=== PATIENT | male | born 1940 | race Caucasian/White ===

== ENCOUNTER 2017-11-22 17:46 | Inpatient (IN) ==
[2017-11-22] MEDS ORDERED: 0.9 % SODIUM CHLORIDE 1,000 ML IV ONE (17:57)
[2017-11-22] MEDS ORDERED: ACETAMINOPHEN 325 MG TABLET PO ONE (18:04)
[2017-11-22] MEDS ORDERED: IPRATROPIUM/ALBUTEROL 3 ML AMPUL.NEB NEB ONE (18:04)
--- NOTE | 2017-11-22 18:16 | XRay Report ---
INDICATION: Cough. Dyspnea. Wheezing. History of prostate cancer TECHNIQUE: AP chest x-ray,portable semiupright COMPARISON: Previous CT scans dated 05/15/2017 and 02/23/2016. Previous chest x-rays dated 02/17/2016 and 09/04/2013 FINDINGS:Disseminated blastic metastases involving multiple ribs, clavicles, scapula, and humerus bilaterally. These have increased since 02/17/2016 Left lung infiltrates. Filtrates are predominantly at the left lung base. Appearance is consistent with pneumonia. Follow-up radiograph recommended. Right lung is negative. No evidence for congestive heart failure. No pleural fluid IMPRESSION: 1. Left basilar infiltrates consistent with pneumonia 2. Disseminated prostatic metastases Interpreted and Authenticated by: Ludwin Mendez 11/22/17
[2017-11-22] MEDS ORDERED: PIPERACILLIN SODIUM/TAZOBACTAM 3.375 GM in DEXTROSE 5% IN WATER 50 ML IV ONE (18:44)
[2017-11-22 19:01] LABS: Mean Cell Volume 95.4 fL (80.0-100.0); Mean Corpuscular HGB Conc 34.6 g/dL (31.0-36.0); Platelet Count 251 K/mcL (140-440); RBC 3.69 M/mcL (4.50-5.90); Red Cell Distribution Width 13.6 % (11.5-14.5)
[2017-11-22 19:12] LABS: ALT/SGPT 7 U/l (0-40); Albumin 3.7 gm/dL (3.2-5.2); Albumin/Globulin Ratio 1.3 (1.0-2.3); Alkaline Phosphatase 95 U/L (39-117); Blood Urea Nitrogen 24 mg/dl (8-23)
--- NOTE | 2017-11-22 19:29 | Emergency Department Note ---
SOB HPI - General Chief Complaint: Shortness of Breath/Dyspnea Stated Complaint: SOB/fever Time Seen by Provider: 11/22/17 17:50 Source: EMS Mode of arrival: other Limitations: no limitations - History of Present Illness 77-year-old male comes into the emergency room with significant increase in his weakness, moist cough temperature 100.1, decreased appetite and hardly able to be active which is new for him. Weakness is such that he can hardly even stand. This is been going on for 2 days. He denies chills and sweats. REVIEW OF SYSTEMS: Denies chest pain or palpitations. Some cough with more wheezing recently and more phlegm some but is yellow and this is somewhat chronic. No abdominal pain. No anxiety. Some depression. - Related Data Home Medications Medication Instructions Recorded Confirmed aspirin 81 mg tablet,delayed 81 mg PO QDAY tab 03/21/15 05/09/17 release multivitamin tablet 1 tab PO QDAY tab 03/21/15 05/09/17 levetiracetam 500 mg tablet PO 90 Days #180 04/28/15 05/09/17 bicalutamide 50 mg tablet 150 mg PO QDAY 30 Days #90 tab 02/01/17 05/09/17 Previous Rx's Medication Instructions Recorded OXYGEN #1 each NS 02/23/16 food supplement, lactose-reduced 1 each PO BID #02499 ml 10/31/16 0.06 gram-1.5 kcal/mL oral liquid albuterol sulfate HFA 90 2 puff INHALATION Q4-6H PRN #18 g 05/09/17 mcg/actuation aerosol inhaler simvastatin 20 mg tablet 40 mg PO QPM #60 tab 05/09/17 tiotropium bromide 18 mcg capsule 1 cap INHALATION QDAY #30 puff 05/09/17 with inhalation device fluoxetine 20 mg tablet 40 mg PO QAM #180 tab 05/27/17 fluticasone-salmeterol 230 mcg-21 2 puff INHALATION BID #12 g 11/08/17 mcg/actuation HFA aerosol inhaler Allergies Allergy/AdvReac Type Severity Reaction Status Date / Time No Known Drug Allergies Allergy Verified 11/22/17 17:47 Past Medical History - Past Medical History Medical history: Reports: cancer (Leukemia 5-6 years.), COPD, hyperlipidemia, hypertension, myocardial infarction, other (Heart murmur.). Denies: CVA, DM Psychiatric history: Reports: depression. Denies: anxiety - Social History smoking status: Current every day smoker (4-5 6 per day) Alcohol use: Reports: None Drug use: Reports: none. Denies: marijuana Physical Exam Limitations: no limitations General appearance: alert, cachectic (Mild.), in no apparent distress Head: atraumatic, normocephalic Eye: Present: EOMI ENT: normal oropharynx, mucous membranes moist Neck: Present: trachea midline. Absent: lymphadenopathy, thyromegaly Respiratory: Present: other (Decreased breath sounds on the right. Requiring 2 L.). Absent: respiratory distress, wheezes, stridor, accessory muscle use, prolonged expiratory phase Cardiovascular: Present: regular rate, normal rhythm. Absent: systolic murmur, diastolic murmur Abdominal: Present: soft. Absent: distention, tenderness, guarding, rebound, rigidity, organomegaly, mass Extremities: Absent: pedal edema, pretibial edema, calf tenderness Back: Absent: CVA tenderness (R), CVA tenderness (L), spinous process tenderness Neurological: Present: alert, oriented X3 Psychiatric: Present: normal affect, normal mood Skin: Present: warm, dry Course Vital Signs Temperature 100.5 F H 11/22/17 17:47 Pulse Rate 91 H 11/22/17 17:47 Respiratory Rate 24 H 11/22/17 17:47 Pulse Oximetry (%) 91 11/22/17 17:47 Temperature 101.1 F H 11/22/17 19:18 Pulse Rate 87 11/22/17 19:15 Respiratory Rate 28 H 11/22/17 19:15 Blood Pressure 128/80 11/22/17 19:02 Pulse Oximetry (%) 94 11/22/17 19:15 Shortness of Breath/Dyspnea - MDM Narrative Medical decision making narrative: Moderate ill appearing gentleman. Will do aggressive workup and sepsis/Sirs workup and treatment. Is on chronic prednisone and inhalers. X-ray demonstrates bilateral pneumonia. Patient given Zosyn. Dr. Torres kindly accepting patient to a monitored bed admit here because of increased oxygen need, fever, meets criteria for SIRS. Note patient described 5-6 years of leukemia. However his chest x-ray shows metastatic prostate lesions that have actually increased. Flu test negative. - Lab Data Lab results reviewed: Yes I reviewed the patient's lab results. Result diagrams: 11/22/17 18:10 11/22/17 18:10 Lab Results 11/22/17 11/22/17 11/22/17 Range/Units 18:10 18:10 18:10 WBC 13.9 H (4.5-11.0) K/mcL RBC 3.69 L (4.50-5.90) M/mcL Hgb 12.2 L (13.5-16.5) g/dL Hct 35.2 L (41.0-55.0) % MCV 95.4 (80.0-100.0) fL MCH 33.0 (26.0-34.0) pg MCHC 34.6 (31.0-36.0) g/dL RDW 13.6 (11.5-14.5) % Plt Count 251 (140-440) K/mcL MPV 8.1 (7.4-10.4) fL Band Neutrophils % Not Reportable VBG Lactic Acid 1.1 (0.5-2.2) mmol/L Sodium 136 (133-145) mmol/L Potassium 3.8 (3.3-5.1) mmol/L Chloride 97 (96-108) mmol/L Carbon Dioxide 24 (22-30) mmol/L Anion Gap 15.0 (8-16) BUN 24 H (8-23) mg/dl Creatinine 0.7 (0.7-1.2) mg/dl GFR Calculation 91 Glucose 81 (70-105) mg/dL Calcium 8.2 L (8.6-10.4) mg/dl Total Bilirubin 1.7 H (0.0-1.0) mg/dL AST 16 (0-37) U/l ALT 7 (0-40) U/l Alkaline Phosphatase 95 (39-117) U/L Total Protein 6.5 (5.9-8.4) gm/dL Albumin 3.7 (3.2-5.2) gm/dL Globulin 2.8 (2.2-3.7) gm/dL Albumin/Globulin Ratio 1.3 (1.0-2.3) Procalcitonin (<0.10) ng/mL 11/22/17 Range/Units 18:10 WBC (4.5-11.0) K/mcL RBC (4.50-5.90) M/mcL Hgb (13.5-16.5) g/dL Hct (41.0-55.0) % MCV (80.0-100.0) fL MCH (26.0-34.0) pg MCHC (31.0-36.0) g/dL RDW (11.5-14.5) % Plt Count (140-440) K/mcL MPV (7.4-10.4) fL Band Neutrophils % VBG Lactic Acid (0.5-2.2) mmol/L Sodium (133-145) mmol/L Potassium (3.3-5.1) mmol/L Chloride (96-108) mmol/L Carbon Dioxide (22-30) mmol/L Anion Gap (8-16) BUN (8-23) mg/dl Creatinine (0.7-1.2) mg/dl GFR Calculation Glucose (70-105) mg/dL Calcium (8.6-10.4) mg/dl Total Bilirubin (0.0-1.0) mg/dL AST (0-37) U/l ALT (0-40) U/l Alkaline Phosphatase (39-117) U/L Total Protein (5.9-8.4) gm/dL Albumin (3.2-5.2) gm/dL Globulin (2.2-3.7) gm/dL Albumin/Globulin Ratio (1.0-2.3) Procalcitonin 0.56 (<0.10) ng/mL - Radiology Data Radiology results reviewed: Yes I reviewed the patient's radiology results. Disposition Pt seen by LABORATORY PHLEBOTOMIST/PA only: No Clinical Impression: Prostate cancer metastatic to bone Pneumonia Qualifiers: Pneumonia type: due to unspecified organism Laterality: left Lung location: lower lobe of lung Qualified Code(s): J18.1 - Lobar pneumonia, unspecified organism Disposition: Xfer As Inpt ([facility]) Referrals: Amberly Velasco, VAMSHI, SH[employer] MECHANIC [Primary Care Provider] -
[2017-11-22 19:51] LABS: Band Neutrophils % 4 % (0-10); Lymphocytes % 6 % (15-49); Monocytes % (Manual) 3 % (1-12); Platelet Estimate NORMAL (NORMAL); RBC Morphology NORMAL (NORMAL); Segmented Neutrophils % 87 % (38-78)
[2017-11-22] MEDS ORDERED: ACETAMINOPHEN 325 MG TABLET PO PRN (20:34)
[2017-11-22] MEDS ORDERED: oxyCODONE/APAP 5/325MG TABLET PO PRN (20:34)
[2017-11-22] MEDS ORDERED: NALOXONE HCL 0.4 MG/ML VIAL IV PRN (20:34)
[2017-11-22] MEDS ORDERED: AZITHROMYCIN 500 MG in DEXTROSE 5% IN WATER 250 ML IV ONE (20:34)
[2017-11-22] MEDS ORDERED: ONDANSETRON 4 MG/2 ML VIAL IV PRN (20:34)
[2017-11-22 20:38] LABS: Appearance,Urine CLOUDY; Bacteria,Urine FEW /hpf (0); Bilirubin,Urine NEG (NEG); Color,Urine YELLOW; Glucose,Urine (UA) NEGATIVE (NEG); Leukocyte Esterase,Urine NEG /uL (NEG); Mucus,Urine MANY /hpf (0); Protein,Urine 30 mg/dL (NEG); Specific Gravity,Urine 1.021 (1.000-1.035); Urine Blood 0.03 mg/dL (<0.03); Urine Granular Cast 17 /lpf (0); Urine RBC 6 /hpf (0-1); Urine Squamous Epithelial Cell 23 /hpf (0-4); Urine Transitional Epi Cells 1 /hpf (0-2); Urine WBC 2 /hpf (0-4)
[2017-11-22] MEDS ORDERED: predniSONE 20 MG TABLET PO ONE (20:44)
--- NOTE | 2017-11-22 21:08 | Internal Med History&Physical ---
Medical - H&P: HPI Patient information: Note initiated : 11/22/17 at 9:05 pm Service Date, if different from initiated Date: [] Patient: Orlando Valdivia Jr 77 y/o M admitted on 11/22/17 for SOB/fever. Chief Complaint: [] History of present illness: Mr. Skip Gil is a 77 year old M who lives with his at home, he has a history of emphysema and metastatic prostate cancer presents to the emergency room for not feeling well since last week. The patient notes that he has not been feeling well over the last week has had decreased appetite and decreased oral intake. He has grown progressively weak tired. He has had increased shortness of breath on exertion. The patient notes that he could walk to the mailbox and back before with a few stops but now even walking from the bed to the door makes him very tired. The patient has chronic cough with scant sputum production. He denies any hemoptysis. Over the last 2 days he is fallen twice on his buttocks, due to his severe weakness. He therefore decided to come to the emergency room for evaluation. The patient denies any head injury In the emergency room the patient was noted to be febrile with a temperature of 101.5, heart rate 90, breathing between 20-28, oxygen saturation 93 on 3 L. The patient uses oxygen at home predominantly at night. According to the last PCP note patient did not need any oxygen during the daytime. Patient had elevated WBC count at 13.9, hemoglobin 12.2 and platelets of 251. Sodium was 136 potassium 3.8 bicarbonate 24. BUN 24 creatinine 0.7. Total bilirubin was 1.7, pro calcitonin was elevated at 0.56. Urine analysis was abnormal, had some hematuria but was negative for leukocyte esterase and nitrites The chest x-ray showed left basilar pneumonia, disseminated prostatic metastasis. EKG showed sinus tachycardia, few PVC, QS pattern in V1 V2\ Given new onset pneumonia, increased oxygen requirements, fever and elevated WBC count patient was admitted to the hospital for further management Review of systems: CONSTITUTIONAL: No weight loss, admits to fever fatigue and tiredness HEENT: Eyes: No visual loss, blurred vision, double vision or yellow sclerae. Ears, Nose, Throat: No hearing loss, sneezing, congestion, runny nose or sore throat. SKIN: No rash or itching. CARDIOVASCULAR: No chest pain, chest pressure or chest discomfort. No palpitations or edema. RESPIRATORY: Patient is shortness of breath on exertion which is worse than baseline, he has chronic cough GASTROINTESTINAL: No nausea, vomiting or diarrhea or constipation. No abdominal pain or blood in stools No Rosanne. GENITOURINARY: Denies Burning on urination. Blood in urine, or foul smelling urine NEUROLOGICAL: No headache, dizziness, syncope, paralysis, tremors, numbness or tingling in the extremities. No change in bowel or bladder control. MUSCULOSKELETAL: No muscle, back pain, joint pain or stiffness. HEMATOLOGIC: No bleeding or bruising. No enlarged nodes PSYCHIATRIC: No depression or anxiety. He takes medications for same ENDOCRINOLOGIC: No reports of sweating, cold or heat intolerance. No polyuria or polydipsia. ALLERGIES: No hives, eczema or rhinitis. Skin: No rash, no jaundice, cyanosis or pallor. Medical - H&P: [facility] Medical history: Medical History (Last Reviewed 05/09/17 @ 15:44 by Amberly Velasco, VAMSHI, [employer]TER) Seizure (Chronic) Prostate cancer metastatic to bone (Chronic) Fracture of right tibial plateau (Acute) Internal derangement of right knee (Acute) Elevated Prostate Specific Antigen (PSA) (Chronic) Syncope, near (Resolved) Sprain of shoulder and upper arm (Resolved) Congenital shortening tendon (Chronic) Mitral valve prolapse (Chronic) Mitral regurgitation (Chronic) Mass of soft tissue (Chronic) Hemorrhoids (Chronic) Diverticulosis of colon (Chronic) Cognitive decline (Chronic) Cervical spondylosis with myelopathy (Chronic) Cervical spinal stenosis (Chronic) Carotid stenosis (Resolved) Carotid artery occlusion (Resolved) TIA (transient ischemic attack) (Chronic) Tobacco abuse (Chronic) Heart murmur, systolic (Chronic) Hypertension, essential, benign (Chronic) Hyperlipidemia (Chronic) Erectile dysfunction (Chronic) Depression (Chronic) COPD (chronic obstructive pulmonary disease) (Chronic) CVA (cerebrovascular accident) (Chronic) Surgical history: Past Surgical History (Last Reviewed 05/09/17 @ 15:44 by Amberly Velasco, VAMSHI, [employer]TER) History of tonsillectomy (Resolved) S/P skin biopsy (Resolved) History of neck surgery (Resolved) History of intraocular lens implant (Resolved) History of colonoscopy (Resolved) History of cataract surgery (Resolved) History of appendectomy (Resolved) History of adenoidectomy (Resolved) Pertinent family history: Family History (Last Reviewed 05/09/17 @ 15:44 by Amberly Velasco, DNP, [employer]TER) No family history of respiratory disease No problems noted. No family history of breast disease No problems noted. No family history of cardiovascular disease No problems noted. No family history of endocrine disease No problems noted. No family history of gastrointestinal disease No problems noted. No family history of neurologic disease No problems noted. Father Bipolar affective disorder Senile dementia Malignant neoplasm of esophagus, Onset Age: 90 Parkinson's Disease Schizophrenia Mother Cardiac disease Family history of rheumatic heart disease Sister Family history of kidney stones Medical - H&P: Meds Home Medications Medication Instructions Recorded Confirmed Type aspirin 81 mg tablet,delayed 81 mg PO QDAY tab 03/21/15 11/22/17 History release multivitamin tablet 1 tab PO QDAY tab 03/21/15 11/22/17 History levetiracetam 500 mg tablet 500 mg PO BID 90 Days #180 04/28/15 05/09/17 History OXYGEN #1 each NS 02/23/16 05/09/17 Rx food supplement, lactose-reduced 1 each PO BID #20138 ml 10/31/16 05/09/17 Rx 0.06 gram-1.5 kcal/mL oral liquid bicalutamide 50 mg tablet 150 mg PO QDAY 30 Days #90 tab 02/01/17 11/22/17 History albuterol sulfate HFA 90 2 puff INHALATION Q4-6H PRN #18 g 05/09/17 11/22/17 Rx mcg/actuation aerosol inhaler simvastatin 20 mg tablet 40 mg PO QPM #60 tab 05/09/17 11/22/17 Rx tiotropium bromide 18 mcg capsule 1 cap INHALATION QDAY #30 puff 05/09/17 Rx with inhalation device fluticasone-salmeterol 230 mcg-21 2 puff INHALATION BID #12 g 11/08/17 Rx mcg/actuation HFA aerosol inhaler Calcium Carbonate/Vitamin D3 1 tablet PO DAILY 11/22/17 11/22/17 History [Calcium 600 + Vit D Tablet] Cyanocobalamin (Vitamin B-12) 5,000 mcg PO DAILY 11/22/17 11/22/17 History [Vitamin B12] FLUoxetine HCL [Sarafem] 20 mg PO 08,12 11/22/17 11/22/17 History Mometasone/Formoterol [Dulera 200 2 puff IH BID 11/22/17 11/22/17 History Mcg/5 Mcg Inhaler] Prochlorperazine Maleate 10 mg PO Q6HP PRN 11/22/17 11/22/17 History [Compazine] Vitamin D3 1,000 unit PO DAILY 11/22/17 11/22/17 History predniSONE [Prednisone] 5 mg PO BID 11/22/17 11/22/17 History Allergies Allergy/AdvReac Type Severity Reaction Status Date / Time No Known Drug Allergies Allergy Verified 11/22/17 17:47 Medical - H&P: Exam - Constitutional Vitals: Temp Pulse Resp BP Pulse Ox 101.1 F H 85 20 110/77 95 11/22/17 19:18 11/22/17 20:16 11/22/17 20:16 11/22/17 20:16 11/22/17 20:16 Exam: GENERAL: The patient is a well-developed, well-nourished in no apparent distress. Is alert and oriented x3. Thin individual VITAL SIGNS: Reviewed and as noted elsewhere. HEENT: Head is normocephalic and atraumatic. Extraocular muscles are intact. Pupils are equal, round, and reactive to light. Nares appeared normal. Mouth appears any without lesions. Mucous membranes are dry NECK: Normal to inspection, Supple, No lymphadenopathy or thyromegaly. LUNGS: Air entry equal on both sides, air entry is decreased bilaterally, there are no crackles no rails, patient has no wheezing on exam, able to speak full sentences no accessory muscle use HEART: Regular rate and rhythm normal, S1 and S2 heard, no Gallop, S3 or Rub Noted, systolic murmur in the mitral region grade 4 x 6 ABDOMEN: Soft, nontender, and nondistended. Positive bowel sounds. No hepatosplenomegaly was noted. Few subcutaneous nodules EXTREMITIES: No cyanosis, clubbing, rash, lesions or edema. NEUROLOGIC: Cranial nerves II through XII are grossly intact. Motor and Sensory System Grossly Intact PSYCHIATRIC: Flat affect, normal Mood. Appropriate Behavior. SKIN: No ulceration or wounds noted, No jaundice, No rash noted. Medical - H&P: Reslt - Labs CBC & Chem 7: 11/22/17 18:10 11/22/17 18:10 Labs: Short CBC 11/22/17 Range/Units 18:10 WBC 13.9 H (4.5-11.0) K/mcL Hgb 12.2 L (13.5-16.5) g/dL Hct 35.2 L (41.0-55.0) % Plt Count 251 (140-440) K/mcL BMP 11/22/17 18:10 Sodium 136 Potassium 3.8 Chloride 97 Carbon Dioxide 24 BUN 24 H Creatinine 0.7 Glucose 81 Calcium 8.2 L Liver Function 11/22/17 Range/Units 18:10 Total Bilirubin 1.7 H (0.0-1.0) mg/dL AST 16 (0-37) U/l ALT 7 (0-40) U/l Alkaline Phosphatase 95 (39-117) U/L Albumin 3.7 (3.2-5.2) gm/dL Urine 11/22/17 Range/Units 20:03 Urine Color Yellow Urine Appearance Cloudy Urine pH 7.0 (5.0-9.0) Ur Specific [place] 1.021 (1.000-1.035) Urine Protein 30 A (NEG) mg/dL Urine Glucose (UA) Negative (NEG) mg/dL Medical - H&P: A/P - Narrative A/P Narrative: A/P Acute on chronic Hypoxic Respiratory Failure Left Lobar Pneumonia Acute exacerbation of COPD Metastatic Prostate Cancer Malnutrition/secondary to emphysema, metatstatic prostate cancer. Sepsis h/o CVA Hypertension Plan Admit to tele Oxygen to keep oxygen sat > 90 BP normal, normal lactic acid IV fluids, IV antibiotics for pna, IV ceftazidime and zithromax, (pt has risk factors for pseudomonas) Monitor bp, hold home bp meds for now resume other home medications as appropriate Duonebs q4hrs, Prednisone 40mg for 5 days, then resume home dose of 5mg bid, consider longer taper if needed. continue asa and statin DVT Hep sq Regular Diet Full Code. Social History - Social History household members: spouse housing: house marital status: occupational status: retired - Dietary Habits well-balanced diet: rarely or never during the past year weight has: decreased > 10 lbs - Exercise physical activity: walking - Tobacco smoking status: Current every day smoker (4-5 6 per day) quit status: not considering quitting counseling given: patient declined - Tobacco Type tobacco type: cigarettes - Cigarette Details per day: 4 pack-years: 50 - Alcohol alcohol intake frequency: former alcohol drinker - Substance use substance use type: does not use - Mary/Synagogue mary/yazidism: Jew - Home Safety working smoke detector in home: Yes - Personal Safety victim of physical abuse: No victim of emotional abuse: No victim of sexual abuse: No
[2017-11-22] MEDS: 0.9 % SODIUM CHLORIDE 1,000 ML IV SCH (21:28)
[2017-11-22] MEDS: cefTAZidime 1 GM VIAL IV SCH (21:52)
[2017-11-22] MEDS: HEPARIN 5,000 UNIT/ML VIAL SQ SCH (21:53)
[2017-11-22] MEDS: FAMOTIDINE 20 MG TABLET PO SCH (21:53)
[2017-11-22] MEDS: 0.9 % SODIUM CHLORIDE 10 ML SYRINGE IV SCH (23:03)
[2017-11-22] MEDS: IPRATROPIUM/ALBUTEROL 3 ML AMPUL.NEB NEB SCH (23:20)
[2017-11-23] MEDS ORDERED: PIPERACILLIN SODIUM/TAZOBACTAM 3.375 GM in DEXTROSE 5% IN WATER 50 ML IV SCH
[2017-11-23] MEDS: IPRATROPIUM/ALBUTEROL 3 ML AMPUL.NEB NEB SCH ×6 (02:43→23:02)
[2017-11-23] MEDS: cefTAZidime 1 GM VIAL IV SCH ×3 (05:22→21:12)
[2017-11-23] MEDS: 0.9 % SODIUM CHLORIDE 10 ML SYRINGE IV SCH ×4 (05:22→21:14)
[2017-11-23 06:02] LABS: Basophils # (Auto) 0 K/mcL (0.0-0.3); Basophils % (Auto) 0.1 % (0.0-2.0); Eosinophils # (Auto) 0.4 K/mcL (0.0-0.7); Eosinophils % (Auto) 3.2 % (0.0-7.0); Granulocytes % (Auto) 90.9 % (38.0-78.0); Lymphocytes # (Auto) 0.3 K/mcL (1.5-4.8); Lymphocytes % (Auto) 2.2 % (15.5-49.0); Mean Cell Volume 95.8 fL (80.0-100.0); Mean Corpuscular HGB Conc 34.2 g/dL (31.0-36.0); Mean Corpuscular Hemoglobin 32.7 pg (26.0-34.0); Monocytes # (Auto) 0.5 K/mcL (0.1-0.9); Monocytes % (Auto) 3.6 % (1.0-12.0); Platelet Count 205 K/mcL (140-440); RBC 3.37 M/mcL (4.50-5.90); Red Cell Distribution Width 13.7 % (11.5-14.5)
--- NOTE | 2017-11-23 06:37 | XRay Report ---
CLINICAL INFORMATION: Fall. Bilateral hip pain. Prostate cancer TECHNIQUE: AP pelvis. AP and lateral bilateral hips COMPARISON: None. FINDINGS: Disseminated blastic metastases consistent with known metastatic prostate cancer. No pelvic fracture. Sacrum is suboptimally visualized but no definite sacral fracture identified. Hips are negative. No fracture or dislocation. No evidence for avascular necrosis. Lower lumbar vertebral bodies are very sclerotic due to metastases. IMPRESSION: 1. Disseminated prostate cancer with multiple sclerotic metastases 2. No acute fracture Interpreted and Authenticated by: Ludwin Mendez 11/23/17
[2017-11-23 07:08] LABS: ALT/SGPT 7 U/l (0-40); Albumin 3.4 gm/dL (3.2-5.2); Albumin/Globulin Ratio 1.4 (1.0-2.3); Alkaline Phosphatase 84 U/L (39-117); Bilirubin,Direct 0.3 mg/dL (0.0-0.3); Blood Urea Nitrogen 22 mg/dl (8-23); Gamma Glutamyl Transpeptidase 10 U/L (8-61); Uric Acid 2.6 mg/dL (2.5-8.0)
[2017-11-23] MEDS: 0.9 % SODIUM CHLORIDE 1,000 ML IV SCH (07:09)
[2017-11-23] MEDS ORDERED: POTASSIUM CHLORIDE 20 MEQ PACKET PO ONE (08:30)
[2017-11-23] MEDS: FAMOTIDINE 20 MG TABLET PO SCH ×2 (09:45→21:13)
[2017-11-23] MEDS: HEPARIN 5,000 UNIT/ML VIAL SQ SCH ×2 (09:45→21:13)
[2017-11-23] MEDS ORDERED: predniSONE 20 MG TABLET PO SCH ×2 (12:00→13:00)
--- NOTE | 2017-11-23 12:03 | Internal Med Progress Note ---
Medical - PN: Subj Patient information: Note initiated : 11/23/17 at 11:59 am Service Date, if different from initiated Date: [] Patient: Orlando Valdivia Jr 77 y/o M admitted on 11/22/17 for SOB/fever. Chief Complaint: [] Interval history: Mr. Skip Gil is a 77 year old M who lives with his at home, he has a history of emphysema and metastatic prostate cancer presents to the emergency room for not feeling well since last week. The patient notes that he has not been feeling well over the last week has had decreased appetite and decreased oral intake. He has grown progressively weak tired. He has had increased shortness of breath on exertion. The patient notes that he could walk to the mailbox and back before with a few stops but now even walking from the bed to the door makes him very tired. The patient has chronic cough with scant sputum production. He denies any hemoptysis. Over the last 2 days he is fallen twice on his buttocks, due to his severe weakness. He therefore decided to come to the emergency room for evaluation. The patient denies any head injury In the emergency room the patient was noted to be febrile with a temperature of 101.5, heart rate 90, breathing between 20-28, oxygen saturation 93 on 3 L. The patient uses oxygen at home predominantly at night. According to the last PCP note patient did not need any oxygen during the daytime. Patient had elevated WBC count at 13.9, hemoglobin 12.2 and platelets of 251. Sodium was 136 potassium 3.8 bicarbonate 24. BUN 24 creatinine 0.7. Total bilirubin was 1.7, pro calcitonin was elevated at 0.56. Urine analysis was abnormal, had some hematuria but was negative for leukocyte esterase and nitrites The chest x-ray showed left basilar pneumonia, disseminated prostatic metastasis. EKG showed sinus tachycardia, few PVC, QS pattern in V1 V2\ Given new onset pneumonia, increased oxygen requirements, fever and elevated WBC count patient was admitted to the hospital for further management November 23 She is seen and examined, no acute overnight events, patient is on 1 L of oxygen now doing well since last night. Patient does not have any wheezing, WBC count is trending down. Potassium was 3.5, total bili 1.5. Patient tolerating p.o. diet well. Okay to transfer to [facility], continue IV antibiotics await cultures Pertinent ROS: Denies headache, dizziness Denies chest pain, palpitations Denies cough or shortness of breath Denies abdominal pain, nausea or vomiting. - Constitutional Vitals: Vital Signs Temp Pulse Resp BP Pulse Ox 100.5 F H 80 20 125/69 95 11/23/17 10:46 11/23/17 11:00 11/23/17 11:00 11/23/17 07:42 11/23/17 10:26 Period Temp Pulse Resp BP Sys/Romo Pulse Ox Last 24 Hr 98.3 F-101.4 F 37-96 10-28 107-150/59-129 83-100 Intake and Output 11/22/17 11/23/17 11/23/17 21:59 05:59 13:59 Intake Total 1050 / 1050 250 / 250 1307 / 1307 Output Total 350 / 350 375 / 375 Balance 1050 / 1050 -100 / -100 932 / 932 Weight 112 lb 14.027 oz Intake & Output: Intake & Output 11/22/17 11/23/17 11/23/17 21:59 05:59 13:59 Intake Total 1050 / 1050 250 / 250 1307 / 1307 Output Total 350 / 350 375 / 375 Balance 1050 / 1050 -100 / -100 932 / 932 Weight 112 lb 14.027 oz Intake: IV 1050 / 1050 250 / 250 967 / 967 Sodium Chloride 0.9% 1,000 ml @ 1000 / 1000 967 / 967 100 mls/hr IV .Q10H [facility] Rx#: [id number] Zosyn 3.375 gm In Dextrose 5% 50 / 50 in Water 50 ml @ 100 mls/hr IV ONCE ONE Rx#:[id number] Oral 340 / 340 Output: Void Amount 350 / 350 375 / 375 Other: Meal Breakfast Percent of Meal Consumed 100% Feeding Ability Independent # Voids 2 1 Medical - PN: Obj Da - Labs CBC & Chem 7: 11/23/17 03:30 11/23/17 03:30 Labs: Abnormal Lab Results 11/23/17 11/23/17 11/22/17 03:30 03:30 20:03 WBC 12.7 H RBC 3.37 L Hgb 11.0 L Hct 32.3 L Gran % 90.9 H Lymph % (Auto) 2.2 L Gran # 11.5 H Lymph # (Auto) 0.3 L Seg Neutrophils % Lymphocytes % Carbon Dioxide 20 L Anion Gap 17.0 H BUN Calcium 7.6 L Phosphorus 2.6 L Total Bilirubin 1.5 H Urine Protein 30 A Urine Ketones 20 A Urine Occult Blood 0.03 A Urine Urobilinogen 4.0 A Urine RBC 6 H Ur Squamous Epith Cells 23 H Urine Bacteria Few A Granular Casts 17 H Urine Mucus Many A 11/22/17 11/22/17 18:10 18:10 WBC 13.9 H RBC 3.69 L Hgb 12.2 L Hct 35.2 L Gran % Lymph % (Auto) Gran # Lymph # (Auto) Seg Neutrophils % 87 H Lymphocytes % 6 L Carbon Dioxide Anion Gap BUN 24 H Calcium 8.2 L Phosphorus Total Bilirubin 1.7 H Urine Protein Urine Ketones Urine Occult Blood Urine Urobilinogen Urine RBC Ur Squamous Epith Cells Urine Bacteria Granular Casts Urine Mucus Meds: Medications Acetaminophen (Tylenol) 650 mg PO Q6HP PRN PRN Reason: PAIN/FEVER > 101 Last Admin: 11/23/17 10:01 Dose: 650 mg Albuterol/Ipratropium (Duoneb) 3 ml NEB Q4HRT [facility] Last Admin: 11/23/17 11:00 Dose: 3 ml Ceftazidime (Fortaz) 1 gm IV Q8H [facility] Last Admin: 11/23/17 05:22 Dose: 1 gm Famotidine (Pepcid) 20 mg PO BID [facility] Last Admin: 11/23/17 09:45 Dose: 20 mg Heparin Sodium (Porcine) (Heparin) 5,000 unit SQ Q12 [facility] Last Admin: 11/23/17 09:45 Dose: 5,000 unit Azithromycin 250 mg/ Dextrose 250 mls @ 250 mls/hr IV DAILY [facility] Stop: 11/26/17 09:59 Sodium Chloride (Sodium Chloride 0.9%) 1,000 mls @ 100 mls/hr IV .Q10H [facility] Stop: 11/23/17 16:33 Last Admin: 11/23/17 07:09 Dose: 100 mls/hr Naloxone HCl (Narcan) 0.1 mg IV Q2MIN PRN PRN Reason: Opiate Reversal Ondansetron HCl (Zofran) 4 mg IV Q4HP PRN PRN Reason: Nausea And Vomiting Oxycodone/Acetaminophen (Percocet 5-325 Mg) 1 tab PO Q4HP PRN PRN Reason: PAIN LEVEL 3-6 Pneumococcal Polyvalent Vaccine (Pneumovax 23) 0.5 ml IM .ONCE ONE Stop: 11/24/17 10:01 Prednisone (Prednisone) 40 mg PO [facility] Stop: 11/28/17 07:59 Sodium Chloride (Saline Flush) 10 ml IV Q8 [facility] Last Admin: 11/23/17 07:37 Dose: 10 ml Medical - PN: A/P - Time Spent With Patient Total time spent is greater than 50% in coordination of care (as documented) at patient's floor/unit and/or counseling patient: - Narrative A/P Narrative: A/P Acute on chronic Hypoxic Respiratory Failure Left Lobar Pneumonia Acute exacerbation of COPD Metastatic Prostate Cancer Malnutrition/secondary to emphysema, metatstatic prostate cancer. Sepsis h/o CVA Hypertension Plan Xfer to med surg Oxygen to keep oxygen sat > 90, on 1L oxygen now, BP is stable, wbc is trending down, continue IV fluids, IV antibiotics for pna, IV ceftazidime and zithromax, (pt has risk factors for pseudomonas), await culture results resume home meds, bp is stable, Duonebs q4hrs, Prednisone 40mg for 5 days, then resume home dose of 5mg bid, consider longer taper if needed. continue asa and statin DVT Hep sq Regular Diet Full Code. Medical - PN: Qual - Stroke Symptom Onset Unknown: No - VTE Deep Vein Thrombosis/Pulmonary Embolism Present on Admission: No
[2017-11-23] MEDS ORDERED: PROCHLORPERAZINE MALEATE 10 MG TABLET PO PRN (12:59)
[2017-11-23] MEDS ORDERED: ONDANSETRON 4 MG/2 ML VIAL IV PRN (12:59)
[2017-11-23] MEDS ORDERED: NALOXONE HCL 0.4 MG/ML VIAL IV PRN (12:59)
[2017-11-23] MEDS ORDERED: oxyCODONE/APAP 5/325MG TABLET PO PRN (12:59)
[2017-11-23] MEDS ORDERED: 0.9 % SODIUM CHLORIDE 1,000 ML IV SCH (12:59)
[2017-11-23] MEDS ORDERED: ACETAMINOPHEN 325 MG TABLET PO PRN (12:59)
[2017-11-23] MEDS ORDERED: AZITHROMYCIN 250 MG in DEXTROSE 5% IN WATER 250 ML IV SCH (14:00)
[2017-11-23] MEDS: AZITHROMYCIN 250 MG in DEXTROSE 5% IN WATER 250 ML IV SCH (14:09)
[2017-11-23] MEDS: Mometasone/Formoterol [Dulera 200 Mcg/5 Mcg Inhaler] INH SCH (20:55)
[2017-11-23] MEDS: levETIRAcetam 500 MG TABLET PO SCH (21:13)
[2017-11-23] MEDS: Fluticasone/Salmeterol [Advair Hfa 230-21 Mcg Inhaler] INH SCH (21:14)
[2017-11-23] MEDS: SIMVASTATIN 20 MG TABLET PO SCH (21:17)
[2017-11-24] MEDS: IPRATROPIUM/ALBUTEROL 3 ML AMPUL.NEB NEB SCH ×6 (04:37→23:14)
[2017-11-24] MEDS: cefTAZidime 1 GM VIAL IV SCH ×3 (05:26→21:56)
[2017-11-24] MEDS: 0.9 % SODIUM CHLORIDE 10 ML SYRINGE IV SCH ×3 (05:26→21:56)
[2017-11-24 06:02] LABS: Basophils # (Auto) 0 K/mcL (0.0-0.3); Basophils % (Auto) 0 % (0.0-2.0); Eosinophils # (Auto) 0.4 K/mcL (0.0-0.7); Granulocytes % (Auto) 88.7 % (38.0-78.0); Lymphocytes # (Auto) 0.3 K/mcL (1.5-4.8); Lymphocytes % (Auto) 2.9 % (15.5-49.0); Mean Cell Volume 95.8 fL (80.0-100.0); Mean Corpuscular HGB Conc 33.9 g/dL (31.0-36.0); Mean Corpuscular Hemoglobin 32.5 pg (26.0-34.0); Monocytes # (Auto) 0.4 K/mcL (0.1-0.9); Monocytes % (Auto) 4.4 % (1.0-12.0); Platelet Count 239 K/mcL (140-440); RBC 2.98 M/mcL (4.50-5.90); Red Cell Distribution Width 13.7 % (11.5-14.5)
[2017-11-24 06:25] LABS: ALT/SGPT 8 U/l (0-40); Albumin 2.7 gm/dL (3.2-5.2); Alkaline Phosphatase 77 U/L (39-117); Bilirubin,Direct < 0.2 mg/dL (0.0-0.3); Blood Urea Nitrogen 23 mg/dl (8-23); Gamma Glutamyl Transpeptidase 8 U/L (8-61); Uric Acid 2.7 mg/dL (2.5-8.0)
[2017-11-24] MEDS: Mometasone/Formoterol [Dulera 200 Mcg/5 Mcg Inhaler] INH SCH ×2 (07:54→21:57)
[2017-11-24] MEDS: TIOTROPIUM BROMIDE 18 MCG INHALANT INH SCH (07:54)
[2017-11-24] MEDS ORDERED: POTASSIUM PHOSPHATE 40 MEQ in DEXTROSE 5% IN WATER 500 ML IV ONE (08:30)
[2017-11-24] MEDS: BICALUTAMIDE 50 MG TABLET PO SCH (09:22)
[2017-11-24] MEDS: CYANOCOBALAMIN (VITAMIN B-12) 500 MCG TABLET PO SCH (09:22)
[2017-11-24] MEDS: MULTIVIT,THER IRON,CA,FA & MIN 1 TABLET PO SCH (09:22)
[2017-11-24] MEDS: CALCIUM W/VIT D3 500 MG TABLET PO SCH (09:22)
[2017-11-24] MEDS: levETIRAcetam 500 MG TABLET PO SCH ×2 (09:22→21:57)
[2017-11-24] MEDS: FAMOTIDINE 20 MG TABLET PO SCH ×2 (09:22→21:57)
[2017-11-24] MEDS: ASPIRIN 81 MG TAB.CHEW PO SCH (09:22)
[2017-11-24] MEDS: AZITHROMYCIN 250 MG in DEXTROSE 5% IN WATER 250 ML IV SCH (09:22)
[2017-11-24] MEDS: VITAMIN D3 1,000 UNIT TABLET PO SCH (09:22)
[2017-11-24] MEDS: FLUoxetine HCL 20 MG CAPSULE PO SCH ×2 (09:22→12:07)
[2017-11-24] MEDS: predniSONE 20 MG TABLET PO SCH (09:22)
[2017-11-24] MEDS: Fluticasone/Salmeterol [Advair Hfa 230-21 Mcg Inhaler] INH SCH ×2 (09:23→21:57)
[2017-11-24] MEDS: HEPARIN 5,000 UNIT/ML VIAL SQ SCH ×2 (09:23→21:57)
[2017-11-24] MEDS ORDERED: PNEUMOCOCCAL 23-VAL P-SAC VAC 0.5 ML VIAL IM ONE (10:00)
[2017-11-24] MEDS ORDERED: FLU VACC QS2017-18 36MOS UP/PF 60 MCG/0.5 ML SYRINGE IM ONE (10:15)
--- NOTE | 2017-11-24 11:55 | Internal Med Progress Note ---
Medical - PN: Subj Patient information: Note initiated : 11/24/17 at 11:53 am Service Date, if different from initiated Date: [] Patient: Orlando Valdivia Jr 77 y/o M admitted on 11/22/17 for SOB/fever. Chief Complaint: [] Interval history: Mr. Skip Gil is a 77 year old M who lives with his at home, he has a history of emphysema and metastatic prostate cancer presents to the emergency room for not feeling well since last week. The patient notes that he has not been feeling well over the last week has had decreased appetite and decreased oral intake. He has grown progressively weak tired. He has had increased shortness of breath on exertion. The patient notes that he could walk to the mailbox and back before with a few stops but now even walking from the bed to the door makes him very tired. The patient has chronic cough with scant sputum production. He denies any hemoptysis. Over the last 2 days he is fallen twice on his buttocks, due to his severe weakness. He therefore decided to come to the emergency room for evaluation. The patient denies any head injury In the emergency room the patient was noted to be febrile with a temperature of 101.5, heart rate 90, breathing between 20-28, oxygen saturation 93 on 3 L. The patient uses oxygen at home predominantly at night. According to the last PCP note patient did not need any oxygen during the daytime. Patient had elevated WBC count at 13.9, hemoglobin 12.2 and platelets of 251. Sodium was 136 potassium 3.8 bicarbonate 24. BUN 24 creatinine 0.7. Total bilirubin was 1.7, pro calcitonin was elevated at 0.56. Urine analysis was abnormal, had some hematuria but was negative for leukocyte esterase and nitrites The chest x-ray showed left basilar pneumonia, disseminated prostatic metastasis. EKG showed sinus tachycardia, few PVC, QS pattern in V1 V2\ Given new onset pneumonia, increased oxygen requirements, fever and elevated WBC count patient was admitted to the hospital for further management November 23 She is seen and examined, no acute overnight events, patient is on 1 L of oxygen now doing well since last night. Patient does not have any wheezing, WBC count is trending down. Potassium was 3.5, total bili 1.5. Patient tolerating p.o. diet well. Okay to transfer to [facility] status, continue IV antibiotics await cultures november 24 Patient seen and examined, no acute overnight events, still requiring 1-2 L oxygen during the daytime. The patient uses oxygen at night and as needed during the day according to him. He feels much better he is able to tolerate p.o. diet very well labs are stable. Plan continue IV antibiotics wean off oxygen as tolerated get chest x-ray in the morning consider discharge at home tomorrow. Patient's is admitted to the hospital in the ICU at present Replace low potassium and phosphate Pertinent ROS: Denies headache, dizziness Denies chest pain, palpitations Denies cough or shortness of breath Denies abdominal pain, nausea or vomiting. - Constitutional Vitals: Vital Signs Temp Pulse Resp BP Pulse Ox 97.4 F 72 16 133/77 96 11/24/17 06:31 11/24/17 11:41 11/24/17 11:41 11/24/17 06:31 11/24/17 06:31 Period Temp Pulse Resp BP Sys/Romo Pulse Ox Last 24 Hr 97.4 F-99.8 F 70-84 14-18 108-133/65-77 93-96 Intake and Output 11/23/17 11/24/17 11/24/17 21:59 05:59 13:59 Intake Total 1590 / 1590 400 / 400 Output Total 200 / 200 200 / 200 Balance 1390 / 1390 200 / 200 Weight 116 lb Intake & Output: Intake & Output 11/23/17 11/24/17 11/24/17 21:59 05:59 13:59 Intake Total 1590 / 1590 400 / 400 Output Total 200 / 200 200 / 200 Balance 1390 / 1390 200 / 200 Weight 116 lb Intake: IV 1250 / 1250 Zithromax 250 mg In Dextrose 5% 250 / 250 in Water 250 ml @ 250 mls/hr IV DAILY [facility] Rx#:[id number] Oral 340 / 340 400 / 400 Output: Void Amount 200 / 200 200 / 200 Other: Meal Dinner Percent of Meal Consumed 100% # Voids 1 Exam: Constitutional; Afebrile, cooperative, alert, not in distress. Eyes- No icterus, , No periorbital swelling Ears- Ext ear normal, Neck- Midline trachea, supple Respiratory system: Air Entry equal on both sides, No crackles or wheezing, no rhonchi. CVS- Rate rhythm regular, S1,S2 heard, no gallop, no rub. 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 Medical - PN: Obj Da - Labs CBC & Chem 7: 11/24/17 04:30 11/24/17 04:30 Labs: Abnormal Lab Results 11/24/17 11/24/17 11/23/17 04:30 04:30 03:30 WBC RBC 2.98 L Hgb 9.7 L Hct 28.5 L Gran % 88.7 H Lymph % (Auto) 2.9 L Gran # 8.1 H Lymph # (Auto) 0.3 L Seg Neutrophils % Lymphocytes % Carbon Dioxide 20 L Anion Gap 17.0 H BUN Creatinine 0.6 L Glucose 115 H Calcium 7.2 L 7.6 L Phosphorus 1.7 L 2.6 L Total Bilirubin 1.5 H Total Protein 5.4 L Albumin 2.7 L Urine Protein Urine Ketones Urine Occult Blood Urine Urobilinogen Urine RBC Ur Squamous Epith Cells Urine Bacteria Granular Casts Urine Mucus 11/23/17 11/22/17 11/22/17 03:30 20:03 18:10 WBC 12.7 H 13.9 H RBC 3.37 L 3.69 L Hgb 11.0 L 12.2 L Hct 32.3 L 35.2 L Gran % 90.9 H Lymph % (Auto) 2.2 L Gran # 11.5 H Lymph # (Auto) 0.3 L Seg Neutrophils % 87 H Lymphocytes % 6 L Carbon Dioxide Anion Gap BUN Creatinine Glucose Calcium Phosphorus Total Bilirubin Total Protein Albumin Urine Protein 30 A Urine Ketones 20 A Urine Occult Blood 0.03 A Urine Urobilinogen 4.0 A Urine RBC 6 H Ur Squamous Epith Cells 23 H Urine Bacteria Few A Granular Casts 17 H Urine Mucus Many A 11/22/17 18:10 WBC RBC Hgb Hct Gran % Lymph % (Auto) Gran # Lymph # (Auto) Seg Neutrophils % Lymphocytes % Carbon Dioxide Anion Gap BUN 24 H Creatinine Glucose Calcium 8.2 L Phosphorus Total Bilirubin 1.7 H Total Protein Albumin Urine Protein Urine Ketones Urine Occult Blood Urine Urobilinogen Urine RBC Ur Squamous Epith Cells Urine Bacteria Granular Casts Urine Mucus Meds: Medications Acetaminophen (Tylenol) 650 mg PO Q6HP PRN PRN Reason: PAIN/FEVER > 101 Albuterol/Ipratropium (Duoneb) 3 ml NEB Q4HRT [facility] Last Admin: 11/24/17 11:41 Dose: 3 ml Aspirin (Aspirin) 81 mg PO DAILY [facility] Last Admin: 11/24/17 09:22 Dose: 81 mg Bicalutamide (Casodex) 150 mg PO QDAY [facility] Last Admin: 11/24/17 09:22 Dose: 150 mg Calcium/Vitamin D (Calcium W/Vit D3) 500 mg PO DAILY [facility] Last Admin: 11/24/17 09:22 Dose: 500 mg Ceftazidime (Fortaz) 1 gm IV Q8H [facility] Last Admin: 11/24/17 05:26 Dose: 1 gm Cyanocobalamin (Vitamin B-12) 5,000 mcg PO DAILY [facility] Last Admin: 11/24/17 09:22 Dose: 5,000 mcg Famotidine (Pepcid) 20 mg PO BID [facility] Last Admin: 11/24/17 09:22 Dose: 20 mg Fluoxetine HCl (Prozac) 20 mg PO BID@0800,1200 [facility] Last Admin: 11/24/17 09:22 Dose: 20 mg Heparin Sodium (Porcine) (Heparin) 5,000 unit SQ Q12 [facility] Last Admin: 11/24/17 09:23 Dose: 5,000 unit Azithromycin 250 mg/ Dextrose 250 mls @ 250 mls/hr IV DAILY [facility] Stop: 11/26/17 09:59 Last Admin: 11/24/17 09:22 Dose: 250 mls/hr Potassium Phosphate 40 meq/ (Dextrose) 509.0909 mls @ 127.273 mls/hr IV ONCE ONE Stop: 11/24/17 12:29 Last Admin: 11/24/17 09:21 Dose: 127.273 mls/hr Iron Carb/Multivit/Randolph/Folic Acid (Multivitamin W/Minerals) 1 tab PO DAILY [facility] Last Admin: 11/24/17 09:22 Dose: 1 tab Levetiracetam (Keppra) 500 mg PO BID [facility] Last Admin: 11/24/17 09:22 Dose: 500 mg Naloxone HCl (Narcan) 0.1 mg IV Q2MIN PRN PRN Reason: Opiate Reversal Ondansetron HCl (Zofran) 4 mg IV Q4HP PRN PRN Reason: Nausea And Vomiting Oxycodone/Acetaminophen (Percocet 5-325 Mg) 1 tab PO Q4HP PRN PRN Reason: PAIN LEVEL 3-6 Fluticasone/Salmeterol [Advair Hfa 230-21 Mcg Inhaler] 2 dose INH BID [facility] Last Admin: 11/24/17 09:23 Dose: Not Given Mometasone/Formoterol [Dulera 200 Mcg/5 Mcg Inhaler] 2 dose INH BID [facility] Last Admin: 11/24/17 07:54 Dose: 2 dose Prednisone (Prednisone) 40 mg PO [facility] Stop: 11/28/17 07:59 Last Admin: 11/24/17 09:22 Dose: 40 mg Prochlorperazine Maleate (Compazine) 10 mg PO Q6HP PRN PRN Reason: Nausea Simvastatin (Zocor) 40 mg PO QPM [facility] Last Admin: 11/23/17 21:17 Dose: 40 mg Sodium Chloride (Saline Flush) 10 ml IV Q8 [facility] Last Admin: 11/24/17 05:26 Dose: 10 ml Tiotropium Maynard (Spiriva) 18 mcg INH QDAY [facility] Last Admin: 11/24/17 07:54 Dose: 18 mcg Vitamin D (Vitamin D3) 1,000 unit PO DAILY [facility] Last Admin: 11/24/17 09:22 Dose: 1,000 unit Medical - PN: A/P - Time Spent With Patient Total time spent is greater than 50% in coordination of care (as documented) at patient's floor/unit and/or counseling patient: - Narrative A/P Narrative: A/P Acute on chronic Hypoxic Respiratory Failure Left Lobar Pneumonia Acute exacerbation of COPD Metastatic Prostate Cancer Malnutrition/secondary to emphysema, metastatic prostate cancer. Sepsis h/o CVA Hypertension Plan Continue to monitor Oxygen to keep oxygen sat > 90, on 1-2L oxygen now, BP is stable, wbc is trending down, continue IV fluids, IV antibiotics for pna, IV ceftazidime and zithromax, (pt has risk factors for pseudomonas), cultures negative growth so far Home medications resumed BP remained stable Duonebs q4hrs, Prednisone 40mg for 5 days, then resume home dose of 5mg bid, consider longer taper if needed. continue asa and statin DVT Hep sq Regular Diet Full Code. Anticipate DC in 24 hours if patient can be weaned off oxygen. Medical - PN: Qual - Stroke Symptom Onset Unknown: No - VTE Deep Vein Thrombosis/Pulmonary Embolism Present on Admission: No
[2017-11-24] MEDS: SIMVASTATIN 20 MG TABLET PO SCH (21:57)
[2017-11-25] MEDS: IPRATROPIUM/ALBUTEROL 3 ML AMPUL.NEB NEB SCH ×3 (04:03→13:12)
[2017-11-25] MEDS: 0.9 % SODIUM CHLORIDE 10 ML SYRINGE IV SCH ×2 (05:31→13:49)
[2017-11-25] MEDS: cefTAZidime 1 GM VIAL IV SCH ×2 (05:31→13:49)
[2017-11-25 06:17] LABS: ALT/SGPT 11 U/l (0-40); Albumin 3.1 gm/dL (3.2-5.2); Albumin/Globulin Ratio 1.3 (1.0-2.3); Alkaline Phosphatase 75 U/L (39-117); Bilirubin,Direct < 0.2 mg/dL (0.0-0.3); Blood Urea Nitrogen 23 mg/dl (8-23); Gamma Glutamyl Transpeptidase 9 U/L (8-61); Uric Acid 2.3 mg/dL (2.5-8.0)
[2017-11-25 06:18] LABS: Basophils # (Auto) 0 K/mcL (0.0-0.3); Basophils % (Auto) 0.1 % (0.0-2.0); Eosinophils # (Auto) 0.2 K/mcL (0.0-0.7); Eosinophils % (Auto) 2.4 % (0.0-7.0); Granulocytes % (Auto) 84.1 % (38.0-78.0); Lymphocytes # (Auto) 0.4 K/mcL (1.5-4.8); Lymphocytes % (Auto) 6.4 % (15.5-49.0); Mean Cell Volume 94.2 fL (80.0-100.0); Mean Corpuscular HGB Conc 34.8 g/dL (31.0-36.0); Mean Corpuscular Hemoglobin 32.8 pg (26.0-34.0); Monocytes # (Auto) 0.4 K/mcL (0.1-0.9); Platelet Count 266 K/mcL (140-440); RBC 2.97 M/mcL (4.50-5.90); Red Cell Distribution Width 13.9 % (11.5-14.5)
[2017-11-25] MEDS: AZITHROMYCIN 250 MG in DEXTROSE 5% IN WATER 250 ML IV SCH (09:19)
[2017-11-25] MEDS: Mometasone/Formoterol [Dulera 200 Mcg/5 Mcg Inhaler] INH SCH (09:19)
[2017-11-25] MEDS: TIOTROPIUM BROMIDE 18 MCG INHALANT INH SCH (09:19)
[2017-11-25] MEDS: FAMOTIDINE 20 MG TABLET PO SCH (09:20)
[2017-11-25] MEDS: levETIRAcetam 500 MG TABLET PO SCH (09:20)
[2017-11-25] MEDS: MULTIVIT,THER IRON,CA,FA & MIN 1 TABLET PO SCH (09:20)
[2017-11-25] MEDS: VITAMIN D3 1,000 UNIT TABLET PO SCH (09:20)
[2017-11-25] MEDS: CYANOCOBALAMIN (VITAMIN B-12) 500 MCG TABLET PO SCH (09:20)
[2017-11-25] MEDS: HEPARIN 5,000 UNIT/ML VIAL SQ SCH (09:20)
[2017-11-25] MEDS: BICALUTAMIDE 50 MG TABLET PO SCH (09:20)
[2017-11-25] MEDS: CALCIUM W/VIT D3 500 MG TABLET PO SCH (09:21)
[2017-11-25] MEDS: predniSONE 20 MG TABLET PO SCH (09:21)
[2017-11-25] MEDS: FLUoxetine HCL 20 MG CAPSULE PO SCH ×2 (09:21→11:59)
[2017-11-25] MEDS: Fluticasone/Salmeterol [Advair Hfa 230-21 Mcg Inhaler] INH SCH (09:21)
[2017-11-25] MEDS: ASPIRIN 81 MG TAB.CHEW PO SCH (09:21)
[2017-11-25] MEDS ORDERED: IPRATROPIUM/ALBUTEROL 3 ML AMPUL.NEB NEB PRN (11:39)
--- NOTE | 2017-11-25 14:12 | Discharge Summary ---
Medical - DS: Prov Patient information: Note initiated : 11/25/17 at 2:10 pm Service Date, if different from initiated Date: [] Patient: Orlando Valdivia Jr 77 y/o M admitted on 11/22/17 for SOB, Fever/ Pneumonia. Date of admission: 11/22/17 20:20 Discharge date: 11/25/17 Primary care physician: Amberly Velasco Consults: 11/22/17 19:25 Consult to Physician [CONS] Stat Comment: Consulting Provider: Homero Torres Reason For Exam: Physician to Consult Medical - DS: Meds - Discharge Medications Prescriptions: RX: Levofloxacin [Levaquin] 750 mg PO DAILY 5 Days #5 tab RX: predniSONE [Prednisone] 20 mg PO DAILY #90 tab Active and Home Medications: Home Medications aspirin 81 mg tablet,delayed release 81 mg PO QDAY tab 03/21/15 [History Confirmed 11/22/17 Last Taken 11/22/17 09:00] multivitamin tablet 1 tab PO QDAY tab 03/21/15 [History Confirmed 11/22/17 Last Taken 11/22/17 09:00] levetiracetam 500 mg tablet 500 mg PO BID 90 Days #180 04/28/15 [History Confirmed 11/23/17 Last Taken 11/22/17 09:00] OXYGEN #1 each NS 02/23/16 [Rx Confirmed 05/09/17 Last Taken 06/12/16] bicalutamide 50 mg tablet 150 mg PO QDAY 30 Days #90 tab 02/01/17 [History Confirmed 11/22/17 Last Taken 11/22/17 09:00] albuterol sulfate HFA 90 mcg/actuation aerosol inhaler 2 puff INHALATION Q4-6H PRN #18 g 05/09/17 [Rx Confirmed 11/22/17 Last Taken Unknown] simvastatin 20 mg tablet 40 mg PO QPM #60 tab 05/09/17 [Rx Confirmed 11/22/17 Last Taken 11/21/17 21:00] tiotropium bromide 18 mcg capsule with inhalation device 1 cap INHALATION QDAY # 30 puff 05/09/17 [Rx Confirmed 11/22/17 Last Taken 11/22/17 09:00] fluticasone-salmeterol 230 mcg-21 mcg/actuation HFA aerosol inhaler 2 puff INHALATION BID #12 g 11/08/17 [Rx Confirmed 11/23/17 Last Taken 11/22/17 09:00] Calcium Carbonate/Vitamin D3 [Calcium 600 + Vit D Tablet] 1 tablet PO DAILY [History Confirmed 11/22/17 Last Taken 11/22/17 09:00] Cyanocobalamin (Vitamin B-12) [Vitamin B12] 5,000 mcg PO DAILY 11/22/17 [ History Confirmed 11/22/17 Last Taken 11/22/17 09:00] Mometasone/Formoterol [Dulera 200 Mcg/5 Mcg Inhaler] 2 puff IH BID 11/22/17 [ History Confirmed 11/22/17 Last Taken 11/22/17 09:00] Prochlorperazine Maleate [Compazine] 10 mg PO Q6HP PRN 11/22/17 [History Confirmed 11/22/17 Last Taken Unknown] RX: FLUoxetine HCL [Sarafem] 20 mg PO 08,12 11/22/17 [History Confirmed Last Taken 11/22/17 09:00] RX: Vitamin D3 1,000 unit PO DAILY 11/22/17 [History Confirmed 11/22/17 Last Taken 11/22/17 09:00] RX: predniSONE [Prednisone] 5 mg PO BID 11/22/17 [History Confirmed 11/22/17 Last Taken 11/22/17 09:00] Medical - DS: Hosp Hospital course: History of present illness: Mr. Skip Gil is a 77 year old M who lives with his at home, he has a history of emphysema and metastatic prostate cancer presents to the emergency room for not feeling well since last week. The patient notes that he has not been feeling well over the last week has had decreased appetite and decreased oral intake. He has grown progressively weak tired. He has had increased shortness of breath on exertion. The patient notes that he could walk to the mailbox and back before with a few stops but now even walking from the bed to the door makes him very tired. The patient has chronic cough with scant sputum production. He denies any hemoptysis. Over the last 2 days he is fallen twice on his buttocks, due to his severe weakness. He therefore decided to come to the emergency room for evaluation. The patient denies any head injury In the emergency room the patient was noted to be febrile with a temperature of 101.5, heart rate 90, breathing between 20-28, oxygen saturation 93 on 3 L. The patient uses oxygen at home predominantly at night. According to the last PCP note patient did not need any oxygen during the daytime. Patient had elevated WBC count at 13.9, hemoglobin 12.2 and platelets of 251. Sodium was 136 potassium 3.8 bicarbonate 24. BUN 24 creatinine 0.7. Total bilirubin was 1.7, pro calcitonin was elevated at 0.56. Urine analysis was abnormal, had some hematuria but was negative for leukocyte esterase and nitrites The chest x-ray showed left basilar pneumonia, disseminated prostatic metastasis. EKG showed sinus tachycardia, few PVC, QS pattern in V1 V2\ Given new onset pneumonia, increased oxygen requirements, fever and elevated WBC count patient was admitted to the hospital for further care November 23 She is seen and examined, no acute overnight events, patient is on 1 L of oxygen now doing well since last night. Patient does not have any wheezing, WBC count is trending down. Potassium was 3.5, total bili 1.5. Patient tolerating p.o. diet well. Okay to transfer to [facility], continue IV antibiotics await cultures november 24 Patient seen and examined, no acute overnight events, still requiring 1-2 L oxygen during the daytime. The patient uses oxygen at night and as needed during the day according to him. He feels much better he is able to tolerate p.o. diet very well labs are stable. Plan continue IV antibiotics wean off oxygen as tolerated get chest x-ray in the morning consider discharge at home tomorrow. Patient's is admitted to the hospital in the ICU at present Replace low potassium and phosphate 25 november Patient is breathing much better, back to baseline. Minimal coughing, no wheezing. States he is ready to go home. Discharge diagnosis: pneumonia, exacerbation of COPD, malnutrition, disseminated prostate ca Secondary discharge diagnosis: Seizure (Chronic) Prostate cancer metastatic to bone (Chronic) Fracture of right tibial plateau (Acute) Internal derangement of right knee (Acute) Elevated Prostate Specific Antigen (PSA) (Chronic) Syncope, near (Resolved) Sprain of shoulder and upper arm (Resolved) Congenital shortening tendon (Chronic) Mitral valve prolapse (Chronic) Mitral regurgitation (Chronic) Mass of soft tissue (Chronic) Hemorrhoids (Chronic) Diverticulosis of colon (Chronic) Cognitive decline (Chronic) Cervical spondylosis with myelopathy (Chronic) Cervical spinal stenosis (Chronic) Carotid stenosis (Resolved) Carotid artery occlusion (Resolved) TIA (transient ischemic attack) (Chronic) Tobacco abuse (Chronic) Heart murmur, systolic (Chronic) Hypertension, essential, benign (Chronic) Hyperlipidemia (Chronic) Erectile dysfunction (Chronic) Depression (Chronic) COPD (chronic obstructive pulmonary disease) (Chronic) CVA (cerebrovascular accident) (Chronic) - Time Spent with Patient Total time spent providing and/or coordinating discharge services: Less than 30 minutes Medical - DS: Exam - Constitutional Vitals: Vital Signs Temp Pulse Pulse Resp BP Pulse Ox 11/25/17 11:55 98.1 F 18 141/79 96 11/25/17 06:29 98.5 F 18 149/83 96 11/25/17 04:06 63 18 11/25/17 03:59 98 F 62 18 150/76 97 11/25/17 00:00 97.4 F 63 17 136/79 96 11/24/17 23:14 72 13 11/24/17 20:00 98.1 F 71 18 148/77 94 11/24/17 19:34 91 11/24/17 19:31 69 14 11/24/17 16:01 78 16 96 11/24/17 15:28 98.8 F 16 126/76 94 Intake and Output 11/25/17 11/25/17 11/25/17 05:59 13:59 21:59 Intake Total 150 / 150 250 / 250 Output Total 200 / 200 Balance -50 / -50 250 / 250 Intake: IV 250 / 250 Zithromax 250 mg In Dextrose 5% 250 / 250 in Water 250 ml @ 250 mls/hr IV DAILY [facility] Rx#:[id number] Oral 150 / 150 Output: Void Amount 200 / 200 Other: Meal ice cream Lunch Percent of Meal Consumed 100% 100% Feeding Ability Independent # Voids 1 # Bowel Movements 1 General appearance: thin - Respiratory Respiratory exam: Present: normal respiratory exam, decreased breath sounds - Cardiovascular Cardiovascular exam: Present: normal rate and rhythm - GI/Abdominal GI/Abdominal exam: Present: normal bowel sounds - Extremities Exam Extremities exam: Present: normal inspection Medical - DS: Data Labs on day of discharge: Labs from last 24 hours 11/25/17 11/25/17 04:30 04:30 WBC 6.4 RBC 2.97 L Hgb 9.7 L Hct 28.0 L MCV 94.2 MCH 32.8 MCHC 34.8 RDW 13.9 Plt Count 266 MPV 8.1 Gran % 84.1 H Lymph % (Auto) 6.4 L Patrick % (Auto) 7.0 Eos % (Auto) 2.4 Baso % (Auto) 0.1 Gran # 5.3 Lymph # (Auto) 0.4 L Patrick # (Auto) 0.4 Eos # (Auto) 0.2 Baso # (Auto) 0 Sodium 142 Potassium 4.2 Chloride 108 Carbon Dioxide 24 Anion Gap 10.0 BUN 23 Creatinine 0.6 L GFR Calculation 97 Glucose 116 H Uric Acid 2.3 L Calcium 7.9 L Phosphorus 1.7 L Magnesium 2.2 Total Bilirubin 0.3 Direct Bilirubin < 0.2 GGT 9 AST 17 ALT 11 Alkaline Phosphatase 75 Lactate Dehydrogenase 150 Total Protein 5.5 L Albumin 3.1 L Globulin 2.4 Albumin/Globulin Ratio 1.3 Triglycerides 83 Preliminary micro results at discharge 11/24/17 05:00 Sputum Culture - Preliminary Sputum - Expectorated 11/22/17 18:15 Blood Culture - Preliminary Blood 11/22/17 18:10 Blood Culture - Preliminary Blood - Impressions CXR IMPRESSION: 1. Left basilar infiltrates consistent with pneumonia 2. Disseminated prostatic metastases Medical - DS: A/P - Patient/Caregiver Discharge Instructions Activity: increase activity as tolerated Diet: Regular Diet - Follow up Plan Follow up with: Amberly Velasco, VAMSHI, INTERNET RETAILER [Primary Care Provider] - Disposition: Home, Self-Care Prognosis: Fair Rehab Potential: Fair Overall status at discharge: patient is back to baseline Medical - DS: Qual - VTE Deep Vein Thrombosis/Pulmonary Embolism Present on Admission: No
== END 2017-11-25 15:55 | disposition home or self-care (01) | DRG 190 ==
LOC: ED 17:46 → ICU 20:20 → MEDSUR 11-23 13:22
PROVIDERS: ADMIT Internal Medicine; ATTEND Specialist

== ENCOUNTER 2017-12-15 08:51 | Observation (INO) ==
--- NOTE | 2017-12-15 09:18 | Emergency Department Note ---
General Adult HPI - General Chief complaint: Weakness Stated complaint: weakness Source: patient, family Mode of arrival: ambulatory Limitations: no limitations - History of Present Illness HPI Narrative: Patient was in the hospital with pneumonia 3 weeks ago and proved went home was feeling well but gradually has become weaker and just not feeling as well anymore. However his cough is not significant. He is not eating and drinking as much as he should. In general he feels weak and tired. He has no specific pains chest pains shortness of breath abdominal pain nausea or other symptoms. - Related Data Home Medications Medication Instructions Recorded Confirmed aspirin 81 mg tablet,delayed 81 mg PO QDAY tab 03/21/15 12/15/17 release multivitamin tablet 1 tab PO QDAY tab 03/21/15 12/15/17 levetiracetam 500 mg tablet 500 mg PO BID 90 Days #180 04/28/15 12/15/17 bicalutamide 50 mg tablet 150 mg PO QDAY 30 Days #90 tab 02/01/17 12/15/17 Calcium Carbonate/Vitamin D3 1 tab PO DAILY 11/22/17 12/15/17 [Calcium 600 + Vit D Tablet] Cyanocobalamin (Vitamin B-12) 5,000 mcg PO DAILY 11/22/17 12/15/17 [Vitamin B12] FLUoxetine HCL [Sarafem] 20 mg PO 08,12 11/22/17 12/15/17 Prochlorperazine Maleate 10 mg PO Q6HP PRN 11/22/17 12/15/17 [Compazine] Vitamin D3 1,000 unit PO DAILY 11/22/17 12/15/17 Previous Rx's Medication Instructions Recorded OXYGEN #1 each NS 02/23/16 albuterol sulfate HFA 90 2 puff INHALATION Q4-6H PRN #18 g 05/09/17 mcg/actuation aerosol inhaler simvastatin 20 mg tablet 40 mg PO QPM #60 tab 05/09/17 tiotropium bromide 18 mcg capsule 1 cap INHALATION QDAY #30 puff 05/09/17 with inhalation device fluticasone-salmeterol 230 mcg-21 2 puff INHALATION BID #12 g 11/08/17 mcg/actuation HFA aerosol inhaler predniSONE [Prednisone] 20 mg PO DAILY #90 tab 11/25/17 Allergies Allergy/AdvReac Type Severity Reaction Status Date / Time No Known Drug Allergies Allergy Verified 11/22/17 17:47 Review of Systems All systems ED: reviewed and negative except as stated. Past Medical History - Past Medical History [facility] Narrative: Medical History (Last Reviewed 12/04/17 @ 10:36 by Amberly Velasco DNP, ALEX) Anemia (Acute) Seizure (Chronic) Prostate cancer metastatic to bone (Chronic) Elevated Prostate Specific Antigen (PSA) (Chronic) Congenital shortening tendon (Chronic) Mitral valve prolapse (Chronic) Mitral regurgitation (Chronic) Mass of soft tissue (Chronic) Hemorrhoids (Chronic) Diverticulosis of colon (Chronic) Cognitive decline (Chronic) Cervical spondylosis with myelopathy (Chronic) Cervical spinal stenosis (Chronic) Carotid stenosis (Resolved) TIA (transient ischemic attack) (Chronic) Tobacco abuse (Chronic) Heart murmur, systolic (Chronic) Hypertension, essential, benign (Chronic) Hyperlipidemia (Chronic) Erectile dysfunction (Chronic) Depression (Chronic) COPD (chronic obstructive pulmonary disease) (Chronic) CVA (cerebrovascular accident) (Resolved) Carotid artery occlusion (Resolved) Fracture of right tibial plateau (Resolved) Internal derangement of right knee (Resolved) Sprain of shoulder and upper arm (Resolved) Syncope, near (Resolved) Past Surgical History (Last Reviewed 12/04/17 @ 10:36 by Amberly Velasco DNP, ALEX) History of colonoscopy (Resolved) History of adenoidectomy (Resolved) History of appendectomy (Resolved) History of cataract surgery (Resolved) History of intraocular lens implant (Resolved) History of neck surgery (Resolved) History of tonsillectomy (Resolved) S/P skin biopsy (Resolved) Family History (Last Reviewed 12/04/17 @ 10:36 by Amberly Velasco DNP, ALEX) No family history of respiratory disease No problems noted. No family history of breast disease No problems noted. No family history of cardiovascular disease No problems noted. No family history of endocrine disease No problems noted. No family history of gastrointestinal disease No problems noted. No family history of neurologic disease No problems noted. Father Bipolar affective disorder Senile dementia Malignant neoplasm of esophagus, Onset Age: 90 Parkinson's Disease Schizophrenia Mother Cardiac disease Family history of rheumatic heart disease Sister Family history of kidney stones Medical history: Reports: cancer (Leukemia 5-6 years.), COPD, hyperlipidemia, hypertension, myocardial infarction, other (Heart murmur.). Denies: CVA, DM Psychiatric history: Reports: depression. Denies: anxiety - Social History smoking status: Current every day smoker Alcohol use: Reports: None Drug use: Reports: none. Denies: marijuana Physical Exam Limitations: no limitations General appearance: alert Head: atraumatic Eye: Present: normal appearance ENT: normal exam Neck: Present: normal inspection Chest: Present: normal inspection Respiratory: Present: normal lung sounds bilaterally Cardiovascular: Present: regular rate, normal rhythm, normal heart sounds Abdominal: Present: soft. Absent: distention, tenderness Neurological: Present: alert Psychiatric: Present: normal affect, normal mood Skin: Present: warm, dry, intact Course Vital Signs Temperature 97.8 F 12/15/17 08:51 Pulse Rate 78 12/15/17 08:51 Respiratory Rate 20 12/15/17 08:51 Blood Pressure 147/87 12/15/17 08:51 Temperature 97.8 F 12/15/17 08:51 Pulse Rate 79 12/15/17 14:46 Respiratory Rate 27 H 12/15/17 14:46 Blood Pressure 144/86 12/15/17 14:46 Pulse Oximetry (%) 99 12/15/17 14:46 Medical Decision Making - [facility] Narrative Medical decision making narrative: This patient continues to be very weak after hydration and eating and will be admitted to the hospital by Dr. Torres. - Lab Data Lab results reviewed: Yes I reviewed the patient's lab results. Result diagrams: 12/15/17 09:18 12/15/17 09:17 Lab Results 12/15/17 12/15/17 12/15/17 Range/Units 09:17 09:17 09:18 WBC 11.4 H (4.5-11.0) K/mcL RBC 3.55 L (4.50-5.90) M/mcL Hgb 11.5 L (13.5-16.5) g/dL Hct 34.1 L (41.0-55.0) % MCV 96.2 (80.0-100.0) fL MCH 32.5 (26.0-34.0) pg MCHC 33.8 (31.0-36.0) g/dL RDW 14.7 H (11.5-14.5) % Plt Count 250 (140-440) K/mcL MPV 7.4 (7.4-10.4) fL Total Counted 100 Seg Neutrophils % 83 H (38-78) % Band Neutrophils % Not Reportable Lymphocytes % 6 L (15-49) % Monocytes % (Manual) 10 (1-12) % Eosinophils % (Manual) 1 (0-7) % Platelet Estimate Normal (NORMAL) RBC Morphology Normal (NORMAL) VBG Lactic Acid 1.2 (0.5-2.2) mmol/L Sodium 138 (133-145) mmol/L Potassium 3.9 (3.3-5.1) mmol/L Chloride 100 (96-108) mmol/L Carbon Dioxide 26 (22-30) mmol/L Anion Gap 12.0 (8-16) BUN 23 (8-23) mg/dl Creatinine 1.2 (0.7-1.2) mg/dl GFR Calculation 58 Glucose 77 (70-105) mg/dL Calcium 7.5 L (8.6-10.4) mg/dl Total Bilirubin 0.9 (0.0-1.0) mg/dL AST 21 (0-37) U/l ALT 10 (0-40) U/l Alkaline Phosphatase 180 H (39-117) U/L Total Protein 6.4 (5.9-8.4) gm/dL Albumin 3.2 (3.2-5.2) gm/dL Globulin 3.2 (2.2-3.7) gm/dL Albumin/Globulin Ratio 1.0 (1.0-2.3) Urine Color Urine Appearance Urine pH (5.0-9.0) Ur Specific [place] (1.000-1.035) Urine Protein (NEG) mg/dL Urine Glucose (UA) (NEG) mg/dL Urine Ketones (NEG) mg/dL Urine Occult Blood (<0.03) mg/dL Urine Nitrate (NEG) Urine Bilirubin (NEG) mg/dL Urine Urobilinogen (NEG) mg/dL Ur Leukocyte Esterase (NEG) /uL Urine RBC (0-1) /hpf Urine WBC (0-4) /hpf Ur Squamous Epith Cells (0-4) /hpf Amorphous Crystals (0) /hpf Urine Bacteria (0) /hpf Ur Culture Indicated? 12/15/17 Range/Units 15:10 WBC (4.5-11.0) K/mcL RBC (4.50-5.90) M/mcL Hgb (13.5-16.5) g/dL Hct (41.0-55.0) % MCV (80.0-100.0) fL MCH (26.0-34.0) pg MCHC (31.0-36.0) g/dL RDW (11.5-14.5) % Plt Count (140-440) K/mcL MPV (7.4-10.4) fL Total Counted Seg Neutrophils % (38-78) % Band Neutrophils % Lymphocytes % (15-49) % Monocytes % (Manual) (1-12) % Eosinophils % (Manual) (0-7) % Platelet Estimate (NORMAL) RBC Morphology (NORMAL) VBG Lactic Acid (0.5-2.2) mmol/L Sodium (133-145) mmol/L Potassium (3.3-5.1) mmol/L Chloride (96-108) mmol/L Carbon Dioxide (22-30) mmol/L Anion Gap (8-16) BUN (8-23) mg/dl Creatinine (0.7-1.2) mg/dl GFR Calculation Glucose (70-105) mg/dL Calcium (8.6-10.4) mg/dl Total Bilirubin (0.0-1.0) mg/dL AST (0-37) U/l ALT (0-40) U/l Alkaline Phosphatase (39-117) U/L Total Protein (5.9-8.4) gm/dL Albumin (3.2-5.2) gm/dL Globulin (2.2-3.7) gm/dL Albumin/Globulin Ratio (1.0-2.3) Urine Color Yellow Urine Appearance Cloudy Urine pH 5.0 (5.0-9.0) Ur Specific [place] 1.015 (1.000-1.035) Urine Protein Neg (NEG) mg/dL Urine Glucose (UA) Negative (NEG) mg/dL Urine Ketones 20 A (NEG) mg/dL Urine Occult Blood 0.2 A (<0.03) mg/dL Urine Nitrate Neg (NEG) Urine Bilirubin Neg (NEG) mg/dL Urine Urobilinogen Neg (NEG) mg/dL Ur Leukocyte Esterase Neg (NEG) /uL Urine RBC 39 H (0-1) /hpf Urine WBC 4 (0-4) /hpf Ur Squamous Epith Cells 0 (0-4) /hpf Amorphous Crystals Few A (0) /hpf Urine Bacteria 0 (0) /hpf Ur Culture Indicated? No - Radiology Data Radiology results reviewed: Yes I reviewed the patient's radiology results. Disposition Pt seen by SUB PLANT MANAGER/PA only: No Clinical Impression: Dehydration Disposition: Xfer As Outpt/Obs ([facility]) Condition: Good Referrals: Amberly Velasco, VAMSHI, SYSTEMS TEST ENGINEER [Primary Care Provider] - Time of Disposition: 15:10
[2017-12-15] MEDS ORDERED: LACTATED RINGERS 1,000 ML IV ONE ×2 (09:27→11:54)
[2017-12-15 10:01] LABS: Mean Cell Volume 96.2 fL (80.0-100.0); Mean Corpuscular HGB Conc 33.8 g/dL (31.0-36.0); Mean Corpuscular Hemoglobin 32.5 pg (26.0-34.0); Platelet Count 250 K/mcL (140-440); RBC 3.55 M/mcL (4.50-5.90); Red Cell Distribution Width 14.7 % (11.5-14.5)
[2017-12-15 10:22] LABS: ALT/SGPT 10 U/l (0-40); Albumin 3.2 gm/dL (3.2-5.2); Alkaline Phosphatase 180 U/L (39-117); Blood Urea Nitrogen 23 mg/dl (8-23)
[2017-12-15 10:24] LABS: Eosinophils % (Manual) 1 % (0-7); Lymphocytes % 6 % (15-49); Monocytes % (Manual) 10 % (1-12); Platelet Estimate NORMAL (NORMAL); RBC Morphology NORMAL (NORMAL); Segmented Neutrophils % 83 % (38-78)
[2017-12-15] MEDS ORDERED: LIDOCAINE JEL 2% 1 TUBE 30GM TOPICAL ONE (13:44)
[2017-12-15 14:50] LABS: Appearance,Urine CLOUDY; Bacteria,Urine 0 /hpf (0); Bilirubin,Urine NEG (NEG); Color,Urine YELLOW; Glucose,Urine (UA) NEGATIVE (NEG); Leukocyte Esterase,Urine NEG /uL (NEG); Protein,Urine NEG (NEG); Specific Gravity,Urine 1.015 (1.000-1.035); Urine Amorphous Crystals FEW /hpf (0); Urine Blood 0.2 mg/dL (<0.03); Urine RBC 39 /hpf (0-1); Urine Squamous Epithelial Cell 0 /hpf (0-4); Urine WBC 4 /hpf (0-4); Urobilinogen,Urine NEG (NEG)
[2017-12-15] MEDS ORDERED: ONDANSETRON 4 MG/2 ML VIAL IV PRN ×2 (16:04→16:51)
[2017-12-15] MEDS ORDERED: ACETAMINOPHEN 325 MG TABLET PO PRN ×2 (16:04→16:51)
[2017-12-15] MEDS ORDERED: MAGNESIUM HYDROXIDE 30 ML ORAL.SUSP PO PRN ×2 (16:04→16:51)
[2017-12-15] MEDS ORDERED: oxyCODONE HCL 5 MG TABLET PO PRN ×2 (16:04→16:51)
[2017-12-15] MEDS ORDERED: SENNOSIDES 1 TABLET PO PRN ×2 (16:04→16:51)
--- NOTE | 2017-12-15 16:04 | XRay Report ---
HISTORY: Reason for Exam:weakness and metastatic prostate cancer FINDINGS: There are multiple blastic metastasis throughout the ribs scapula and humerus and spine. These were seen on prior chest CT. The masslike infiltrate seen posteriorly in the left lower lobe on 12/05/17 is much less conspicuous on today's chest x-ray. No new infiltrate has developed. The heart is normal in size and contour. No pleural effusion or adenopathy are present. IMPRESSION: Improved left lower lobe infiltrate. This is more likely due to pneumonia than tumor. Stable widespread bone metastasis Interpreted and Authenticated by: Max Pearl 12/15/17
[2017-12-15] MEDS ORDERED: LACTATED RINGERS 1,000 ML IV SCH (16:15)
--- NOTE | 2017-12-15 16:22 | Internal Med History&Physical ---
Medical - H&P: HPI Patient information: Note initiated : 12/15/17 at 4:17 pm Service Date, if different from initiated Date: [] Patient: Orlando Valdivia Jr 77 y/o M admitted on for weakness. Chief Complaint: [] History of present illness: Mr. Skip Gil is a 77 year old M history of metastatic cancer, who was recently admitted to this hospital with a diagnosis of pneumonia. The patient was discharged on 25 November, the patient was prescribed levofloxacin and prednisone taper at discharge. According to the patient he was doing well for a few days after discharge however he started to get more weak and more tired again. The patient denies any other acute complaints. He has chronic cough but no sputum production. He denies any fever or any chills. He notes that at baseline he is able to carry out his activities of daily living without much limitations. At this time he finds it difficult to even ambulate around his house. He denies any wheezing. But does have shortness of breath on exertion. The patient has no other symptoms or complaints. During my evaluation he was lying comfortably in bed. The patient was seen by the primary care provider as well as the cancer doctor in the interim. The PCP had ordered a chest CT which showed a left basilar pneumonia. I am not sure if any new antibiotics were prescribed, the patient was also seen by the oncologist and is noted seems it was noted that he was doing better. In the emergency room the patient was stable on presentation, afebrile normal vital signs. Had oxygen needs only when he sleeps otherwise was saturating more than 90% on room air. [He uses oxygen when he sleeps] The patient's labs show some leukocytosis but better than before. Otherwise his labs are unremarkable, urinalysis is negative. Chest x-ray shows improved infiltrate but there is definitely some persistent infiltrate in the left lobe. Official reading is pending. EKG shows sinus rhythm QS pattern in the anterior leads. Given that the patient is extremely weak and unable to go back home he is being admitted to the hospital for further management. Review of systems: CONSTITUTIONAL: No weight loss, fever, chills, significant weakness and fatigue present. HEENT: Eyes: No visual loss, blurred vision, double vision or yellow sclerae. Ears, Nose, Throat: No hearing loss, sneezing, congestion, runny nose or sore throat. SKIN: No rash or itching. CARDIOVASCULAR: No chest pain, chest pressure or chest discomfort. No palpitations or edema. RESPIRATORY: Patient has chronic cough, no sputum production, has shortness of breath on exertion GASTROINTESTINAL: No nausea, vomiting or diarrhea or constipation. No abdominal pain or blood in stools No Rosanne. GENITOURINARY: Denies Burning on urination. Blood in urine, or foul smelling urine NEUROLOGICAL: No headache, dizziness, syncope, paralysis, tremors, numbness or tingling in the extremities. No change in bowel or bladder control. MUSCULOSKELETAL: No muscle, back pain, joint pain or stiffness. HEMATOLOGIC: No bleeding or bruising. No enlarged nodes PSYCHIATRIC: No depression or anxiety. [Has history of same but denies at present] ENDOCRINOLOGIC: No reports of sweating, cold or heat intolerance. No polyuria or polydipsia. ALLERGIES: No hives, eczema or rhinitis. Skin: No rash, no jaundice, cyanosis or pallor. Medical - H&P: [facility] Medical history: Medical History (Last Reviewed 12/04/17 @ 10:36 by Amberly Velasco, VAMSHI, ENTERPRISE APPLICATION ARCHITECT) Anemia (Acute) Seizure (Chronic) Prostate cancer metastatic to bone (Chronic) Elevated Prostate Specific Antigen (PSA) (Chronic) Congenital shortening tendon (Chronic) Mitral valve prolapse (Chronic) Mitral regurgitation (Chronic) Mass of soft tissue (Chronic) Hemorrhoids (Chronic) Diverticulosis of colon (Chronic) Cognitive decline (Chronic) Cervical spondylosis with myelopathy (Chronic) Cervical spinal stenosis (Chronic) Carotid stenosis (Resolved) TIA (transient ischemic attack) (Chronic) Tobacco abuse (Chronic) Heart murmur, systolic (Chronic) Hypertension, essential, benign (Chronic) Hyperlipidemia (Chronic) Erectile dysfunction (Chronic) Depression (Chronic) COPD (chronic obstructive pulmonary disease) (Chronic) CVA (cerebrovascular accident) (Resolved) Carotid artery occlusion (Resolved) Fracture of right tibial plateau (Resolved) Internal derangement of right knee (Resolved) Sprain of shoulder and upper arm (Resolved) Syncope, near (Resolved) Surgical history: Past Surgical History (Last Reviewed 12/04/17 @ 10:36 by Amberly Velasco, VAMSHI, ENTERPRISE APPLICATION ARCHITECT) History of colonoscopy (Resolved) History of adenoidectomy (Resolved) History of appendectomy (Resolved) History of cataract surgery (Resolved) History of intraocular lens implant (Resolved) History of neck surgery (Resolved) History of tonsillectomy (Resolved) S/P skin biopsy (Resolved) Pertinent family history: Family History (Last Reviewed 12/04/17 @ 10:36 by Amberly Velasco, DNP, ENTERPRISE APPLICATION ARCHITECT) No family history of respiratory disease No problems noted. No family history of breast disease No problems noted. No family history of cardiovascular disease No problems noted. No family history of endocrine disease No problems noted. No family history of gastrointestinal disease No problems noted. No family history of neurologic disease No problems noted. Father Bipolar affective disorder Senile dementia Malignant neoplasm of esophagus, Onset Age: 90 Parkinson's Disease Schizophrenia Mother Cardiac disease Family history of rheumatic heart disease Sister Family history of kidney stones Medical - H&P: Meds Home Medications Medication Instructions Recorded Confirmed Type aspirin 81 mg tablet,delayed 81 mg PO QDAY tab 03/21/15 12/15/17 History release multivitamin tablet 1 tab PO QDAY tab 03/21/15 12/15/17 History levetiracetam 500 mg tablet 500 mg PO BID 90 Days #180 04/28/15 12/15/17 History OXYGEN #1 each NS 02/23/16 12/04/17 Rx bicalutamide 50 mg tablet 150 mg PO QDAY 30 Days #90 tab 02/01/17 12/15/17 History albuterol sulfate HFA 90 2 puff INHALATION Q4-6H PRN #18 g 05/09/17 12/15/17 Rx mcg/actuation aerosol inhaler simvastatin 20 mg tablet 40 mg PO QPM #60 tab 05/09/17 12/15/17 Rx tiotropium bromide 18 mcg capsule 1 cap INHALATION QDAY #30 puff 05/09/17 Rx with inhalation device fluticasone-salmeterol 230 mcg-21 2 puff INHALATION BID #12 g 11/08/17 12/15/17 Rx mcg/actuation HFA aerosol inhaler Calcium Carbonate/Vitamin D3 1 tab PO DAILY 11/22/17 12/15/17 History [Calcium 600 + Vit D Tablet] Cyanocobalamin (Vitamin B-12) 5,000 mcg PO DAILY 11/22/17 12/15/17 History [Vitamin B12] FLUoxetine HCL [Sarafem] 20 mg PO 08,12 11/22/17 12/15/17 History Prochlorperazine Maleate 10 mg PO Q6HP PRN 11/22/17 12/15/17 History [Compazine] Vitamin D3 1,000 unit PO DAILY 11/22/17 12/15/17 History predniSONE [Prednisone] 20 mg PO DAILY #90 tab 11/25/17 12/15/17 Rx Allergies Allergy/AdvReac Type Severity Reaction Status Date / Time No Known Drug Allergies Allergy Verified 11/22/17 17:47 Medical - H&P: Exam - Constitutional Vitals: Temp Pulse Resp BP Pulse Ox 97.8 F 74 17 133/65 99 12/15/17 08:51 12/15/17 15:46 12/15/17 15:46 12/15/17 15:46 12/15/17 15:46 Exam: GENERAL: The patient is a well-developed, thin individual, in no apparent distress. Is alert and oriented x3. VITAL SIGNS: Reviewed and as noted elsewhere. HEENT: Head is normocephalic and atraumatic. Extraocular muscles are intact. Pupils are equal, round, and reactive to light. Nares appeared normal. Mouth appears any without lesions. Mucous membranes are dry. NECK: Normal to inspection, Supple, No lymphadenopathy or thyromegaly. LUNGS: Air entry equal on both sides, patient has left basilar crackles, he has prolonged expiratory phase very mild wheeze on the left side. He is able to speak full sentences and has no use of accessory muscles HEART: Regular rate and rhythm normal, S1 and S2 heard, no Gallop, S3 or Rub Noted, No Gross murmur heard. ABDOMEN: Soft, nontender, and nondistended. Positive bowel sounds. No hepatosplenomegaly was noted. EXTREMITIES: No cyanosis, clubbing, rash, lesions or edema. NEUROLOGIC: Cranial nerves II through XII are grossly intact. Motor and Sensory System Grossly Intact PSYCHIATRIC: Normal affect, Normal Mood. Appropriate Behavior. SKIN: No ulceration or wounds noted, No jaundice, No rash noted. Medical - H&P: Reslt - Labs CBC & Chem 7: 12/15/17 09:18 12/15/17 09:17 Labs: Short CBC 12/15/17 Range/Units 09:18 WBC 11.4 H (4.5-11.0) K/mcL Hgb 11.5 L (13.5-16.5) g/dL Hct 34.1 L (41.0-55.0) % Plt Count 250 (140-440) K/mcL BMP 12/15/17 09:17 Sodium 138 Potassium 3.9 Chloride 100 Carbon Dioxide 26 BUN 23 Creatinine 1.2 Glucose 77 Calcium 7.5 L Liver Function 12/15/17 Range/Units 09:17 Total Bilirubin 0.9 (0.0-1.0) mg/dL AST 21 (0-37) U/l ALT 10 (0-40) U/l Alkaline Phosphatase 180 H (39-117) U/L Albumin 3.2 (3.2-5.2) gm/dL Urine 12/15/17 Range/Units 15:10 Urine Color Yellow Urine Appearance Cloudy Urine pH 5.0 (5.0-9.0) Ur Specific [place] 1.015 (1.000-1.035) Urine Protein Neg (NEG) mg/dL Urine Glucose (UA) Negative (NEG) mg/dL Medical - H&P: A/P - Narrative A/P Narrative: A/P Weakness: Etiology? The patient has infiltrate persistent on his chest x-ray may be recurrence of pneumonia. He also has persistent leukocytosis[facility] and [facility]. Check TSH, check cortisol level.(Patient was on steroid taper). EKG does not show any acute cardiac issue Healthcare associated pneumonia-get blood cultures, check pro-calcitonin, await official read of the x-ray, start on IV vancomycin and Zosyn for now. Monitor response. COPD-patient to be treated with steroids and duo nebs for now, has very mild wheeze and prolonged expiratory phase on exam. Has no increased oxygen requirements from baseline. Metastatic prostate cancer-follows with oncology Seizure disorder-on Keppra continue same no recent seizures. History of CVA-on aspirin and statin continue same Hyperlipidemia on statin continue same Depression-continue fluoxetine, patient denies any depressive symptoms at present. DVT-heparin subcu Full code Regular diet. Physical therapy and Occupational Therapy to evaluate the patient. Patient may need to go to a rehab center to gain strength. Social History - Social History household members: spouse housing: house marital status: occupational status: retired - Dietary Habits well-balanced diet: rarely or never during the past year weight has: decreased > 10 lbs - Exercise physical activity: walking - Tobacco smoking status: Current every day smoker quit status: not considering quitting counseling given: patient declined - Tobacco Type tobacco type: cigarettes - Cigarette Details per day: 4 pack-years: 50 - Alcohol alcohol intake frequency: former alcohol drinker - Substance use substance use type: does not use - Mary/Tenriism mary/orthodoxy: Jain - Home Safety working smoke detector in home: Yes - Personal Safety victim of physical abuse: No victim of emotional abuse: No victim of sexual abuse: No
[2017-12-15] MEDS ORDERED: predniSONE 20 MG TABLET PO ONE (16:51)
[2017-12-15] MEDS ORDERED: VANCOMYCIN PER PHARMACY IV SCH (16:51)
[2017-12-15] MEDS: 0.9 % SODIUM CHLORIDE 10 ML SYRINGE IV SCH (17:08)
[2017-12-15] MEDS: LACTATED RINGERS 1,000 ML IV SCH (17:08)
[2017-12-15] MEDS ORDERED: IPRATROPIUM/ALBUTEROL 3 ML AMPUL.NEB NEB SCH (19:00)
[2017-12-15] MEDS: PIPERACILLIN SODIUM/TAZOBACTAM 3.375 GM in DEXTROSE 5% IN WATER 50 ML IV SCH ×2 (19:13→23:49)
[2017-12-15] MEDS: VANCOMYCIN 750 MG in 0.9 % SODIUM CHLORIDE 250 ML IV SCH (19:49)
[2017-12-15] MEDS: IPRATROPIUM/ALBUTEROL 3 ML AMPUL.NEB NEB SCH (19:51)
[2017-12-15] MEDS ORDERED: HEPARIN 5,000 UNIT/ML VIAL SQ SCH (21:00)
[2017-12-15] MEDS: levETIRAcetam 500 MG TABLET PO SCH (21:30)
[2017-12-15] MEDS: HEPARIN 5,000 UNIT/ML VIAL SQ SCH (21:30)
[2017-12-15] MEDS: Fluticasone/Salmeterol [Advair Hfa 230-21 Mcg Inhaler] INH SCH (21:30)
[2017-12-15] MEDS: SIMVASTATIN 20 MG TABLET PO SCH (21:30)
[2017-12-15] MEDS ORDERED: 0.9 % SODIUM CHLORIDE 10 ML SYRINGE IV SCH (22:00)
[2017-12-16] MEDS: 0.9 % SODIUM CHLORIDE 10 ML SYRINGE IV SCH ×4 (00:19→23:57)
[2017-12-16] MEDS: IPRATROPIUM/ALBUTEROL 3 ML AMPUL.NEB NEB SCH ×4 (00:19→19:19)
[2017-12-16] MEDS: PIPERACILLIN SODIUM/TAZOBACTAM 3.375 GM in DEXTROSE 5% IN WATER 50 ML IV SCH ×4 (05:11→23:57)
[2017-12-16 06:27] LABS: Cortisol,AM 2.8 ug/dl (6.2-19.4)
[2017-12-16] MEDS: LACTATED RINGERS 1,000 ML IV SCH (07:56)
[2017-12-16] MEDS: FLUoxetine HCL 20 MG CAPSULE PO SCH ×2 (08:06→11:56)
[2017-12-16] MEDS: predniSONE 20 MG TABLET PO SCH (08:06)
[2017-12-16 08:33] LABS: Basophils # (Auto) 0 K/mcL (0.0-0.3); Basophils % (Auto) 0 % (0.0-2.0); Eosinophils # (Auto) 0.1 K/mcL (0.0-0.7); Eosinophils % (Auto) 1.8 % (0.0-7.0); Granulocytes % (Auto) 93.7 % (38.0-78.0); Lymphocytes # (Auto) 0.2 K/mcL (1.5-4.8); Lymphocytes % (Auto) 2.6 % (15.5-49.0); Mean Cell Volume 95.4 fL (80.0-100.0); Mean Corpuscular HGB Conc 33.6 g/dL (31.0-36.0); Monocytes # (Auto) 0.1 K/mcL (0.1-0.9); Monocytes % (Auto) 1.9 % (1.0-12.0); Platelet Count 233 K/mcL (140-440); RBC 3.11 M/mcL (4.50-5.90); Red Cell Distribution Width 14.2 % (11.5-14.5)
[2017-12-16] MEDS: levETIRAcetam 500 MG TABLET PO SCH ×2 (08:39→20:43)
[2017-12-16] MEDS: HEPARIN 5,000 UNIT/ML VIAL SQ SCH ×2 (08:39→20:43)
[2017-12-16] MEDS: VITAMIN D3 1,000 UNIT TABLET PO SCH (08:39)
[2017-12-16] MEDS: MULTIVIT,THER IRON,CA,FA & MIN 1 TABLET PO SCH (08:39)
[2017-12-16] MEDS: ASPIRIN 81 MG TAB.CHEW PO SCH (08:39)
[2017-12-16] MEDS: CALCIUM W/VIT D3 500 MG TABLET PO SCH (08:39)
[2017-12-16] MEDS: VANCOMYCIN 750 MG in 0.9 % SODIUM CHLORIDE 250 ML IV SCH (08:45)
[2017-12-16] MEDS: Fluticasone/Salmeterol [Advair Hfa 230-21 Mcg Inhaler] INH SCH ×2 (08:49→20:44)
[2017-12-16 08:52] LABS: ALT/SGPT 8 U/l (0-40); Albumin 2.7 gm/dL (3.2-5.2); Alkaline Phosphatase 155 U/L (39-117); Bilirubin,Direct < 0.2 mg/dL (0.0-0.3); Blood Urea Nitrogen 25 mg/dl (8-23); Gamma Glutamyl Transpeptidase 13 U/L (8-61); Uric Acid 3.2 mg/dL (2.5-8.0)
[2017-12-16] MEDS ORDERED: CYANOCOBALAMIN (VITAMIN B-12) 500 MCG TABLET PO SCH (09:00)
--- NOTE | 2017-12-16 09:58 | Internal Med Progress Note ---
Medical - PN: Subj Patient information: Note initiated : 12/16/17 at 9:54 am Service Date, if different from initiated Date: [] Patient: Orlando Valdivia Jr 77 y/o M admitted on 12/15/17 for weakness. Chief Complaint: [] Interval history: Mr. Skip Gil is a 77 year old M history of metastatic cancer, who was recently admitted to this hospital with a diagnosis of pneumonia. The patient was discharged on 25 November, the patient was prescribed levofloxacin and prednisone taper at discharge. According to the patient he was doing well for a few days after discharge however he started to get more weak and more tired again. The patient denies any other acute complaints. He has chronic cough but no sputum production. He denies any fever or any chills. He notes that at baseline he is able to carry out his activities of daily living without much limitations. At this time he finds it difficult to even ambulate around his house. He denies any wheezing. But does have shortness of breath on exertion. The patient has no other symptoms or complaints. During my evaluation he was lying comfortably in bed. The patient was seen by the primary care provider as well as the cancer doctor in the interim. The PCP had ordered a chest CT which showed a left basilar pneumonia. I am not sure if any new antibiotics were prescribed, the patient was also seen by the oncologist and is noted seems it was noted that he was doing better. In the emergency room the patient was stable on presentation, afebrile normal vital signs. Had oxygen needs only when he sleeps otherwise was saturating more than 90% on room air. [He uses oxygen when he sleeps] The patient's labs show some leukocytosis but better than before. Otherwise his labs are unremarkable, urinalysis is negative. Chest x-ray shows improved infiltrate but there is definitely some persistent infiltrate in the left lobe. Official reading is pending. EKG shows sinus rhythm QS pattern in the anterior leads. Given that the patient is extremely weak and unable to go back home he is being admitted to the hospital for further management. 12/16 Patient seen and examined, was sitting comfortably in the chair eating breakfast. His appetite has come back he says he feels good. Labs show slight drop in hemoglobin but compared to his previous hemoglobin values it looks like it is where it supposed to be. He did get some fluids yesterday. WBC count has trended down. His creatinine unfortunately has bumped up from 1.2-1.5. Will get a renal ultrasound given history of prostate cancer. To rule out any obstruction. Pertinent ROS: Denies headache, dizziness Denies chest pain, palpitations Denies cough or shortness of breath Denies abdominal pain, nausea or vomiting. - Constitutional Vitals: Vital Signs Temp Pulse Resp BP Pulse Ox 98.2 F 75 16 142/75 97 12/16/17 06:39 12/16/17 07:41 12/16/17 07:41 12/16/17 06:39 12/16/17 06:39 Period Temp Pulse Resp BP Sys/Romo Pulse Ox Last 24 Hr 98 F-98.9 F 73-84 16-27 120-172/65-124 89-100 Intake and Output 12/15/17 12/16/17 12/16/17 21:59 05:59 13:59 Intake Total 410 / 410 250 / 250 1530 / 1530 Output Total 250 / 250 325 / 325 200 / 200 Balance 160 / 160 -75 / -75 1330 / 1330 Weight 118 lb 9.6 oz Intake & Output: Intake & Output 12/15/17 12/16/17 12/16/17 21:59 05:59 13:59 Intake Total 410 / 410 250 / 250 1530 / 1530 Output Total 250 / 250 325 / 325 200 / 200 Balance 160 / 160 -75 / -75 1330 / 1330 Weight 118 lb 9.6 oz Intake: IV 300 / 300 50 / 50 1050 / 1050 Lactated Ringers 1,000 ml @ 75 1000 / 1000 mls/hr IV .[id number] [facility] Rx#: [id number] Zosyn 3.375 gm In Dextrose 5% 50 / 50 50 / 50 50 / 50 in Water 50 ml @ 100 mls/hr IV Q6H [facility] Rx#:[id number] Vancomycin 750 mg In Sodium 250 / 250 Chloride 0.9% 250 ml @ 250 mls/ hr IV DAILY [facility] Rx#:[id number] Oral 110 / 110 200 / 200 480 / 480 Output: Void Amount 250 / 250 325 / 325 200 / 200 Other: Meal Breakfast Percent of Meal Consumed 100% Feeding Ability Independent # Voids 1 1 Exam: Constitutional; Afebrile, cooperative, alert, not in distress. Eyes- No icterus, , No periorbital swelling Ears- Ext ear normal, hearing normal to conversation. Neck- Midline trachea, supple Respiratory system: Air Entry equal on both sides, No crackles or wheezing, no rhonchi. CVS- Rate rhythm regular, S1,S2 heard, no gallop, no rub. Abdomen- Soft nontender abdomen, no organomegaly, no tenderness, no guarding or rigidity, GLAZE WIPER- AOOx3, moving all extremities, no gross focal deficit noted. Medical - PN: Obj Da - Labs CBC & Chem 7: 12/16/17 07:48 12/16/17 07:48 Labs: Abnormal Lab Results 12/16/17 12/16/17 12/16/17 07:48 07:48 04:28 WBC RBC 3.11 L Hgb 9.9 L Hct 29.7 L RDW Gran % 93.7 H Lymph % (Auto) 2.6 L Lymph # (Auto) 0.2 L Seg Neutrophils % Lymphocytes % BUN 25 H Creatinine 1.5 H Glucose 130 H Calcium 7.0 L Alkaline Phosphatase 155 H Total Protein 5.5 L Albumin 2.7 L Cortisol AM Sample 2.8 L Urine Ketones Urine Occult Blood Urine RBC Amorphous Crystals 12/15/17 12/15/17 12/15/17 15:10 09:18 09:17 WBC 11.4 H RBC 3.55 L Hgb 11.5 L Hct 34.1 L RDW 14.7 H Gran % Lymph % (Auto) Lymph # (Auto) Seg Neutrophils % 83 H Lymphocytes % 6 L BUN Creatinine Glucose Calcium 7.5 L Alkaline Phosphatase 180 H Total Protein Albumin Cortisol AM Sample Urine Ketones 20 A Urine Occult Blood 0.2 A Urine RBC 39 H Amorphous Crystals Few A Meds: Medications Acetaminophen (Tylenol) 650 mg PO Q6HP PRN PRN Reason: PAIN/FEVER > 101 Albuterol/Ipratropium (Duoneb) 3 ml NEB Q6HRT [facility] Last Admin: 12/16/17 07:40 Dose: 3 ml Aspirin (Aspirin) 81 mg PO DAILY [facility] Last Admin: 12/16/17 08:39 Dose: 81 mg Bicalutamide (Casodex) 150 mg PO QDAY [facility] Calcium/Vitamin D (Calcium W/Vit D3) 500 mg PO DAILY [facility] Last Admin: 04/16/18 08:39 Dose: 500 mg Cyanocobalamin (Vitamin B-12) 500 mcg PO DAILY [facility] Fluoxetine HCl (Prozac) 20 mg PO BID@0800,1200 [facility] Last Admin: 12/16/17 08:06 Dose: 20 mg Heparin Sodium (Porcine) (Heparin) 5,000 unit SQ Q12 [facility] Last Admin: 12/16/17 08:39 Dose: 5,000 unit Lactated Ringer's (Lactated Ringers) 1,000 mls @ 75 mls/hr IV .[id number] [facility] Stop: 12/16/17 18:54 Last Admin: 12/16/17 07:56 Dose: 75 mls/hr Piperacillin Sod/Tazobactam (Sod 3.375 gm/ Dextrose) 50 mls @ 100 mls/hr IV Q6H [facility] Last Infusion: 12/16/17 06:34 Dose: Infused Vancomycin HCl 750 mg/ Sodium (Chloride) 250 mls @ 250 mls/hr IV DAILY [facility] Last Admin: 12/16/17 08:45 Dose: 250 mls/hr Iron Carb/Multivit/[place]/Folic Acid (Multivitamin W/Minerals) 1 tab PO DAILY [facility] Last Admin: 12/16/17 08:39 Dose: 1 tab Levetiracetam (Keppra) 500 mg PO BID [facility] Last Admin: 12/16/17 08:39 Dose: 500 mg Magnesium Hydroxide (Milk Of Magnesia) 30 ml PO DAILYP PRN PRN Reason: Constipation Ondansetron HCl (Zofran) 4 mg IV Q6HP PRN PRN Reason: Nausea And Vomiting Oxycodone HCl (Roxicodone) 5 mg PO Q4HP PRN PRN Reason: PAIN LEVEL 3-6 Fluticasone/Salmeterol [Advair Hfa 230-21 Mcg Inhaler] 1 dose INH BID [facility] Last Admin: 12/16/17 08:49 Dose: Not Given Prednisone (Prednisone) 40 mg PO QAMCC [facility] Last Admin: 12/16/17 08:06 Dose: 40 mg Senna (Senokot) 2 tab PO HS PRN PRN Reason: Constipation Simvastatin (Zocor) 40 mg PO QPM [facility] Last Admin: 12/15/17 21:30 Dose: 40 mg Sodium Chloride (Saline Flush) 10 ml IV Q8 [facility] Last Admin: 12/16/17 05:11 Dose: 10 ml Tiotropium [place] (Spiriva) 18 mcg INH QDAY [facility] Vancomycin HCl (Vancomycin Per Pharmacy) 1 order IV UD [facility] Vitamin D (Vitamin D3) 1,000 unit PO DAILY [facility] Last Admin: 12/16/17 08:39 Dose: 1,000 unit Medical - PN: A/P - Time Spent With Patient Total time spent is greater than 50% in coordination of care (as documented) at patient's floor/unit and/or counseling patient: - Narrative A/P Narrative: A/P Weakness: Etiology? Patient has infiltrate on the chest x-ray which is improving. Patient has low cortisol level according to yesterday's labs. This morning's cortisol level is low however patient did get prednisone yesterday some not sure if it is an actual reflection of what his abdomen function is. The patient was on steroid therapy at the time of discharge. He admits to using the taper. However it is likely that given the patient is taking significant amounts of Shakir suppressants as well as prednisone that he developed some adrenal insufficiency. At this point I will continue with the prednisone and at discharge will consider a very slow taper. Healthcare associated [id number] shows improving infiltrate. Pro- calcitonin is on the lower end, blood cultures awaited, continue antibiotics for now. COPD-patient to be treated with steroids and duo nebs for now, air entry is better compared to yesterday. Acute kidney injury-UA negative slight hematuria as expected in patients with prostate cancer, will get renal ultrasound. Metastatic prostate cancer-follows with oncology Seizure disorder-on Keppra continue same no recent seizures. History of CVA-on aspirin and statin continue same Hyperlipidemia on statin continue same Depression-continue fluoxetine, patient denies any depressive symptoms at present. DVT-heparin subcu Full code Regular diet. Physical therapy and Occupational Therapy to evaluate the patient. Patient may need to go to a rehab center to gain strength. Medical - PN: Qual - VTE Deep Vein Thrombosis/Pulmonary Embolism Present on Admission: No
[2017-12-16] MEDS: TIOTROPIUM BROMIDE 18 MCG INHALANT INH SCH (10:43)
[2017-12-16] MEDS: BICALUTAMIDE 50 MG TABLET PO SCH (10:43)
--- NOTE | 2017-12-16 14:18 | Ultrasound Report ---
CLINICAL INFORMATION: Acute renal failure COMPARISON: None. FINDINGS: Both kidneys are normal and symmetric in size, position and configuration: The right is 12.2 x 5 cm and the left is 11.8 x 5 cm. Both kidneys are mildly upper quadrant compatible with medical renal disease. There is mild bilateral hydronephrosis. Focal renal lesions Urinary bladder volume is 157 cc and the patient was unable to void. Prostate volume is normal at 16 cc. There is a 6 x 5 cm isoechoic, avascular region of asymmetric thickening involving the posterior urinary bladder wall. IMPRESSION: 1. Moderate focal asymmetric thickening of the posterior urinary bladder wall spanning 6 x 5 cm. This could be inflammatory, fibrotic or neoplastic. Suggest correlation with cystoscopy 2. Mild bilateral hydronephrosis could be related to partial narrowing of the distal ureter UVJ due to focal bladder wall thickening. 3. Hyperechoic kidneys compatible with medical renal disease Interpreted and Authenticated by: Ludwin Niño 12/16/17
[2017-12-16] MEDS: SIMVASTATIN 20 MG TABLET PO SCH (20:43)
[2017-12-17] MEDS: IPRATROPIUM/ALBUTEROL 3 ML AMPUL.NEB NEB SCH ×3 (01:15→13:29)
[2017-12-17] MEDS: PIPERACILLIN SODIUM/TAZOBACTAM 3.375 GM in DEXTROSE 5% IN WATER 50 ML IV SCH ×2 (05:14→11:51)
[2017-12-17] MEDS: 0.9 % SODIUM CHLORIDE 10 ML SYRINGE IV SCH ×2 (05:15→05:53)
[2017-12-17] MEDS: predniSONE 20 MG TABLET PO SCH (07:47)
[2017-12-17] MEDS: FLUoxetine HCL 20 MG CAPSULE PO SCH ×2 (07:48→11:51)
[2017-12-17 08:52] LABS: Basophils # (Auto) 0 K/mcL (0.0-0.3); Basophils % (Auto) 0 % (0.0-2.0); Eosinophils # (Auto) 0.2 K/mcL (0.0-0.7); Eosinophils % (Auto) 2.1 % (0.0-7.0); Lymphocytes # (Auto) 0.5 K/mcL (1.5-4.8); Lymphocytes % (Auto) 5.2 % (15.5-49.0); Mean Cell Volume 95.7 fL (80.0-100.0); Mean Corpuscular Hemoglobin 32.5 pg (26.0-34.0); Monocytes # (Auto) 0.5 K/mcL (0.1-0.9); Monocytes % (Auto) 5.7 % (1.0-12.0); Platelet Count 303 K/mcL (140-440); RBC 3.05 M/mcL (4.50-5.90); Red Cell Distribution Width 14.4 % (11.5-14.5)
[2017-12-17] MEDS ORDERED: CYANOCOBALAMIN (VITAMIN B-12) 500 MCG TABLET PO SCH (09:00)
[2017-12-17] MEDS ORDERED: VANCOMYCIN 1,000 MG in 0.9 % SODIUM CHLORIDE 250 ML IV SCH (09:00)
[2017-12-17 09:02] LABS: ALT/SGPT 8 U/l (0-40); Albumin 2.7 gm/dL (3.2-5.2); Alkaline Phosphatase 141 U/L (39-117); Bilirubin,Direct < 0.2 mg/dL (0.0-0.3); Blood Urea Nitrogen 25 mg/dl (8-23); Gamma Glutamyl Transpeptidase 13 U/L (8-61); Uric Acid 2.7 mg/dL (2.5-8.0)
[2017-12-17] MEDS: levETIRAcetam 500 MG TABLET PO SCH (09:45)
[2017-12-17] MEDS: MULTIVIT,THER IRON,CA,FA & MIN 1 TABLET PO SCH (09:46)
[2017-12-17] MEDS: HEPARIN 5,000 UNIT/ML VIAL SQ SCH (09:46)
[2017-12-17] MEDS: CALCIUM W/VIT D3 500 MG TABLET PO SCH (09:46)
[2017-12-17] MEDS: VITAMIN D3 1,000 UNIT TABLET PO SCH (09:46)
[2017-12-17] MEDS: ASPIRIN 81 MG TAB.CHEW PO SCH (09:46)
--- NOTE | 2017-12-17 10:02 | Internal Med Progress Note ---
Medical - PN: Subj Patient information: Note initiated : 12/17/17 at 9:57 am Service Date, if different from initiated Date: [] Patient: Orlando Valdivia Jr 77 y/o M admitted on 12/15/17 for Weakness/ Pneumonia. Chief Complaint: [] Interval history: Mr. Skip Gil is a 77 year old M history of metastatic cancer, who was recently admitted to this hospital with a diagnosis of pneumonia. The patient was discharged on 25 November, the patient was prescribed levofloxacin and prednisone taper at discharge. According to the patient he was doing well for a few days after discharge however he started to get more weak and more tired again. The patient denies any other acute complaints. He has chronic cough but no sputum production. He denies any fever or any chills. He notes that at baseline he is able to carry out his activities of daily living without much limitations. At this time he finds it difficult to even ambulate around his house. He denies any wheezing. But does have shortness of breath on exertion. The patient has no other symptoms or complaints. During my evaluation he was lying comfortably in bed. The patient was seen by the primary care provider as well as the cancer doctor in the interim. The PCP had ordered a chest CT which showed a left basilar pneumonia. I am not sure if any new antibiotics were prescribed, the patient was also seen by the oncologist and is noted seems it was noted that he was doing better. In the emergency room the patient was stable on presentation, afebrile normal vital signs. Had oxygen needs only when he sleeps otherwise was saturating more than 90% on room air. [He uses oxygen when he sleeps] The patient's labs show some leukocytosis but better than before. Otherwise his labs are unremarkable, urinalysis is negative. Chest x-ray shows improved infiltrate but there is definitely some persistent infiltrate in the left lobe. Official reading is pending. EKG shows sinus rhythm QS pattern in the anterior leads. Given that the patient is extremely weak and unable to go back home he is being admitted to the hospital for further management. 12/16 Patient seen and examined, was sitting comfortably in the chair eating breakfast. His appetite has come back he says he feels good. Labs show slight drop in hemoglobin but compared to his previous hemoglobin values it looks like it is where it supposed to be. He did get some fluids yesterday. WBC count has trended down. His creatinine unfortunately has bumped up from 1.2-1.5. Will get a renal ultrasound given history of prostate cancer. To rule out any obstruction. 12/17 Examined, no acute overnight events. This morning he is feeling weak. He notes that his is not doing well and therefore is in a down mood. His labs are stable. Creatinine is back to 1.2. Renal ultrasound reviewed, noted lesion in the bladder as well as mild bilateral hydronephrosis. I have asked Dr. Flores to review the case. Patient may need a cystoscopy inpatient versus outpatient. The patient otherwise has no acute complaints. Just weakness. He has declined participation with physical therapy today. Pertinent ROS: Denies headache, dizziness Denies chest pain, palpitations Denies cough or shortness of breath Denies abdominal pain, nausea or vomiting. - Constitutional Vitals: Vital Signs Temp Pulse Resp BP Pulse Ox 98.6 F 72 16 147/84 97 12/17/17 06:40 12/17/17 07:43 12/17/17 07:43 12/17/17 06:40 12/17/17 06:52 Period Temp Pulse Resp BP Sys/Romo Pulse Ox Last 24 Hr 98.4 F-99.3 F 68-86 16-24 123-147/70-84 95-99 Intake and Output 12/16/17 12/17/17 12/17/17 21:59 05:59 13:59 Intake Total 530 / 530 460 / 460 Output Total 350 / 350 Balance 530 / 530 110 / 110 Weight 125 lb Intake & Output: Intake & Output 12/16/17 12/17/17 12/17/17 21:59 05:59 13:59 Intake Total 530 / 530 460 / 460 Output Total 350 / 350 Balance 530 / 530 110 / 110 Weight 125 lb Intake: IV 50 / 50 100 / 100 Zosyn 3.375 gm In Dextrose 5% 50 / 50 100 / 100 in Water 50 ml @ 100 mls/hr IV Q6H [facility] Rx#:[id number] Oral 480 / 480 360 / 360 Output: Void Amount 350 / 350 Other: Meal Dinner Percent of Meal Consumed 100% Feeding Ability Independent # Voids 2 # Bowel Movements 1 Exam: Constitutional; Afebrile, cooperative, alert, not in distress. Eyes- No icterus, , No periorbital swelling Ears- Ext ear normal, hearing normal to conversation. Neck- Midline trachea, supple Respiratory system: Air Entry equal on both sides, No crackles or wheezing, no rhonchi. CVS- Rate rhythm regular, S1,S2 heard, no gallop, no rub. 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 Medical - PN: Obj Da - Labs CBC & Chem 7: 12/17/17 07:44 12/17/17 07:44 Labs: Abnormal Lab Results 12/17/17 12/17/17 12/16/17 07:44 07:44 07:48 WBC RBC 3.05 L Hgb 9.9 L Hct 29.2 L RDW Gran % 87.0 H Lymph % (Auto) 5.2 L Lymph # (Auto) 0.5 L Seg Neutrophils % Lymphocytes % BUN 25 H 25 H Creatinine 1.5 H Glucose 130 H Calcium 7.4 L 7.0 L Phosphorus 2.4 L Alkaline Phosphatase 141 H 155 H Total Protein 5.5 L 5.5 L Albumin 2.7 L 2.7 L Cortisol AM Sample Urine Ketones Urine Occult Blood Urine RBC Amorphous Crystals 12/16/17 12/16/17 12/15/17 07:48 04:28 15:10 WBC RBC 3.11 L Hgb 9.9 L Hct 29.7 L RDW Gran % 93.7 H Lymph % (Auto) 2.6 L Lymph # (Auto) 0.2 L Seg Neutrophils % Lymphocytes % BUN Creatinine Glucose Calcium Phosphorus Alkaline Phosphatase Total Protein Albumin Cortisol AM Sample 2.8 L Urine Ketones 20 A Urine Occult Blood 0.2 A Urine RBC 39 H Amorphous Crystals Few A 12/15/17 12/15/17 09:18 09:17 WBC 11.4 H RBC 3.55 L Hgb 11.5 L Hct 34.1 L RDW 14.7 H Gran % Lymph % (Auto) Lymph # (Auto) Seg Neutrophils % 83 H Lymphocytes % 6 L BUN Creatinine Glucose Calcium 7.5 L Phosphorus Alkaline Phosphatase 180 H Total Protein Albumin Cortisol AM Sample Urine Ketones Urine Occult Blood Urine RBC Amorphous Crystals Meds: Medications Acetaminophen (Tylenol) 650 mg PO Q6HP PRN PRN Reason: PAIN/FEVER > 101 Albuterol/Ipratropium (Duoneb) 3 ml NEB Q6HRT [facility] Last Admin: 12/17/17 07:43 Dose: 3 ml Aspirin (Aspirin) 81 mg PO DAILY [facility] Last Admin: 12/17/17 09:46 Dose: 81 mg Bicalutamide (Casodex) 150 mg PO QDAY [facility] Last Admin: 12/16/17 10:43 Dose: Not Given Calcium/Vitamin D (Calcium W/Vit D3) 500 mg PO DAILY [facility] Last Admin: 12/17/17 09:46 Dose: 500 mg Cyanocobalamin (Vitamin B-12) 5,000 mcg PO DAILY [facility] Last Admin: 12/17/17 09:45 Dose: 5,000 mcg Fluoxetine HCl (Prozac) 20 mg PO BID@0800,1200 [facility] Last Admin: 12/17/17 07:48 Dose: 20 mg Heparin Sodium (Porcine) (Heparin) 5,000 unit SQ Q12 [facility] Last Admin: 12/17/17 09:46 Dose: 5,000 unit Piperacillin Sod/Tazobactam (Sod 3.375 gm/ Dextrose) 50 mls @ 100 mls/hr IV Q6H [facility] Last Infusion: 12/17/17 05:45 Dose: Infused Vancomycin HCl 1,000 mg/ (Sodium Chloride) 250 mls @ 250 mls/hr IV Q24H [facility] Last Admin: 12/17/17 09:52 Dose: 250 mls/hr Iron Carb/Multivit/[place]/Folic Acid (Multivitamin W/Minerals) 1 tab PO DAILY [facility] Last Admin: 12/17/17 09:46 Dose: 1 tab Levetiracetam (Keppra) 500 mg PO BID [facility] Last Admin: 12/17/17 09:45 Dose: 500 mg Magnesium Hydroxide (Milk Of Magnesia) 30 ml PO DAILYP PRN PRN Reason: Constipation Ondansetron HCl (Zofran) 4 mg IV Q6HP PRN PRN Reason: Nausea And Vomiting Oxycodone HCl (Roxicodone) 5 mg PO Q4HP PRN PRN Reason: PAIN LEVEL 3-6 Fluticasone/Salmeterol [Advair Hfa 230-21 Mcg Inhaler] 1 dose INH BID [facility] Last Admin: 12/16/17 20:44 Dose: Not Given Prednisone (Prednisone) 40 mg PO QAMCC [facility] Last Admin: 12/17/17 07:47 Dose: 40 mg Senna (Senokot) 2 tab PO HS PRN PRN Reason: Constipation Simvastatin (Zocor) 40 mg PO QPM [facility] Last Admin: 12/16/17 20:43 Dose: 40 mg Sodium Chloride (Saline Flush) 10 ml IV Q8 [facility] Last Admin: 12/17/17 05:53 Dose: 10 ml Tiotropium Stevens (Spiriva) 18 mcg INH QDAY [facility] Last Admin: 12/16/17 10:43 Dose: Not Given Vancomycin HCl (Vancomycin Per Pharmacy) 1 order IV UD [facility] Vitamin D (Vitamin D3) 1,000 unit PO DAILY [facility] Last Admin: 12/17/17 09:46 Dose: 1,000 unit Medical - PN: A/P - Time Spent With Patient Total time spent is greater than 50% in coordination of care (as documented) at patient's floor/unit and/or counseling patient: - Narrative A/P Narrative: A/P Weakness: Etiology? likely multifactorial, PNA vs Steroid deficinecy, vs malignancy related. Plan to treat infection and monitor, on prednisone for now, will taper slowly, try to get him participate in PT. Healthcare associated [id number] shows improving infiltrate. Pro- calcitonin is on the lower end, blood cultures awaited, continue antibiotics for now d3 today . 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 Renal ultrasound reviewed. Has bilateral hydronephrosis mild as well as a lesion in the bladder. Plan to review with urology Metastatic prostate cancer-follows with oncology Seizure disorder-on Keppra continue same no recent seizures. History of CVA-on aspirin and statin continue same Hyperlipidemia on statin continue same Depression-continue fluoxetine, patient denies any depressive symptoms at present. DVT-heparin subcu Full code Regular diet. Physical therapy and Occupational Therapy to evaluate the patient. Patient may need to go to a rehab center to gain strength. It may be difficult to place the patient to a rehab center given that he is on chemotherapy agents which are very expensive. Patient may need to be transitioned to swing bed status for ongoing therapy. Medical - PN: Qual - VTE Deep Vein Thrombosis/Pulmonary Embolism Present on Admission: No
[2017-12-17] MEDS: Fluticasone/Salmeterol [Advair Hfa 230-21 Mcg Inhaler] INH SCH (10:43)
[2017-12-17] MEDS: BICALUTAMIDE 50 MG TABLET PO SCH (10:43)
[2017-12-17] MEDS: TIOTROPIUM BROMIDE 18 MCG INHALANT INH SCH (10:43)
[2017-12-17] MEDS: VANCOMYCIN 750 MG in 0.9 % SODIUM CHLORIDE 250 ML IV SCH (10:44)
--- NOTE | 2017-12-17 16:23 | Discharge Summary ---
Medical - DS: Prov Patient information: Note initiated : 12/17/17 at 4:21 pm Service Date, if different from initiated Date: [] Patient: Orlando Valdivia Jr 77 y/o M admitted on 12/15/17 for Weakness/ Pneumonia. Chief Complaint: [] Date of admission: 12/15/17 16:40 Discharge date: 12/17/17 Primary care physician: Amberly Velasco Admitting clinician: Homero Torres Consults: 12/15/17 15:09 Consult to Physician [CONS] Stat Comment: Consulting Provider: Homero Torres Reason For Exam: Physician to Consult 12/16/17 11:39 Consult to Physician [CONS] Routine Comment: SNF Referral Consulting Provider: [facility] Reason For Exam: Physician to Consult Discharging clinician: Homero Torres Medical - DS: Meds - Discharge Medications Active and Home Medications: Home Medications aspirin 81 mg tablet,delayed release 81 mg PO QDAY tab 03/21/15 [History Confirmed 12/15/17 Last Taken 12/14/17] multivitamin tablet 1 tab PO QDAY tab 03/21/15 [History Confirmed 12/15/17 Last Taken 12/14/17] levetiracetam 500 mg tablet 500 mg PO BID 90 Days #180 04/28/15 [History Confirmed 12/15/17 Last Taken 12/14/17] bicalutamide 50 mg tablet 150 mg PO QDAY 30 Days #90 tab 02/01/17 [History Confirmed 12/15/17 Last Taken 12/14/17] albuterol sulfate HFA 90 mcg/actuation aerosol inhaler 2 puff INHALATION Q4-6H PRN #18 g 05/09/17 [Rx Confirmed 12/15/17 Last Taken 12/15/17] simvastatin 20 mg tablet 40 mg PO QPM #60 tab 05/09/17 [Rx Confirmed 12/15/17 Last Taken 11/21/17 21:00] tiotropium bromide 18 mcg capsule with inhalation device 1 cap INHALATION QDAY # 30 puff 05/09/17 [Rx Confirmed 12/15/17 Last Taken 11/22/17 09:00] fluticasone-salmeterol 230 mcg-21 mcg/actuation HFA aerosol inhaler 2 puff INHALATION BID #12 g 11/08/17 [Rx Confirmed 12/15/17 Last Taken 12/14/17] Calcium Carbonate/Vitamin D3 [Calcium 600 + Vit D Tablet] 1 tab PO DAILY [History Confirmed 12/15/17 Last Taken 12/14/17] Cyanocobalamin (Vitamin B-12) [Vitamin B12] 5,000 mcg PO DAILY 11/22/17 [ History Confirmed 12/16/17 Last Taken 12/13/17] FLUoxetine HCL [Sarafem] 20 mg PO 08,12 11/22/17 [History Confirmed 12/15/17 Last Taken 12/11/17] Prochlorperazine Maleate [Compazine] 10 mg PO Q6HP PRN 11/22/17 [History Confirmed 12/15/17 Last Taken Unknown] Vitamin D3 1,000 unit PO DAILY 11/22/17 [History Confirmed 12/15/17 Last Taken 11/22/17 09:00] predniSONE [Prednisone] 20 mg PO DAILY #90 tab 11/25/17 [Rx Confirmed 12/15/17 Last Taken 12/14/17] OXYGEN 2 inh INH QHS 12/15/17 [History Confirmed 12/15/17 Last Taken 12/14/17] Mometasone/Formoterol [Dulera 200 Mcg/5 Mcg Inhaler] 2 puff IH BID 12/16/17 [ History Confirmed 12/16/17 Last Taken Unknown] Medical - DS: Hosp Hospital course: Mr. Skip Gil is a 77 year old M history of metastatic cancer, who was recently admitted to this hospital with a diagnosis of pneumonia. The patient was discharged on 25 November, the patient was prescribed levofloxacin and prednisone taper at discharge. According to the patient he was doing well for a few days after discharge however he started to get more weak and more tired again. The patient denies any other acute complaints. He has chronic cough but no sputum production. He denies any fever or any chills. He notes that at baseline he is able to carry out his activities of daily living without much limitations. At this time he finds it difficult to even ambulate around his house. He denies any wheezing. But does have shortness of breath on exertion. The patient has no other symptoms or complaints. During my evaluation he was lying comfortably in bed. The patient was seen by the primary care provider as well as the cancer doctor in the interim. The PCP had ordered a chest CT which showed a left basilar pneumonia. I am not sure if any new antibiotics were prescribed, the patient was also seen by the oncologist and is noted seems it was noted that he was doing better. In the emergency room the patient was stable on presentation, afebrile normal vital signs. Had oxygen needs only when he sleeps otherwise was saturating more than 90% on room air. [He uses oxygen when he sleeps] The patient's labs show some leukocytosis but better than before. Otherwise his labs are unremarkable, urinalysis is negative. Chest x-ray shows improved infiltrate but there is definitely some persistent infiltrate in the left lobe. Official reading is pending. EKG shows sinus rhythm QS pattern in the anterior leads. Given that the patient is extremely weak and unable to go back home he is being admitted to the hospital for further management. 12/16 Patient seen and examined, was sitting comfortably in the chair eating breakfast. His appetite has come back he says he feels good. Labs show slight drop in hemoglobin but compared to his previous hemoglobin values it looks like it is where it supposed to be. He did get some fluids yesterday. WBC count has trended down. His creatinine unfortunately has bumped up from 1.2-1.5. Will get a renal ultrasound given history of prostate cancer. To rule out any obstruction. 12/17 Examined, no acute overnight events. This morning he is feeling weak. He notes that his is not doing well and therefore is in a down mood. His labs are stable. Creatinine is back to 1.2. Renal ultrasound reviewed, noted lesion in the bladder as well as mild bilateral hydronephrosis. I have asked Dr. Flores to review the case. Patient may need a cystoscopy inpatient versus outpatient. The patient otherwise has no acute complaints. Just weakness. He has declined participation with physical therapy today. The patient is hemodynamically stable at this point time just needs IV medications for pneumonia. The patient case was reviewed with Dr. Flores who noted that the patient's bladder mass is likely related to cancer and given his history of prostate cancer it would be extremely difficult to place stents at this time. Given the fact that the patient's renal function has improved we will just monitor this for now. Should the renal function worsen or hydronephrosis worsen patient will need stents placed by interventional radiology The patient is stable for discharge to swing bed status. We are unable to find a halfway facility to accept the patient A/P during hospital stay. Weakness: Etiology? likely multifactorial, PNA vs Steroid deficiency, vs malignancy related. Plan to treat infection and monitor, on prednisone for now, will taper slowly, try to get him participate in PT. Healthcare associated [id number] shows improving infiltrate. Pro- calcitonin is on the lower end, blood cultures awaited, continue antibiotics for now d3 today . 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 Renal ultrasound reviewed. Has bilateral hydronephrosis mild as well as a lesion in the bladder. Plan to review with urology Metastatic prostate cancer-follows with oncology Seizure disorder-on Keppra continue same no recent seizures. History of CVA-on aspirin and statin continue same Hyperlipidemia on statin continue same Depression-continue fluoxetine, patient denies any depressive symptoms at present. Discharge diagnosis: Pneumonia, Weakness, - Time Spent with Patient Total time spent providing and/or coordinating discharge services: Less than 30 minutes Medical - DS: Exam - Constitutional Vitals: Vital Signs Temp Pulse Pulse Pulse Resp BP Pulse Ox 12/17/17 13:34 76 16 12/17/17 13:30 94 12/17/17 13:29 94 12/17/17 12:00 97.6 F 77 20 160/75 95 12/17/17 07:43 72 16 12/17/17 06:52 97 12/17/17 06:40 98.6 F 16 147/84 97 12/17/17 04:00 98.4 F 68 22 142/73 97 12/17/17 00:00 98.5 F 71 22 133/71 98 12/16/17 20:00 98.8 F 80 24 H 124/77 99 12/16/17 19:26 78 16 12/16/17 19:20 99 Intake and Output 12/17/17 12/17/17 12/17/17 05:59 13:59 21:59 Intake Total 460 / 460 490 / 490 Output Total 350 / 350 200 / 200 175 / 175 Balance 110 / 110 290 / 290 -175 / -175 Intake: IV 100 / 100 250 / 250 Zosyn 3.375 gm In Dextrose 5% 100 / 100 in Water 50 ml @ 100 mls/hr IV Q6H [facility] Rx#:[id number] Vancomycin 1,000 mg In Sodium 250 / 250 Chloride 0.9% 250 ml @ 250 mls/ hr IV Q24H [facility] Rx#:[id number] Oral 360 / 360 240 / 240 Output: Void Amount 350 / 350 200 / 200 175 / 175 Other: Meal Breakfast Percent of Meal Consumed 100% Feeding Ability Independent Additional comments: Constitutional; Afebrile, cooperative, alert, not in distress. Eyes- No icterus, , No periorbital swelling Ears- Ext ear normal, hearing normal to conversation. Neck- Midline trachea, supple Respiratory system: Air Entry equal on both sides, No crackles or wheezing, no rhonchi. CVS- Rate rhythm regular, S1,S2 heard, no gallop, no rub. 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 Medical - DS: Data Labs on day of discharge: Labs from last 24 hours 12/17/17 12/17/17 12/17/17 07:44 07:44 07:44 WBC 9.2 RBC 3.05 L Hgb 9.9 L Hct 29.2 L MCV 95.7 MCH 32.5 MCHC 34.0 RDW 14.4 Plt Count 303 MPV 7.4 Gran % 87.0 H Lymph % (Auto) 5.2 L [place] % (Auto) 5.7 Eos % (Auto) 2.1 Baso % (Auto) 0 Gran # 8.0 Lymph # (Auto) 0.5 L [place] # (Auto) 0.5 Eos # (Auto) 0.2 Baso # (Auto) 0 Sodium 141 Potassium 4.2 Chloride 103 Carbon Dioxide 29 Anion Gap 9.0 BUN 25 H Creatinine 1.2 GFR Calculation 58 Glucose 82 Uric Acid 2.7 Calcium 7.4 L Phosphorus 2.4 L Magnesium 2.3 Total Bilirubin 0.3 Direct Bilirubin < 0.2 GGT 13 AST 14 ALT 8 Alkaline Phosphatase 141 H Lactate Dehydrogenase 183 Total Protein 5.5 L Albumin 2.7 L Globulin 2.8 Albumin/Globulin Ratio 1.0 Triglycerides 68 Vancomycin Trough 7.7 Preliminary micro results at discharge 12/15/17 16:13 Blood Culture - Preliminary Blood 12/15/17 16:08 Blood Culture - Preliminary Blood Medical - DS: A/P - Patient/Caregiver Discharge Instructions Activity: as per physical therapy, increase activity as tolerated Diet: Regular Diet Additional Instructions: Pt to be discharged to swing bed status. - Follow up Plan Follow up with: Amberly Velasco DNP, ARNP [Primary Care Provider] - Disposition: [facility] Bed Prognosis: Fair Rehab Potential: Fair I certify that the patient requires SNF services: Yes Overall status at discharge: patient is progressing back to baseline Medical - DS: Qual - VTE Deep Vein Thrombosis/Pulmonary Embolism Present on Admission: No
== END 2017-12-17 15:45 | disposition other institution (70) ==
LOC: ED 08:51 → MEDSUR 08:51
PROVIDERS: ADMIT Internal Medicine; ATTEND Internal Medicine

== ENCOUNTER 2017-12-17 15:37 | Inpatient (IN) ==
[2017-12-17] MEDS ORDERED: oxyCODONE HCL 5 MG TABLET PO PRN (16:31)
[2017-12-17] MEDS ORDERED: ACETAMINOPHEN 325 MG TABLET PO PRN (16:31)
[2017-12-17] MEDS ORDERED: ALBUTEROL SULFATE 1 PUFF INHALER INH PRN ×2 (18:43→19:45)
[2017-12-17] MEDS ORDERED: PROCHLORPERAZINE MALEATE 10 MG TABLET PO PRN (18:43)
[2017-12-17] MEDS ORDERED: VANCOMYCIN PER PHARMACY IV SCH (18:47)
[2017-12-17] MEDS: PIPERACILLIN SODIUM/TAZOBACTAM 3.375 GM in DEXTROSE 5% IN WATER 50 ML IV SCH (19:06)
[2017-12-17] MEDS: 0.9 % SODIUM CHLORIDE 10 ML SYRINGE IV SCH (21:00)
[2017-12-17] MEDS: HEPARIN 5,000 UNIT/ML VIAL SQ SCH (21:50)
[2017-12-17] MEDS: DOCUSATE SODIUM 100 MG CAPSULE PO SCH (21:50)
[2017-12-17] MEDS: SIMVASTATIN 20 MG TABLET PO SCH (21:51)
[2017-12-17] MEDS: Mometasone/Formoterol [Dulera] 200 Mcg/5 Mcg Inhaler INH SCH (21:51)
[2017-12-18] MEDS: PIPERACILLIN SODIUM/TAZOBACTAM 3.375 GM in DEXTROSE 5% IN WATER 50 ML IV SCH ×4 (00:21→17:28)
[2017-12-18] MEDS: 0.9 % SODIUM CHLORIDE 10 ML SYRINGE IV SCH ×2 (06:01→15:19)
[2017-12-18] MEDS: CYANOCOBALAMIN (VITAMIN B-12) 500 MCG TABLET PO SCH (08:38)
[2017-12-18] MEDS: FLUoxetine HCL 20 MG CAPSULE PO SCH (08:38)
[2017-12-18] MEDS: ASPIRIN 81 MG TAB.CHEW PO SCH (08:38)
[2017-12-18] MEDS: levETIRAcetam 500 MG TABLET PO SCH (08:38)
[2017-12-18] MEDS: HEPARIN 5,000 UNIT/ML VIAL SQ SCH ×2 (08:38→20:42)
[2017-12-18] MEDS: MULTIVIT,THER IRON,CA,FA & MIN 1 TABLET PO SCH (08:39)
[2017-12-18] MEDS: predniSONE 20 MG TABLET PO SCH (08:39)
[2017-12-18] MEDS: DOCUSATE SODIUM 100 MG CAPSULE PO SCH ×2 (08:39→20:42)
[2017-12-18] MEDS: TIOTROPIUM BROMIDE 18 MCG INHALANT INH SCH (08:43)
[2017-12-18] MEDS ORDERED: Abiraterone Acetate [Zytiga] 1,000 MG PO SCH (09:00)
[2017-12-18] MEDS: VANCOMYCIN 1,000 MG in 0.9 % SODIUM CHLORIDE 250 ML IV SCH (09:33)
[2017-12-18] MEDS: Mometasone/Formoterol [Dulera] 200 Mcg/5 Mcg Inhaler INH SCH ×2 (09:33→20:44)
[2017-12-18] MEDS: ENZALUTAMIDE 40 MG PO SCH (09:36)
--- NOTE | 2017-12-18 15:31 | Internal Med History&Physical ---
Medical - H&P: HPI Patient information: Note initiated : 12/18/17 at 3:27 pm Service Date, if different from initiated Date: [] Patient: Orlando Valdivia Jr 77 y/o M admitted on 12/17/17 for Weakness/ Pneumonia. Chief Complaint: [] History of present illness: Mr. Skip Gil is a 77 year old M history of metastatic cancer, who was recently admitted to this hospital with a diagnosis of pneumonia. The patient was discharged on 25 November, the patient was prescribed levofloxacin and prednisone taper at discharge. According to the patient he was doing well for a few days after discharge however he started to get more weak and more tired again. The patient denies any other acute complaints. He has chronic cough but no sputum production. He denies any fever or any chills. He notes that at baseline he is able to carry out his activities of daily living without much limitations. At this time he finds it difficult to even ambulate around his house. He denies any wheezing. But does have shortness of breath on exertion. The patient has no other symptoms or complaints. During my evaluation he was lying comfortably in bed. The patient was seen by the primary care provider as well as the cancer doctor in the interim. The PCP had ordered a chest CT which showed a left basilar pneumonia. I am not sure if any new antibiotics were prescribed, the patient was also seen by the oncologist and is noted seems it was noted that he was doing better. In the emergency room the patient was stable on presentation, afebrile normal vital signs. Had oxygen needs only when he sleeps otherwise was saturating more than 90% on room air. [He uses oxygen when he sleeps] The patient's labs show some leukocytosis but better than before. Otherwise his labs are unremarkable, urinalysis is negative. Chest x-ray shows improved infiltrate but there is definitely some persistent infiltrate in the left lobe. Official reading is pending. EKG shows sinus rhythm QS pattern in the anterior leads. Given that the patient is extremely weak and unable to go back home he is being admitted to the hospital for further management. Patient was treated with IV antibiotics and steroids, patient responded to treatment, given his history of prostate cancer and need for chemotherapy he was not accepted as a group home patient. He was therefore transferred to swing bed status. He will continue antibiotics for a total of 5-7 days. He will be on a very slow taper of prednisone. The patient had a renal ultrasound done while he was inpatient status. His creatinine did bump from 1.2-1.5. Renal ultrasound showed bilateral mild hydronephrosis. And a mass in the bladder. Reviewed the case with Dr. Flores who advised that the patient is not a candidate for cystoscopy. Should the patient's function worsen or hydronephrosis worsen he will need interventional radiology guided drain placed 12/18 Patient seen and examined, was lying comfortably in bed, has no acute complaints. Breathing is much better he is part spitting with physical therapy. Review of systems: Denies headache, dizziness Denies chest pain, palpitations much improved shortness of breath Denies abdominal pain, nausea or vomiting. Medical - H&P: [facility] Medical history: Medical History (Last Reviewed 12/04/17 @ 10:36 by Amberly Velasco, VAMSHI, CHEMIC MANGLER) Anemia (Acute) Seizure (Chronic) Prostate cancer metastatic to bone (Chronic) Elevated Prostate Specific Antigen (PSA) (Chronic) Congenital shortening tendon (Chronic) Mitral valve prolapse (Chronic) Mitral regurgitation (Chronic) Mass of soft tissue (Chronic) Hemorrhoids (Chronic) Diverticulosis of colon (Chronic) Cognitive decline (Chronic) Cervical spondylosis with myelopathy (Chronic) Cervical spinal stenosis (Chronic) Carotid stenosis (Resolved) TIA (transient ischemic attack) (Chronic) Tobacco abuse (Chronic) Heart murmur, systolic (Chronic) Hypertension, essential, benign (Chronic) Hyperlipidemia (Chronic) Erectile dysfunction (Chronic) Depression (Chronic) COPD (chronic obstructive pulmonary disease) (Chronic) CVA (cerebrovascular accident) (Resolved) Carotid artery occlusion (Resolved) Fracture of right tibial plateau (Resolved) Internal derangement of right knee (Resolved) Sprain of shoulder and upper arm (Resolved) Syncope, near (Resolved) Surgical history: Past Surgical History (Last Reviewed 12/04/17 @ 10:36 by Amberly Velasco, VAMSHI, CHEMIC MANGLER) History of colonoscopy (Resolved) History of adenoidectomy (Resolved) History of appendectomy (Resolved) History of cataract surgery (Resolved) History of intraocular lens implant (Resolved) History of neck surgery (Resolved) History of tonsillectomy (Resolved) S/P skin biopsy (Resolved) Family history: reviewed and not pertinent Pertinent family history: Family History (Last Reviewed 12/04/17 @ 10:36 by Amberly Velasco, DNP, CHEMIC MANGLER) No family history of respiratory disease No problems noted. No family history of breast disease No problems noted. No family history of cardiovascular disease No problems noted. No family history of endocrine disease No problems noted. No family history of gastrointestinal disease No problems noted. No family history of neurologic disease No problems noted. Father Bipolar affective disorder Senile dementia Malignant neoplasm of esophagus, Onset Age: 90 Parkinson's Disease Schizophrenia Mother Cardiac disease Family history of rheumatic heart disease Sister Family history of kidney stones Medical - H&P: Meds Home Medications Medication Instructions Recorded Confirmed Type aspirin 81 mg tablet,delayed 81 mg PO QDAY tab 03/21/15 12/17/17 History release multivitamin tablet 1 tab PO QDAY tab 03/21/15 12/17/17 History levetiracetam 500 mg tablet 500 mg PO DAILY 90 Days #180 04/28/15 12/17/17 History albuterol sulfate HFA 90 2 puff INHALATION Q4-6H PRN #18 g 05/09/17 12/17/17 Rx mcg/actuation aerosol inhaler simvastatin 20 mg tablet 40 mg PO QPM #60 tab 05/09/17 12/17/17 Rx tiotropium bromide 18 mcg capsule 1 cap INHALATION QDAY #30 puff 05/09/17 Rx with inhalation device Calcium Carbonate/Vitamin D3 1 tab PO DAILY 11/22/17 12/17/17 History [Calcium 600 + Vit D Tablet] FLUoxetine HCL [Sarafem] 40 mg PO DAILY 11/22/17 12/17/17 History Prochlorperazine Maleate 10 mg PO Q6HP PRN 11/22/17 12/17/17 History [Compazine] Vitamin D3 1,000 unit PO DAILY 11/22/17 12/15/17 History predniSONE [Prednisone] 20 mg PO DAILY #90 tab 11/25/17 12/15/17 Rx Abiraterone Acetate [Zytiga] 1,000 mg PO DAILY 12/17/17 12/17/17 History Cyanocobalamin (Vitamin B-12) 250 mcg PO DAILY 12/17/17 12/17/17 History [Vitamin B-12] Mometasone/Formoterol [Dulera 100 2 puff IH BID 04/17/18 04/17/18 History Mcg/5 Mcg Inhaler] Enzalutamide [Xtandi] 160 mg PO DAILY 12/18/17 12/18/17 History Allergies Allergy/AdvReac Type Severity Reaction Status Date / Time No Known Drug Allergies Allergy Verified 11/22/17 17:47 Medical - H&P: Exam - Constitutional Vitals: Temp Pulse Resp BP Pulse Ox 98 F 81 16 176/92 96 12/18/17 07:18 12/17/17 19:07 12/18/17 07:18 12/18/17 07:18 12/18/17 11:14 Exam: Constitutional; Afebrile, cooperative, alert, not in distress. Eyes- No icterus, , No periorbital swelling Ears- Ext ear normal, hearing normal to conversation. Neck- Midline trachea, supple Respiratory system: Air Entry equal on both sides, No crackles or wheezing, no rhonchi. CVS- Rate rhythm regular, S1,S2 heard, no gallop, no rub. Abdomen- Soft nontender abdomen, no organomegaly, no tenderness, no guarding or rigidity, SAWMILL HAND- AOOx3, moving all extremities, no gross focal deficit noted. Medical - H&P: A/P - Narrative A/P Narrative: A/P Weakness: Etiology? The patient has infiltrate persistent on his chest x-ray may be recurrence of pneumonia. He also has persistent leukocytosis. tsh normal cortisol was low on admission. Adrenal insufficiency/ Abiodun disease secondary,: Pt had low cortisol on admission, repeat cortisol next AM was low, but pt had received prednisone so this value is not useful. pt did feel better after initiation of prednisone again. Not sure if pt has underlying adrenal insufficiency. Pt will continue on prednisone for now. Will taper very slowly. Will advise a very slow taper at discharge. Healthcare associated pneumonia-continue IV vanco and zosyn d3 today, pt blood cx neg so far. COPD-patient to be treated with steroids and bronchodilators. No wheeze on exam today. Metastatic prostate cancer-follows with oncology Seizure disorder-on Keppra continue same no recent seizures. History of CVA-on aspirin and statin continue same Hyperlipidemia on statin continue same Depression-continue fluoxetine, patient denies any depressive symptoms at present. DVT-heparin subcut Full code Regular diet. Physical therapy and Occupational Therapy to continue while in swing bed status. Medical - H&P: Qual - VTE Deep Vein Thrombosis/Pulmonary Embolism Present on Admission: No Social History - Social History household members: spouse housing: house marital status: occupational status: retired - Dietary Habits well-balanced diet: rarely or never during the past year weight has: decreased > 10 lbs - Exercise physical activity: walking - Tobacco smoking status: Current every day smoker quit status: not considering quitting counseling given: patient declined - Tobacco Type tobacco type: cigarettes - Cigarette Details per day: 4 pack-years: 50 - Alcohol alcohol intake frequency: former alcohol drinker - Substance use substance use type: does not use - Mary/Restorationist mary/sabianist: Congregational - Home Safety working smoke detector in home: Yes - Personal Safety victim of physical abuse: No victim of emotional abuse: No victim of sexual abuse: No
[2017-12-18] MEDS: SIMVASTATIN 20 MG TABLET PO SCH (20:42)
[2017-12-19] MEDS: 0.9 % SODIUM CHLORIDE 10 ML SYRINGE IV SCH ×3 (00:03→12:42)
[2017-12-19] MEDS: PIPERACILLIN SODIUM/TAZOBACTAM 3.375 GM in DEXTROSE 5% IN WATER 50 ML IV SCH ×4 (00:03→17:59)
[2017-12-19] MEDS: ENZALUTAMIDE 40 MG PO SCH (08:47)
[2017-12-19] MEDS: DOCUSATE SODIUM 100 MG CAPSULE PO SCH ×2 (08:48→20:09)
[2017-12-19] MEDS: MULTIVIT,THER IRON,CA,FA & MIN 1 TABLET PO SCH (08:48)
[2017-12-19] MEDS: ASPIRIN 81 MG TAB.CHEW PO SCH (08:48)
[2017-12-19] MEDS: FLUoxetine HCL 20 MG CAPSULE PO SCH (08:48)
[2017-12-19] MEDS: levETIRAcetam 500 MG TABLET PO SCH (08:48)
[2017-12-19] MEDS: predniSONE 20 MG TABLET PO SCH (08:48)
[2017-12-19] MEDS: CYANOCOBALAMIN (VITAMIN B-12) 500 MCG TABLET PO SCH (08:48)
[2017-12-19] MEDS: HEPARIN 5,000 UNIT/ML VIAL SQ SCH ×2 (08:48→20:09)
[2017-12-19] MEDS: Mometasone/Formoterol [Dulera] 200 Mcg/5 Mcg Inhaler INH SCH ×2 (08:49→20:11)
[2017-12-19] MEDS: VANCOMYCIN 1,000 MG in 0.9 % SODIUM CHLORIDE 250 ML IV SCH (09:50)
[2017-12-19] MEDS: TIOTROPIUM BROMIDE 18 MCG INHALANT INH SCH (09:58)
[2017-12-19] MEDS: SIMVASTATIN 20 MG TABLET PO SCH (20:09)
[2017-12-20] MEDS: PIPERACILLIN SODIUM/TAZOBACTAM 3.375 GM in DEXTROSE 5% IN WATER 50 ML IV SCH ×5 (00:10→23:25)
[2017-12-20] MEDS: 0.9 % SODIUM CHLORIDE 10 ML SYRINGE IV SCH ×4 (00:10→20:59)
[2017-12-20] MEDS: predniSONE 20 MG TABLET PO SCH (08:27)
[2017-12-20] MEDS: FLUoxetine HCL 20 MG CAPSULE PO SCH (08:28)
[2017-12-20] MEDS: MULTIVIT,THER IRON,CA,FA & MIN 1 TABLET PO SCH (08:29)
[2017-12-20] MEDS: DOCUSATE SODIUM 100 MG CAPSULE PO SCH ×2 (08:29→20:58)
[2017-12-20] MEDS: ASPIRIN 81 MG TAB.CHEW PO SCH (08:29)
[2017-12-20] MEDS: levETIRAcetam 500 MG TABLET PO SCH (08:29)
[2017-12-20] MEDS: HEPARIN 5,000 UNIT/ML VIAL SQ SCH ×2 (08:29→20:57)
[2017-12-20] MEDS: TIOTROPIUM BROMIDE 18 MCG INHALANT INH SCH (08:32)
[2017-12-20] MEDS: ENZALUTAMIDE 40 MG PO SCH (08:35)
[2017-12-20] MEDS: VANCOMYCIN 1,000 MG in 0.9 % SODIUM CHLORIDE 250 ML IV SCH (08:36)
[2017-12-20] MEDS: CYANOCOBALAMIN (VITAMIN B-12) 500 MCG TABLET PO SCH (08:36)
[2017-12-20] MEDS: Mometasone/Formoterol [Dulera] 200 Mcg/5 Mcg Inhaler INH SCH ×2 (08:36→20:58)
[2017-12-20] MEDS: SIMVASTATIN 20 MG TABLET PO SCH (20:58)
--- NOTE | 2017-12-20 21:24 | Internal Med Progress Note ---
Medical - PN: Subj Patient information: Note initiated : 12/20/17 at 9:21 pm Service Date, if different from initiated Date: [] Patient: Orlando Valdivia 77 y/o M admitted on 12/17/17 for Weakness/Pneumonia. Chief Complaint: f/u PNA, weakness Interval history: Mr. Skip Gil is a 77 year old M history of metastatic cancer, who was recently admitted to this hospital with a diagnosis of pneumonia. The patient was discharged on 25 November, the patient was prescribed levofloxacin and prednisone taper at discharge. According to the patient he was doing well for a few days after discharge however he started to get more weak and more tired again. The patient denies any other acute complaints. He has chronic cough but no sputum production. He denies any fever or any chills. He notes that at baseline he is able to carry out his activities of daily living without much limitations. At this time he finds it difficult to even ambulate around his house. He denies any wheezing. But does have shortness of breath on exertion. The patient has no other symptoms or complaints. During my evaluation he was lying comfortably in bed. The patient was seen by the primary care provider as well as the cancer doctor in the interim. The PCP had ordered a chest CT which showed a left basilar pneumonia. I am not sure if any new antibiotics were prescribed, the patient was also seen by the oncologist and is noted seems it was noted that he was doing better. In the emergency room the patient was stable on presentation, afebrile normal vital signs. Had oxygen needs only when he sleeps otherwise was saturating more than 90% on room air. [He uses oxygen when he sleeps] The patient's labs show some leukocytosis but better than before. Otherwise his labs are unremarkable, urinalysis is negative. Chest x-ray shows improved infiltrate but there is definitely some persistent infiltrate in the left lobe. Official reading is pending. EKG shows sinus rhythm QS pattern in the anterior leads. Given that the patient is extremely weak and unable to go back home he is being admitted to the hospital for further management. Patient was treated with IV antibiotics and steroids, patient responded to treatment, given his history of prostate cancer and need for chemotherapy he was not accepted as a senior living patient. He was therefore transferred to swing bed status. He will continue antibiotics for a total of 5-7 days. He will be on a very slow taper of prednisone. The patient had a renal ultrasound done while he was inpatient status. His creatinine did bump from 1.2-1.5. Renal ultrasound showed bilateral mild hydronephrosis. And a mass in the bladder. Reviewed the case with Dr. Flores who advised that the patient is not a candidate for cystoscopy. Should the patient's function worsen or hydronephrosis worsen he will need interventional radiology guided drain placed 12/18 Patient seen and examined, was lying comfortably in bed, has no acute complaints. Breathing is much better he is part spitting with physical therapy. 12/20 No new complaints. Breathing is at baseline. Working with therapies, but c/o being "bored". - Constitutional Vitals: Vital Signs Temp Pulse Resp BP Pulse Ox 98.1 F 80 20 148/78 92 12/20/17 19:47 12/20/17 19:47 12/20/17 19:47 12/20/17 19:47 12/20/17 19:47 Period Temp Pulse Resp BP Sys/Romo Pulse Ox Last 24 Hr 98.1 F-98.5 F 80 16-20 148/78 92-97 Intake and Output 12/20/17 12/20/17 12/20/17 05:59 13:59 21:59 Intake Total 250 / 250 732 / 732 50 / 50 Output Total 300 / 300 325 / 325 Balance -50 / -50 732 / 732 -275 / -275 Weight 125 lb Patient Weight 12/21/17 05:59 Weight 125 lb General: Frail appearing, no acute distress Chest: Diminished throughout, no rales, no wheezes, unlabored Joe vascular: Regular, 1/6 systolic murmur at the right sternal border Abdomen: Soft, active bowel sounds Neuro: Alert, oriented 3, generally weak. Intake & Output: Intake & Output 12/20/17 12/20/17 12/20/17 05:59 13:59 21:59 Intake Total 250 / 250 732 / 732 50 / 50 Output Total 300 / 300 325 / 325 Balance -50 / -50 732 / 732 -275 / -275 Weight 125 lb Intake: IV 50 / 50 292 / 292 50 / 50 Zosyn 3.375 gm In Dextrose 5% 50 / 50 42 / 42 50 / 50 in Water 50 ml @ 100 mls/hr IV Q6H [facility] Rx#:[id number] Vancomycin 1,000 mg In Sodium 250 / 250 Chloride 0.9% 250 ml @ 250 mls/ hr IV Q24H [facility] Rx#:[id number] Oral 200 / 200 440 / 440 Output: Void Amount 300 / 300 325 / 325 Other: Meal Breakfast Percent of Meal Consumed 100% # Voids 1 2 # Bowel Movements 1 Medical - PN: Obj Da - Labs Meds: Medications Acetaminophen (Tylenol) 650 mg PO Q4-6HP PRN PRN Reason: PAIN/FEVER > 101 Albuterol Sulfate (Ventolin) 2 puff INH Q4HP PRN PRN Reason: bronchospasm Aspirin (Aspirin) 81 mg PO DAILY [facility] Last Admin: 12/20/17 08:29 Dose: 81 mg Cyanocobalamin (Vitamin B-12) 250 mcg PO DAILY [facility] Last Admin: 12/20/17 08:36 Dose: 250 mcg Docusate Sodium (Colace) 100 mg PO BID [facility] Last Admin: 12/20/17 20:58 Dose: 100 mg Fluoxetine HCl (Prozac) 40 mg PO DAILY [facility] Last Admin: 12/20/17 08:28 Dose: 40 mg Heparin Sodium (Porcine) (Heparin) 5,000 unit SQ Q12 [facility] Last Admin: 12/20/17 20:57 Dose: 5,000 unit Piperacillin Sod/Tazobactam (Sod 3.375 gm/ Dextrose) 50 mls @ 100 mls/hr IV Q6H [facility] Last Infusion: 12/20/17 18:43 Dose: Infused Vancomycin HCl 1,000 mg/ (Sodium Chloride) 250 mls @ 250 mls/hr IV Q24H [facility] Last Infusion: 12/20/17 09:51 Dose: Infused Iron Carb/Multivit/[place]/Folic Acid (Multivitamin W/Minerals) 1 tab PO DAILY [facility] Last Admin: 12/20/17 08:29 Dose: 1 tab Levetiracetam (Keppra) 500 mg PO DAILY [facility] Last Admin: 12/20/17 08:29 Dose: 500 mg Oxycodone HCl (Roxicodone) 5 mg PO Q4HP PRN PRN Reason: PAIN LEVEL 3-6 Mometasone/Formoterol [Dulera] 200 Mcg/5 Mcg Inhaler 2 dose INH BID [facility] Last Admin: 12/20/17 20:58 Dose: 2 dose Abiraterone Acetate ([Zytiga] 250 Mg Tab) 4 dose PO DAILY [facility] Last Admin: 12/20/17 08:29 Dose: 4 dose Enzalutamide (Xtandi () 40 Mg Cap) 4 dose PO DAILY [facility] Last Admin: 12/20/17 08:35 Dose: 4 dose Prednisone (Prednisone) 40 mg PO [facility] Last Admin: 12/20/17 08:27 Dose: 40 mg Prochlorperazine Maleate (Compazine) 10 mg PO Q6HP PRN PRN Reason: Nausea Simvastatin (Zocor) 40 mg PO QPM [facility] Last Admin: 12/20/17 20:58 Dose: 40 mg Sodium Chloride (Saline Flush) 10 ml IV Q8 [facility] Last Admin: 12/20/17 20:59 Dose: 10 ml Tiotropium Capitan (Spiriva) 18 mcg INH QDAY [facility] Last Admin: 12/20/17 08:32 Dose: 1 dose Vancomycin HCl (Vancomycin Per Pharmacy) 1 order IV [facility] Medical - PN: A/P - Narrative A/P Narrative: Weakness: Uncertain etiology. The patient has infiltrate persistent on his chest x-ray may be recurrence of pneumonia. He also has persistent leukocytosis. tsh normal cortisol was low on admission. Adrenal insufficiency/secondary: Pt had low cortisol on inpatient admission, repeat cortisol next AM was low, but pt had received prednisone so this value is not useful. pt did feel better after initiation of prednisone again. Not sure if pt has underlying adrenal insufficiency. Pt will continue on prednisone for now. Will taper very slowly. Will advise a very slow taper at discharge. Healthcare associated pneumonia-continue IV vanco and zosyn d5 today (12/20) COPD-patient to be treated with steroids and bronchodilators. Stable. Continue. Metastatic prostate cancer-follows with oncology, cont home regimen Seizure disorder-on Keppra continue same no recent seizures. History of CVA-on aspirin and statin continue same Hyperlipidemia on statin continue same Depression-continue fluoxetine, patient denies any depressive symptoms at present. DVT-heparin subcut Full code Regular diet. Physical therapy and Occupational Therapy continue. Medical - PN: Qual - VTE Deep Vein Thrombosis/Pulmonary Embolism Present on Admission: No
[2017-12-21] MEDS: PIPERACILLIN SODIUM/TAZOBACTAM 3.375 GM in DEXTROSE 5% IN WATER 50 ML IV SCH ×4 (05:33→23:50)
[2017-12-21] MEDS: 0.9 % SODIUM CHLORIDE 10 ML SYRINGE IV SCH ×3 (05:39→21:22)
[2017-12-21] MEDS: HEPARIN 5,000 UNIT/ML VIAL SQ SCH ×2 (08:50→21:21)
[2017-12-21] MEDS: levETIRAcetam 500 MG TABLET PO SCH (08:51)
[2017-12-21] MEDS: DOCUSATE SODIUM 100 MG CAPSULE PO SCH ×2 (08:51→21:22)
[2017-12-21] MEDS: FLUoxetine HCL 20 MG CAPSULE PO SCH (08:51)
[2017-12-21] MEDS: MULTIVIT,THER IRON,CA,FA & MIN 1 TABLET PO SCH (08:53)
[2017-12-21] MEDS: ASPIRIN 81 MG TAB.CHEW PO SCH (09:00)
[2017-12-21] MEDS: Mometasone/Formoterol [Dulera] 200 Mcg/5 Mcg Inhaler INH SCH ×2 (09:01→21:21)
[2017-12-21] MEDS: ENZALUTAMIDE 40 MG PO SCH (09:06)
[2017-12-21] MEDS: TIOTROPIUM BROMIDE 18 MCG INHALANT INH SCH (09:07)
[2017-12-21] MEDS: VANCOMYCIN 1,000 MG in 0.9 % SODIUM CHLORIDE 250 ML IV SCH (09:10)
[2017-12-21] MEDS: CYANOCOBALAMIN (VITAMIN B-12) 500 MCG TABLET PO SCH (09:38)
[2017-12-21] MEDS: predniSONE 20 MG TABLET PO SCH (09:38)
[2017-12-21] MEDS: SIMVASTATIN 20 MG TABLET PO SCH (21:22)
[2017-12-22] MEDS: 0.9 % SODIUM CHLORIDE 10 ML SYRINGE IV SCH ×4 (00:24→20:46)
[2017-12-22] MEDS: PIPERACILLIN SODIUM/TAZOBACTAM 3.375 GM in DEXTROSE 5% IN WATER 50 ML IV SCH ×2 (05:56→13:00)
[2017-12-22 09:19] LABS: Blood Urea Nitrogen 28 mg/dl (8-23)
[2017-12-22] MEDS: DOCUSATE SODIUM 100 MG CAPSULE PO SCH ×2 (10:29→20:46)
[2017-12-22] MEDS: CYANOCOBALAMIN (VITAMIN B-12) 500 MCG TABLET PO SCH (10:29)
[2017-12-22] MEDS: MULTIVIT,THER IRON,CA,FA & MIN 1 TABLET PO SCH (10:31)
[2017-12-22] MEDS: FLUoxetine HCL 20 MG CAPSULE PO SCH (10:32)
[2017-12-22] MEDS: predniSONE 20 MG TABLET PO SCH (10:32)
[2017-12-22] MEDS: HEPARIN 5,000 UNIT/ML VIAL SQ SCH ×2 (10:33→20:46)
[2017-12-22] MEDS: levETIRAcetam 500 MG TABLET PO SCH (10:33)
[2017-12-22] MEDS: ASPIRIN 81 MG TAB.CHEW PO SCH (10:34)
[2017-12-22] MEDS: Mometasone/Formoterol [Dulera] 200 Mcg/5 Mcg Inhaler INH SCH ×2 (10:35→20:46)
[2017-12-22] MEDS: TIOTROPIUM BROMIDE 18 MCG INHALANT INH SCH (10:36)
[2017-12-22] MEDS: VANCOMYCIN 1,000 MG in 0.9 % SODIUM CHLORIDE 250 ML IV SCH (10:38)
[2017-12-22] MEDS: ENZALUTAMIDE 40 MG PO SCH (10:39)
--- NOTE | 2017-12-22 17:33 | Internal Med Progress Note ---
Medical - PN: Subj Patient information: Note initiated : 12/22/17 at 5:31 pm Service Date, if different from initiated Date: [] Patient: Orlando Valdivia 77 y/o M admitted on 12/17/17 for Weakness/Pneumonia. Chief Complaint: f/u PNA, weakness Interval history: Mr. Skip Gil is a 77 year old M history of metastatic cancer, who was recently admitted to this hospital with a diagnosis of pneumonia. The patient was discharged on 25 November, the patient was prescribed levofloxacin and prednisone taper at discharge. According to the patient he was doing well for a few days after discharge however he started to get more weak and more tired again. The patient denies any other acute complaints. He has chronic cough but no sputum production. He denies any fever or any chills. He notes that at baseline he is able to carry out his activities of daily living without much limitations. At this time he finds it difficult to even ambulate around his house. He denies any wheezing. But does have shortness of breath on exertion. The patient has no other symptoms or complaints. During my evaluation he was lying comfortably in bed. The patient was seen by the primary care provider as well as the cancer doctor in the interim. The PCP had ordered a chest CT which showed a left basilar pneumonia. I am not sure if any new antibiotics were prescribed, the patient was also seen by the oncologist and is noted seems it was noted that he was doing better. In the emergency room the patient was stable on presentation, afebrile normal vital signs. Had oxygen needs only when he sleeps otherwise was saturating more than 90% on room air. [He uses oxygen when he sleeps] The patient's labs show some leukocytosis but better than before. Otherwise his labs are unremarkable, urinalysis is negative. Chest x-ray shows improved infiltrate but there is definitely some persistent infiltrate in the left lobe. Official reading is pending. EKG shows sinus rhythm QS pattern in the anterior leads. Given that the patient is extremely weak and unable to go back home he is being admitted to the hospital for further management. Patient was treated with IV antibiotics and steroids, patient responded to treatment, given his history of prostate cancer and need for chemotherapy he was not accepted as a [facility] patient. He was therefore transferred to swing bed status. He will continue antibiotics for a total of 5-7 days. He will be on a very slow taper of prednisone. The patient had a renal ultrasound done while he was inpatient status. His creatinine did bump from 1.2-1.5. Renal ultrasound showed bilateral mild hydronephrosis. And a mass in the bladder. Reviewed the case with Dr. Flores who advised that the patient is not a candidate for cystoscopy. Should the patient's function worsen or hydronephrosis worsen he will need interventional radiology guided drain placed 12/18 Patient seen and examined, was lying comfortably in bed, has no acute complaints. Breathing is much better he is part spitting with physical therapy. 12/20 No new complaints. Breathing is at baseline. Working with therapies, but c/o being "bored". 12/22 Patient is quite fatigued yesterday. Today was doing pretty well. Met with the patient along with Dr. Zhao and Luli from case management to discuss his 's care (with his 's permission). Related that her health is continuing to fail, which she knew, and that she wanted to focus on being comfortable at this time. - Constitutional Vitals: Vital Signs Temp Pulse Resp BP Pulse Ox 98.7 F 77 18 155/85 93 12/22/17 16:00 12/22/17 16:00 12/22/17 16:00 12/22/17 16:00 12/22/17 16:00 Period Temp Pulse Resp BP Sys/Romo Pulse Ox Last 24 Hr 97.5 F-98.7 F 73-77 16-18 137-171/80-85 93-99 Intake and Output 12/22/17 12/22/17 12/22/17 05:59 13:59 21:59 Intake Total 200 / 200 340 / 340 100 / 100 Output Total 575 / 575 925 / 925 300 / 300 Balance -375 / -375 -585 / -585 -200 / -200 General: Frail, elderly Respiratory: Unlabored Cardiovascular: No edema Abdomen: Nondistended Neuro: Alert, oriented, generally weak, using walker. Intake & Output: Intake & Output 12/22/17 12/22/17 12/22/17 05:59 13:59 21:59 Intake Total 200 / 200 340 / 340 100 / 100 Output Total 575 / 575 925 / 925 300 / 300 Balance -375 / -375 -585 / -585 -200 / -200 Intake: IV 50 / 50 100 / 100 Zosyn 3.375 gm In Dextrose 5% 50 / 50 100 / 100 in Water 50 ml @ 100 mls/hr IV Q6H [facility] Rx#:[id number] Oral 150 / 150 240 / 240 100 / 100 Output: Void Amount 575 / 575 925 / 925 300 / 300 Other: Meal Ice cream x2 Breakfast Percent of Meal Consumed 100% 100% Feeding Ability Independent Independent Stool Size Small Stool Consistency Normal for Patient # Voids 1 Medical - PN: Obj Da - Labs CBC & Chem 7: 12/22/17 08:00 Labs: Abnormal Lab Results 12/22/17 08:00 Carbon Dioxide 33 H BUN 28 H Calcium 8.2 L Meds: Medications Acetaminophen (Tylenol) 650 mg PO Q4-6HP PRN PRN Reason: PAIN/FEVER > 101 Albuterol Sulfate (Ventolin) 2 puff INH Q4HP PRN PRN Reason: bronchospasm Aspirin (Aspirin) 81 mg PO DAILY [facility] Last Admin: 12/22/17 10:34 Dose: 81 mg Cyanocobalamin (Vitamin B-12) 250 mcg PO DAILY [facility] Last Admin: 12/22/17 10:29 Dose: 250 mcg Docusate Sodium (Colace) 100 mg PO BID [facility] Last Admin: 12/22/17 10:29 Dose: 100 mg Fluoxetine HCl (Prozac) 40 mg PO DAILY [facility] Last Admin: 12/22/17 10:32 Dose: 40 mg Heparin Sodium (Porcine) (Heparin) 5,000 unit SQ Q12 [facility] Last Admin: 12/22/17 10:33 Dose: 5,000 unit Piperacillin Sod/Tazobactam (Sod 3.375 gm/ Dextrose) 50 mls @ 100 mls/hr IV Q6H [facility] Last Infusion: 12/22/17 13:37 Dose: Infused Vancomycin HCl 1,000 mg/ (Sodium Chloride) 250 mls @ 250 mls/hr IV Q24H [facility] Last Admin: 12/22/17 10:38 Dose: 250 mls/hr Iron Carb/Multivit/[place]/Folic Acid (Multivitamin W/Minerals) 1 tab PO DAILY [facility] Last Admin: 12/22/17 10:31 Dose: 1 tab Levetiracetam (Keppra) 500 mg PO DAILY [facility] Last Admin: 12/22/17 10:33 Dose: 500 mg Oxycodone HCl (Roxicodone) 5 mg PO Q4HP PRN PRN Reason: PAIN LEVEL 3-6 Mometasone/Formoterol [Dulera] 200 Mcg/5 Mcg Inhaler 2 dose INH BID [facility] Last Admin: 12/22/17 10:35 Dose: 2 dose Abiraterone Acetate ([Zytiga] 250 Mg Tab) 4 dose PO DAILY [facility] Last Admin: 12/22/17 10:41 Dose: 4 dose Enzalutamide (Xtandi () 40 Mg Cap) 4 dose PO DAILY [facility] Last Admin: 12/22/17 10:39 Dose: 2 dose Prednisone (Prednisone) 40 mg PO [facility] Last Admin: 12/22/17 10:32 Dose: 40 mg Prochlorperazine Maleate (Compazine) 10 mg PO Q6HP PRN PRN Reason: Nausea Simvastatin (Zocor) 40 mg PO QPM [facility] Last Admin: 12/21/17 21:22 Dose: 40 mg Sodium Chloride (Saline Flush) 10 ml IV Q8 [facility] Last Admin: 12/22/17 05:57 Dose: 10 ml Tiotropium [place] (Spiriva) 18 mcg INH QDAY [facility] Last Admin: 12/22/17 10:36 Dose: 1 dose Vancomycin HCl (Vancomycin Per Pharmacy) 1 [place] [facility] [place] - PN: A/P - Time Spent With Patient Total time spent is greater than 50% in coordination of care (as documented) at patient's floor/unit and/or counseling patient: 25 - 35 minutes - Narrative A/P Narrative: Weakness: Uncertain etiology. The patient had infiltrate persistent on his chest x-ray may be recurrence of pneumonia. He also had persistent leukocytosis , though that resolved at time of move to swing bed. TSH, normal cortisol was low on admission. Adrenal insufficiency/secondary: Pt had low cortisol on inpatient admission, repeat cortisol next AM was low, but pt had received prednisone so this value is not useful. Pt did feel better after initiation of prednisone again. Not sure if pt has underlying adrenal insufficiency. Pt will continue on prednisone for now. Will taper very slowly. Will advise a very slow taper at discharge. Healthcare associated pneumonia-continue IV vanco and zosyn d7 today (12/22), will stop. COPD-patient to be treated with steroids and bronchodilators. Stable. Continue. Metastatic prostate cancer-follows with oncology, cont home regimen Seizure disorder-on Keppra continue same no recent seizures. History of CVA-on aspirin and statin continue same Hyperlipidemia on statin continue same Depression-continue fluoxetine, patient denies any depressive symptoms at present. DVT-heparin subcut Full code Regular diet. Physical therapy and Occupational Therapy continue. Medical - PN: Qual - VTE Deep Vein Thrombosis/Pulmonary Embolism Present on Admission: No
[2017-12-22] MEDS: SIMVASTATIN 20 MG TABLET PO SCH (20:47)
[2017-12-23] MEDS: MULTIVIT,THER IRON,CA,FA & MIN 1 TABLET PO SCH (10:48)
[2017-12-23] MEDS: FLUoxetine HCL 20 MG CAPSULE PO SCH (10:48)
[2017-12-23] MEDS: CYANOCOBALAMIN (VITAMIN B-12) 500 MCG TABLET PO SCH (10:49)
[2017-12-23] MEDS: predniSONE 20 MG TABLET PO SCH (10:49)
[2017-12-23] MEDS: ASPIRIN 81 MG TAB.CHEW PO SCH (10:49)
[2017-12-23] MEDS: DOCUSATE SODIUM 100 MG CAPSULE PO SCH ×2 (10:49→20:04)
[2017-12-23] MEDS: HEPARIN 5,000 UNIT/ML VIAL SQ SCH ×2 (10:50→20:04)
[2017-12-23] MEDS: levETIRAcetam 500 MG TABLET PO SCH (10:50)
[2017-12-23] MEDS: TIOTROPIUM BROMIDE 18 MCG INHALANT INH SCH (10:50)
[2017-12-23] MEDS: Mometasone/Formoterol [Dulera] 200 Mcg/5 Mcg Inhaler INH SCH ×2 (10:51→20:04)
[2017-12-23] MEDS: ENZALUTAMIDE 40 MG PO SCH (10:52)
[2017-12-23] MEDS: 0.9 % SODIUM CHLORIDE 10 ML SYRINGE IV SCH ×3 (14:00→20:04)
[2017-12-23] MEDS: SIMVASTATIN 20 MG TABLET PO SCH (20:04)
[2017-12-24] MEDS: 0.9 % SODIUM CHLORIDE 10 ML SYRINGE IV SCH ×3 (06:28→21:04)
[2017-12-24] MEDS: CYANOCOBALAMIN (VITAMIN B-12) 500 MCG TABLET PO SCH (10:33)
[2017-12-24] MEDS: ASPIRIN 81 MG TAB.CHEW PO SCH (10:33)
[2017-12-24] MEDS: DOCUSATE SODIUM 100 MG CAPSULE PO SCH ×2 (10:33→21:05)
[2017-12-24] MEDS: levETIRAcetam 500 MG TABLET PO SCH (10:33)
[2017-12-24] MEDS: predniSONE 20 MG TABLET PO SCH (10:33)
[2017-12-24] MEDS: MULTIVIT,THER IRON,CA,FA & MIN 1 TABLET PO SCH (10:34)
[2017-12-24] MEDS: Mometasone/Formoterol [Dulera] 200 Mcg/5 Mcg Inhaler INH SCH ×2 (10:34→21:04)
[2017-12-24] MEDS: FLUoxetine HCL 20 MG CAPSULE PO SCH (10:34)
[2017-12-24] MEDS: TIOTROPIUM BROMIDE 18 MCG INHALANT INH SCH (10:35)
[2017-12-24] MEDS: HEPARIN 5,000 UNIT/ML VIAL SQ SCH ×2 (10:37→21:05)
--- NOTE | 2017-12-24 16:23 | Internal Med Progress Note ---
Medical - PN: Subj Patient information: Note initiated : 12/24/17 at 4:20 pm Service Date, if different from initiated Date: [] Patient: Orlando Valdivia 77 y/o M admitted on 12/17/17 for Weakness/Pneumonia. Chief Complaint: [] Interval history: Mr. Skip Gil is a 77 year old M history of metastatic cancer, who was recently admitted to this hospital with a diagnosis of pneumonia. The patient was discharged on 25 November, the patient was prescribed levofloxacin and prednisone taper at discharge. According to the patient he was doing well for a few days after discharge however he started to get more weak and more tired again. The patient denies any other acute complaints. He has chronic cough but no sputum production. He denies any fever or any chills. He notes that at baseline he is able to carry out his activities of daily living without much limitations. At this time he finds it difficult to even ambulate around his house. He denies any wheezing. But does have shortness of breath on exertion. The patient has no other symptoms or complaints. During my evaluation he was lying comfortably in bed. The patient was seen by the primary care provider as well as the cancer doctor in the interim. The PCP had ordered a chest CT which showed a left basilar pneumonia. I am not sure if any new antibiotics were prescribed, the patient was also seen by the oncologist and is noted seems it was noted that he was doing better. In the emergency room the patient was stable on presentation, afebrile normal vital signs. Had oxygen needs only when he sleeps otherwise was saturating more than 90% on room air. [He uses oxygen when he sleeps] The patient's labs show some leukocytosis but better than before. Otherwise his labs are unremarkable, urinalysis is negative. Chest x-ray shows improved infiltrate but there is definitely some persistent infiltrate in the left lobe. Official reading is pending. EKG shows sinus rhythm QS pattern in the anterior leads. Given that the patient is extremely weak and unable to go back home he is being admitted to the hospital for further management. Patient was treated with IV antibiotics and steroids, patient responded to treatment, given his history of prostate cancer and need for chemotherapy he was not accepted as a assisted patient. He was therefore transferred to swing bed status. He will continue antibiotics for a total of 5-7 days. He will be on a very slow taper of prednisone. The patient had a renal ultrasound done while he was inpatient status. His creatinine did bump from 1.2-1.5. Renal ultrasound showed bilateral mild hydronephrosis. And a mass in the bladder. Reviewed the case with Dr. Flores who advised that the patient is not a candidate for cystoscopy. Should the patient's function worsen or hydronephrosis worsen he will need interventional radiology guided drain placed 12/18 Patient seen and examined, was lying comfortably in bed, has no acute complaints. Breathing is much better he is part spitting with physical therapy. 12/20 No new complaints. Breathing is at baseline. Working with therapies, but c/o being "bored". 12/22 Patient is quite fatigued yesterday. Today was doing pretty well. Met with the patient along with Dr. Zhao and Luli from case management to discuss his 's care (with his 's permission). Related that her health is continuing to fail, which she knew, and that she wanted to focus on being comfortable at this time. 12/24-patient doing well. Resting comfortably.was unable to sleep last night. No overnight fever chills. Continues physical therapy. Nonlabored breathing - Constitutional Vitals: Vital Signs Temp Pulse Resp BP Pulse Ox 98.7 F 59 L 18 154/80 96 12/24/17 07:40 12/24/17 08:00 12/24/17 08:00 12/24/17 07:40 12/24/17 08:00 Period Temp Pulse Resp BP Sys/Romo Pulse Ox Last 24 Hr 98.5 F-98.7 F 59-83 18-20 127-154/72-80 96-96 Intake and Output 12/24/17 12/24/17 12/24/17 05:59 13:59 21:59 Intake Total 250 / 250 Output Total 475 / 475 275 / 275 Balance -225 / -225 -275 / -275 Intake & Output: Intake & Output 12/24/17 12/24/17 12/24/17 05:59 13:59 21:59 Intake Total 250 / 250 Output Total 475 / 475 275 / 275 Balance -225 / -225 -275 / -275 Intake: Oral 250 / 250 Output: Void Amount 475 / 475 275 / 275 Other: Meal Lunch Percent of Meal Consumed 100% Stool Size Large Stool Color Brown Stool Consistency Normal for Patient # Voids 1 General appearance: no acute distress Exam: resting comfortably no anxiety Nonlabored breathing No lymphedema Medical - PN: Obj Da - Labs CBC & Chem 7: 12/22/17 08:00 Labs: Abnormal Lab Results 12/22/17 08:00 Carbon Dioxide 33 H BUN 28 H Calcium 8.2 L Meds: Medications Acetaminophen (Tylenol) 650 mg PO Q4-6HP PRN PRN Reason: PAIN/FEVER > 101 Albuterol Sulfate (Ventolin) 2 puff INH Q4HP PRN PRN Reason: bronchospasm Aspirin (Aspirin) 81 mg PO DAILY [facility] Last Admin: 12/24/17 10:33 Dose: 81 mg Cyanocobalamin (Vitamin B-12) 250 mcg PO DAILY [facility] Last Admin: 12/24/17 10:33 Dose: 250 mcg Docusate Sodium (Colace) 100 mg PO BID [facility] Last Admin: 12/24/17 10:33 Dose: 100 mg Fluoxetine HCl (Prozac) 40 mg PO DAILY [facility] Last Admin: 12/24/17 10:34 Dose: 40 mg Heparin Sodium (Porcine) (Heparin) 5,000 unit SQ Q12 [facility] Last Admin: 12/24/17 10:37 Dose: 5,000 unit Iron Carb/Multivit/[place]/Folic Acid (Multivitamin W/Minerals) 1 tab PO DAILY [facility] Last Admin: 12/24/17 10:34 Dose: 1 tab Levetiracetam (Keppra) 500 mg PO DAILY [facility] Last Admin: 12/24/17 10:33 Dose: 500 mg Oxycodone HCl (Roxicodone) 5 mg PO Q4HP PRN PRN Reason: PAIN LEVEL 3-6 Mometasone/Formoterol [Dulera] 200 Mcg/5 Mcg Inhaler 2 dose INH BID [facility] Last Admin: 12/24/17 10:34 Dose: 2 dose Abiraterone Acetate ([Zytiga] 250 Mg Tab) 4 dose PO DAILY [facility] Last Admin: 12/24/17 10:38 Dose: 4 dose Prednisone (Prednisone) 40 mg PO QAMCC [facility] Last Admin: 12/24/17 10:33 Dose: 40 mg Prochlorperazine Maleate (Compazine) 10 mg PO Q6HP PRN PRN Reason: Nausea Simvastatin (Zocor) 40 mg PO QPM [facility] Last Admin: 12/23/17 20:04 Dose: 40 mg Sodium Chloride (Saline Flush) 10 ml IV Q8 [facility] Last Admin: 12/24/17 06:28 Dose: Not Given Tiotropium [place] (Spiriva) 18 mcg INH QDAY [facility] Last Admin: 12/24/17 10:35 Dose: 1 dose Medical - PN: A/P - Time Spent With Patient Total time spent is greater than 50% in coordination of care (as documented) at patient's floor/unit and/or counseling patient: 15 - 24 minutes - Narrative A/P Narrative: * Weakness: secondary pneumonia. Clinically improving. On swing bed undergoing physical therapy. Workup negative so far. * Adrenal insufficiency/secondary: Pt had low cortisol on inpatient admission, repeat cortisol next AM was low, but pt had received prednisone so this value is not useful. Pt did feel better after initiation of prednisone again. Not sure if pt has underlying adrenal insufficiency. Pt will continue on prednisone for now. Will taper very slowly. Will advise a very slow taper at discharge. * Healthcare associated pneumonia-status post 7 days vancomycin and/Zosyn. * COPD-clinically stable. On bronchodilators steroids * Metastatic prostate cancer-follows with oncology, cont home regimen * Seizure disorder-on Keppra * History of CVA-on aspirin and statin * Hyperlipidemia on statin * Depression-continue fluoxetine, * dVT PROPHYLAXIS-heparin subq * cONTINUE pt ot/diet Medical - PN: Qual - VTE Deep Vein Thrombosis/Pulmonary Embolism Present on Admission: No
[2017-12-24] MEDS: SIMVASTATIN 20 MG TABLET PO SCH (21:05)
[2017-12-25] MEDS: 0.9 % SODIUM CHLORIDE 10 ML SYRINGE IV SCH ×3 (06:08→20:55)
[2017-12-25 06:47] LABS: Basophils # (Auto) 0 K/mcL (0.0-0.3); Basophils % (Auto) 0 % (0.0-2.0); Eosinophils # (Auto) 0.3 K/mcL (0.0-0.7); Eosinophils % (Auto) 3.1 % (0.0-7.0); Granulocytes % (Auto) 81.1 % (38.0-78.0); Lymphocytes # (Auto) 0.8 K/mcL (1.5-4.8); Lymphocytes % (Auto) 8.9 % (15.5-49.0); Mean Cell Volume 96.2 fL (80.0-100.0); Mean Corpuscular HGB Conc 33.4 g/dL (31.0-36.0); Mean Corpuscular Hemoglobin 32.1 pg (26.0-34.0); Monocytes # (Auto) 0.6 K/mcL (0.1-0.9); Monocytes % (Auto) 6.9 % (1.0-12.0); Platelet Count 459 K/mcL (140-440); Red Cell Distribution Width 14.9 % (11.5-14.5)
[2017-12-25] MEDS ORDERED: 0.9 % SODIUM CHLORIDE 250 ML IV SCH (07:00)
[2017-12-25 07:05] LABS: ALT/SGPT 15 U/l (0-40); Albumin 2.6 gm/dL (3.2-5.2); Albumin/Globulin Ratio 1.2 (1.0-2.3); Alkaline Phosphatase 163 U/L (39-117); Bilirubin,Direct < 0.2 mg/dL (0.0-0.3); Blood Urea Nitrogen 32 mg/dl (8-23); Gamma Glutamyl Transpeptidase 14 U/L (8-61); Uric Acid 2.5 mg/dL (2.5-8.0)
[2017-12-25] MEDS: predniSONE 20 MG TABLET PO SCH (08:28)
[2017-12-25] MEDS: ASPIRIN 81 MG TAB.CHEW PO SCH (09:10)
[2017-12-25] MEDS: CYANOCOBALAMIN (VITAMIN B-12) 500 MCG TABLET PO SCH (09:10)
[2017-12-25] MEDS: levETIRAcetam 500 MG TABLET PO SCH (09:10)
[2017-12-25] MEDS: DOCUSATE SODIUM 100 MG CAPSULE PO SCH ×2 (09:11→20:55)
[2017-12-25] MEDS: MULTIVIT,THER IRON,CA,FA & MIN 1 TABLET PO SCH (09:12)
[2017-12-25] MEDS: FLUoxetine HCL 20 MG CAPSULE PO SCH (09:13)
[2017-12-25] MEDS: HEPARIN 5,000 UNIT/ML VIAL SQ SCH ×2 (09:13→20:55)
[2017-12-25] MEDS: Mometasone/Formoterol [Dulera] 200 Mcg/5 Mcg Inhaler INH SCH ×2 (09:31→20:56)
[2017-12-25] MEDS: TIOTROPIUM BROMIDE 18 MCG INHALANT INH SCH (09:31)
[2017-12-25 09:50] LABS: Retic Absolute 3.1 % (0.5-1.5)
--- NOTE | 2017-12-25 10:07 | Internal Med Progress Note ---
Medical - PN: Subj Patient information: Note initiated : 12/25/17 at 10:06 am Service Date, if different from initiated Date: [] Patient: Orlando Valdivia 77 y/o M admitted on 12/17/17 for Weakness/Pneumonia. Chief Complaint: [] Interval history: Mr. Skip Gil is a 77 year old M history of metastatic cancer, who was recently admitted to this hospital with a diagnosis of pneumonia. The patient was discharged on 25 November, the patient was prescribed levofloxacin and prednisone taper at discharge. According to the patient he was doing well for a few days after discharge however he started to get more weak and more tired again. The patient denies any other acute complaints. He has chronic cough but no sputum production. He denies any fever or any chills. He notes that at baseline he is able to carry out his activities of daily living without much limitations. At this time he finds it difficult to even ambulate around his house. He denies any wheezing. But does have shortness of breath on exertion. The patient has no other symptoms or complaints. During my evaluation he was lying comfortably in bed. The patient was seen by the primary care provider as well as the cancer doctor in the interim. The PCP had ordered a chest CT which showed a left basilar pneumonia. I am not sure if any new antibiotics were prescribed, the patient was also seen by the oncologist and is noted seems it was noted that he was doing better. In the emergency room the patient was stable on presentation, afebrile normal vital signs. Had oxygen needs only when he sleeps otherwise was saturating more than 90% on room air. [He uses oxygen when he sleeps] The patient's labs show some leukocytosis but better than before. Otherwise his labs are unremarkable, urinalysis is negative. Chest x-ray shows improved infiltrate but there is definitely some persistent infiltrate in the left lobe. Official reading is pending. EKG shows sinus rhythm QS pattern in the anterior leads. Given that the patient is extremely weak and unable to go back home he is being admitted to the hospital for further management. Patient was treated with IV antibiotics and steroids, patient responded to treatment, given his history of prostate cancer and need for chemotherapy he was not accepted as a care home patient. He was therefore transferred to swing bed status. He will continue antibiotics for a total of 5-7 days. He will be on a very slow taper of prednisone. The patient had a renal ultrasound done while he was inpatient status. His creatinine did bump from 1.2-1.5. Renal ultrasound showed bilateral mild hydronephrosis. And a mass in the bladder. Reviewed the case with Dr. Flores who advised that the patient is not a candidate for cystoscopy. Should the patient's function worsen or hydronephrosis worsen he will need interventional radiology guided drain placed 12/18 Patient seen and examined, was lying comfortably in bed, has no acute complaints. Breathing is much better he is part spitting with physical therapy. 12/20 No new complaints. Breathing is at baseline. Working with therapies, but c/o being "bored". 12/22 Patient is quite fatigued yesterday. Today was doing pretty well. Met with the patient along with Dr. Zhao and Luli from case management to discuss his 's care (with his 's permission). Related that her health is continuing to fail, which she knew, and that she wanted to focus on being comfortable at this time. 12/24-patient doing well. Resting comfortably.was unable to sleep last night. No overnight fever chills. Continues physical therapy. Nonlabored breathing 12/25-patient seen in room. No overnight events. However feels fatigued and lethargic and weak. Hemoglobin down to 6.7. No bloody bowels noted. Stool guaiac/2 units PRBC transfusion. Reticulocyte count today. - Constitutional Vitals: Vital Signs Temp Pulse Resp BP Pulse Ox 98.0 F 73 18 156/93 97 12/25/17 08:00 12/25/17 08:00 12/25/17 08:00 12/25/17 08:00 12/25/17 08:00 Period Temp Pulse Resp BP Sys/Romo Pulse Ox Last 24 Hr 98.0 F-98.3 F 73-76 -18 132-156/76-93 96-97 Intake and Output 12/24/17 12/25/17 12/25/17 21:59 05:59 13:59 Intake Total 1190 / 1190 125 / 125 Output Total 1025 / 1025 600 / 600 175 / 175 Balance 165 / 165 -475 / -475 -175 / -175 Weight 128 lb Intake & Output: Intake & Output 12/24/17 12/25/17 12/25/17 21:59 05:59 13:59 Intake Total 1190 / 1190 125 / 125 Output Total 1025 / 1025 600 / 600 175 / 175 Balance 165 / 165 -475 / -475 -175 / -175 Weight 128 lb Intake: Oral 1190 / 1190 125 / 125 Output: Void Amount 1025 / 1025 600 / 600 175 / 175 Other: Meal Breakfast Ice cream x2 Percent of Meal Consumed 100% 100% Feeding Ability Independent Independent General appearance: no acute distress Exam: fatigued and lethargic pallor noted Nonlabored breathing No lymphedema no anxiety Medical - PN: Obj Da - Labs CBC & Chem 7: 12/25/17 04:45 12/25/17 04:45 Labs: Abnormal Lab Results 12/25/17 12/25/17 12/25/17 04:45 04:45 04:45 RBC 2.10 L Hgb 6.7 L* Hct 20.2 L* RDW 14.9 H Plt Count 459 H Gran % 81.1 H Lymph % (Auto) 8.9 L Lymph # (Auto) 0.8 L Absolute Retic 3.1 H Sodium 146 H Carbon Dioxide 31 H Anion Gap 7.0 L BUN 32 H Calcium 8.3 L Alkaline Phosphatase 163 H Total Protein 4.8 L Albumin 2.6 L Meds: Medications Acetaminophen (Tylenol) 650 mg PO Q4-6HP PRN PRN Reason: PAIN/FEVER > 101 Albuterol Sulfate (Ventolin) 2 puff INH Q4HP PRN PRN Reason: bronchospasm Aspirin (Aspirin) 81 mg PO DAILY [facility] Last Admin: 12/25/17 09:10 Dose: 81 mg Cyanocobalamin (Vitamin B-12) 250 mcg PO DAILY [facility] Last Admin: 12/25/17 09:10 Dose: 250 mcg Docusate Sodium (Colace) 100 mg PO BID [facility] Last Admin: 12/25/17 09:11 Dose: 100 mg Fluoxetine HCl (Prozac) 40 mg PO DAILY [facility] Last Admin: 12/25/17 09:13 Dose: 40 mg Heparin Sodium (Porcine) (Heparin) 5,000 unit SQ Q12 [facility] Last Admin: 12/25/17 09:13 Dose: 5,000 unit Sodium Chloride (Sodium Chloride 0.9%) 250 mls @ 20 mls/hr IV .[id number] [facility] Stop: 12/25/17 19:29 Iron Carb/Multivit/[place]/Folic Acid (Multivitamin W/Minerals) 1 tab PO DAILY [facility] Last Admin: 12/25/17 09:12 Dose: 1 tab Levetiracetam (Keppra) 500 mg PO DAILY [facility] Last Admin: 12/25/17 09:10 Dose: 500 mg Oxycodone HCl (Roxicodone) 5 mg PO Q4HP PRN PRN Reason: PAIN LEVEL 3-6 Mometasone/Formoterol [Dulera] 200 Mcg/5 Mcg Inhaler 2 dose INH BID [facility] Last Admin: 12/25/17 09:31 Dose: 2 dose Abiraterone Acetate ([Zytiga] 250 Mg Tab) 4 dose PO DAILY [facility] Last Admin: 12/25/17 09:14 Dose: 4 dose Prednisone (Prednisone) 40 mg PO [facility] Last Admin: 12/25/17 08:28 Dose: 40 mg Prochlorperazine Maleate (Compazine) 10 mg PO Q6HP PRN PRN Reason: Nausea Simvastatin (Zocor) 40 mg PO QPM [facility] Last Admin: 12/24/17 21:05 Dose: 40 mg Sodium Chloride (Saline Flush) 10 ml IV Q8 [facility] Last Admin: 12/25/17 06:08 Dose: 10 ml Tiotropium [place] (Spiriva) 18 mcg INH QDAY [facility] Last Admin: 12/25/17 09:31 Dose: 1 dose Medical - PN: A/P - Time Spent With Patient Total time spent is greater than 50% in coordination of care (as documented) at patient's floor/unit and/or counseling patient: 25 - 35 minutes - Narrative A/P Narrative: * Weakness: secondary to pneumoniaand critical anemia. On swing bed undergoing physical therapy. * critical anemia- Hgb 6.7- 2 U PRBC * Adrenal insufficiency/secondary: Pt had low cortisol on inpatient admission, repeat cortisol next AM was low, but pt had received prednisone so this value is not useful. Pt did feel better after initiation of prednisone again. Not sure if pt has underlying adrenal insufficiency. Pt will continue on prednisone for now. Slow taper at discharge. * Healthcare associated pneumonia-status post 7 days vancomycin and/Zosyn. * COPD-clinically stable. On bronchodilators steroids * Metastatic prostate cancer-follows with oncology, cont home regimen * Seizure disorder-on Keppra * History of CVA-on aspirin and statin * Hyperlipidemia on statin * Depression-continue fluoxetine, Plan * Transfuse 2 U PRBC * reticulocyte count/stool guaiac * continue PT and OT * slow steroid taper on discharge Medical - PN: Qual - VTE Deep Vein Thrombosis/Pulmonary Embolism Present on Admission: No
[2017-12-25] MEDS: SIMVASTATIN 20 MG TABLET PO SCH (20:55)
[2017-12-26] MEDS: 0.9 % SODIUM CHLORIDE 10 ML SYRINGE IV SCH ×3 (05:45→21:18)
[2017-12-26 06:42] LABS: Basophils # (Auto) 0 K/mcL (0.0-0.3); Basophils % (Auto) 0 % (0.0-2.0); Eosinophils # (Auto) 0.4 K/mcL (0.0-0.7); Eosinophils % (Auto) 3.2 % (0.0-7.0); Granulocytes % (Auto) 79.8 % (38.0-78.0); Lymphocytes # (Auto) 1.2 K/mcL (1.5-4.8); Mean Cell Volume 94.1 fL (80.0-100.0); Mean Corpuscular Hemoglobin 31.1 pg (26.0-34.0); Monocytes # (Auto) 0.8 K/mcL (0.1-0.9); Platelet Count 406 K/mcL (140-440); RBC 3.03 M/mcL (4.50-5.90); Red Cell Distribution Width 16.1 % (11.5-14.5)
[2017-12-26] MEDS: predniSONE 20 MG TABLET PO SCH (08:15)
[2017-12-26] MEDS: MULTIVIT,THER IRON,CA,FA & MIN 1 TABLET PO SCH (08:16)
[2017-12-26] MEDS: FLUoxetine HCL 20 MG CAPSULE PO SCH (08:16)
[2017-12-26] MEDS: CYANOCOBALAMIN (VITAMIN B-12) 500 MCG TABLET PO SCH (08:16)
[2017-12-26] MEDS: levETIRAcetam 500 MG TABLET PO SCH (08:16)
[2017-12-26] MEDS: ASPIRIN 81 MG TAB.CHEW PO SCH (08:16)
[2017-12-26] MEDS: DOCUSATE SODIUM 100 MG CAPSULE PO SCH ×2 (08:16→21:16)
[2017-12-26] MEDS: Mometasone/Formoterol [Dulera] 200 Mcg/5 Mcg Inhaler INH SCH ×2 (08:17→21:17)
[2017-12-26] MEDS: HEPARIN 5,000 UNIT/ML VIAL SQ SCH ×2 (08:17→21:16)
[2017-12-26] MEDS: TIOTROPIUM BROMIDE 18 MCG INHALANT INH SCH (08:26)
[2017-12-26] MEDS: PANTOPRAZOLE 40 MG TABLET PO SCH (17:11)
[2017-12-26] MEDS: SIMVASTATIN 20 MG TABLET PO SCH (21:17)
[2017-12-27] MEDS: 0.9 % SODIUM CHLORIDE 10 ML SYRINGE IV SCH (06:13)
--- NOTE | 2017-12-27 07:54 | Discharge Summary ---
Medical - DS: Prov Patient information: Note initiated : 12/27/17 at 7:50 am Service Date, if different from initiated Date: [] Patient: Orlando Valdivia 77 y/o M admitted on 12/17/17 for Weakness/Pneumonia. Chief Complaint: [] Date of admission: 12/17/17 16:28 Discharge date: 12/27/17 Primary care physician: Amberly Velasco Medical - DS: Meds - Discharge Medications Prescriptions: Pantoprazole [Protonix] 40 mg PO BIDAC #60 tab Active and Home Medications: Home Medications aspirin 81 mg tablet,delayed release 81 mg PO QDAY tab 03/21/15 [History Confirmed 12/17/17 Last Taken 12/14/17] multivitamin tablet 1 tab PO QDAY tab 03/21/15 [History Confirmed 12/17/17 Last Taken 12/14/17] levetiracetam 500 mg tablet 500 mg PO DAILY 90 Days #180 04/28/15 [History Confirmed 12/17/17 Last Taken 12/14/17] albuterol sulfate HFA 90 mcg/actuation aerosol inhaler 2 puff INHALATION Q4-6H PRN #18 g 05/09/17 [Rx Confirmed 12/17/17 Last Taken 12/15/17] simvastatin 20 mg tablet 40 mg PO QPM #60 tab 05/09/17 [Rx Confirmed 12/17/17 Last Taken 11/21/17 21:00] tiotropium bromide 18 mcg capsule with inhalation device 1 cap INHALATION QDAY # 30 puff 05/09/17 [Rx Confirmed 12/17/17 Last Taken 11/22/17 09:00] Calcium Carbonate/Vitamin D3 [Calcium 600 + Vit D Tablet] 1 tab PO DAILY [History Confirmed 12/17/17 Last Taken 12/14/17] FLUoxetine HCL [Sarafem] 40 mg PO DAILY 11/22/17 [History Confirmed 12/17/17 Last Taken 12/11/17] Prochlorperazine Maleate [Compazine] 10 mg PO Q6HP PRN 11/22/17 [History Confirmed 12/17/17 Last Taken Unknown] Vitamin D3 1,000 unit PO DAILY 11/22/17 [History Confirmed 12/24/17 Last Taken 11/22/17 09:00] predniSONE [Prednisone] 20 mg PO DAILY #90 tab 11/25/17 [Rx Confirmed 12/24/17 Last Taken 12/14/17] Abiraterone Acetate [Zytiga] 1,000 mg PO DAILY 12/17/17 [History Confirmed 12/17 Last Taken Unknown] Cyanocobalamin (Vitamin B-12) [Vitamin B-12] 250 mcg PO DAILY 12/17/17 [History Confirmed 12/17/17 Last Taken Unknown] Mometasone/Formoterol [Dulera 200 Mcg/5 Mcg Inhaler] 2 puff IH BID 12/19/17 [ History Confirmed 12/19/17 Last Taken Unknown] Cholecalciferol (Vitamin D3) [Vitamin D3] 1,000 unit PO DAILY 12/24/17 [History Confirmed 12/24/17 Last Taken Unknown] Pantoprazole [Protonix] 40 mg PO BIDAC #60 tab 12/27/17 [Rx Last Taken Unknown] Medical - DS: Hosp Hospital course: DISCHARGE DIAGNOSIS * Healthcare associated pneumonia-status post 7 days vancomycin and/Zosyn. * Weakness: secondary to pneumonia and anemia. Patient showed gradual improvement with sustained physical therapy and activities during swing bed stay. Patient refusing SNF. Discharging home * Anemia- Hgb 6.7- status post 2 U PRBC. hemoglobin at 9.4. Patient refusing GI evaluation/upper endoscopy and insisting on discharging home. He however agrees to follow up with GI as outpatient. Continue Protonix. Hold aspirin for 5 days. * Adrenal insufficiency/secondary: Pt had low cortisol on inpatient admission, repeat cortisol next AM was low, but pt had received prednisone so this value is not useful. Pt did feel better after initiation of prednisone again. Not sure if pt has underlying adrenal insufficiency. Pt will continue on prednisone for now.that is slow taper * COPD-clinically stable. managed on bronchodilators steroids * Metastatic prostate cancer-follows with oncology, cont home regimen. follow outpatient oncology as scheduled * Seizure disorder-remains stableon Keppra * History of CVA-on aspirin and statin * Hyperlipidemia on statin * Depression-continue fluoxetine BRIEF HOSPITAL COURSE Mr. Skip Gil is a 77 year old M history of metastatic cancer, who was recently admitted to this hospital with a diagnosis of pneumonia. The patient was discharged on 25 November, the patient was prescribed levofloxacin and prednisone taper at discharge. According to the patient he was doing well for a few days after discharge however he started to get more weak and more tired again. The patient denies any other acute complaints. He has chronic cough but no sputum production. He denies any fever or any chills. He notes that at baseline he is able to carry out his activities of daily living without much limitations. At this time he finds it difficult to even ambulate around his house. He denies any wheezing. But does have shortness of breath on exertion. The patient has no other symptoms or complaints. During my evaluation he was lying comfortably in bed. The patient was seen by the primary care provider as well as the cancer doctor in the interim. The PCP had ordered a chest CT which showed a left basilar pneumonia. I am not sure if any new antibiotics were prescribed, the patient was also seen by the oncologist and is noted seems it was noted that he was doing better. In the emergency room the patient was stable on presentation, afebrile normal vital signs. Had oxygen needs only when he sleeps otherwise was saturating more than 90% on room air. [He uses oxygen when he sleeps] The patient's labs show some leukocytosis but better than before. Otherwise his labs are unremarkable, urinalysis is negative. Chest x-ray shows improved infiltrate but there is definitely some persistent infiltrate in the left lobe. Official reading is pending. EKG shows sinus rhythm QS pattern in the anterior leads. Given that the patient is extremely weak and unable to go back home he is being admitted to the hospital for further management. Patient was treated with IV antibiotics and steroids, patient responded to treatment, given his history of prostate cancer and need for chemotherapy he was not accepted [facility] a [facility]. He was therefore transferred to swing bed status. He will continue antibiotics for a total of 5-7 days. He will be on a very slow taper of prednisone. The patient had a renal ultrasound done while he was inpatient status. His creatinine did bump from 1.2-1.5. Renal ultrasound showed bilateral mild hydronephrosis. And a mass in the bladder. Reviewed the case with Dr. Flores who advised that the patient is not a candidate for cystoscopy. Should the patient's function worsen or hydronephrosis worsen he will need interventional radiology guided drain placed 12/18 Patient seen and examined, was lying comfortably in bed, has no acute complaints. Breathing is much better he is part spitting with physical therapy. 12/20 No new complaints. Breathing is at baseline. Working with therapies, but c/o being "bored". 12/22 Patient is quite fatigued yesterday. Today was doing pretty well. Met with the patient along with Dr. Zhao and Luli from case management to discuss his 's care (with his 's permission). Related that her health is continuing to fail, which she knew, and that she wanted to focus on being comfortable at this time. 12/24-patient doing well. Resting comfortably.was unable to sleep last night. No overnight fever chills. Continues physical therapy. Nonlabored breathing 12/25-patient seen in room. No overnight events. However feels fatigued and lethargic and weak. Hemoglobin down to 6.7. No bloody bowels noted. Stool guaiac/2 units PRBC transfusion. Reticulocyte count today. -patient doing well. Status post 2 units PRBC transfusion. Hemoglobin stable at 9.4 over 48 hours. Recommend outpatient upper endoscopy. Patient insisting on discharge as his is on hospice. Patient is actively grieving. Discharging with advice as below. Continue follow-up with PCP/ oncology and GI as advised along with Protonix twice daily. Hold aspirin for 5 days Discharge diagnosis: . - Time Spent with Patient Total time spent providing and/or coordinating discharge services: Greater than 30 minutes Medical - DS: Exam - Constitutional Vitals: Vital Signs Temp Pulse Pulse Resp BP BP Pulse Ox 12/27/17 07:36 93 12/27/17 07:11 98.7 F 78 18 180/92 93 12/26/17 23:27 74 18 96 12/26/17 20:15 96 12/26/17 20:00 98.2 F 82 16 136/76 96 12/26/17 07:53 97.7 F 71 20 164/84 97 Intake and Output 12/26/17 12/27/17 12/27/17 21:59 05:59 13:59 Intake Total 550 / 550 480 / 480 Output Total 260 / 260 450 / 450 375 / 375 Balance 290 / 290 30 / 30 -375 / -375 Intake: Oral 550 / 550 480 / 480 Output: Void Amount 260 / 260 450 / 450 375 / 375 Other: Meal Dinner 2 Ice creams Percent of Meal Consumed 100% 100% Feeding Ability Independent Independent Stool Size Moderate Stool Color Black Stool Consistency Soft Formed # Voids 1 1 # Bowel Movements 1 Weight 129 lb Medical - DS: Data Labs on day of discharge: Labs from last 24 hours 12/27/17 12/26/17 04:42 12:10 Hgb 9.1 L 10.1 L Medical - DS: A/P - Patient/Caregiver Discharge Instructions Activity: increase activity as tolerated Diet: Regular Diet Additional Instructions: Follow-up PCP in 5 days follow-up with GI in 2 weeks for evaluation of anemia and possible upper GI bleed. I recommend primary care physician to check CBC BMP as a posthospital follow- up in 1 week. hold aspirin for 5 days continue Protonix twice daily Continue prednisone taper Continue aggressive bowel regimen to prevent constipation Continue fall precautions Refrain from smoking and alcohol Continue diet and activity as advised Discussed importance of medication adherence Please review medication list with patient prior to discharge Please schedule follow-up with PCP/Providers prior to discharge and provide printouts Portions of this chart may have been created with [address] [employer] voice recognition software. Occasional wrong-word or ?sound-like? substitutions may have occurred due to the inherent limitations of voice recognition software. Please read the chart carefully and recognize, using context, where the substitutions have occurred. CC- PCP Prescriptions: Pantoprazole [Protonix] 40 mg PO BIDAC #60 tab - Follow up Plan Disposition: Home Health Service Prognosis: Fair Rehab Potential: Fair I certify that the patient requires SNF services: No Overall status at discharge: patient is progressing back to baseline Medical - DS: Qual - VTE Deep Vein Thrombosis/Pulmonary Embolism Present on Admission: No
[2017-12-27] MEDS: PANTOPRAZOLE 40 MG TABLET PO SCH (07:56)
[2017-12-27] MEDS: HEPARIN 5,000 UNIT/ML VIAL SQ SCH (08:49)
[2017-12-27] MEDS: DOCUSATE SODIUM 100 MG CAPSULE PO SCH (08:50)
[2017-12-27] MEDS: CYANOCOBALAMIN (VITAMIN B-12) 500 MCG TABLET PO SCH (08:50)
[2017-12-27] MEDS: levETIRAcetam 500 MG TABLET PO SCH (08:52)
[2017-12-27] MEDS: ASPIRIN 81 MG TAB.CHEW PO SCH (08:52)
[2017-12-27] MEDS: MULTIVIT,THER IRON,CA,FA & MIN 1 TABLET PO SCH (08:52)
[2017-12-27] MEDS: predniSONE 20 MG TABLET PO SCH (08:52)
[2017-12-27] MEDS: FLUoxetine HCL 20 MG CAPSULE PO SCH (08:53)
[2017-12-27] MEDS: TIOTROPIUM BROMIDE 18 MCG INHALANT INH SCH (08:56)
[2017-12-27] MEDS: Mometasone/Formoterol [Dulera] 200 Mcg/5 Mcg Inhaler INH SCH (08:56)
== END 2017-12-27 10:00 | disposition home health service (06) | DRG 194 ==
LOC: MEDSUR 15:45
PROVIDERS: ADMIT Internal Medicine; ATTEND Internal Medicine

== ENCOUNTER 2018-01-29 12:01 | Inpatient (IN) ==
[2018-01-29] MEDS ORDERED: 0.9 % SODIUM CHLORIDE 250 ML IV SCH ×2 (12:30→16:53)
[2018-01-29 13:03] LABS: Basophils # (Auto) 0 K/mcL (0.0-0.3); Basophils % (Auto) 0.3 % (0.0-2.0); Eosinophils # (Auto) 0.4 K/mcL (0.0-0.7); Eosinophils % (Auto) 3.6 % (0.0-7.0); Granulocytes % (Auto) 82.1 % (38.0-78.0); Lymphocytes # (Auto) 0.8 K/mcL (1.5-4.8); Lymphocytes % (Auto) 7.6 % (15.5-49.0); Mean Cell Volume 92.2 fL (80.0-100.0); Mean Corpuscular HGB Conc 33.4 g/dL (31.0-36.0); Mean Corpuscular Hemoglobin 30.8 pg (26.0-34.0); Monocytes # (Auto) 0.7 K/mcL (0.1-0.9); Monocytes % (Auto) 6.4 % (1.0-12.0); Platelet Count 563 K/mcL (140-440); RBC 3.14 M/mcL (4.50-5.90); Red Cell Distribution Width 15.3 % (11.5-14.5)
[2018-01-29] MEDS ORDERED: 0.9 % SODIUM CHLORIDE 250 ML IV ONE (13:08)
--- NOTE | 2018-01-29 13:09 | Emergency Department Note ---
General Adult HPI - General Chief complaint: Shortness of Breath/Dyspnea Stated complaint: Shortness of breath Time Seen by Provider: 01/29/18 12:04 Source: patient Mode of arrival: wheelchair Limitations: no limitations - History of Present Illness HPI Narrative: 77 year old male was asked to come to the ER by his PCP after labs revealed elevated creatinine and decreased HCT. Pt reports he has been feeling weak for months and has become notably worse during the past 3 cole. Appetite has been normal. Has several days of diarrhea last week which stopped with Imodium, stools have been normal since then, denies blood or black tarry stools. Has prostate cancer that has metastasized, see oncologist on February 10. Has declined chemotherapy. of renal failure in December of this year. Shortness of breath has been stable, uses home O2 and ESTEPHANIE which provides relief. PCP added Lisinopril to medications yesterday. Pt not taking aspirin or NSAIDS. Denies urinary pain or new hesitation. - Related Data Home Medications Medication Instructions Recorded Confirmed multivitamin tablet 1 tab PO QDAY tab 03/21/15 01/29/18 levetiracetam 500 mg tablet 500 mg PO BID 90 Days #180 04/28/15 01/29/18 Calcium Carbonate/Vitamin D3 1 tab PO DAILY 11/22/17 01/29/18 [Calcium 600 + Vit D Tablet] FLUoxetine HCL [Sarafem] 20 mg PO BID 11/22/17 01/29/18 Abiraterone Acetate [Zytiga] 1,000 mg PO DAILY 12/17/17 01/29/18 Cyanocobalamin (Vitamin B-12) 250 mcg PO DAILY 12/17/17 01/29/18 [Vitamin B-12] Mometasone/Formoterol [Dulera 200 2 puff IH BID 12/19/17 01/29/18 Mcg/5 Mcg Inhaler] Cholecalciferol (Vitamin D3) 1,000 unit PO DAILY 12/24/17 01/29/18 [Vitamin D3] Previous Rx's Medication Instructions Recorded albuterol sulfate HFA 90 2 puff INHALATION Q4-6H PRN #18 g 05/09/17 mcg/actuation aerosol inhaler simvastatin 20 mg tablet 40 mg PO QPM #60 tab 05/09/17 tiotropium bromide 18 mcg capsule 1 cap INHALATION QDAY #30 puff 05/09/17 with inhalation device Pantoprazole [Protonix] 40 mg PO BIDAC #60 tab 12/27/17 lisinopril 10 mg tablet 10 mg PO QDAY #90 tab 01/28/18 Allergies Allergy/AdvReac Type Severity Reaction Status Date / Time No Known Drug Allergies Allergy Verified 01/29/18 12:10 Review of Systems All systems ED: reviewed and negative except as stated. Past Medical History - Past Medical History Attestation: Yes: The following information was validated with the patient. Medical history: Reports: cancer (Leukemia 5-6 years, prostate cancer with bone mets), COPD, hyperlipidemia, hypertension, myocardial infarction, seizures , other (Heart murmur.). Denies: CVA, DM Psychiatric history: Reports: depression. Denies: anxiety - Social History smoking status: Current some day smoker Alcohol use: Reports: None Drug use: Reports: none. Denies: marijuana Physical Exam Limitations: no limitations General appearance: alert, in no apparent distress, other (here with friend that checks on him daily) Head: atraumatic Eye: Present: normal appearance ENT: normal exam, mucous membranes moist Neck: Present: normal inspection. Absent: lymphadenopathy Respiratory: Present: other (good air movement in all lobes, lung sounds decresaed at bases, scattered expiratory wheeze diffusely) Cardiovascular: Present: regular rate, normal rhythm, other (distant heart sounds) Abdominal: Present: soft, normal bowel sounds. Absent: tenderness Extremities: Present: normal inspection, normal capillary refill. Absent: pedal edema, pretibial edema, joint swelling Back: Present: normal inspection. Absent: CVA tenderness (R), CVA tenderness (L ) Neurological: Present: alert, oriented X3 Psychiatric: Present: normal affect Skin: Present: warm, dry, intact, pallor. Absent: rash Course Course Narrative: 13:[address] Crook. Suggests Keppra level and hydration. Consider nephrology referral/admission. 14:[address] Gardner hospitalist. All questions answered, she will come to ED to see patient who agrees to admission. Vital Signs Temperature 97.7 F 01/29/18 12:05 Pulse Rate 91 H 01/29/18 12:05 Respiratory Rate 30 H 01/29/18 12:05 Blood Pressure 154/111 01/29/18 12:05 Pulse Oximetry (%) 96 01/29/18 12:05 Temperature 99.1 F H 01/29/18 20:01 Pulse Rate 84 01/29/18 20:01 Respiratory Rate 16 01/29/18 20:01 Blood Pressure 152/83 01/29/18 20:01 Pulse Oximetry (%) 98 01/29/18 20:01 Medical Decision Making - Medical Records Medical records reviewed: Yes I reviewed the patient's medical records. - Lab Data Lab results reviewed: Yes I reviewed the patient's lab results. Result diagrams: 01/29/18 12:30 01/29/18 17:10 Lab Results 01/29/18 01/29/18 01/29/18 Range/Units 12:29 12:29 12:30 WBC 10.2 (4.5-11.0) K/mcL RBC 3.14 L (4.50-5.90) M/mcL Hgb 9.6 L (13.5-16.5) g/dL Hct 28.9 L (41.0-55.0) % MCV 92.2 (80.0-100.0) fL MCH 30.8 (26.0-34.0) pg MCHC 33.4 (31.0-36.0) g/dL RDW 15.3 H (11.5-14.5) % Plt Count 563 H (140-440) K/mcL MPV 7.4 (7.4-10.4) fL Gran % 82.1 H (38.0-78.0) % Lymph % (Auto) 7.6 L (15.5-49.0) % [place] % (Auto) 6.4 (1.0-12.0) % Eos % (Auto) 3.6 (0.0-7.0) % Baso % (Auto) 0.3 (0.0-2.0) % Gran # 8.4 H (1.8-8.0) K/mcL Lymph # (Auto) 0.8 L (1.5-4.8) K/mcL [place] # (Auto) 0.7 (0.1-0.9) K/mcL Eos # (Auto) 0.4 (0.0-0.7) K/mcL Baso # (Auto) 0 (0.0-0.3) K/mcL Sodium 141 (133-145) mmol/L Potassium 3.9 (3.3-5.1) mmol/L Chloride 101 (96-108) mmol/L Carbon Dioxide 24 (22-30) mmol/L Anion Gap 16.0 (8-16) BUN 27 H (8-23) mg/dl Creatinine 3.3 H (0.7-1.2) mg/dl GFR Calculation 17 Glucose 102 (70-105) mg/dL Calcium 6.1 L (8.6-10.4) mg/dl Ionized Calcium Henry (1.16-1.32) mmol/L Phosphorus (2.7-4.5) mg/dL Magnesium (1.6-2.5) mg/dL Total Bilirubin 0.3 (0.0-1.0) mg/dL AST 21 (0-37) U/l ALT 9 (0-40) U/l Alkaline Phosphatase 146 H (39-117) U/L Total Protein 6.3 (5.9-8.4) gm/dL Albumin 3.4 (3.2-5.2) gm/dL Globulin 2.9 (2.2-3.7) gm/dL Albumin/Globulin Ratio 1.2 (1.0-2.3) TSH 3.38 (0.27-5.01) uIU/ml PTH Intact (15-65) pg/ml 01/29/18 01/29/18 01/29/18 Range/Units 14:30 14:30 14:31 WBC (4.5-11.0) K/mcL RBC (4.50-5.90) M/mcL Hgb (13.5-16.5) g/dL Hct (41.0-55.0) % MCV (80.0-100.0) fL MCH (26.0-34.0) pg MCHC (31.0-36.0) g/dL RDW (11.5-14.5) % Plt Count (140-440) K/mcL MPV (7.4-10.4) fL Gran % (38.0-78.0) % Lymph % (Auto) (15.5-49.0) % [place] % (Auto) (1.0-12.0) % Eos % (Auto) (0.0-7.0) % Baso % (Auto) (0.0-2.0) % Gran # (1.8-8.0) K/mcL Lymph # (Auto) (1.5-4.8) K/mcL [place] # (Auto) (0.1-0.9) K/mcL Eos # (Auto) (0.0-0.7) K/mcL Baso # (Auto) (0.0-0.3) K/mcL Sodium (133-145) mmol/L Potassium (3.3-5.1) mmol/L Chloride (96-108) mmol/L Carbon Dioxide (22-30) mmol/L Anion Gap (8-16) BUN (8-23) mg/dl Creatinine (0.7-1.2) mg/dl GFR Calculation Glucose (70-105) mg/dL Calcium (8.6-10.4) mg/dl Ionized Calcium Henry 0.73 L* (1.16-1.32) mmol/L Phosphorus 4.9 H (2.7-4.5) mg/dL Magnesium 1.9 (1.6-2.5) mg/dL Total Bilirubin (0.0-1.0) mg/dL AST (0-37) U/l ALT (0-40) U/l Alkaline Phosphatase (39-117) U/L Total Protein (5.9-8.4) gm/dL Albumin (3.2-5.2) gm/dL Globulin (2.2-3.7) gm/dL Albumin/Globulin Ratio (1.0-2.3) TSH (0.27-5.01) uIU/ml PTH Intact 394.4 H (15-65) pg/ml added TSH and Keppra level due to EKG and labs. - Radiology Data Radiology results reviewed: Yes I reviewed the patient's radiology results. no evidence of acute infection - EKG Data EKG #1 EKG attestation: Yes I reviewed and interpreted this EKG. EKG shows normal: sinus rhythm Rate: normal QTc: prolonged Disposition Pt seen by [facility]STER/PA only: Yes Clinical Impression: Acute renal failure (ARF) Qualifiers: Acute renal failure type: unspecified Qualified Code(s): N17.9 - Acute kidney failure, unspecified Disposition: Xfer As Inpt ([facility]) Condition: Fair
[2018-01-29 13:13] LABS: ALT/SGPT 9 U/l (0-40); Albumin 3.4 gm/dL (3.2-5.2); Albumin/Globulin Ratio 1.2 (1.0-2.3); Alkaline Phosphatase 146 U/L (39-117); Blood Urea Nitrogen 27 mg/dl (8-23)
--- NOTE | 2018-01-29 13:21 | XRay Report ---
CLINICAL INFORMATION: Shortness of breath. History of smoking COMPARISON: 12/15/2017 chest x-ray. FINDINGS: ] Heart size is normal for technique.. Mediastinum and pulmonary vessels are normal. 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 The number of metastases is so severe that it obscures the underlying lung. There are no definite infiltrates or effusions. Left diaphragm is chronically elevated as previously seen IMPRESSION: No definite infiltrates: however, multiple osteoblastic rib metastases moderately obscures both lungs. A lateral chest x-ray would be helpful in more confidently excluding pneumonia Interpreted and Authenticated by: Ludwin Niño 01/29/18
[2018-01-29 15:20] LABS: Ionized Calcium 0.73 mmol/L (1.16-1.32)
--- NOTE | 2018-01-29 15:38 | Internal Med History&Physical ---
Medical - H&P: HPI Patient information: Note initiated : 01/29/18 at 3:27 pm Patient: Orlando Valdivia a 77 y/o M admitted on 29 January with history of prostate cancer (most recent PSA >88) presents to ED after referred there by his PCP for evaluation of abnormal lab results. History of present illness: Mr. Valdivia is a 77 year old M with medical history significant for prostate cancer with bony mets (last PSA >88, has been prescribed Zytiga, unclear if he takes it), oxygen dependent COPD, recent hospital admission December 2017 for generalized weakness felt to be due to HCAP, discharged December 27. He follows with Bert Velasco, and was seen yesterday. She notes a 4 pound weight loss since his previous visit three weeks earlier. His blood pressure was up, so labs were drawn and he was started on Lisinopril. The labwork came back today with normokalemic acute renal failure. He was also noted to be severely hypocalcemic , phosphorus pending at the time of this writing. He was referred to the emergency department for evaluation. He had not yet taken lisinopril. He is a fairly vague historian, and although he appears frail and generally unwell, he has surprisingly few complaints. He notes his on Mother's Day of kidney failure "she quit dialysis". He notes he's been feeling poorly ever since. He describes fatigue and generalized weakness for several months, notes that it has perhaps worsened in the last three days. He had a brief episode of diarrhea a week ago. His appetite is "fine" per the patient although his primary describes 4# weight loss in 3 weeks. He tells me he was once 200 pounds, but is unclear on the time frame the weight loss occurred. He notes it was never intentional. He denies headache, insomnia, nausea, vomiting , any bone or joint pain (he tells me he has no idea where the metastases are for his prostate cancer). He experiences nocturia twice per night (used to be more often), and perhaps has some new shakiness or tremors. Denies muscle cramps or myalgias. In the ED, labwork revealed abrupt worsening of renal function and a drop in calcium. Urine was pending as well as Phos, Mag, PTH. On review of last hospital stay, he did have anemia, at one point dropping to a Hgb of 6.7, received 2 units of blood, and declined further evaluation. Review of systems: On complete review of systems, he tended to answer everything in the negative, however, close questioning revealed the followin) Occasional palpitations without syncope or near syncope. 2) Usually walks with a cane, fell about a week ago at home. He describes a mechanical fall, was able to get himself up, no injuries except for a bruise. 3) Nocturia twice/noc as noted above. 4) Uses his home oxygen continuously and reliably - also continues to smoke. 5) Desires full code, all resuscitative efforts at present; also states he does not want to end up a "vegetable" 6) Otherwise, on complete review, all others were negative, but I get the strong sense patient minimizes his issues. 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) Mitral valve prolapse (Chronic) Mitral regurgitation (Chronic) Hemorrhoids (Chronic) Diverticulosis of colon (Chronic) Cognitive decline (Chronic) Cervical spondylosis with myelopathy (Chronic) Cervical spinal stenosis (Chronic) Carotid stenosis (Resolved) TIA (transient ischemic attack) (Chronic) Tobacco abuse (Chronic) Heart murmur, systolic (Chronic) Hypertension, essential, benign (Chronic) Hyperlipidemia (Chronic) Erectile dysfunction (Chronic) Depression (Chronic) COPD (chronic obstructive pulmonary disease) (Chronic) - Oxygen dependent CVA (cerebrovascular accident) (Resolved) Carotid artery occlusion (Resolved) Fracture of right tibial plateau (Resolved) Internal derangement of right knee (Resolved) Sprain of shoulder and upper arm (Resolved) Syncope, near (Resolved) Surgical history: Reports appendectomy as a teenager, initially denied all others; I queried him about a Cspine scar and he describes a laminectomy type procedure. Social history: for 40+ years, approx 3 weeks ago. Lives with dog at home right now. 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 Desires full code. Functional capacity: uses cane/walker Smoking status: Current every day smoker Have you smoked in the last 12 months: Yes Time spent discussing smoking cessation with patient: 3 to 10 minutes (Patient is very clear he is not interested in cessation at present.) Drug use: none Alcohol use: none Medical - H&P: Meds Home Medications Medication Instructions Recorded Confirmed Type multivitamin tablet 1 tab PO QDAY tab 03/21/15 01/29/18 History levetiracetam 500 mg tablet 500 mg PO BID 90 Days #180 04/28/15 01/29/18 History albuterol sulfate HFA 90 2 puff INHALATION Q4-6H PRN #18 g 05/09/17 01/29/18 Rx mcg/actuation aerosol inhaler simvastatin 20 mg tablet 40 mg PO QPM #60 tab 05/09/17 01/29/18 Rx tiotropium bromide 18 mcg capsule 1 cap INHALATION QDAY #30 puff 05/09/17 Rx with inhalation device Calcium Carbonate/Vitamin D3 1 tab PO DAILY 11/22/17 01/29/18 History [Calcium 600 + Vit D Tablet] FLUoxetine HCL [Sarafem] 20 mg PO BID 11/22/17 01/29/18 History Abiraterone Acetate [Zytiga] 1,000 mg PO DAILY 12/17/17 01/29/18 History Cyanocobalamin (Vitamin B-12) 250 mcg PO DAILY 12/17/17 01/29/18 History [Vitamin B-12] Mometasone/Formoterol [Dulera 200 2 puff IH BID 12/19/17 01/29/18 History Mcg/5 Mcg Inhaler] Cholecalciferol (Vitamin D3) 1,000 unit PO DAILY 12/24/17 01/29/18 History [Vitamin D3] Pantoprazole [Protonix] 40 mg PO BIDAC #60 tab 12/27/17 01/29/18 Rx Walker #1 ea 12/31/17 12/31/17 Rx lisinopril 10 mg tablet 10 mg PO QDAY #90 tab 01/28/18 01/29/18 Rx Allergies Allergy/AdvReac Type Severity Reaction Status Date / Time No Known Drug Allergies Allergy Verified 01/29/18 12:10 Medical - H&P: Exam - Constitutional Vitals: Temp Pulse Resp BP Pulse Ox 97.7 F 81 27 H 161/94 99 01/29/18 12:05 01/29/18 15:16 01/29/18 15:01 01/29/18 15:16 01/29/18 15:16 - Other Additional findings: GENERAL: Appears frail and debilitated. Tears well in his eyes when discussing his . Temporal wasting noted. Speech coherent and articulate. Cooperative with exam. HEENT: Atraumatic, normocephalic; EYES: pupils equal, full range of extraocular movements, no scleral icterus, no injected vessels, no nystagmus. EARS: TM's pearly fitzgerald and translucent, EAC's without cerumen or trauma, auricles without lesions. OROPHARYNX: Partial plate upper and lower, palate raises symmetrically , no posterior erythema. Membranes moist. NECK: Trachea midline, no adenopathy, no JVD, No masses LUNGS: Distant bilaterally, no wheezes, no crackles, no focally diminished breath sounds. COR: Regular rate and rhythm, I did not appreciate any murmurs, rubs, or gallops. ABDOMEN: Bowel sounds present. Non-distended. Soft and non-tender. Liver edge palpates about 1 cm below costal margin, non-tender. BACK: No vertebral tenderness. No CVA tenderness. No SI joint tenderness. EXTREMITIES: No edema, pulses x4, warm. No palpable cords, no nail bed cyanosis. MUSCULOSKELETAL: Arthritic changes in hands noted. Shoulders with significant muscle atrophy, no long bone deformities or joint swelling/erythema noted. NEURO: Moved all extremities. Fine tremor noted in hands. Iron Cutter strength intact and equal. Knee jerks 2+ bilaterally; no focal deficits noted.. SKIN: No unusual ecchymosis, epithelial disruption or masses. Toenails thickened and scaly. Medical - H&P: Reslt - Labs CBC & Chem 7: 01/29/18 12:30 01/29/18 12:29 Labs: Short CBC 01/29/18 Range/Units 12:30 WBC 10.2 (4.5-11.0) K/mcL Hgb 9.6 L (13.5-16.5) g/dL Hct 28.9 L (41.0-55.0) % Plt Count 563 H (140-440) K/mcL BMP 01/29/18 12:29 Sodium 141 Potassium 3.9 Chloride 101 Carbon Dioxide 24 BUN 27 H Creatinine 3.3 H Glucose 102 Calcium 6.1 L Liver Function 01/29/18 Range/Units 12:29 Total Bilirubin 0.3 (0.0-1.0) mg/dL AST 21 (0-37) U/l ALT 9 (0-40) U/l Alkaline Phosphatase 146 H (39-117) U/L Albumin 3.4 (3.2-5.2) gm/dL - EKG Data -: EKG Interpreted by Myself (Sinus rhythm, prolonged QTc, no ST or T wave changes suggestive of ischemia) - Imaging and Cardiology Chest x-ray Status: image reviewed by me (No infiltrate, no effusion. ) Medical - H&P: A/P - Narrative A/P Narrative: 1) Acute renal failure - etiology unclear. He is on Protonix, and PPI have been associated with renal failure, even if no problem after prolonged use. Lisinopril just recently started, and process was in place before med initiated , thus not the culprit, although it will be held today. I wonder about other etiologies including dehydration after the diarrhea, poor intake, endocrine issues. Phos is pending, I have asked Dr. Perez to see him. At present, will obtain UA, run IV fluids, hold Protonix and lisinopril, start calcium carbonate. 2) Hypocalcemia - ? due to underlying renal process with hyperphosphatemia? Place on telemetry, obtain mag and phos results, check PTH in case secondary hyperparathyroidism. Start calcium carbonate empirically, give IV calcium gluconate. LR likely better choice of fluids over NS. 3) Oxygen dependent COPD - He reports his breathing is stable, no change in cough or sputum. Continue current outpatient management. 4) Fine tremors - he reports new - wonder if due to hypocalcemia. Remainder of neuro exam, including DTR's, fairly unremarkable. 5) Metastatic prostate cancer - on review of records, appears significantly more advanced and widespread than patient communicates. When asked if he is getting treatment for it, he states "not that I know of" despite records reflecting Zytiga and f/u oncology appointment 02/10. Will order Zytiga as take own medication and check with pharmacy if any risk of renal failure. 6) Tobacco dependence - with patients current medical issues, unlikely that smoking cessation will have major impact on health or longevity. He is clear he is not going to quit, and I agree that, at this point, it is likely a quality of life decision. He lives alone, so no significant health impact for others. 7) Desires full code - Patient ideally deserves a long palliative care discussion regarding goals of care and quality of life. In brief discussion today, he was clear he wanted all efforts in the case of cardiorespiratory arrest. 8) Normochromic anemia - Essentially unchanged since last hospital discharge. Will follow. No indication for acute intervention at present. 9) Grief - Not interested in support at present. Does have friend visiting him daily, would encourage that to continue. 10) Recent fall - usually walks with cane. Will obtain PT consult for gait evaluation and appropriate treatment. PLAN: Inpatient admission - medical problems are multiple and complex, will require at least 2 midnight stay. Telemetry Nephrology consult Calcium IV Calcium carbonate Await remainder of labwork Continue O2 Continue outpatient meds sans the lisinopril and PPI Renal diet at present Switch IVF to LR Daily labs Full code Other problems addressed as they arise. Medical - H&P: Qual - VTE Deep Vein Thrombosis/Pulmonary Embolism Present on Admission: No
[2018-01-29] MEDS ORDERED: DEXTROSE 50% 50 ML VIAL IV PRN (16:43)
[2018-01-29] MEDS ORDERED: ACETAMINOPHEN 325 MG TABLET PO PRN (16:53)
[2018-01-29] MEDS ORDERED: ALBUTEROL SULFATE 1 PUFF INHALER INH PRN (16:53)
--- NOTE | 2018-01-29 16:58 | Nephrology Consult Note ---
History of Present Illness - Reason for Consult Patient information: Note initiated : 01/29/18 at 4:56 pm Orlando Valdivia is [id number] male admitted on 01/29/18. Nephrology consultation was requested for acute kidney injury on 01/29/18. Consult date: 01/29/18 acute renal failure Requesting physician: Tiffanie Gardner - Chief Complaint Weakness - History of Present Illness Orlando Valdivia is [id number] male with history of metastatic (bone) prostate cancer, coronary artery disease by calcifications on CT, hypertension, hyperlipidemia, chronic hypoxic hypercapnic respiratory failure due to chronic obstructive pulmonary disease on continuous home oxygen, chronic kidney disease stage 4, chronic anemia, history of CVA and seizure disorder, admitted on . The patient reported progressive weakness over the past 2-3 weeks. He was referred to ED by his PCP for evaluation of abnormal lab results. Nephrology consultation was requested for acute kidney injury on 01/29/18. Review of Systems Constitutional: anorexia, weakness Nose, mouth and throat: no nasal congestion, no sore throat Cardiovascular: no chest pain, no edema Respiratory: no hemoptysis, no pain on inspirtation Gastrointestinal: no abdominal pain, no diarrhea Genitourinary: no dysuria, no hematuria Musculoskeletal: no back pain, no neck pain Integumentary: no pruritus, no rash Neurological: no confusion, no focal weakness Psychiatric: no anxiety, no depression Endocrine: no cold intolerance, no heat intolerance Hematologic/Lymphatic: no easy bleeding, no easy bruising Allergic/Immunologic: no throat swelling, no uticaria Past History Past medical history: Medical History (Last Reviewed 12/04/17 @ 10:36 by Amberly Velasco, VAMSHI, W[employer]ING MACHINE [employer]ATOR [employer]) Weakness (Acute) At high risk for falls (Acute) Anemia (Acute) Seizure (Chronic) Prostate cancer metastatic to bone (Chronic) Elevated Prostate Specific Antigen (PSA) (Chronic) Congenital shortening tendon (Chronic) Mitral valve prolapse (Chronic) Mitral regurgitation (Chronic) Mass of soft tissue (Chronic) Hemorrhoids (Chronic) Diverticulosis of colon (Chronic) Cognitive decline (Chronic) Cervical spondylosis with myelopathy (Chronic) Cervical spinal stenosis (Chronic) Carotid stenosis (Resolved) TIA (transient ischemic attack) (Chronic) Tobacco abuse (Chronic) Heart murmur, systolic (Chronic) Hypertension, essential, benign (Chronic) Hyperlipidemia (Chronic) Erectile dysfunction (Chronic) Depression (Chronic) COPD (chronic obstructive pulmonary disease) (Chronic) CVA (cerebrovascular accident) (Resolved) Carotid artery occlusion (Resolved) Fracture of right tibial plateau (Resolved) Internal derangement of right knee (Resolved) Sprain of shoulder and upper arm (Resolved) Syncope, near (Resolved) Past surgical history: Past Surgical History (Last Reviewed 12/04/17 @ 10:36 by Amberly Velasco, VAMSHI, WELDING MACHINE O[employer]ATOR [employer]) History of colonoscopy (Resolved) History of adenoidectomy (Resolved) History of appendectomy (Resolved) History of cataract surgery (Resolved) History of intraocular lens implant (Resolved) History of neck surgery (Resolved) History of tonsillectomy (Resolved) S/P skin biopsy (Resolved) Past family history: Family History (Last Reviewed 12/04/17 @ 10:36 by Amberly Velasco, VAMSHI, WELDING MACHINE OPERATOR [employer]) No family history of respiratory disease No problems noted. No family history of breast disease No problems noted. No family history of cardiovascular disease No problems noted. No family history of endocrine disease No problems noted. No family history of gastrointestinal disease No problems noted. No family history of neurologic disease No problems noted. Father Bipolar affective disorder Senile dementia Malignant neoplasm of esophagus, Onset Age: 90 Parkinson's Disease Schizophrenia Mother Cardiac disease Family history of rheumatic heart disease Sister Family history of kidney stones Past social history: 3 weeks ago. Lives with dog at home. Smokes 1/4 ppd. Medications and Allergies Home Medications Medication Instructions Recorded Confirmed Type multivitamin tablet 1 tab PO QDAY tab 03/21/15 01/29/18 History levetiracetam 500 mg tablet 500 mg PO BID 90 Days #180 04/28/15 01/29/18 History albuterol sulfate HFA 90 2 puff INHALATION Q4-6H PRN #18 g 05/09/17 01/29/18 Rx mcg/actuation aerosol inhaler simvastatin 20 mg tablet 40 mg PO QPM #60 tab 05/09/17 01/29/18 Rx tiotropium bromide 18 mcg capsule 1 cap INHALATION QDAY #30 puff 05/09/17 Rx with inhalation device RX: Calcium Carbonate/Vitamin D3 1 tab PO DAILY 11/22/17 01/29/18 History [Calcium 600 + Vit D Tablet] RX: FLUoxetine HCL [Sarafem] 20 mg PO BID 11/22/17 01/29/18 History RX: Abiraterone Acetate [Zytiga] 1,000 mg PO DAILY 12/17/17 01/29/18 History RX: Cyanocobalamin (Vitamin B-12) 250 mcg PO DAILY 12/17/17 01/29/18 History [Vitamin B-12] RX: Mometasone/Formoterol [Dulera 2 puff IH BID 12/19/17 01/29/18 History 200 Mcg/5 Mcg Inhaler] RX: Cholecalciferol (Vitamin D3) 1,000 unit PO DAILY 12/24/17 01/29/18 History [Vitamin D3] Pantoprazole [Protonix] 40 mg PO BIDAC #60 tab 12/27/17 01/29/18 Rx lisinopril 10 mg tablet 10 mg PO QDAY #90 tab 01/28/18 01/29/18 Rx Allergies Allergy/AdvReac Type Severity Reaction Status Date / Time No Known Drug Allergies Allergy Verified 01/29/18 12:10 Exam - Vital Signs Vital signs: Temp Pulse Resp BP Pulse Ox 97.7 F 82 23 H 146/95 99 01/29/18 12:05 01/29/18 16:01 01/29/18 16:01 01/29/18 16:01 01/29/18 16:01 - General Appearance General appearance: appears started age, fatigue EENT: mucous membranes moist Respiratory: clear Cardiology: no edema Gastrointestinal: no tenderness Integumentary: no rash, warm and dry Neurologic: no focal deficit, alert and oriented x3 Musculoskeletal: no erythema, no cyanosis Psychiatric: mood/affect appropriate, cooperative Results - Lab Results 01/29/18 12:30 01/29/18 17:10 Most recent lab results Calcium 6.1 mg/dl (8.6-10.4) L 01/29/18 12:29 Phosphorus 4.9 mg/dL (2.7-4.5) H 01/29/18 14:30 Magnesium 1.9 mg/dL (1.6-2.5) 01/29/18 14:31 Assessment and Plan (1) Acute kidney failure Acute kidney injury, present on arrival. There is no recent history of IV contrast administration or NSAID use. Obstructive nephropathy considered based on history. Recent work up: US Renal on 12/16/17: Moderate focal asymmetric thickening of the posterior urinary bladder wall spanning 6 x 5 cm. This could be inflammatory, fibrotic or neoplastic. Suggest correlation with cystoscopy. Mild bilateral hydronephrosis could be related to partial narrowing of the distal ureter UVJ due to focal bladder wall thickening. Hyperechoic kidneys compatible with medical renal disease. Plan: US Renal, urinalysis, urine random sodium, total protein and creatinine requested. No need for urgent acute hemodialysis. Avoid NSAIDs, nephrotoxic medications and IV contrast. Monitor BMP and urine output. Dr. Martinez will follow tomorrow. Status: Acute Priority: High Qualifiers: Acute renal failure type: unspecified Qualified Code(s): N17.9 - Acute kidney failure, unspecified
--- NOTE | 2018-01-29 17:17 | Ultrasound Report ---
CLINICAL INFORMATION: Renal trauma COMPARISON: 12/16/2017 FINDINGS: Both kidneys are normal and symmetric in size and configuration: The right is 12.7 x 5 cm and the left is 11.6 x 5.8 cm. Both kidneys are diffusely hyperechoic - as before. Moderate bilateral hydronephrosis is again noted. The urinary bladder is distended - 225 cc. There is a. 6 x 2 cm asymmetric thickening in the posterior bladder wall which may represent transitional cell carcinoma. Demonstrate increased blood flow on color Doppler IMPRESSION: 6 x 5 cm sessile mass again noted in the bladder base which may partially imaged obstructing both distal ureters resulting in moderate hydronephrosis. Suggest cystoscopic correlation and possible biopsy Hyperechoic kidneys compatible with medical renal disease Interpreted and Authenticated by: Ludwin Niño 01/29/18
[2018-01-29] MEDS: LACTATED RINGERS 1,000 ML IV SCH (17:37)
[2018-01-29 17:56] LABS: Appearance,Urine HAZY; Bacteria,Urine FEW /hpf (0); Bilirubin,Urine NEG (NEG); Color,Urine YELLOW; Glucose,Urine (UA) NEGATIVE (NEG); Leukocyte Esterase,Urine NEG /uL (NEG); Protein,Urine NEG (NEG); Specific Gravity,Urine 1.009 (1.000-1.035); Urine Blood NEG mg/dL (<0.03); Urine RBC < 1 /hpf (0-1); Urine Squamous Epithelial Cell < 1 /hpf (0-4); Urine WBC 2 /hpf (0-4); Urobilinogen,Urine NEG (NEG)
[2018-01-29] MEDS ORDERED: INSULIN LISPRO 1 UNIT/0.01 ML UNIT SQ SCH (18:00)
[2018-01-29 18:56] LABS: ALT/SGPT 7 U/l (0-40); Albumin 2.9 gm/dL (3.2-5.2); Albumin/Globulin Ratio 1.2 (1.0-2.3); Alkaline Phosphatase 121 U/L (39-117); Bilirubin,Direct < 0.2 mg/dL (0.0-0.3); Blood Urea Nitrogen 26 mg/dl (8-23); Gamma Glutamyl Transpeptidase 11 U/L (8-61); Uric Acid 7.4 mg/dL (2.5-8.0)
[2018-01-29] MEDS ORDERED: CALCIUM GLUCONATE 13.95 MEQ in DEXTROSE 5% IN WATER 50 ML IV ONE (18:59)
[2018-01-29] MEDS ORDERED: CALCIUM CHLORIDE 1,000 MG/10 ML SYRINGE IV ONE (19:51)
[2018-01-29] MEDS: SIMVASTATIN 20 MG TABLET PO SCH (20:24)
[2018-01-29] MEDS: FAMOTIDINE 20 MG TABLET PO SCH (20:24)
[2018-01-29] MEDS: CALCIUM CARBONATE 500 MG TAB.CHEW CHEWED SCH (20:25)
[2018-01-29] MEDS: HEPARIN 5,000 UNIT/ML VIAL SQ SCH (20:25)
[2018-01-29] MEDS: 0.9 % SODIUM CHLORIDE 10 ML SYRINGE IV SCH (21:01)
[2018-01-29 21:27] LABS: Creatinine,Urine Random 75.5 mg/dl
[2018-01-30] MEDS: CALCIUM CARBONATE 500 MG TAB.CHEW CHEWED SCH ×4 (00:20→18:30)
[2018-01-30] MEDS: LACTATED RINGERS 1,000 ML IV SCH ×4 (01:46→23:01)
[2018-01-30 05:06] LABS: Basophils # (Auto) 0 K/mcL (0.0-0.3); Basophils % (Auto) 0.1 % (0.0-2.0); Eosinophils # (Auto) 0.2 K/mcL (0.0-0.7); Eosinophils % (Auto) 3.6 % (0.0-7.0); Granulocytes % (Auto) 80.9 % (38.0-78.0); Lymphocytes # (Auto) 0.6 K/mcL (1.5-4.8); Lymphocytes % (Auto) 8.2 % (15.5-49.0); Mean Cell Volume 92.3 fL (80.0-100.0); Mean Corpuscular HGB Conc 33.1 g/dL (31.0-36.0); Mean Corpuscular Hemoglobin 30.6 pg (26.0-34.0); Monocytes # (Auto) 0.5 K/mcL (0.1-0.9); Monocytes % (Auto) 7.2 % (1.0-12.0); Platelet Count 415 K/mcL (140-440)
[2018-01-30 06:04] LABS: ALT/SGPT 7 U/l (0-40); Albumin 2.6 gm/dL (3.2-5.2); Albumin/Globulin Ratio 1.1 (1.0-2.3); Alkaline Phosphatase 117 U/L (39-117); Bilirubin,Direct < 0.2 mg/dL (0.0-0.3); Blood Urea Nitrogen 26 mg/dl (8-23); Gamma Glutamyl Transpeptidase 11 U/L (8-61); Uric Acid 7.2 mg/dL (2.5-8.0)
[2018-01-30] MEDS: 0.9 % SODIUM CHLORIDE 10 ML SYRINGE IV SCH ×3 (06:09→21:48)
[2018-01-30] MEDS ORDERED: CALCIUM CHLORIDE 1,000 MG/10 ML SYRINGE IV ONE ×3 (07:41→19:04)
[2018-01-30] MEDS ORDERED: CALCIUM CARBONATE 500 MG TAB.CHEW CHEWED SCH (08:00)
[2018-01-30] MEDS: CALCIUM W/VIT D3 500 MG TABLET PO SCH (09:49)
[2018-01-30] MEDS: FLUoxetine HCL 20 MG CAPSULE PO SCH ×2 (09:49→21:03)
[2018-01-30] MEDS: CYANOCOBALAMIN (VITAMIN B-12) 500 MCG TABLET PO SCH (09:49)
[2018-01-30] MEDS: FAMOTIDINE 20 MG TABLET PO SCH ×2 (09:49→21:03)
[2018-01-30] MEDS: HEPARIN 5,000 UNIT/ML VIAL SQ SCH ×2 (09:49→21:03)
[2018-01-30] MEDS: VITAMIN D3 1,000 UNIT TABLET PO SCH (09:49)
[2018-01-30] MEDS ORDERED: amLODIPine 5 MG TABLET PO ONE (12:43)
--- NOTE | 2018-01-30 12:48 | Nephrology Progress Note ---
Subjective Patient information: Note initiated : 01/30/18 at 12:46 pm Service Date, if different from initiated Date: [] Patient: Orlando Valdivia 77 y/o M admitted on 01/29/18 for Shortness of Breath/ Acute Renal Failure. Chief Complaint: [] Principal diagnosis: acute renal failure Interval history: Patient admitted with acute renal failure, he presented with weakness for 2-3 weeks his renal US shows moderate hydronephrosis he denies any symptoms this am, no SOB, CP no nausea, vomiting no edema he c/o poor appetite though it is noted that his BP is elevated in 150/100 range Pertinent ROS: as above Objective - Vital Signs Vital signs: Vital Signs Temp Pulse Pulse Resp BP BP Pulse Ox 01/30/18 12:35 98 01/30/18 12:01 99.1 F H 86 18 150/100 96 01/30/18 09:47 96 01/30/18 08:01 99.4 F H 155/103 97 01/30/18 04:14 82 165/100 97 01/30/18 04:01 99.3 F H 18 182/106 97 01/30/18 00:01 99.3 F H 83 16 168/98 95 01/29/18 20:01 99.1 F H 84 16 152/83 98 01/29/18 19:15 18 01/29/18 17:13 99.8 F H 84 22 140/104 100 01/29/18 16:15 99.8 F H 84 20 140/104 100 01/29/18 16:01 82 23 H 146/95 99 01/29/18 15:46 81 23 H 160/93 98 01/29/18 15:31 81 22 160/93 99 01/29/18 15:16 81 161/94 99 01/29/18 15:01 80 27 H 158/96 99 01/29/18 14:46 81 23 H 165/99 99 01/29/18 14:32 82 25 H 168/102 98 01/29/18 14:31 82 28 H 142/101 100 01/29/18 14:15 82 25 H 148/104 98 01/29/18 14:01 82 23 H 151/96 99 01/29/18 13:46 24 H 166/110 01/29/18 13:31 20 157/118 01/29/18 13:16 20 164/105 01/29/18 13:01 83 26 H 157/100 100 Intake and Output 01/29/18 01/30/18 01/30/18 21:59 05:59 13:59 Intake Total 120 / 120 1600 / 1600 1100 / 1100 Output Total 225 / 225 300 / 300 525 / 525 Balance -105 / -105 1300 / 1300 575 / 575 Intake: IV 1000 / 1000 1000 / 1000 Lactated Ringers 1,000 ml @ 125 1000 / 1000 1000 / 1000 mls/hr IV .Q8H [facility] Rx#: [id number] Oral 120 / 120 600 / 600 100 / 100 Output: Void Amount 225 / 225 300 / 300 525 / 525 Other: Meal Dinner Nourishment/Supplement Percent of Meal Consumed 50% 100% Feeding Ability Assist with Tray Set Up Assist with Tray Set Up # Voids 1 # Bowel Movements 0 Weight 118 lb 6 oz Intake & Output: Intake & Output 01/29/18 01/30/18 01/30/18 21:59 05:59 13:59 Intake Total 120 / 120 1600 / 1600 1100 / 1100 Output Total 225 / 225 300 / 300 525 / 525 Balance -105 / -105 1300 / 1300 575 / 575 Weight 118 lb 6 oz Intake: IV 1000 / 1000 1000 / 1000 Lactated Ringers 1,000 ml @ 125 1000 / 1000 1000 / 1000 mls/hr IV .Q8H [facility] Rx#: [id number] Oral 120 / 120 600 / 600 100 / 100 Output: Void Amount 225 / 225 300 / 300 525 / 525 Other: Meal Dinner Nourishment/Supplement Percent of Meal Consumed 50% 100% Feeding Ability Assist with Tray Set Up Assist with Tray Set Up # Voids 1 # Bowel Movements 0 - General Appearance General appearance: appears started age EENT: mucous membranes moist Neck: no JVD Respiratory: clear Cardiology: mid-systolic murmur, no rub, no edema, regular rate, regular rhythm Gastrointestinal: no tenderness, no guarding Integumentary: warm and dry Neurologic: no focal deficit, no asterixis, alert and oriented x3 Musculoskeletal: no erythema, no clubbing Psychiatric: mood/affect appropriate - Lab 01/30/18 03:40 01/30/18 03:40 Most recent lab results Calcium 6.3 mg/dl (8.6-10.4) L 01/30/18 03:40 Phosphorus 4.7 mg/dL (2.7-4.5) H 01/30/18 03:40 Magnesium 1.8 mg/dL (1.6-2.5) 01/30/18 03:40 Assessment and Plan (1) Acute kidney failure acute renal failure baseline s.creatinine is 0.8-0.9 renal US shows moderate hydronephrosis UA with no significant proteinuria and hematuria HTN: BP is elevated, on lisinopril at home, cannot continue because of JERMAINE, will start amlodipine anemia: will obtain work up malnutrition: patient has not been eating well, his albumin is 2.8 will add nepro findings discussed with the patient will cut back on LR please obtain urology opinion on moderate hydronephrosis as he needs intervention for this will add calcitriol given low calcium and elevated PTH and carolyn dd calcium acetate for elevated phos please dose meds to egfr avoid nephrotoxic medications will follow along Thank you for giving me an opportunity to participate in Mr Valdivia's medical care, appreciate it Status: Acute Priority: High Qualifiers: Acute renal failure type: unspecified Qualified Code(s): N17.9 - Acute kidney failure, unspecified (2) Hypertension, essential, benign Status: Chronic Comment: 1992 (3) Anemia Status: Acute (4) Malnutrition Status: Acute
--- NOTE | 2018-01-30 13:31 | Internal Med Progress Note ---
Medical - PN: Subj Patient information: Note initiated : 01/30/18 at 1:27 pm Patient: Orlando Valdivia 77 y/o M admitted on 01/29/18 for Shortness of Breath/ Acute Renal Failure. Interval history: Patient is again vague in his complaints. Notes he feels "blah", states unchanged from yesterday. No new shortness of breath. No abdominal pain, no chest pain (despite extensive rib mets). Has been seen by Dr. Martinez from nephrology, /S with bilateral hydronephrosis, sessile mass at bladder neck. Even with extensive review of systems, patient denies specific complaints. - Constitutional Vitals: Vital Signs Temp Pulse Resp BP Pulse Ox 99.1 F H 86 18 150/100 98 01/30/18 12:01 01/30/18 12:01 01/30/18 12:01 01/30/18 12:01 01/30/18 12:35 Period Temp Pulse Resp BP Sys/Romo Pulse Ox Last 24 Hr 99.1 F-99.8 F 80-86 16-28 140-182/83-118 95-100 Intake and Output 01/29/18 01/30/18 01/30/18 21:59 05:59 13:59 Intake Total 120 / 120 1600 / 1600 1340 / 1340 Output Total 225 / 225 300 / 300 525 / 525 Balance -105 / -105 1300 / 1300 815 / 815 Weight 118 lb 6 oz Intake & Output: Intake & Output 01/29/18 01/30/18 01/30/18 21:59 05:59 13:59 Intake Total 120 / 120 1600 / 1600 1340 / 1340 Output Total 225 / 225 300 / 300 525 / 525 Balance -105 / -105 1300 / 1300 815 / 815 Weight 118 lb 6 oz Intake: IV 1000 / 1000 1000 / 1000 Lactated Ringers 1,000 ml @ 125 1000 / 1000 1000 / 1000 mls/hr IV .Q8H [facility] Rx#: [id number] Oral 120 / 120 600 / 600 340 / 340 Output: Void Amount 225 / 225 300 / 300 525 / 525 Other: Meal Dinner Lunch Percent of Meal Consumed 50% 100% Feeding Ability Assist with Tray Set Up Assist with Tray Set Up # Voids 1 # Bowel Movements 0 Exam: GENERAL: Appears frail and debilitated. Speech coherent and articulate. Respirations unlabored. Cooperative with exam. LUNGS: Distant bilaterally, no wheezes, no crackles, no focally diminished breath sounds. Did exhibit cough with first breath, no sputum production. Respirations are comfortable when lying flat. COR: Regular rate and rhythm, I did not appreciate any murmurs, rubs, or gallops. ABDOMEN: Bowel sounds present. Non-distended. Soft and non-tender. Liver edge palpates about 1 cm below costal margin, non-tender. EXTREMITIES: No edema, pulses x4, warm. No palpable cords, no nail bed cyanosis. Medical - PN: Obj Da - Labs CBC & Chem 7: 01/30/18 03:40 01/30/18 03:40 Labs: Abnormal Lab Results 01/30/18 01/30/18 01/29/18 03:40 03:40 17:15 RBC 2.60 L Hgb 8.0 L Hct 24.0 L RDW 15.0 H Plt Count Gran % 80.9 H Lymph % (Auto) 8.2 L Gran # Lymph # (Auto) 0.6 L BUN 26 H Creatinine 3.4 H Calcium 6.3 L Ionized Calcium Henry Phosphorus 4.7 H Alkaline Phosphatase Lactate Dehydrogenase 264 H Total Protein 5.0 L Albumin 2.6 L Triglycerides PTH Intact Urine Bacteria Few A 01/29/18 01/29/18 01/29/18 17:10 14:31 14:30 RBC Hgb Hct RDW Plt Count Gran % Lymph % (Auto) Gran # Lymph # (Auto) BUN 26 H Creatinine 3.2 H Calcium 5.4 L* Ionized Calcium Henry 0.73 L* Phosphorus 4.6 H 4.9 H Alkaline Phosphatase 121 H Lactate Dehydrogenase 284 H Total Protein 5.4 L Albumin 2.9 L Triglycerides 169 H PTH Intact Urine Bacteria 01/29/18 01/29/18 01/29/18 14:30 12:30 12:29 RBC 3.14 L Hgb 9.6 L Hct 28.9 L RDW 15.3 H Plt Count 563 H Gran % 82.1 H Lymph % (Auto) 7.6 L Gran # 8.4 H Lymph # (Auto) 0.8 L BUN 27 H Creatinine 3.3 H Calcium 6.1 L Ionized Calcium Henry Phosphorus Alkaline Phosphatase 146 H Lactate Dehydrogenase Total Protein Albumin Triglycerides PTH Intact 394.4 H Urine Bacteria Meds: Medications Acetaminophen (Tylenol) 650 mg PO Q6HP PRN PRN Reason: PAIN/FEVER > 101 Albuterol Sulfate (Ventolin) 2 puff INH Q4-6H PRN PRN Reason: bronchospasm Amlodipine Besylate (Norvasc) 5 mg PO DAILY [facility] Calcitriol (Rocaltrol) 0.25 mcg PO DAILY [facility] Calcium Acetate (Phoslo) 667 mg PO TIDCC [facility] Calcium Carbonate/Glycine (Tums) 1,000 mg CHEWED Q6 [facility] Last Admin: 01/30/18 06:06 Dose: 1,000 mg Calcium/Vitamin D (Calcium W/Vit D3) 500 mg PO DAILY [facility] Last Admin: 01/30/18 09:49 Dose: 500 mg Cyanocobalamin (Vitamin B-12) 250 mcg PO DAILY [facility] Last Admin: 01/30/18 09:49 Dose: 250 mcg Dextrose (Dextrose 50%) 0 ml IV UD PRN PRN Reason: Hypoglycemia Famotidine (Pepcid) 20 mg PO BID [facility] Last Admin: 01/30/18 09:49 Dose: 20 mg Fluoxetine HCl (Prozac) 20 mg PO BID [facility] Last Admin: 01/30/18 09:49 Dose: 20 mg Heparin Sodium (Porcine) (Heparin) 5,000 unit SQ Q12 [facility] Last Admin: 01/30/18 09:49 Dose: 5,000 unit Lactated Ringer's (Lactated Ringers) 1,000 mls @ 75 mls/hr IV .[id number] [facility] Abiraterone Acetate ([Zytiga] 1,000 Mg) 1 dose PO DAILY [facility] Mometasone/Formoterol [Dulera] 200/5 Mcg Inhaler 2 dose INH BID [facility] Simvastatin (Zocor) 40 mg PO QPM [facility] Last Admin: 01/29/18 20:24 Dose: 40 mg Sodium Chloride (Saline Flush) 10 ml IV Q8 [facility] Last Admin: 01/30/18 06:09 Dose: Not Given Tiotropium [place] (Spiriva) 18 mcg INH QDAY [facility] Vitamin D (Vitamin D3) 1,000 unit PO DAILY [facility] Last Admin: 01/30/18 09:49 Dose: 1,000 unit - Imaging and cardiology Renal US Additional comments: Read by radiology: IMPRESSION: 6 x 5 cm sessile mass again noted in the bladder base which may partially imaged obstructing both distal ureters resulting in moderate hydronephrosis. Suggest cystoscopic correlation and possible biopsy Hyperechoic kidneys compatible with medical renal disease Medical - PN: A/P - Time Spent With Patient Total time spent is greater than 50% in coordination of care (as documented) at patient's floor/unit and/or counseling patient: 25 - 35 minutes - Narrative A/P Narrative: 1) Acute renal failure - ? multifactorial, some bladder obstruction with hydronephrosis and evidence of obstructive nephropathy. Very much appreciate Dr. Martinez's input. Call is placed to urologist, have not yet heard back. Creatinine slightly worse today, given hydronephrosis, fluids decreased. Potassium still okay, phosphorous up slightly. Follow labs. 2) Hypocalcemia - ? multifactorial - prostate mets + renal. Received 2 grams calcium chloride, on calcium carbonate, calcitriol added per Dr. Martinez. PTH markedly elevated in response to hypocalcemia. 3) Metastatic prostate cancer - denies pain. Unclear if bladder mass related to prostate CA, call to urology (Dr. Flores), message left on cell phone. 4) Anorexia with poor po intake - malignancy, depression both factors. Not interested in eating breakfast when I saw him this AM, stated he doesn't usually , but will eat lunch. Supplements per dietary. 5) Active grieving - not interested in support or medications at present. Will approach again in a day or two. 6) Oxygen dependent COPD - stable on Dulera and usual O2 flow rate (2L) 7) Tobacco use disorder - continues to smoke (with O2 at home). Advice to quit likely a moot point at present. Suspect discussions about goals of care more appropriate and if quality of life at this time includes tobacco use, the issue becomes one of safety with the oxygen. 8) Disposition - goals of care an appropriate discussion to have at this time. Await more information on status of bladder mass, re-initiate the discussion. I feel it is unlikely patient can adequately care for himself at home; suspect one barrier to other options is his dog. Plan: Med changes per Dr. Martinez (your input is much appreciated) Await Dr. Flores's opinion Recheck labs in the morning Continue telemetry Continue with case management input Replete calcium as indicated by labs O2 + nebs/MDI's Medical - PN: Qual - VTE Deep Vein Thrombosis/Pulmonary Embolism Present on Admission: No
[2018-01-30] MEDS: CALCITRIOL 0.25 MCG CAPSULE PO SCH (13:49)
[2018-01-30] MEDS ORDERED: METHYLENE BLUE 50 MG/10 ML AMPUL IV SCH (16:15)
[2018-01-30] MEDS ORDERED: hydrALAZINE 20 MG/ML VIAL IV PRN (16:34)
--- NOTE | 2018-01-30 16:50 | Consultation ---
DATE OF CONSULTATION: 01/30/2018 REQUESTING PHYSICIAN: Dr. Gardner. HISTORY OF PRESENT ILLNESS: The patient is a 77-year-old gentleman who I saw about 2 years ago for prostate cancer. At that time he had already had metastasis and his PSA was elevated. He did go over for treatment at [facility] and has been on Lupron since that time. He has also been on Zytiga and recently was switched over to abiraterone. He is currently on this and prednisone. His last PSA was 88.31. He does have metastatic prostate cancer which is hormone resistant. Earlier this month his creatinine was 0.9 and most recently was 3.4. He was admitted for shortness of breath and just not feeling well. He denies any current pain. He is again currently on abiraterone and this does not seem to be working. An ultrasound was obtained which did show bilateral hydronephrosis and a mass in the middle of his bladder. Radiology thought that this may be bladder cancer, but it is probably prostate cancer causing obstruction of the ureters. I have been asked to evaluate him. PAST MEDICAL HISTORY: Anemia, seizures, metastatic, prostate cancer, mitral valve prolapse, diverticulosis, cognitive decline, carotid stenosis, TIAs, tobacco abuse, erectile dysfunction, CVA. PAST SURGICAL HISTORY: An appendectomy and laminectomy. SOCIAL HISTORY: for 40 years. recently . He still smokes a quarter of a pack a day. 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 CURRENT MEDICATIONS: 1. Albuterol. 2. Simvastatin. 3. Paxil. 4. Zytiga. 5. Vitamin D3. 6. Protonix. 7. Lisinopril. ALLERGIES: None. REVIEW OF SYSTEMS: CARDIAC: Occasional palpitations. MUSCULOSKELETAL: Walks with a cane. PULMONARY: Does use home O2, does continue to smoke. A 12-point review of systems otherwise is negative. Please see the hospitalist's dictation. PHYSICAL EXAMINATION: GENERAL: This is a pleasant gentleman in no apparent distress. PSYCHOLOGICAL: Alert and oriented x3. HEENT: Atraumatic, normocephalic. Extraocular movements are intact. Pupils equal, reactive to light and accommodation. NECK: Supple. Trachea is in the midline. HEART: Regular rate and rhythm. LUNGS: Clear to auscultation. ABDOMEN: Soft, nontender, no palpable bladder. GENITOURINARY: Scrotum without lesion. No hydrocele, no varicocele. Testicles are small, atrophic status post hormone therapy. Epididymides are without cysts. Penis is uncircumcised, able to retract his foreskin. Meatus in its proper position. Prostate is rock hard in the midline extending up past the seminal vesicles involving these and also appears to be the base of the bladder. Seminal vesicles involved with cancer. Rectum: Good sphincter tone. No inner rectal masses. EXTREMITIES: Without clubbing, cyanosis or edema. NEUROLOGIC: Cranial nerves II through XII are intact. IMPRESSION: The patient with bilateral ureteral obstruction secondary to prostate cancer. I have talked to him about the options bein. Do nothing at all and watch this. 2. Cystoscopy with possible stent placement. I have told him that this would be a very difficult proposition because of his prostate and gave him about a 20% chance we may be able to get the stents in. 3. Another option would be percutaneous tubes bilaterally. I have gone over the pros and cons of each of these approaches and he understands. He has decided he would like try to have the stents placed. We will schedule this for tomorrow. I will give him methylene blue about an hour before the procedure to help us identify the orifices. I have answered all his questions. A full PARQ discussion was held, and we will plan to follow up at the time of surgery. LORE:daiana Job ID: [id number] Doc ID: [id number] Seth Flores MD
[2018-01-30] MEDS: Abiraterone Acetate [Zytiga] 1,000 MG PO SCH (17:13)
[2018-01-30] MEDS: FORMOTEROL INH SCH ×3 (17:13→21:04)
[2018-01-30] MEDS: MOMETASONE INH SCH ×3 (17:13→21:04)
[2018-01-30] MEDS: TIOTROPIUM BROMIDE 18 MCG INHALANT INH SCH (17:14)
[2018-01-30] MEDS: CALCIUM ACETATE 667 MG CAPSULE PO SCH (17:15)
[2018-01-30 17:21] LABS: Ionized Calcium 0.93 mmol/L (1.16-1.32)
[2018-01-30] MEDS: SIMVASTATIN 20 MG TABLET PO SCH (21:03)
[2018-01-31] MEDS: CALCIUM CARBONATE 500 MG TAB.CHEW CHEWED SCH ×4 (01:23→18:25)
[2018-01-31] MEDS: LACTATED RINGERS 1,000 ML IV SCH ×3 (04:22→21:10)
[2018-01-31] MEDS: 0.9 % SODIUM CHLORIDE 10 ML SYRINGE IV SCH ×2 (04:45→21:11)
[2018-01-31] MEDS ORDERED: ceFAZolin 1 GM VIAL IV SCH (05:00)
--- NOTE | 2018-01-31 06:07 | Internal Med Progress Note ---
Medical - PN: Subj Patient information: Note initiated : 01/31/18 at 6:06 am Patient: Orlando Valdivia 77 y/o M admitted on 01/29/18 for acute renal failure felt to be secondary to obstructive uropathy due to prostate cancer; planned Cystoscopy w/ Bilateral Stent Placement today. Interval history: Patient states he feels anxious about the surgery - and the fact that it may not be successful. Otherwise, he is again vague in his complaints. No new shortness of breath. No abdominal pain, no chest pain (despite extensive rib mets). Cystoscopy with attempt at stent placement is planned for noon today, he has been NPO, calcium has corrected to close to normal. If unsuccessful, he will need to be transferred to [facility] for percutaneous tubes. - Constitutional Vitals: Vital Signs Temp Pulse Resp BP Pulse Ox 98.8 F 88 18 153/93 94 01/31/18 03:58 01/30/18 15:12 01/31/18 03:58 01/31/18 03:51 01/31/18 03:58 Period Temp Pulse Resp BP Sys/Romo Pulse Ox Last 24 Hr 98.8 F-99.7 F 86-88 18-20 128-176/80-104 94-98 Intake and Output 01/30/18 01/31/18 01/31/18 21:59 05:59 13:59 Intake Total 790 / 790 Output Total 120 / 120 875 / 875 Balance 670 / 670 -875 / -875 Weight 117 lb Intake & Output: Intake & Output 01/30/18 01/31/18 01/31/18 21:59 05:59 13:59 Intake Total 790 / 790 Output Total 120 / 120 875 / 875 Balance 670 / 670 -875 / -875 Weight 117 lb Intake: Oral 790 / 790 Output: Void Amount 120 / 120 875 / 875 Other: # Voids 2 Exam: GENERAL: Appears frail and debilitated. Speech coherent and articulate. Respirations unlabored. Cooperative with exam. Fine tremor noted on admission has improved significantly. OROPHARYNX: [place] dentition, moist membranes. LUNGS: Distant bilaterally, sounds tight today, expiratory wheeze noted. No cough noted. Respirations are comfortable when lying flat. COR: Regular rate and rhythm, I did not appreciate any murmurs, rubs, or gallops. ABDOMEN: Bowel sounds present. Non-distended. Soft and non-tender. EXTREMITIES: No edema, pulses x4, warm. No palpable cords, no nail bed cyanosis. Medical - PN: Obj Da - Labs CBC & Chem 7: 01/31/18 03:45 01/31/18 03:45 Labs: Abnormal Lab Results 01/30/18 01/30/18 01/30/18 16:32 03:40 03:40 RBC 2.60 L Hgb 8.0 L Hct 24.0 L RDW 15.0 H Plt Count Gran % 80.9 H Lymph % (Auto) 8.2 L Gran # Lymph # (Auto) 0.6 L BUN 26 H Creatinine 3.4 H Calcium 6.3 L Ionized Calcium Henry 0.93 L Phosphorus 4.7 H Alkaline Phosphatase Lactate Dehydrogenase 264 H Total Protein 5.0 L Albumin 2.6 L Triglycerides PTH Intact Urine Bacteria 01/29/18 01/29/18 01/29/18 17:15 17:10 14:31 RBC Hgb Hct RDW Plt Count Gran % Lymph % (Auto) Gran # Lymph # (Auto) BUN 26 H Creatinine 3.2 H Calcium 5.4 L* Ionized Calcium Henry 0.73 L* Phosphorus 4.6 H Alkaline Phosphatase 121 H Lactate Dehydrogenase 284 H Total Protein 5.4 L Albumin 2.9 L Triglycerides 169 H PTH Intact Urine Bacteria Few A 01/29/18 01/29/18 01/29/18 14:30 14:30 12:30 RBC 3.14 L Hgb 9.6 L Hct 28.9 L RDW 15.3 H Plt Count 563 H Gran % 82.1 H Lymph % (Auto) 7.6 L Gran # 8.4 H Lymph # (Auto) 0.8 L BUN Creatinine Calcium Ionized Calcium Henry Phosphorus 4.9 H Alkaline Phosphatase Lactate Dehydrogenase Total Protein Albumin Triglycerides PTH Intact 394.4 H Urine Bacteria 01/29/18 12:29 RBC Hgb Hct RDW Plt Count Gran % Lymph % (Auto) Gran # Lymph # (Auto) BUN 27 H Creatinine 3.3 H Calcium 6.1 L Ionized Calcium Henry Phosphorus Alkaline Phosphatase 146 H Lactate Dehydrogenase Total Protein Albumin Triglycerides PTH Intact Urine Bacteria Meds: Medications Acetaminophen (Tylenol) 650 mg PO Q6HP PRN PRN Reason: PAIN/FEVER > 101 Albuterol Sulfate (Ventolin) 2 puff INH Q4-6H PRN PRN Reason: bronchospasm Amlodipine Besylate (Norvasc) 5 mg PO DAILY [facility] Calcitriol (Rocaltrol) 0.25 mcg PO DAILY [facility] Last Admin: 01/30/18 13:49 Dose: 0.25 mcg Calcium Acetate (Phoslo) 667 mg PO TIDCC [facility] Last Admin: 01/30/18 17:15 Dose: 667 mg Calcium Carbonate/Glycine (Tums) 1,000 mg CHEWED Q6 [facility] Last Admin: 01/31/18 04:46 Dose: Not Given Calcium/Vitamin D (Calcium W/Vit D3) 500 mg PO DAILY [facility] Last Admin: 01/30/18 09:49 Dose: 500 mg Cefazolin Sodium (Ancef) 1 gm IV PREOP [facility] Stop: 01/31/18 17:00 Last Admin: 01/31/18 04:45 Dose: 1 gm Cyanocobalamin (Vitamin B-12) 250 mcg PO DAILY [facility] Last Admin: 01/30/18 09:49 Dose: 250 mcg Dextrose (Dextrose 50%) 0 ml IV UD PRN PRN Reason: Hypoglycemia Famotidine (Pepcid) 20 mg PO BID [facility] Last Admin: 01/30/18 21:03 Dose: 20 mg Fluoxetine HCl (Prozac) 20 mg PO BID [facility] Last Admin: 01/30/18 21:03 Dose: 20 mg Heparin Sodium (Porcine) (Heparin) 5,000 unit SQ Q12 [facility] Last Admin: 01/30/18 21:03 Dose: 5,000 unit Hydralazine HCl (Apresoline) 10 mg IV Q4-6HP PRN PRN Reason: Hypertension Last Admin: 01/30/18 17:15 Dose: 10 mg Lactated Ringer's (Lactated Ringers) 1,000 mls @ 75 mls/hr IV .[id number] [facility] Last Admin: 01/31/18 04:22 Dose: Not Given Methylene Blue (Provayblue) 1 mg IV ONCE [facility] Abiraterone Acetate ([Zytiga] 1,000 Mg) 1 dose PO DAILY [facility] Last Admin: 01/30/18 17:13 Dose: Not Given Mometasone/Formoterol [Dulera] 200/5 Mcg Inhaler 2 dose INH BID [facility] Last Admin: 01/30/18 21:04 Dose: Not Given Simvastatin (Zocor) 40 mg PO QPM [facility] Last Admin: 01/30/18 21:03 Dose: 40 mg Sodium Chloride (Saline Flush) 10 ml IV Q8 [facility] Last Admin: 01/31/18 04:45 Dose: Not Given Tiotropium [place] (Spiriva) 18 mcg INH QDAY [facility] Last Admin: 01/30/18 17:14 Dose: Not Given Vitamin D (Vitamin D3) 1,000 unit PO DAILY [facility] Last Admin: 01/30/18 09:49 Dose: 1,000 unit Medical - PN: A/P - Time Spent With Patient Total time spent is greater than 50% in coordination of care (as documented) at patient's floor/unit and/or counseling patient: - Narrative A/P Narrative: 1) Acute renal failure - essentially unchanged since admission. Attempt at surgical decompression of hydronephrosis via cystoscopy today. If not successful , will plan to transfer to [facility] for IR directed placement of percutaneous drains. 2) Hypocalcemia - On calcium supplements and calcitriol. Multifactorial etiology likely- prostate mets + renal. Phosphorous still elevated and unchanged. Current calcium result corrects with albumin result. Can discontinue cardiac monitoring at this point. 3) Hypertension - running in 150's/90's which is improved from admission. Receiving prn hydralazine in addition to outpatient medications. No change at present. 4) Metastatic prostate cancer - denies pain. Complicated by mass obstructing urinary outlet with resultant uropathy. Surgery today. 5) Anorexia with poor po intake - malignancy, depression both factors. Not interested in eating breakfast when I saw him this AM, stated he doesn't usually , but will eat lunch. Supplements per dietary. 6) Active grieving - not interested in support or medications at present. Will approach again in a day or two. 7) Oxygen dependent COPD - stable on Dulera and usual O2 flow rate (2L). With wheezing this AM, started prn DuoNeb as well. 8) Tobacco use disorder - continues to smoke (with O2 at home). Advice to quit likely a moot point at present. Suspect discussions about goals of care more appropriate and if quality of life at this time includes tobacco use, the issue becomes one of safety with the oxygen. Add patch here - he smokes about 1/4 pack per day, 14 mg patch should suffice. 9) Disposition - goals of care an appropriate discussion to have at this time. I discussed code status with him today. Stressed it would not be life saving intervention for him, and likely would constitute how he wants to . He confirms desires to be full code with aggressive treatment. Plan: Cystoscopy at noon; if unsuccessful, will need transfer to [facility] d/c telemetry / cardiac monitoring - calcium has corrected. Secondary hyperparathyroidism - cont calcitriol Hyperphosphatemia - continue Phoslo Offer nicotine patch prn DuoNeb Medical - PN: Qual - VTE Deep Vein Thrombosis/Pulmonary Embolism Present on Admission: No
[2018-01-31 06:57] LABS: Basophils # (Auto) 0 K/mcL (0.0-0.3); Basophils % (Auto) 0.2 % (0.0-2.0); Eosinophils # (Auto) 0.3 K/mcL (0.0-0.7); Eosinophils % (Auto) 4.6 % (0.0-7.0); Granulocytes % (Auto) 78.5 % (38.0-78.0); Lymphocytes # (Auto) 0.6 K/mcL (1.5-4.8); Lymphocytes % (Auto) 8.8 % (15.5-49.0); Mean Cell Volume 92.4 fL (80.0-100.0); Mean Corpuscular HGB Conc 33.9 g/dL (31.0-36.0); Mean Corpuscular Hemoglobin 31.4 pg (26.0-34.0); Monocytes # (Auto) 0.5 K/mcL (0.1-0.9); Monocytes % (Auto) 7.9 % (1.0-12.0); Platelet Count 455 K/mcL (140-440); RBC 2.74 M/mcL (4.50-5.90); Red Cell Distribution Width 14.6 % (11.5-14.5)
[2018-01-31] MEDS ORDERED: IPRATROPIUM/ALBUTEROL 3 ML AMPUL.NEB NEB ONE (07:08)
[2018-01-31 07:28] LABS: Iron 24 mcg/dl (61-157); Transferrin % Saturation 12 % (20-50); Unsaturated Iron Binding 169 mcg/dL (112-346)
[2018-01-31 07:31] LABS: ALT/SGPT 7 U/l (0-40); Albumin 2.7 gm/dL (3.2-5.2); Albumin/Globulin Ratio 1.1 (1.0-2.3); Alkaline Phosphatase 122 U/L (39-117); Bilirubin,Direct < 0.2 mg/dL (0.0-0.3); Blood Urea Nitrogen 24 mg/dl (8-23); Gamma Glutamyl Transpeptidase 12 U/L (8-61); Uric Acid 6.8 mg/dL (2.5-8.0)
[2018-01-31 07:34] LABS: Vitamin B12 > 2000 pg/ml (232-1245)
[2018-01-31 07:36] LABS: Folate 12.6 ng/mL (4.2-19.9)
[2018-01-31 07:45] LABS: Ferritin 183.3 ng/ml (30-400)
[2018-01-31] MEDS ORDERED: amLODIPine 5 MG TABLET PO SCH (09:00)
[2018-01-31] MEDS ORDERED: METHYLENE BLUE 50 MG/10 ML AMPUL IV ONE (10:45)
[2018-01-31] MEDS: CYANOCOBALAMIN (VITAMIN B-12) 500 MCG TABLET PO SCH (10:48)
[2018-01-31] MEDS: VITAMIN D3 1,000 UNIT TABLET PO SCH (10:48)
[2018-01-31] MEDS: CALCIUM W/VIT D3 500 MG TABLET PO SCH (10:49)
[2018-01-31] MEDS: HEPARIN 5,000 UNIT/ML VIAL SQ SCH ×2 (10:49→21:01)
[2018-01-31] MEDS: CALCIUM ACETATE 667 MG CAPSULE PO SCH ×3 (10:49→18:25)
[2018-01-31] MEDS: TIOTROPIUM BROMIDE 18 MCG INHALANT INH SCH (10:50)
[2018-01-31] MEDS: CALCITRIOL 0.25 MCG CAPSULE PO SCH (10:50)
[2018-01-31] MEDS: FAMOTIDINE 20 MG TABLET PO SCH ×2 (10:50→21:00)
[2018-01-31] MEDS: Abiraterone Acetate [Zytiga] 1,000 MG PO SCH (10:50)
[2018-01-31] MEDS: MOMETASONE INH SCH ×2 (10:50→21:04)
[2018-01-31] MEDS: FLUoxetine HCL 20 MG CAPSULE PO SCH ×2 (10:50→21:00)
[2018-01-31] MEDS: FORMOTEROL INH SCH ×2 (10:50→21:04)
[2018-01-31] MEDS ORDERED: IPRATROPIUM/ALBUTEROL 3 ML AMPUL.NEB NEB PRN ×5 (11:37→15:12)
[2018-01-31] MEDS ORDERED: ceFAZolin 1 GM VIAL IV ONE (12:15)
[2018-01-31] MEDS ORDERED: ONDANSETRON 4 MG/2 ML VIAL IV ONE (12:15)
[2018-01-31] MEDS ORDERED: LIDOCAINE HCL/PF 100 MG/5 ML SYRINGE IV ONE (12:15)
[2018-01-31] MEDS ORDERED: FUROSEMIDE 20 MG/2 ML VIAL IV ONE (12:15)
[2018-01-31] MEDS ORDERED: KETAMINE 100 MG/ML ML IV ONE (12:15)
[2018-01-31] MEDS ORDERED: PROPOFOL 200 MG/20 ML VIAL IV ONE (12:15)
[2018-01-31] MEDS ORDERED: MIDAZOLAM 2 MG/2 ML VIAL IV ONE (12:15)
[2018-01-31] MEDS ORDERED: fentaNYL 100 MCG/2 ML VIAL IV ONE (12:15)
[2018-01-31] MEDS ORDERED: PHENYLEPHRINE 10 MG/ML VIAL IV ONE (12:15)
[2018-01-31] MEDS ORDERED: FAMOTIDINE/PF 20 MG/2 ML VIAL IV ONE (12:15)
[2018-01-31] MEDS ORDERED: GLYCOPYRROLATE 0.2 MG/ML VIAL IV ONE (12:15)
[2018-01-31] MEDS ORDERED: DEXAMETHASONE 10 MG/ML VIAL IV ONE (12:15)
[2018-01-31] MEDS ORDERED: FLUMAZENIL 0.1 MG/ML ML IV PRN ×2 (12:35→13:38)
[2018-01-31] MEDS ORDERED: BENZOCAINE/MENTHOL 1 LOZENGE PO PRN ×2 (12:35→13:38)
[2018-01-31] MEDS ORDERED: NALOXONE HCL 0.4 MG/ML VIAL IV PRN ×2 (12:35→13:38)
[2018-01-31] MEDS ORDERED: ACETAMINOPHEN 1,000 MG/100 ML BOTTLE IV ONE (12:35)
[2018-01-31] MEDS ORDERED: PROMETHAZINE 25 MG/ML VIAL IV PRN ×2 (12:35→13:38)
[2018-01-31] MEDS ORDERED: fentaNYL 100 MCG/2 ML VIAL IV PRN ×2 (12:35→13:38)
[2018-01-31] MEDS ORDERED: MEPERIDINE 25 MG/ML SYRINGE IV PRN ×2 (12:35→13:38)
[2018-01-31] MEDS ORDERED: METHOCARBAMOL 1,000 MG/10 ML VIAL IV PRN ×2 (12:35→13:38)
[2018-01-31] MEDS ORDERED: LACTATED RINGERS 250 ML IV PRN ×2 (12:35→13:38)
[2018-01-31] MEDS ORDERED: LACTATED RINGERS 1,000 ML IV SCH ×3 (12:45→13:38)
--- NOTE | 2018-01-31 12:52 | Brief Operative Note ---
Date of procedure: 01/31/18 Pre-op diagnosis: erna hydronephrosis Post-op diagnosis: same Procedure: cystoscopy, attempted stent placement Grafts/Implants: No Anesthesia: GLMA Findings: see note Complications: none Surgeon: Seth Flores Specimens Removed/Pathology: none sent Condition: stable Disposition: PACU
--- NOTE | 2018-01-31 13:28 | General Surgery Progress Note ---
Subjective Narrative: Note initiated : 01/31/18 at 1:27 pm Service Date, if different from initiated Date: [] Patient: Orlando Valdivia 77 y/o M admitted on 01/29/18 for Cystoscopy w/ Bilateral Stent Placement. Chief Complaint: [] Could not place stents. recommend PCN tubes. Objective Temp Pulse Resp BP Pulse Ox 98.9 F 91 H 17 153/86 100 01/31/18 13:10 01/31/18 13:20 01/31/18 13:20 01/31/18 13:20 01/31/18 13:20 - Additional Data Intake & Output - Last 24 hours: Intake & Output 01/29/18 01/30/18 01/31/18 02/01/18 05:59 05:59 05:59 05:59 Intake Total 1970 / 1970 2130 / 2130 1474 / 1474 Output Total 525 / 525 1520 / 1520 300 / 300 Balance 1445 / 1445 610 / 610 1174 / 1174 Weight 118 lb 6 oz 117 lb - Labs 01/31/18 03:45 01/31/18 03:45 Diabetes panel 01/31/18 Range/Units 03:45 Sodium 143 (133-145) mmol/L Potassium 4.3 (3.3-5.1) mmol/L Chloride 105 (96-108) mmol/L Carbon Dioxide 26 (22-30) mmol/L BUN 24 H (8-23) mg/dl Creatinine 3.5 H (0.7-1.2) mg/dl Glucose 96 (70-105) mg/dL Calcium 8.5 L (8.6-10.4) mg/dl AST 15 (0-37) U/l ALT 7 (0-40) U/l Alkaline Phosphatase 122 H (39-117) U/L Total Protein 5.2 L (5.9-8.4) gm/dL Albumin 2.7 L (3.2-5.2) gm/dL Triglycerides 118 (<150) mg/dl Calcium panel 01/30/18 01/31/18 01/31/18 Range/Units 16:32 03:45 03:45 Calcium 8.5 L (8.6-10.4) mg/dl Ionized Calcium Henry 0.93 L (1.16-1.32) mmol/L Phosphorus 4.9 H 4.9 H (2.7-4.5) mg/dL Albumin 2.7 L (3.2-5.2) gm/dL 25-OH Vitamin D Total (>=30) ng/mL 01/31/18 Range/Units 03:45 Calcium (8.6-10.4) mg/dl Ionized Calcium Henry (1.16-1.32) mmol/L Phosphorus (2.7-4.5) mg/dL Albumin (3.2-5.2) gm/dL 25-OH Vitamin D Total 26.21 L (>=30) ng/mL Pituitary panel 01/31/18 Range/Units 03:45 Sodium 143 (133-145) mmol/L Potassium 4.3 (3.3-5.1) mmol/L Chloride 105 (96-108) mmol/L Carbon Dioxide 26 (22-30) mmol/L BUN 24 H (8-23) mg/dl Creatinine 3.5 H (0.7-1.2) mg/dl Glucose 96 (70-105) mg/dL Calcium 8.5 L (8.6-10.4) mg/dl Adrenal panel 01/31/18 Range/Units 03:45 Sodium 143 (133-145) mmol/L Potassium 4.3 (3.3-5.1) mmol/L Chloride 105 (96-108) mmol/L Carbon Dioxide 26 (22-30) mmol/L BUN 24 H (8-23) mg/dl Creatinine 3.5 H (0.7-1.2) mg/dl Glucose 96 (70-105) mg/dL Calcium 8.5 L (8.6-10.4) mg/dl Total Bilirubin 0.3 (0.0-1.0) mg/dL AST 15 (0-37) U/l ALT 7 (0-40) U/l Alkaline Phosphatase 122 H (39-117) U/L Total Protein 5.2 L (5.9-8.4) gm/dL Albumin 2.7 L (3.2-5.2) gm/dL Assessment and Plan - Time Spent With Patient Total time spent is greater than 50% in coordination of care (as documented) at patient's floor/unit and/or counseling patient:
[2018-01-31] MEDS ORDERED: ACETAMINOPHEN 325 MG TABLET PO PRN ×2 (13:38→15:12)
[2018-01-31] MEDS ORDERED: ALBUTEROL SULFATE 1 PUFF INHALER INH PRN ×2 (13:38→15:12)
[2018-01-31] MEDS ORDERED: DEXTROSE 50% 50 ML VIAL IV PRN ×2 (13:38→15:12)
[2018-01-31] MEDS ORDERED: hydrALAZINE 20 MG/ML VIAL IV PRN ×2 (13:38→15:12)
[2018-01-31] MEDS ORDERED: 0.9 % SODIUM CHLORIDE 10 ML SYRINGE IV SCH (14:00)
--- NOTE | 2018-01-31 14:19 | Operative Note ---
DATE OF OPERATION: 01/31/2018 PREOPERATIVE DIAGNOSIS: Bilateral ureteral obstruction. POSTOPERATIVE DIAGNOSIS: Bilateral ureteral obstruction. PROCEDURE: Cystoscopy, attempted stent placement. SURGEON: Seth Flores MD INDICATION: The patient is a 77-year-old gentleman who has metastatic prostate cancer. He has failed hormone therapy and is now on rescue chemotherapy. His PSA is starting to rise. Recently he has been noted to have an increasing creatinine of 3.4. Ultrasound does show bilateral hydronephrosis and a mass in his bladder consistent with prostate cancer. I have been asked to place stents. PROCEDURE IN DETAIL: The patient was identified and consent was signed. He was given general anesthesia, placed in lithotomy position, prepped and draped in a standard fashion. Cystourethroscopy showed normal appearing urethra. Prostate was enlarged. In entering the bladder, there was a large 4 cm mass at the floor of the bladder distorting the anatomy. There was no erosion of the tumor, but it was piled up. Two hours previous to surgery we did give him 1 ampule of methylene blue with hopes that this would help us identify the ureter orifices. This was not accomplished. We also gave him 20 mg of Lasix and again could not see blue exiting the orifices. I did inspect the bladder for over half hour trying to find the orifice and was not able. The decision was made to stop the surgery. The bladder was drained. He was awoken and taken to the recovery room in stable condition. He tolerated the procedure well. [email or web address] Job ID: [id number] Doc ID: [id number] Seth Flores MD
[2018-01-31] MEDS ORDERED: CALCIUM ACETATE 667 MG CAPSULE PO SCH (17:30)
[2018-01-31] MEDS ORDERED: CALCIUM CARBONATE 500 MG TAB.CHEW CHEWED SCH (18:00)
--- NOTE | 2018-01-31 19:30 | XRay Report ---
CLINICAL INFORMATION: Bilateral stent placement. Bladder tumor obstructing both distal ureteral orifices FINDINGS: Single digital image was submitted overlying the expected location of the urinary bladder. Apparently, the ureteral orifices could not be cannulated because of tumor obstruction. Bilateral nephrostomy will be placed IMPRESSION: Negative Interpreted and Authenticated by: Ludwin Niño 01/31/18
[2018-01-31] MEDS ORDERED: FORMOTEROL INH SCH (21:00)
[2018-01-31] MEDS ORDERED: FAMOTIDINE 20 MG TABLET PO SCH (21:00)
[2018-01-31] MEDS ORDERED: HEPARIN 5,000 UNIT/ML VIAL SQ SCH (21:00)
[2018-01-31] MEDS ORDERED: MOMETASONE INH SCH (21:00)
[2018-01-31] MEDS ORDERED: FLUoxetine HCL 20 MG CAPSULE PO SCH (21:00)
[2018-01-31] MEDS ORDERED: SIMVASTATIN 20 MG TABLET PO SCH (21:00)
[2018-01-31] MEDS: SIMVASTATIN 20 MG TABLET PO SCH (21:01)
[2018-02-01] MEDS: CALCIUM CARBONATE 500 MG TAB.CHEW CHEWED SCH ×4 (00:38→17:12)
[2018-02-01 05:53] LABS: Basophils # (Auto) 0 K/mcL (0.0-0.3); Basophils % (Auto) 0 % (0.0-2.0); Eosinophils # (Auto) 0 K/mcL (0.0-0.7); Eosinophils % (Auto) 0 % (0.0-7.0); Granulocytes % (Auto) 90.7 % (38.0-78.0); Lymphocytes # (Auto) 0.3 K/mcL (1.5-4.8); Lymphocytes % (Auto) 7.3 % (15.5-49.0); Mean Cell Volume 91.6 fL (80.0-100.0); Mean Corpuscular HGB Conc 33.8 g/dL (31.0-36.0); Mean Corpuscular Hemoglobin 30.9 pg (26.0-34.0); Monocytes # (Auto) 0.1 K/mcL (0.1-0.9); Platelet Count 445 K/mcL (140-440); RBC 2.71 M/mcL (4.50-5.90); Red Cell Distribution Width 15.1 % (11.5-14.5)
[2018-02-01 06:32] LABS: ALT/SGPT 5 U/l (0-40); Albumin 2.8 gm/dL (3.2-5.2); Alkaline Phosphatase 122 U/L (39-117); Bilirubin,Direct < 0.2 mg/dL (0.0-0.3); Blood Urea Nitrogen 34 mg/dl (8-23); Gamma Glutamyl Transpeptidase 11 U/L (8-61); Uric Acid 7.8 mg/dL (2.5-8.0)
[2018-02-01] MEDS: LACTATED RINGERS 1,000 ML IV SCH (07:12)
[2018-02-01] MEDS: 0.9 % SODIUM CHLORIDE 10 ML SYRINGE IV SCH ×3 (07:13→23:29)
[2018-02-01] MEDS ORDERED: ceFAZolin 1 GM VIAL IV ONE (08:00)
[2018-02-01] MEDS: FORMOTEROL INH SCH ×2 (08:45→23:29)
[2018-02-01] MEDS: MOMETASONE INH SCH ×2 (08:45→23:29)
[2018-02-01] MEDS ORDERED: MIDAZOLAM 5 MG/5 ML VIAL IV ONE ×2 (08:53→16:16)
[2018-02-01] MEDS ORDERED: fentaNYL 100 MCG/2 ML VIAL IV ONE ×2 (08:53→16:16)
[2018-02-01] MEDS ORDERED: ABIRATERONE 1000 MG PO SCH (09:00)
[2018-02-01] MEDS ORDERED: amLODIPine 5 MG TABLET PO SCH (09:00)
[2018-02-01] MEDS ORDERED: CYANOCOBALAMIN (VITAMIN B-12) 500 MCG TABLET PO SCH (09:00)
[2018-02-01] MEDS ORDERED: TIOTROPIUM BROMIDE 18 MCG INHALANT INH SCH (09:00)
[2018-02-01] MEDS ORDERED: VITAMIN D3 1,000 UNIT TABLET PO SCH (09:00)
[2018-02-01] MEDS ORDERED: CALCIUM W/VIT D3 500 MG TABLET PO SCH (09:00)
[2018-02-01] MEDS ORDERED: IPRATROPIUM/ALBUTEROL 3 ML AMPUL.NEB NEB SCH (09:00)
[2018-02-01] MEDS ORDERED: CALCITRIOL 0.25 MCG CAPSULE PO SCH (09:00)
[2018-02-01] MEDS ORDERED: NICOTINE 14 MG PATCH TOPICAL SCH ×2 (10:00)
[2018-02-01] MEDS ORDERED: IOPAMIDOL 100 ML BOTTLE IV ONE (11:54)
[2018-02-01] MEDS ORDERED: LIDOCAINE 1% 20 ML VIAL SQ ONE (11:55)
[2018-02-01] MEDS ORDERED: FUROSEMIDE 40 MG/4 ML VIAL IV ONE ×2 (12:11→12:27)
[2018-02-01] MEDS ORDERED: MIDAZOLAM 2 MG/2 ML VIAL IV ONE (12:15)
[2018-02-01] MEDS: CALCIUM W/VIT D3 500 MG TABLET PO SCH (12:31)
[2018-02-01] MEDS: CALCIUM ACETATE 667 MG CAPSULE PO SCH ×3 (12:31→17:12)
[2018-02-01] MEDS: HEPARIN 5,000 UNIT/ML VIAL SQ SCH ×2 (12:31→21:36)
[2018-02-01] MEDS: amLODIPine 5 MG TABLET PO SCH (12:32)
[2018-02-01] MEDS: ABIRATERONE 1000 MG PO SCH (12:32)
[2018-02-01] MEDS: CALCITRIOL 0.25 MCG CAPSULE PO SCH (12:34)
[2018-02-01] MEDS: FLUoxetine HCL 20 MG CAPSULE PO SCH ×2 (12:34→21:40)
[2018-02-01] MEDS: FAMOTIDINE 20 MG TABLET PO SCH ×2 (12:34→21:35)
[2018-02-01] MEDS: TIOTROPIUM BROMIDE 18 MCG INHALANT INH SCH (12:35)
[2018-02-01] MEDS: CYANOCOBALAMIN (VITAMIN B-12) 500 MCG TABLET PO SCH (12:35)
[2018-02-01] MEDS: NICOTINE 14 MG PATCH TOPICAL SCH (12:35)
[2018-02-01] MEDS: VITAMIN D3 1,000 UNIT TABLET PO SCH (12:35)
--- NOTE | 2018-02-01 12:37 | XRay Report ---
CLINICAL INFORMATION: Hypoxia possible aspiration COMPARISON: 01/29/2018 FINDINGS: Mild cardiomegaly is unchanged. Mediastinum and pulmonary vessels are normal. There is mild patchy airspace disease in the left base. 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 Left diaphragm chronic elevated. No effusions IMPRESSION: Mild airspace disease left base. Suspect aspiration Interpreted and Authenticated by: Ludwin Niño 02/01/18
--- NOTE | 2018-02-01 13:11 | Internal Med Progress Note ---
Medical - PN: Subj Patient information: Note initiated : 02/01/18 at 1:09 pm Service Date, if different from initiated Date: [] Patient: Orlando Valdivia 77 y/o M admitted on 01/29/18 for Cystoscopy w/ Bilateral Stent Placement. Chief Complaint: [] Interval history: Patient states he feels anxious about the surgery - and the fact that it may not be successful. Otherwise, he is again vague in his complaints. No new shortness of breath. No abdominal pain, no chest pain (despite extensive rib mets). Cystoscopy with attempt at stent placement is planned for noon today, he has been NPO, calcium has corrected to close to normal. If unsuccessful, he will need to be transferred to [facility] for percutaneous tubes. 6/2 Pt seen examined, he had a failed cystoscopy yesterday, plan for percutaneous nephrostomy tubes, which were placed today, post op he was tachycardic and confused, effect of anesthesia CXR shows increased congestion in lungs, also ahs prolonged exp phase, IV lasix, given, abg reviewed, ph 7.32, pco2 50, on duonebs, and IV steroids ( started), should improved as narcotic wear off. Pertinent ROS: unable as pt drowsy. - Constitutional Vitals: Vital Signs Temp Pulse Resp BP Pulse Ox 99.5 F H 128 H 20 112/70 98 02/01/18 07:44 02/01/18 11:21 02/01/18 11:21 02/01/18 12:51 02/01/18 12:52 Period Temp Pulse Resp BP Sys/Romo Pulse Ox Last 24 Hr 97.1 F-99.5 F 91-136 14-24 96-193/61-123 87-100 Intake and Output 01/31/18 02/01/18 02/01/18 21:59 05:59 13:59 Intake Total 1544 / 1544 1157 / 1157 Output Total 100 / 100 100 / 100 Balance 1444 / 1444 -100 / -100 1157 / 1157 Weight 117 lb Intake & Output: Intake & Output 01/31/18 02/01/18 02/01/18 21:59 05:59 13:59 Intake Total 1544 / 1544 1157 / 1157 Output Total 100 / 100 100 / 100 Balance 1444 / 1444 -100 / -100 1157 / 1157 Weight 117 lb Intake: IV 1104 / 1104 1157 / 1157 Lactated Ringers 1,000 ml @ 75 1104 / 1104 1157 / 1157 mls/hr IV .[id number] Rx#: [id number] Oral 440 / 440 Output: Void Amount 100 / 100 100 / 100 Other: Meal Nourishment/Supplement Percent of Meal Consumed 100% # Voids 1 Exam: Constitutional; Afebrile, cooperative, drowsy, not in distress, think frail Eyes- No icterus, , No periorbital swelling Ears- Ext ear normal, hearing normal to conversation. Neck- Midline trachea, supple Respiratory system: Air Entry equal on both sides,prolonged exp phase, mild basilar crackles. CVS- Rate tachycardic, rhythm regular, S1,S2 heard, no gallop, no rub. 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 arousable to verbal commands. Medical - PN: Obj Da - Labs CBC & Chem 7: 02/01/18 03:35 02/01/18 03:35 Labs: Abnormal Lab Results 02/01/18 02/01/18 02/01/18 08:43 03:35 03:35 WBC 4.2 L RBC 2.71 L Hgb 8.4 L Hct 24.8 L RDW 15.1 H Plt Count 445 H Gran % 90.7 H Lymph % (Auto) 7.3 L Lymph # (Auto) 0.3 L POC PT 14.6 H Potassium 5.2 H BUN 34 H Creatinine 3.6 H Glucose 133 H Calcium 7.6 L Ionized Calcium Henry Phosphorus 6.5 H* Iron TIBC Transferrin % Sat Alkaline Phosphatase 122 H Lactate Dehydrogenase Total Protein 5.5 L Albumin 2.8 L Triglycerides Vitamin B12 25-OH Vitamin D Total PTH Intact Urine Bacteria 01/31/18 01/31/18 01/31/18 03:45 03:45 03:45 WBC RBC 2.74 L Hgb 8.6 L Hct 25.4 L RDW 14.6 H Plt Count 455 H Gran % 78.5 H Lymph % (Auto) 8.8 L Lymph # (Auto) 0.6 L POC PT Potassium BUN Creatinine Glucose Calcium Ionized Calcium Henry Phosphorus 4.9 H Iron 24 L TIBC 193 L Transferrin % Sat 12 L Alkaline Phosphatase Lactate Dehydrogenase Total Protein Albumin Triglycerides Vitamin B12 > 2000 H 25-OH Vitamin D Total 26.21 L PTH Intact Urine Bacteria 01/31/18 01/30/18 01/30/18 03:45 16:32 03:40 WBC RBC 2.60 L Hgb 8.0 L Hct 24.0 L RDW 15.0 H Plt Count Gran % 80.9 H Lymph % (Auto) 8.2 L Lymph # (Auto) 0.6 L POC PT Potassium BUN 24 H Creatinine 3.5 H Glucose Calcium 8.5 L Ionized Calcium Henry 0.93 L Phosphorus 4.9 H Iron TIBC Transferrin % Sat Alkaline Phosphatase 122 H Lactate Dehydrogenase Total Protein 5.2 L Albumin 2.7 L Triglycerides Vitamin B12 25-OH Vitamin D Total PTH Intact Urine Bacteria 01/30/18 01/29/18 01/29/18 03:40 17:15 17:10 WBC RBC Hgb Hct RDW Plt Count Gran % Lymph % (Auto) Lymph # (Auto) POC PT Potassium BUN 26 H 26 H Creatinine 3.4 H 3.2 H Glucose Calcium 6.3 L 5.4 L* Ionized Calcium Henry Phosphorus 4.7 H 4.6 H Iron TIBC Transferrin % Sat Alkaline Phosphatase 121 H Lactate Dehydrogenase 264 H 284 H Total Protein 5.0 L 5.4 L Albumin 2.6 L 2.9 L Triglycerides 169 H Vitamin B12 25-OH Vitamin D Total PTH Intact Urine Bacteria Few A 01/29/18 01/29/18 01/29/18 14:31 14:30 14:30 WBC RBC Hgb Hct RDW Plt Count Gran % Lymph % (Auto) Lymph # (Auto) POC PT Potassium BUN Creatinine Glucose Calcium Ionized Calcium Henry 0.73 L* Phosphorus 4.9 H Iron TIBC Transferrin % Sat Alkaline Phosphatase Lactate Dehydrogenase Total Protein Albumin Triglycerides Vitamin B12 25-OH Vitamin D Total PTH Intact 394.4 H Urine Bacteria 01/29/18 12:29 WBC RBC Hgb Hct RDW Plt Count Gran % Lymph % (Auto) Lymph # (Auto) POC PT Potassium BUN 27 H Creatinine 3.3 H Glucose Calcium 6.1 L Ionized Calcium Henry Phosphorus Iron TIBC Transferrin % Sat Alkaline Phosphatase 146 H Lactate Dehydrogenase Total Protein Albumin Triglycerides Vitamin B12 25-OH Vitamin D Total PTH Intact Urine Bacteria Meds: Medications Acetaminophen (Tylenol) 650 mg PO Q6HP PRN PRN Reason: PAIN/FEVER > 101 Albuterol Sulfate (Ventolin) 2 puff INH Q4-6H PRN PRN Reason: bronchospasm Albuterol/Ipratropium (Duoneb) 3 ml NEB Q6HRT [facility] Amlodipine Besylate (Norvasc) 5 mg PO DAILY [facility] Last Admin: 02/01/18 12:32 Dose: Not Given Calcitriol (Rocaltrol) 0.25 mcg PO DAILY [facility] Last Admin: 02/01/18 12:34 Dose: Not Given Calcium Acetate (Phoslo) 667 mg PO TIDCC [facility] Last Admin: 02/01/18 12:31 Dose: Not Given Calcium Carbonate/Glycine (Tums) 1,000 mg CHEWED Q6 [facility] Last Admin: 02/01/18 12:35 Dose: Not Given Calcium/Vitamin D (Calcium W/Vit D3) 500 mg PO DAILY [facility] Last Admin: 02/01/18 12:31 Dose: Not Given Cyanocobalamin (Vitamin B-12) 250 mcg PO DAILY [facility] Last Admin: 02/01/18 12:35 Dose: Not Given Dextrose (Dextrose 50%) 0 ml IV UD PRN PRN Reason: Hypoglycemia Famotidine (Pepcid) 20 mg PO BID [facility] Last Admin: 02/01/18 12:34 Dose: Not Given Fluoxetine HCl (Prozac) 20 mg PO BID [facility] Last Admin: 02/01/18 12:34 Dose: Not Given Heparin Sodium (Porcine) (Heparin) 5,000 unit SQ Q12 [facility] Last Admin: 02/01/18 12:31 Dose: Not Given Hydralazine HCl (Apresoline) 10 mg IV Q4-6HP PRN PRN Reason: Hypertension Nicotine (Nicoderm) 14 mg TOPICAL DAILY@1000 [facility] Last Admin: 02/01/18 12:35 Dose: Not Given Abiraterone [Zytiga] (1,000 Mg Tab) 1 dose PO DAILY [facility] Last Admin: 02/01/18 12:32 Dose: Not Given Mometasone/Formoterol [Dulera] 200/5 Mcg Inhaler 2 dose INH BID [facility] Last Admin: 02/01/18 08:45 Dose: 2 dose Simvastatin (Zocor) 40 mg PO QPM [facility] Last Admin: 06/01/18 21:01 Dose: 40 mg Sodium Chloride (Saline Flush) 10 ml IV Q8 [facility] Last Admin: 02/01/18 07:13 Dose: Not Given Tiotropium [place] (Spiriva) 18 mcg INH QDAY [facility] Last Admin: 02/01/18 12:35 Dose: Not Given Vitamin D (Vitamin D3) 1,000 unit PO DAILY [facility] Last Admin: 02/01/18 12:35 Dose: Not Given Medical - PN: A/P - Time Spent With Patient Total time spent is greater than 50% in coordination of care (as documented) at patient's floor/unit and/or counseling patient: - Narrative A/P Narrative: Acute renal failure - essentially unchanged since admission. Attempt at surgical decompression of hydronephrosis via cystoscopy failed, [facility] to [facility] bilateral percutaneous drains. monitor urine output CHF exacerbation: D/c IVF, IV lasix given monitor, noted on cxr COPD exacerbation, on 2 L oxygen, duoneb q6hrs, IV steroids, monitor. Hypocalcemia - On calcium supplements and calcitriol.7.6, corrected calcium is 8.0, hyperphosphatemia: rising phosphorus, anticipate this will imrpvoe with improving renal function. on phoslo continue same, likely did not get much intake yesterday due to npo status. Hypertension - running in 150's/90's which is improved from admission. Receiving prn hydralazine in addition to outpatient medications. No change at present. Metastatic prostate cancer - denies pain. Complicated by mass obstructing urinary outlet with resultant uropathy. Anorexia with poor po intake - malignancy, depression both factors. Not interested in eating breakfast when I saw him this AM, stated he doesn't usually , but will eat lunch. Supplements per dietary. Active grieving - not interested in support or medications at present. Will approach again in a day or two.( recently) Tobacco use disorder - continues to smoke (with O2 at home). Advice to quit likely a moot point at present. Suspect discussions about goals of care more appropriate and if quality of life at this time includes tobacco use, the issue becomes one of safety with the oxygen. Add patch here - he smokes about 1/4 pack per day, 14 mg patch should suffice. Disposition - goals of care an appropriate discussion to have at this time. I discussed code status with him today. Stressed it would not be life saving intervention for him, and likely would constitute how he wants to . He confirms desires to be full code with aggressive treatment. DVT prophylaxis hep sq Renal diet. Full code Medical - PN: Qual - VTE Deep Vein Thrombosis/Pulmonary Embolism Present on Admission: No
[2018-02-01] MEDS: methylPREDNISolone SOD SUCC 125 MG/2 ML VIAL IV SCH ×2 (15:12→21:36)
[2018-02-01] MEDS: IPRATROPIUM/ALBUTEROL 3 ML AMPUL.NEB NEB SCH ×2 (15:15→19:10)
[2018-02-01] MEDS: AMPICILLIN SODIUM 1 GM in 0.9 % SODIUM CHLORIDE 50 ML IV SCH ×2 (15:35→21:35)
--- NOTE | 2018-02-01 21:10 | Nephrology Progress Note ---
Subjective Patient information: Note initiated : 02/01/18 at 9:10 pm Service Date, if different from initiated Date: [] Patient: Orlando Valdivia 77 y/o M admitted on 01/29/18 for Cystoscopy w/ Bilateral Stent Placement. Chief Complaint: [] Principal diagnosis: acute renal failure Interval history: Patient seen post procedure, he was drowsy and tachypneic and hypoxic His IVF were held, I ordered CXR and ABG, gave a dose of lasix as poor urinary output from nephrostomy Patient could not provide any history as he was drowsy from sedation received during procedure Pertinent ROS: unable to obtain as above Objective - Vital Signs Vital signs: Vital Signs Temp Pulse Resp BP Pulse Ox 02/01/18 19:10 95 H 16 95 02/01/18 16:01 124/81 02/01/18 15:37 90 16 98 02/01/18 15:36 89 16 92 02/01/18 15:26 124/82 02/01/18 15:21 128/77 100 02/01/18 15:16 125/87 02/01/18 15:12 130/80 02/01/18 15:06 122/93 02/01/18 15:01 123/93 02/01/18 14:56 126/81 02/01/18 14:51 127/76 02/01/18 14:46 126/84 02/01/18 14:41 131/79 02/01/18 14:36 131/85 02/01/18 14:31 134/84 02/01/18 14:26 127/84 02/01/18 14:21 121/80 02/01/18 14:16 131/83 02/01/18 14:11 124/79 02/01/18 14:06 130/80 02/01/18 14:01 131/80 02/01/18 13:56 127/77 90 02/01/18 13:51 124/77 96 02/01/18 13:46 119/74 96 02/01/18 13:41 117/73 96 02/01/18 13:36 105/77 96 02/01/18 13:31 118/83 95 02/01/18 13:26 121/74 98 02/01/18 13:21 122/76 98 02/01/18 13:16 112/80 98 06/02/18 13:11 113/79 98 06/02/18 13:06 121/74 98 06/02/18 13:01 106/76 98 06/02/18 12:56 111/79 98 06/02/18 12:52 98 06/02/18 12:51 112/70 98 06//18 12:46 108/77 98 06/02/18 12:41 117/76 98 06/02/18 12:36 103/75 100 06/0218 12:31 121/82 100 06/02/18 12:26 113/70 99 06/18 12:21 115/67 100 06/02/18 12:16 113/71 87 L /10/20 12:11 101/76 89 L /0218 12:06 99/86 89 L /18 12:01 109/67 90 /10/20 11:56 111/71 91 /02/18 11:51 96/70 92 /0218 11:49 116/69 93 /18 11:40 122/90 06/0218 11:21 128 H 20 156/72 100 06/02/18 11:16 128 H 20 158/77 100 06/02/18 11:11 129 H 20 159/95 100 06/02/18 11:06 124 H 20 157/100 100 06/02/18 11:01 129 H 20 149/81 100 06/02/18 10:56 127 H 20 149/90 100 06/02/18 10:51 130 H 20 145/78 100 06/02/18 10:46 129 H 20 158/95 99 06/02/18 10:41 132 H 20 164/91 99 06/02/18 10:36 132 H 20 168/84 100 06/02/18 10:31 133 H 20 160/87 100 06/02/18 10:26 136 H 20 171/94 100 /02/18 10:21 135 H 20 142/97 99 06/02/18 10:16 133 H 20 178/94 99 /02/18 10:11 134 H 20 187/109 98 06/02/18 10:06 135 H 20 178/104 100 06/02/18 10:01 132 H 20 193/120 98 06/02/18 09:56 134 H 20 182/123 100 02/01/18 09:51 131 H 18 184/92 100 02/01/18 09:46 127 H 18 170/99 100 02/01/18 09:41 126 H 18 178/90 100 02/01/18 09:36 122 H 18 161/99 100 02/01/18 09:31 117 H 16 161/94 100 02/01/18 09:26 118 H 16 158/76 100 02/01/18 09:21 111 H 16 162/86 100 02/01/18 09:16 112 H 16 158/83 100 02/01/18 09:11 113 H 16 157/85 100 02/01/18 09:06 117 H 16 184/94 100 02/01/18 09:01 119 H 18 190/110 100 02/01/18 08:56 120 H 18 176/111 100 02/01/18 08:51 118 H 18 165/89 100 02/01/18 08:46 98 H 20 180/73 100 02/01/18 08:01 146/86 02/01/18 07:44 99.5 F H 142/91 02/01/18 04:01 143/94 97 02/01/18 03:57 146/98 95 02/01/18 03:44 129/104 02/01/18 02:16 98 02/01/18 00:47 152/98 95 02/01/18 00:46 98.8 F 24 H 95 01/31/18 22:08 127/77 Intake and Output 02/01/18 02/01/18 02/01/18 05:59 13:59 21:59 Intake Total 1157 / 1157 400 / 400 Output Total 100 / 100 2600 / 2600 Balance -100 / -100 1157 / 1157 -2200 / -2200 Intake: IV 1157 / 1157 Lactated Ringers 1,000 ml @ 75 1157 / 1157 mls/hr IV .[id number] [facility] Rx#: [id number] Oral 400 / 400 Output: Urine Catheter Amount 1700 / 1700 Void Amount 100 / 100 900 / 900 Other: Meal Dinner Percent of Meal Consumed 100% # Voids 1 Intake & Output: Intake & Output 02/01/18 02/01/18 02/01/18 05:59 13:59 21:59 Intake Total 1157 / 1157 400 / 400 Output Total 100 / 100 2600 / 2600 Balance -100 / -100 1157 / 1157 -2200 / -2200 Intake: IV 1157 / 1157 Lactated Ringers 1,000 ml @ 75 1157 / 1157 mls/hr IV .[id number] Rx#: [id number] Oral 400 / 400 Output: Urine Catheter Amount 1700 / 1700 Void Amount 100 / 100 900 / 900 Other: Meal Dinner Percent of Meal Consumed 100% # Voids 1 - General Appearance General appearance: appears started age, frail EENT: mucous membranes moist Neck: JVD Respiratory: rales Cardiology: no rub, no edema, normal S1 (tachycardic), normal S2 Gastrointestinal: no tenderness, no guarding Integumentary: warm and dry Neurologic: obtunded (from sedation received during procedure) Musculoskeletal: no erythema, no cyanosis - Lab 02/02/18 04:00 02/02/18 04:00 Most recent lab results Calcium 7.6 mg/dl (8.6-10.4) L 02/01/18 03:35 Phosphorus 6.5 mg/dL (2.7-4.5) H* 02/01/18 03:35 Magnesium 1.8 mg/dL (1.6-2.5) 02/01/18 03:35 Assessment and Plan (1) Acute kidney failure acute renal failure baseline s.creatinine is 0.8-0.9 s.creat upto 3.6 renal US shows moderate hydronephrosis UA with no significant proteinuria and hematuria HTN: BP is normal today malnutrition: patient has not been eating well, his albumin is 2.8 will add nepro Anemia from renal failure, iron deficiency, will start ferrous sulphate and if continues to trend down will need prbc transfsuion secondary hyperparathyroidism with elevated PTH, phos and low calcium ( corrected calcium is around 8.5), ct calcitriol and phoslo findings discussed with the patient hold IVF lasix x 1 given and may be repeated as needed will hope for improvement in renal function now that he has nephrostomy oral iron and nepro as above and calcitriol and phoslo dose meds to egfr avoid nephrotoxic meds will follow along Thank you for giving me an opportunity to participate in Mr Valdivia's medical care, appreciate it Status: Acute Priority: High Qualifiers: Acute renal failure type: unspecified Qualified Code(s): N17.9 - Acute kidney failure, unspecified (2) Hypertension, essential, benign Status: Chronic Comment: 1992 (3) Anemia Status: Acute (4) Malnutrition Status: Acute
[2018-02-01] MEDS: SIMVASTATIN 20 MG TABLET PO SCH (21:40)
[2018-02-02] MEDS: IPRATROPIUM/ALBUTEROL 3 ML AMPUL.NEB NEB SCH ×4 (00:39→18:29)
[2018-02-02] MEDS: AMPICILLIN SODIUM 1 GM in 0.9 % SODIUM CHLORIDE 50 ML IV SCH ×3 (00:39→20:07)
[2018-02-02] MEDS: CALCIUM CARBONATE 500 MG TAB.CHEW CHEWED SCH ×5 (00:40→23:07)
[2018-02-02 05:05] LABS: Basophils # (Auto) 0 K/mcL (0.0-0.3); Basophils % (Auto) 0 % (0.0-2.0); Eosinophils # (Auto) 0 K/mcL (0.0-0.7); Eosinophils % (Auto) 0 % (0.0-7.0); Granulocytes % (Auto) 96.2 % (38.0-78.0); Lymphocytes # (Auto) 0.3 K/mcL (1.5-4.8); Lymphocytes % (Auto) 2.8 % (15.5-49.0); Mean Cell Volume 91.3 fL (80.0-100.0); Mean Corpuscular HGB Conc 33.5 g/dL (31.0-36.0); Mean Corpuscular Hemoglobin 30.6 pg (26.0-34.0); Monocytes # (Auto) 0.1 K/mcL (0.1-0.9); Platelet Count 433 K/mcL (140-440); RBC 2.45 M/mcL (4.50-5.90); Red Cell Distribution Width 14.7 % (11.5-14.5)
[2018-02-02 05:30] LABS: ALT/SGPT < 5 U/l (0-40); Albumin 2.9 gm/dL (3.2-5.2); Albumin/Globulin Ratio 1.1 (1.0-2.3); Alkaline Phosphatase 120 U/L (39-117); Bilirubin,Direct < 0.2 mg/dL (0.0-0.3); Blood Urea Nitrogen 37 mg/dl (8-23); Gamma Glutamyl Transpeptidase 12 U/L (8-61); Uric Acid 8.8 mg/dL (2.5-8.0)
[2018-02-02] MEDS: 0.9 % SODIUM CHLORIDE 10 ML SYRINGE IV SCH ×3 (05:43→20:03)
--- NOTE | 2018-02-02 05:56 | Cat Scan Report ---
CLINICAL INFORMATION: Bladder mass obstructing both UVJ regions resulting in severe bilateral hydronephrosis. An attempt to place ureteral stents in the OR was unsuccessful due to complete orifice occlusion. TECHNIQUE: The procedure and risks including possibility of bleeding, infection, bowel/lung perforation were explained to the patient. He understood and wished to proceed. He was medicated prior to and during the procedure with Versed and fentanyl given in divided dosages. Please medication sheet for dosages. Blood pressure and pulse oximeter were monitored. He maintained consciousness during the procedure. Total sedation time two hours. He was also given Ancef, is an antibiotic, prior to the procedure. With the patient in prone position, the left upper collecting system was first CT localized. The skin overlying the kidney was marked, prepped and locally anesthetized to the level of the renal capsule with 1% lidocaine using a 25-gauge spinal needle. A 17-gauge styletted needle was then placed under CT guidance into an inferior calyx. The stylette was removed, and 0.35 J wire was carefully placed into the left upper collecting system and coiled. The needle was removed and the tract was subsequently dilated to 11 [place]. A 10 [place] pigtail nephrostomy catheter was then placed over a stiffener and only coiled within the left renal pelvis. Approximately 10 cc of blue-tinged urine was aspirated and sent for Gram stain culture and sensitivity (methylene blue dye was recently given in the OR). 10 cc of saline diluted Optiray 320 was then injected. A digital AP image was repeated confirming tube was in proper position within the left renal pelvis with contrast filling the left upper collecting system and proximal ureter. The tube was secured to the skin with 02 silk suture/adhesive disc and left to gravity bag drainage. Subsequently, the right nephrostomy tube was placed.With the patient in prone position, the right upper collecting system was first CT localized. The skin overlying the kidney was marked, prepped and locally anesthetized to the level of the renal capsule with 1% lidocaine using a 25-gauge spinal needle. A 17-gauge styletted needle was then placed under CT guidance into an inferior calyx. The stylette was removed, and 0.35 J wire was carefully placed into the right upper collecting system and coiled. The needle was removed and the tract was subsequently dilated to 11 [place]. A 10 [place] pigtail nephrostomy catheter was then placed over a stiffener and only coiled within the left renal pelvis. Approximately 10 cc of blue-tinged urine was aspirated and sent for Gram stain culture and sensitivity (methylene blue dye was recently given in the OR). 10 cc of saline diluted Optiray 320 was then injected. A digital AP image was repeated confirming tube was in proper position within the left renal pelvis with contrast filling the right upper collecting system and proximal ureter. The tube was secured to the skin with 02 silk suture/adhesive disc and left to gravity bag drainage. IMPRESSION: Successful placement of bilateral 10 [place] nephrostomy tubes. Following the procedures, digital nephrostogram confirmed that each nephrostomy tubes were optimally positioned within the renal pelvis. Less than 10 cc of urine was aspirated from each upper collecting system and sent for Gram stain culture and sensitivity. Please record urine output and quality from each tube Interpreted and Authenticated by: Ludwin Niño 02/02/18
[2018-02-02] MEDS: methylPREDNISolone SOD SUCC 125 MG/2 ML VIAL IV SCH (06:00)
[2018-02-02] MEDS: CALCIUM ACETATE 667 MG CAPSULE PO SCH ×3 (07:53→17:30)
[2018-02-02] MEDS ORDERED: methylPREDNISolone SOD SUCC 125 MG/2 ML VIAL IV SCH (09:00)
[2018-02-02] MEDS: TIOTROPIUM BROMIDE 18 MCG INHALANT INH SCH (09:12)
[2018-02-02] MEDS: HEPARIN 5,000 UNIT/ML VIAL SQ SCH (09:13)
[2018-02-02] MEDS: CALCITRIOL 0.25 MCG CAPSULE PO SCH (09:13)
[2018-02-02] MEDS: CALCIUM W/VIT D3 500 MG TABLET PO SCH (09:14)
[2018-02-02] MEDS: VITAMIN D3 1,000 UNIT TABLET PO SCH (09:14)
[2018-02-02] MEDS: FAMOTIDINE 20 MG TABLET PO SCH ×2 (09:14→20:04)
[2018-02-02] MEDS: FLUoxetine HCL 20 MG CAPSULE PO SCH ×2 (09:14→20:04)
[2018-02-02] MEDS: amLODIPine 5 MG TABLET PO SCH (09:14)
[2018-02-02] MEDS: CYANOCOBALAMIN (VITAMIN B-12) 500 MCG TABLET PO SCH (09:14)
[2018-02-02] MEDS: ABIRATERONE 1000 MG PO SCH (09:15)
[2018-02-02] MEDS: FORMOTEROL INH SCH ×2 (09:17→19:56)
[2018-02-02] MEDS: MOMETASONE INH SCH ×2 (09:17→19:56)
--- NOTE | 2018-02-02 10:20 | Internal Med Progress Note ---
Medical - PN: Subj Patient information: Note initiated : 02/02/18 at 10:17 am Service Date, if different from initiated Date: [] Patient: Orlando Valdivia 77 y/o M admitted on 01/29/18 for Cystoscopy w/ Bilateral Stent Placement. Chief Complaint: [] Interval history: Patient states he feels anxious about the surgery - and the fact that it may not be successful. Otherwise, he is again vague in his complaints. No new shortness of breath. No abdominal pain, no chest pain (despite extensive rib mets). Cystoscopy with attempt at stent placement is planned for noon today, he has been NPO, calcium has corrected to close to normal. If unsuccessful, he will need to be transferred to [facility] for percutaneous tubes. 02/01 Pt seen examined, he had a failed cystoscopy yesterday, plan for percutaneous nephrostomy tubes, which were placed today, post op he was tachycardic and confused, effect of anesthesia CXR shows increased congestion in lungs, also ahs prolonged exp phase, IV lasix, given, abg reviewed, ph 7.32, pco2 50, on duonebs, and IV steroids ( started), should improved as narcotic wear off. 02/02 Pt seen examined, this AM doing quite well, mental status much better, no sob, no chest pain able to sit up and eat some breakfast. erna nephrostomy tubes draining well, urine clearing now. renal function still elevated, but K is improved anticipate some improvement in renal function urine culture positive for enterococcus, penicillin sensitive, started on ampicillin 500 bid for now xfer to med surg status hb dropped to 7.5, after procedure yesterdfay, urine is clear, monitor for now. Pertinent ROS: Denies headache, dizziness Denies chest pain, palpitations Denies cough or shortness of breath Denies abdominal pain, nausea or vomiting. - Constitutional Vitals: Vital Signs Temp Pulse Resp BP Pulse Ox 99.4 F H 88 16 116/83 94 02/02/18 03:46 02/02/18 06:29 02/02/18 06:29 02/02/18 03:46 02/02/18 08:00 Period Temp Pulse Resp BP Sys/Romo Pulse Ox Last 24 Hr 97.8 F-99.4 F 79-136 16-24 96-171/67-100 87-100 Intake and Output 02/01/18 02/02/18 02/02/18 21:59 05:59 13:59 Intake Total 450 / 450 425 / 425 290 / 290 Output Total 2600 / 2600 1125 / 1125 950 / 950 Balance -2150 / -2150 -700 / -700 -660 / -660 Weight 120 lb 3.2 oz Intake & Output: Intake & Output 02/01/18 02/02/18 02/02/18 21:59 05:59 13:59 Intake Total 450 / 450 425 / 425 290 / 290 Output Total 2600 / 2600 1125 / 1125 950 / 950 Balance -2150 / -2150 -700 / -700 -660 / -660 Weight 120 lb 3.2 oz Intake: IV 50 / 50 100 / 100 50 / 50 Ampicillin 1 gm In Sodium 50 / 50 100 / 100 50 / 50 Chloride 0.9% 50 ml @ 100 mls/ hr IV Q6H [facility] Rx#:[id number] Oral 400 / 400 240 / 240 GI Tube Flush 325 / 325 Output: Urine Catheter Amount 1700 / 1700 950 / 950 Void Amount 900 / 900 1125 / 1125 Other: Meal Dinner Breakfast Percent of Meal Consumed 100% 75% Exam: Constitutional; Afebrile, cooperative, alert, not in distress. Eyes- No icterus, , No periorbital swelling Ears- Ext ear normal, hearing normal to conversation. Neck- Midline trachea, supple Respiratory system: Air Entry equal on both sides, No crackles or wheezing, no rhonchi. CVS- Rate rhythm regular, S1,S2 heard, no gallop, no rub. 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 Medical - PN: Obj Da - Labs CBC & Chem 7: 02/02/18 04:00 02/02/18 04:00 Labs: Abnormal Lab Results 02/02/18 02/02/18 02/01/18 04:00 04:00 08:43 WBC RBC 2.45 L Hgb 7.5 L Hct 22.3 L RDW 14.7 H Plt Count Gran % 96.2 H Lymph % (Auto) 2.8 L Gran # 9.4 H Lymph # (Auto) 0.3 L POC PT 14.6 H Potassium BUN 37 H Creatinine 3.6 H Glucose 137 H Uric Acid 8.8 H Calcium 7.6 L Ionized Calcium Henry Phosphorus 5.6 H Iron TIBC Transferrin % Sat Alkaline Phosphatase 120 H Total Protein 5.5 L Albumin 2.9 L Vitamin B12 25-OH Vitamin D Total 02/01/18 02/01/18 01/31/18 03:35 03:35 03:45 WBC 4.2 L RBC 2.71 L Hgb 8.4 L Hct 24.8 L RDW 15.1 H Plt Count 445 H Gran % 90.7 H Lymph % (Auto) 7.3 L Gran # Lymph # (Auto) 0.3 L POC PT Potassium 5.2 H BUN 34 H Creatinine 3.6 H Glucose 133 H Uric Acid Calcium 7.6 L Ionized Calcium Henry Phosphorus 6.5 H* Iron TIBC Transferrin % Sat Alkaline Phosphatase 122 H Total Protein 5.5 L Albumin 2.8 L Vitamin B12 25-OH Vitamin D Total 26.21 L 01/31/18 01/31/18 01/31/18 03:45 03:45 03:45 WBC RBC 2.74 L Hgb 8.6 L Hct 25.4 L RDW 14.6 H Plt Count 455 H Gran % 78.5 H Lymph % (Auto) 8.8 L Gran # Lymph # (Auto) 0.6 L POC PT Potassium BUN 24 H Creatinine 3.5 H Glucose Uric Acid Calcium 8.5 L Ionized Calcium Henry Phosphorus 4.9 H 4.9 H Iron 24 L TIBC 193 L Transferrin % Sat 12 L Alkaline Phosphatase 122 H Total Protein 5.2 L Albumin 2.7 L Vitamin B12 > 2000 H 25-OH Vitamin D Total 01/30/18 16:32 WBC RBC Hgb Hct RDW Plt Count Gran % Lymph % (Auto) Gran # Lymph # (Auto) POC PT Potassium BUN Creatinine Glucose Uric Acid Calcium Ionized Calcium Henry 0.93 L Phosphorus Iron TIBC Transferrin % Sat Alkaline Phosphatase Total Protein Albumin Vitamin B12 25-OH Vitamin D Total Meds: Medications Acetaminophen (Tylenol) 650 mg PO Q6HP PRN PRN Reason: PAIN/FEVER > 101 Last Admin: 02/02/18 05:05 Dose: 650 mg Albuterol Sulfate (Ventolin) 2 puff INH Q4-6H PRN PRN Reason: bronchospasm Albuterol/Ipratropium (Duoneb) [address] [facility] Last Admin: 02/02/18 06:28 Dose: 3 ml Amlodipine Besylate (Norvasc) [address] [facility] Last Admin: 02/02/18 09:14 Dose: 5 mg Calcitriol (Rocaltrol) 0.[address] [facility] Last Admin: 02/02/18 09:13 Dose: 0.25 mcg Calcium Acetate (Phoslo) [address] [facility] Last Admin: 02/02/18 07:53 Dose: 667 mg Calcium Carbonate/Glycine (Tums) 1,[address] [facility] Last Admin: 02/02/18 05:59 Dose: 1,000 mg Calcium/Vitamin D (Calcium W/Vit D3) [address] [facility] Last Admin: 02/02/18 09:14 Dose: 500 mg Cyanocobalamin (Vitamin B-12) [address] [facility] Last Admin: 02/02/18 09:14 Dose: 250 mcg Dextrose (Dextrose 50%) 0 ml IV UD PRN PRN Reason: Hypoglycemia Famotidine (Pepcid) [address] [facility] Last Admin: 02/02/18 09:14 Dose: 20 mg Fluoxetine HCl (Prozac) [address] [facility] Last Admin: 02/02/18 09:14 Dose: 20 mg Heparin Sodium (Porcine) (Heparin) 5,[address] [facility] Last Admin: 02/02/18 09:13 Dose: 5,000 unit Hydralazine HCl (Apresoline) 10 mg IV Q4-6HP PRN PRN Reason: Hypertension Ampicillin Sodium 1 gm/ Sodium (Chloride) 50 mls @ 100 mls/hr IV Q12H [facility] Methylprednisolone Sodium Succinate (Solu-Medrol) 62.[address] [facility] Last Admin: 02/02/18 09:13 Dose: 62.5 mg Nicotine (Nicoderm) 14 mg TOPICAL DAILY@1000 [facility] Last Admin: 02/01/18 12:35 Dose: Not Given Abiraterone [Zytiga] (1,000 Mg Tab) [address] [facility] Last Admin: 02/02/18 09:15 Dose: Not Given Mometasone/Formoterol [Dulera] 200/5 Mcg Inhaler [address] [facility] Last Admin: 02/02/18 09:17 Dose: 2 dose Simvastatin (Zocor) [address] [facility] Last Admin: 02/01/18 21:40 Dose: 40 mg Sodium Chloride (Saline Flush) [address] [facility] Last Admin: 02/02/18 05:43 Dose: 10 ml Tiotropium [place] (Spiriva) [address] [facility] Last Admin: 02/02/18 09:12 Dose: 1 dose Vitamin D (Vitamin D3) 1,[address] [facility] Last Admin: 02/02/18 09:14 Dose: 1,000 unit Medical - PN: A/P - Time Spent With Patient Total time spent is greater than 50% in coordination of care (as documented) at patient's floor/unit and/or counseling patient: - Narrative A/P Narrative: Acute renal failure - essentially unchanged since admission. Attempt at surgical decompression of hydronephrosis via cystoscopy failed, Radiology at [facility] was able to place bilateral percutaneous drains. monitor urine output CHF exacerbation: D/c IVF, IV lasix given good urine output, symptomatically better. COPD exacerbation, on 2 L oxygen, duoneb q6hrs, IV steroids given yesterday, better today switch to orals and complete a 5 day course. Enterococcus UTI: penicillin sensitive, on IV ampicillin, Hypocalcemia - On calcium supplements and calcitriol, brianna 7.6, albu 2.9 hyperphosphatemia: imporoving, on phos low, . Hypertension - stable on amlodipine, prn hydralazine. Anemia: Multifactorial, anemia of acute blood loss, CKD as well as malignancy, monitor for now, xfuse if drops < 7.0 Metastatic prostate cancer - denies pain. Complicated by mass obstructing urinary outlet with resultant uropathy. Anorexia with poor po intake - malignancy, depression both factors. encourage good oral intake. Active grieving - not interested in support or medications at present. Will approach again in a day or two.( recently) Tobacco use disorder - continues to smoke (with O2 at home). Advice to quit likely a moot point at present. Suspect discussions about goals of care more appropriate and if quality of life at this time includes tobacco use, the issue becomes one of safety with the oxygen. Add patch here - he smokes about 1/4 pack per day, 14 mg patch should suffice. Disposition - goals of care an appropriate discussion to have at this time. I discussed code status with him today. Stressed it would not be life saving intervention for him, and likely would constitute how he wants to . He confirms desires to be full code with aggressive treatment. DVT prophylaxis hep sq Renal diet. Full code Medical - PN: Qual - VTE Deep Vein Thrombosis/Pulmonary Embolism Present on Admission: No
[2018-02-02] MEDS: NICOTINE 14 MG PATCH TOPICAL SCH (10:43)
[2018-02-02] MEDS ORDERED: DEXTROSE 50% 50 ML VIAL IV PRN (11:04)
[2018-02-02] MEDS ORDERED: ALBUTEROL SULFATE 1 PUFF INHALER INH PRN (11:04)
[2018-02-02] MEDS: SIMVASTATIN 20 MG TABLET PO SCH (20:03)
[2018-02-02] MEDS ORDERED: AMPICILLIN SODIUM 1 GM in 0.9 % SODIUM CHLORIDE 50 ML IV SCH (21:00)
[2018-02-02] MEDS ORDERED: HEPARIN 5,000 UNIT/ML VIAL SQ SCH (21:00)
[2018-02-03] MEDS: IPRATROPIUM/ALBUTEROL 3 ML AMPUL.NEB NEB SCH ×4 (01:00→19:30)
[2018-02-03] MEDS: 0.9 % SODIUM CHLORIDE 10 ML SYRINGE IV SCH ×3 (05:21→20:47)
[2018-02-03] MEDS: CALCIUM CARBONATE 500 MG TAB.CHEW CHEWED SCH ×3 (05:21→17:46)
[2018-02-03 05:54] LABS: Basophils # (Auto) 0 K/mcL (0.0-0.3); Basophils % (Auto) 0.1 % (0.0-2.0); Eosinophils # (Auto) 0 K/mcL (0.0-0.7); Eosinophils % (Auto) 0.5 % (0.0-7.0); Granulocytes % (Auto) 90.9 % (38.0-78.0); Lymphocytes # (Auto) 0.3 K/mcL (1.5-4.8); Lymphocytes % (Auto) 2.9 % (15.5-49.0); Mean Corpuscular HGB Conc 33.3 g/dL (31.0-36.0); Mean Corpuscular Hemoglobin 29.6 pg (26.0-34.0); Monocytes # (Auto) 0.5 K/mcL (0.1-0.9); Monocytes % (Auto) 5.6 % (1.0-12.0); Platelet Count 394 K/mcL (140-440); RBC 2.32 M/mcL (4.50-5.90); Red Cell Distribution Width 13.8 % (11.5-14.5)
[2018-02-03 06:31] LABS: ALT/SGPT < 5 U/l (0-40); Albumin 2.9 gm/dL (3.2-5.2); Albumin/Globulin Ratio 1.2 (1.0-2.3); Alkaline Phosphatase 102 U/L (39-117); Bilirubin,Direct < 0.2 mg/dL (0.0-0.3); Blood Urea Nitrogen 37 mg/dl (8-23); Gamma Glutamyl Transpeptidase 13 U/L (8-61); Uric Acid 7.6 mg/dL (2.5-8.0)
[2018-02-03] MEDS ORDERED: 0.9 % SODIUM CHLORIDE 250 ML IV SCH (07:15)
[2018-02-03] MEDS: FORMOTEROL INH SCH ×2 (07:50→20:48)
[2018-02-03] MEDS: CALCIUM ACETATE 667 MG CAPSULE PO SCH ×2 (07:50→11:49)
[2018-02-03] MEDS: TIOTROPIUM BROMIDE 18 MCG INHALANT INH SCH (07:50)
[2018-02-03] MEDS: MOMETASONE INH SCH ×2 (07:50→20:48)
[2018-02-03] MEDS: predniSONE 20 MG TABLET PO SCH (07:51)
[2018-02-03] MEDS ORDERED: POTASSIUM CHLORIDE 20 MEQ PACKET PO ONE (07:58)
[2018-02-03] MEDS ORDERED: MAGNESIUM SULFATE 2 GM/50 ML BAG IV ONE (07:58)
[2018-02-03] MEDS ORDERED: predniSONE 20 MG TABLET PO SCH (08:00)
[2018-02-03] MEDS: FERROUS GLUCONATE 324 MG TABLET PO SCH (08:28)
[2018-02-03] MEDS: CALCIUM W/VIT D3 500 MG TABLET PO SCH (08:28)
[2018-02-03] MEDS: amLODIPine 5 MG TABLET PO SCH (08:28)
[2018-02-03] MEDS: VITAMIN D3 1,000 UNIT TABLET PO SCH (08:28)
[2018-02-03] MEDS: FAMOTIDINE 20 MG TABLET PO SCH ×2 (08:29→20:46)
[2018-02-03] MEDS: CYANOCOBALAMIN (VITAMIN B-12) 500 MCG TABLET PO SCH (08:29)
[2018-02-03] MEDS: FLUoxetine HCL 20 MG CAPSULE PO SCH ×2 (08:29→20:46)
[2018-02-03] MEDS: ABIRATERONE 1000 MG PO SCH (08:30)
[2018-02-03] MEDS ORDERED: CALCITRIOL 0.25 MCG CAPSULE PO SCH (09:00)
[2018-02-03] MEDS: AMPICILLIN SODIUM 1 GM in 0.9 % SODIUM CHLORIDE 50 ML IV SCH ×2 (09:10→20:46)
--- NOTE | 2018-02-03 09:38 | Internal Med Progress Note ---
Medical - PN: Subj Patient information: Note initiated : 02/03/18 at 9:31 am Service Date, if different from initiated Date: [] Patient: Orlando Valdivia 77 y/o M admitted on 01/29/18 for Cystoscopy w/ Bilateral Stent Placement. Chief Complaint: [] Interval history: Patient states he feels anxious about the surgery - and the fact that it may not be successful. Otherwise, he is again vague in his complaints. No new shortness of breath. No abdominal pain, no chest pain (despite extensive rib mets). Cystoscopy with attempt at stent placement is planned for noon today, he has been NPO, calcium has corrected to close to normal. If unsuccessful, he will need to be transferred to [facility] for percutaneous tubes. 02/01 Pt seen examined, he had a failed cystoscopy yesterday, plan for percutaneous nephrostomy tubes, which were placed today, post op he was tachycardic and confused, effect of anesthesia CXR shows increased congestion in lungs, also ahs prolonged exp phase, IV lasix, given, abg reviewed, ph 7.32, pco2 50, on duonebs, and IV steroids ( started), should improved as narcotic wear off. 02/02 Pt seen examined, this AM doing quite well, mental status much better, no sob, no chest pain able to sit up and eat some breakfast. erna nephrostomy tubes draining well, urine clearing now. renal function still elevated, but K is improved anticipate some improvement in renal function urine culture positive for enterococcus, penicillin sensitive, started on ampicillin 500 bid for now xfer to med surg status hb dropped to 7.5, after procedure yesterdfay, urine is clear, monitor for now. 02/03 Pt seen examined, lying comfortably in the bed, no acute complaints or concerns he feels tired, did not sleep well last night, he notes he also has some hiccups his hb dropped to 6.9 from 7.5 yesterday, also has low mg and K he will get 2 units of prbc today, his lytes to be replaced he is making good amounts of urine now, which is pinkish in color Radiology plans to check the left nephrostomy tube to ensure its correctly positioned patient did have some bleeding in the nephrostomy site as per the nurse. Pertinent ROS: Denies headache, dizziness Denies chest pain, palpitations Denies cough or shortness of breath Denies abdominal pain, nausea or vomiting. - Constitutional Vitals: Vital Signs Temp Pulse Resp BP Pulse Ox 98.8 F 78 16 100/77 93 02/03/18 06:31 02/03/18 07:50 02/03/18 07:50 02/03/18 06:31 02/03/18 06:31 Period Temp Pulse Resp BP Sys/Romo Pulse Ox Last 24 Hr 97.9 F-99.2 F 66-110 14-24 100-159/68-98 90-96 Intake and Output 02/02/18 02/03/18 02/03/18 21:59 05:59 13:59 Intake Total 590 / 590 100 / 100 Output Total 1085 / 1085 1325 / 1325 550 / 550 Balance -495 / -495 -1225 / -1225 -550 / -550 Weight 123 lb Intake & Output: Intake & Output 02/02/18 02/03/18 02/03/18 21:59 05:59 13:59 Intake Total 590 / 590 100 / 100 Output Total 1085 / 1085 1325 / 1325 550 / 550 Balance -495 / -495 -1225 / -1225 -550 / -550 Weight 123 lb Intake: IV 50 / 50 Ampicillin 1 gm In Sodium 50 / 50 Chloride 0.9% 50 ml @ 100 mls/ hr IV Q12H [facility] Rx#:[id number] Oral 540 / 540 100 / 100 Output: Drainage 335 / 335 1000 / 1000 left nephrostomy 60 / 60 350 / 350 right nephrostomy 275 / 275 650 / 650 Urine Catheter Amount 650 / 650 450 / 450 Void Amount 100 / 100 325 / 325 100 / 100 Other: Meal Nourishment/Supplement Dinner Percent of Meal Consumed 100% 5% Feeding Ability Independent Exam: Constitutional; Afebrile, cooperative, alert, not in distress. Eyes- No icterus, , No periorbital swelling Ears- Ext ear normal, hearing normal to conversation. Neck- Midline trachea, supple Respiratory system: Air Entry equal on both sides, No crackles or wheezing, no rhonchi. CVS- Rate rhythm regular, S1,S2 heard, no gallop, no rub. 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 Medical - PN: Obj Da - Labs CBC & Chem 7: 02/03/18 04:00 02/03/18 04:00 Labs: Abnormal Lab Results 02/03/18 02/03/18 02/02/18 04:00 04:00 04:00 WBC RBC 2.32 L Hgb 6.9 L* Hct 20.7 L* RDW Plt Count Gran % 90.9 H Lymph % (Auto) 2.9 L Gran # 8.1 H Lymph # (Auto) 0.3 L POC PT Potassium Carbon Dioxide 33 H BUN 37 H 37 H Creatinine 2.4 H 3.6 H Glucose 125 H 137 H Uric Acid 8.8 H Calcium 7.6 L Phosphorus 5.6 H Alkaline Phosphatase 120 H Total Protein 5.3 L 5.5 L Albumin 2.9 L 2.9 L 02/02/18 02/01/18 02/01/18 04:00 08:43 03:35 WBC 4.2 L RBC 2.45 L 2.71 L Hgb 7.5 L 8.4 L Hct 22.3 L 24.8 L RDW 14.7 H 15.1 H Plt Count 445 H Gran % 96.2 H 90.7 H Lymph % (Auto) 2.8 L 7.3 L Gran # 9.4 H Lymph # (Auto) 0.3 L 0.3 L POC PT 14.6 H Potassium Carbon Dioxide BUN Creatinine Glucose Uric Acid Calcium Phosphorus Alkaline Phosphatase Total Protein Albumin 02/01/18 03:35 WBC RBC Hgb Hct RDW Plt Count Gran % Lymph % (Auto) Gran # Lymph # (Auto) POC PT Potassium 5.2 H Carbon Dioxide BUN 34 H Creatinine 3.6 H Glucose 133 H Uric Acid Calcium 7.6 L Phosphorus 6.5 H* Alkaline Phosphatase 122 H Total Protein 5.5 L Albumin 2.8 L Meds: Medications Acetaminophen (Tylenol) 650 mg PO Q6HP PRN PRN Reason: PAIN/FEVER > 101 Albuterol Sulfate (Ventolin) 2 puff INH Q4-6H PRN PRN Reason: bronchospasm Albuterol/Ipratropium (Duoneb) 3 ml NEB Q6HRT [facility] Last Admin: 02/03/18 08:07 Dose: Not Given Amlodipine Besylate (Norvasc) 5 mg PO DAILY [facility] Last Admin: 02/03/18 08:28 Dose: 5 mg Calcitriol (Rocaltrol) 0.25 mcg PO DAILY [facility] Last Admin: 02/03/18 08:28 Dose: 0.25 mcg Calcium Acetate (Phoslo) 667 mg PO TIDCC [facility] Last Admin: 02/03/18 07:50 Dose: 667 mg Calcium Carbonate/Glycine (Tums) 1,000 mg CHEWED Q6 [facility] Last Admin: 02/03/18 05:21 Dose: 1,000 mg Calcium/Vitamin D (Calcium W/Vit D3) 500 mg PO DAILY [facility] Last Admin: 02/03/18 08:28 Dose: 500 mg Cyanocobalamin (Vitamin B-12) 250 mcg PO DAILY [facility] Last Admin: 02/03/18 08:29 Dose: 250 mcg Dextrose (Dextrose 50%) 0 ml IV UD PRN PRN Reason: Hypoglycemia Famotidine (Pepcid) 20 mg PO BID [facility] Last Admin: 02/03/18 08:29 Dose: 20 mg Ferrous Gluconate (Fergon) 324 mg PO DAILY [facility] Last Admin: 02/03/18 08:28 Dose: 324 mg Fluoxetine HCl (Prozac) 20 mg PO BID [facility] Last Admin: 02/03/18 08:29 Dose: 20 mg Hydralazine HCl (Apresoline) 10 mg IV Q4-6HP PRN PRN Reason: Hypertension Ampicillin Sodium 1 gm/ Sodium (Chloride) 50 mls @ 100 mls/hr IV Q12H [facility] Last Infusion: 02/02/18 21:00 Dose: Infused Sodium Chloride (Sodium Chloride 0.9%) 250 mls @ 20 mls/hr IV .[id number] [facility] Stop: 02/03/18 19:44 Nicotine (Nicoderm) 14 mg TOPICAL DAILY@1000 [facility] Abiraterone [Zytiga] (1,000 Mg Tab) 1 dose PO DAILY [facility] Last Admin: 02/03/18 08:30 Dose: 1 dose Mometasone/Formoterol [Dulera] 200/5 Mcg Inhaler 2 dose INH BID [facility] Last Admin: 02/03/18 07:50 Dose: 2 dose Prednisone (Prednisone) 40 mg PO QACOX [facility] Stop: 02/06/18 07:59 Last Admin: 02/03/18 07:51 Dose: 40 mg Simvastatin (Zocor) 40 mg PO QPM [facility] Last Admin: 02/02/18 20:03 Dose: 40 mg Sodium Chloride (Saline Flush) 10 ml IV Q8 [facility] Last Admin: 02/03/18 05:21 Dose: 10 ml Tiotropium [place] (Spiriva) 18 mcg INH QDAY [facility] Last Admin: 02/03/18 07:50 Dose: 1 dose Vitamin D (Vitamin D3) 1,000 unit PO DAILY [facility] Last Admin: 02/03/18 08:28 Dose: 1,000 unit Medical - PN: A/P - Time Spent With Patient Total time spent is greater than 50% in coordination of care (as documented) at patient's floor/unit and/or counseling patient: - Narrative A/P Narrative: Acute renal failure -creat improved, good urine output, low K and MG expected and being replaced. CHF - stable, COPD exacerbation, on 2 L oxygen, duoneb q6hrs, on po steroids for 3 more days, stable today, no wheezing. Enterococcus UTI: penicillin sensitive, on IV ampicillin, Hypocalcemia - On calcium supplements and calcitriol, anticipate improvements with improving renal function. hyperphosphatemia: imporoving, on phos low, . Hypertension - stable on amlodipine, prn hydralazine. Anemia: Multifactorial, anemia of acute blood loss (recent procedure and hematiuria) , CKD as well as malignancy, Hb today was 6.9 pt feels fatigued, replace 2 units. monitor. d/c hep sq for dvt prophylaxis and st art on SCD Metastatic prostate cancer - denies pain. Complicated by mass obstructing urinary outlet with resultant uropathy. Anorexia with poor po intake - malignancy, depression both factors. encourage good oral intake. appetitie seems to be improving. Active grieving - not interested in support or medications at present. Will approach again in a day or two.( recently) Tobacco use disorder - continues to smoke (with O2 at home). Advice to quit likely a moot point at present. Suspect discussions about goals of care more appropriate and if quality of life at this time includes tobacco use, the issue becomes one of safety with the oxygen. Add patch here - he smokes about 1/4 pack per day, 14 mg patch should suffice. DVT SCD Renal diet. Full code Medical - PN: Qual - VTE Deep Vein Thrombosis/Pulmonary Embolism Present on Admission: No
[2018-02-03] MEDS: DOCUSATE SODIUM 100 MG CAPSULE PO SCH ×2 (11:46→20:46)
[2018-02-03] MEDS: NICOTINE 14 MG PATCH TOPICAL SCH (11:48)
[2018-02-03] MEDS ORDERED: POLYETHYLENE GLYCOL 3350 17 GM PACKET PO ONE (12:56)
[2018-02-03] MEDS ORDERED: FUROSEMIDE 20 MG/2 ML VIAL IV ONE (12:56)
[2018-02-03] MEDS ORDERED: MAGNESIUM HYDROXIDE 30 ML ORAL.SUSP PO ONE (13:01)
[2018-02-03] MEDS: ACETAMINOPHEN 325 MG TABLET PO PRN ×2 (15:59→21:35)
--- NOTE | 2018-02-03 16:04 | Nephrology Progress Note ---
Subjective Patient information: Note initiated : 02/03/18 at 4:01 pm Service Date, if different from initiated Date: [] Patient: Orlando Valdivia 77 y/o M admitted on 01/29/18 for Cystoscopy w/ Bilateral Stent Placement. Chief Complaint: [] Principal diagnosis: acute renal failure Interval history: seen this am c/o weakness, Hb down to 6.9 receiving 2 units of prbc transfusion also c/o constipation and abdominal discomfort no SOB, CP no edema no other concerns renal function much improved today Pertinent ROS: as above Objective - Vital Signs Vital signs: Vital Signs Temp Pulse Pulse Resp BP BP Pulse Ox 02/03/18 13:53 84 16 02/03/18 12:00 99.2 F H 84 16 180/89 96 02/03/18 07:50 78 16 02/03/18 06:31 98.8 F 16 100/77 93 02/03/18 03:30 98.0 F 96 H 20 159/87 93 02/02/18 23:59 98.1 F 91 H 24 H 157/68 90 02/02/18 19:41 98.7 F 110 H 24 H 154/98 90 02/02/18 18:29 66 19 02/02/18 16:15 97.9 F 80 18 144/78 95 Intake and Output 02/03/18 02/03/18 02/03/18 05:59 13:59 21:59 Intake Total 100 / 100 444 / 444 544 / 544 Output Total 1325 / 1325 550 / 550 550 / 550 Balance -1225 / -1225 -106 / -106 -6 / -6 Intake: IV 100 / 100 Ampicillin 1 gm In Sodium 50 / 50 Chloride 0.9% 50 ml @ 100 mls/ hr IV Q12H [facility] Rx#:[id number] Oral 100 / 100 200 / 200 Blood Product 344 / 344 344 / 344 Output: Drainage 1000 / 1000 left nephrostomy 350 / 350 right nephrostomy 650 / 650 Urine Catheter Amount 450 / 450 550 / 550 Void Amount 325 / 325 100 / 100 Other: Meal Dinner Breakfast Percent of Meal Consumed 5% 100% # Bowel Movements 1 Weight 123 lb Patient Weight 02/04/18 05:59 Weight 123 lb Intake & Output: Intake & Output 02/03/18 02/03/18 02/03/18 05:59 13:59 21:59 Intake Total 100 / 100 444 / 444 544 / 544 Output Total 1325 / 1325 550 / 550 550 / 550 Balance -1225 / -1225 -106 / -106 -6 / -6 Weight 123 lb Intake: IV 100 / 100 Ampicillin 1 gm In Sodium 50 / 50 Chloride 0.9% 50 ml @ 100 mls/ hr IV Q12H [facility] Rx#:[id number] Oral 100 / 100 200 / 200 Blood Product 344 / 344 344 / 344 Output: Drainage 1000 / 1000 left nephrostomy 350 / 350 right nephrostomy 650 / 650 Urine Catheter Amount 450 / 450 550 / 550 Void Amount 325 / 325 100 / 100 Other: Meal Dinner Breakfast Percent of Meal Consumed 5% 100% # Bowel Movements 1 - General Appearance General appearance: appears started age, frail EENT: mucous membranes moist Neck: no JVD Respiratory: clear Cardiology: no rub, regular rate, regular rhythm Gastrointestinal: no tenderness, no guarding Integumentary: warm and dry Neurologic: alert and oriented x3 Musculoskeletal: no erythema Psychiatric: mood/affect appropriate - Lab 02/03/18 04:00 02/03/18 04:00 Most recent lab results Calcium 8.7 mg/dl (8.6-10.4) 02/03/18 04:00 Phosphorus 3.3 mg/dL (2.7-4.5) 02/03/18 04:00 Magnesium 1.6 mg/dL (1.6-2.5) 02/03/18 04:00 Assessment and Plan (1) Acute kidney failure acute renal failure baseline s.creatinine is 0.8-0.9 s.creat down to 2.5 from 3.6 renal US shows moderate hydronephrosis s/p nephrostomy with improvement in his renal function UA with no significant proteinuria and hematuria HTN: BP seems to be fluctuating for now malnutrition: patient has not been eating well, his albumin is 2.8 ct nepro Anemia from renal failure, iron deficiency, ct oral iron, prbc transfusion today secondary hyperparathyroidism with elevated PTH, phos and low calcium ( corrected calcium is normal), findings discussed with the patient requested arn TO GIVE 20MG iv LASIX with prbc trasnfusion as pt was tachypenic will use miralax for constipation will hold phoslo and cut back on calcitriol given improvement in renal function and labs please do not resume lisinopril on discharge will follow as an oupatient in a week after discharge Thank you for giving me an opportunity to participate in Mr Valdivia's medical care, appreciate it Status: Acute Priority: High Qualifiers: Acute renal failure type: unspecified Qualified Code(s): N17.9 - Acute kidney failure, unspecified (2) Hypertension, essential, benign Status: Chronic Comment: 1992 (3) Anemia Status: Acute (4) Malnutrition Status: Acute
--- NOTE | 2018-02-03 19:14 | XRay Report ---
CLINICAL INFORMATION: Bilateral nephrostomies placed two days prior. [Approximately is functional. The right nephrostomy had ceased draining urine COMPARISON: The procedural CT from 02/01/2018. Technique: Following home health registered nurse images, each approximately tube was accessed and injected with less than 10 cc of [id number]. Digital imaging was obtained. FINDINGS: The left nephrostomy tube is in optimal position - coiled within the renal pelvis. Injected contrast fills the left upper collecting system and ureter. The right nephrostomy tube is extrarenal with contrast extravasating into the extrarenal soft tissue. IMPRESSION: 1. Left nephrostomy tube is optimally positioned. 2. Right nephrostomy tube is malpositioned in the extrarenal soft tissues. CT will be repeated tomorrow and the right nephrostomy tube will be repositioned Interpreted and Authenticated by: Ludwin Niño 02/03/18
[2018-02-03] MEDS: SIMVASTATIN 20 MG TABLET PO SCH (20:46)
[2018-02-04] MEDS: CALCIUM CARBONATE 500 MG TAB.CHEW CHEWED SCH ×3 (00:23→11:30)
[2018-02-04] MEDS: IPRATROPIUM/ALBUTEROL 3 ML AMPUL.NEB NEB SCH ×4 (00:23→19:42)
[2018-02-04] MEDS: oxyCODONE HCL 5 MG TABLET PO PRN ×2 (00:51→08:42)
[2018-02-04] MEDS ORDERED: oxyCODONE HCL 5 MG TABLET PO ONE (00:51)
[2018-02-04] MEDS: hydrALAZINE 20 MG/ML VIAL IV PRN ×2 (00:52→11:30)
[2018-02-04] MEDS: 0.9 % SODIUM CHLORIDE 10 ML SYRINGE IV SCH ×4 (00:53→21:16)
[2018-02-04] MEDS: ACETAMINOPHEN 325 MG TABLET PO PRN ×2 (03:28→11:29)
[2018-02-04 06:33] LABS: Basophils # (Auto) 0 K/mcL (0.0-0.3); Basophils % (Auto) 0 % (0.0-2.0); Eosinophils # (Auto) 0 K/mcL (0.0-0.7); Eosinophils % (Auto) 0 % (0.0-7.0); Lymphocytes # (Auto) 0.5 K/mcL (1.5-4.8); Lymphocytes % (Auto) 4.4 % (15.5-49.0); Mean Cell Volume 89.3 fL (80.0-100.0); Mean Corpuscular HGB Conc 33.3 g/dL (31.0-36.0); Mean Corpuscular Hemoglobin 29.7 pg (26.0-34.0); Monocytes # (Auto) 0.7 K/mcL (0.1-0.9); Monocytes % (Auto) 6.6 % (1.0-12.0); Platelet Count 467 K/mcL (140-440); RBC 4.08 M/mcL (4.50-5.90); Red Cell Distribution Width 15.3 % (11.5-14.5)
[2018-02-04 06:55] LABS: ALT/SGPT < 5 U/l (0-40); Albumin 3.4 gm/dL (3.2-5.2); Albumin/Globulin Ratio 1.2 (1.0-2.3); Alkaline Phosphatase 120 U/L (39-117); Bilirubin,Direct < 0.2 mg/dL (0.0-0.3); Blood Urea Nitrogen 44 mg/dl (8-23); Gamma Glutamyl Transpeptidase 17 U/L (8-61); Uric Acid 7.1 mg/dL (2.5-8.0)
[2018-02-04] MEDS: TIOTROPIUM BROMIDE 18 MCG INHALANT INH SCH (07:29)
[2018-02-04] MEDS: DOCUSATE SODIUM 100 MG CAPSULE PO SCH ×2 (08:02→21:16)
[2018-02-04] MEDS: amLODIPine 5 MG TABLET PO SCH (08:03)
[2018-02-04] MEDS: CYANOCOBALAMIN (VITAMIN B-12) 500 MCG TABLET PO SCH (08:03)
[2018-02-04] MEDS: predniSONE 20 MG TABLET PO SCH (08:03)
[2018-02-04] MEDS: FLUoxetine HCL 20 MG CAPSULE PO SCH ×2 (08:03→21:16)
[2018-02-04] MEDS: CALCIUM W/VIT D3 500 MG TABLET PO SCH (08:03)
[2018-02-04] MEDS: FERROUS GLUCONATE 324 MG TABLET PO SCH (08:03)
[2018-02-04] MEDS: VITAMIN D3 1,000 UNIT TABLET PO SCH (08:03)
[2018-02-04] MEDS: FAMOTIDINE 20 MG TABLET PO SCH ×2 (08:03→21:16)
[2018-02-04] MEDS: ABIRATERONE 1000 MG PO SCH (08:04)
[2018-02-04] MEDS: FORMOTEROL INH SCH ×2 (08:10→21:22)
[2018-02-04] MEDS: MOMETASONE INH SCH ×2 (08:10→21:22)
[2018-02-04] MEDS: AMPICILLIN SODIUM 1 GM in 0.9 % SODIUM CHLORIDE 50 ML IV SCH ×2 (08:42→21:15)
[2018-02-04] MEDS: NICOTINE 14 MG PATCH TOPICAL SCH (11:30)
[2018-02-04] MEDS ORDERED: fentaNYL 100 MCG/2 ML VIAL IV ONE (14:45)
[2018-02-04] MEDS ORDERED: MIDAZOLAM 2 MG/2 ML VIAL IV ONE (14:45)
[2018-02-04] MEDS ORDERED: LIDOCAINE 1% 20 ML VIAL SQ ONE (15:31)
--- NOTE | 2018-02-04 15:38 | Internal Med Progress Note ---
Medical - PN: Subj Patient information: Note initiated : 02/04/18 at 3:33 pm Service Date, if different from initiated Date: [] Patient: Orlando Valdivia 77 y/o M admitted on 01/29/18 for Cystoscopy w/ Bilateral Stent Placement. Chief Complaint: [] Interval history: Patient states he feels anxious about the surgery - and the fact that it may not be successful. Otherwise, he is again vague in his complaints. No new shortness of breath. No abdominal pain, no chest pain (despite extensive rib mets). Cystoscopy with attempt at stent placement is planned for noon today, he has been NPO, calcium has corrected to close to normal. If unsuccessful, he will need to be transferred to [facility] for percutaneous tubes. 6/ Pt seen examined, he had a failed cystoscopy yesterday, plan for percutaneous nephrostomy tubes, which were placed today, post op he was tachycardic and confused, effect of anesthesia CXR shows increased congestion in lungs, also ahs prolonged exp phase, IV lasix, given, abg reviewed, ph 7.32, pco2 50, on duonebs, and IV steroids ( started), should improved as narcotic wear off. 02/02 Pt seen examined, this AM doing quite well, mental status much better, no sob, no chest pain able to sit up and eat some breakfast. erna nephrostomy tubes draining well, urine clearing now. renal function still elevated, but K is improved anticipate some improvement in renal function urine culture positive for enterococcus, penicillin sensitive, started on ampicillin 500 bid for now xfer to med surg status hb dropped to 7.5, after procedure yesterday, urine is clear, monitor for now. 02/03 Pt seen examined, lying comfortably in the bed, no acute complaints or concerns he feels tired, did not sleep well last night, he notes he also has some hiccups his hb dropped to 6.9 from 7.5 yesterday, also has low mg and K he will get 2 units of prbc today, his lytes to be replaced he is making good amounts of urine now, which is pinkish in color Radiology plans to check the left nephrostomy tube to ensure its correctly positioned patient did have some bleeding in the nephrostomy site as per the nurse. 02/04 pt seen examined, no acute overnight issues, patient right nephrostomy tube was out of place, not draining urine yesterday Dr Garrett tried to reposition the tube, but was unable to do the procedure, note does not have much time on had to complete the procedure. Given that the patients creat uptrended from yesterday, I discussed the case with Dr Flores, who noted it would be useful to have both the tubes in, I spoke with Dr Pino who gracefully accepted to give a try to see if he is able to place a nephrostomy tube on the right side. Patient is agreeable to be transferred for the procedure. He will return back to the hospital after the procedure is done. Hb is stable, platlets are stable. I reviewed with him again the goals of care and he wishes to remain full code. Pertinent ROS: Denies headache, dizziness Denies chest pain, palpitations Denies cough or shortness of breath Denies abdominal pain, nausea or vomiting. Pain in the right lumbar region from the tube. - Constitutional Vitals: Vital Signs Temp Pulse Resp BP Pulse Ox 98.2 F 78 16 161/104 97 02/04/18 11:33 02/04/18 13:17 02/04/18 13:17 02/04/18 11:33 02/04/18 13:12 Period Temp Pulse Resp BP Sys/Romo Pulse Ox Last 24 Hr 97.5 F-98.8 F 76-100 16-24 150-178/86-106 91-97 Intake and Output 02/04/18 02/04/18 02/04/18 05:59 13:59 21:59 Intake Total 400 / 400 290 / 290 Output Total 650 / 650 250 / 250 Balance -250 / -250 40 / 40 Intake & Output: Intake & Output 02/04/18 02/04/18 02/04/18 05:59 13:59 21:59 Intake Total 400 / 400 290 / 290 Output Total 650 / 650 250 / 250 Balance -250 / -250 40 / 40 Intake: IV 50 / 50 Ampicillin 1 gm In Sodium 50 / 50 Chloride 0.9% 50 ml @ 100 mls/ hr IV Q12H [facility] Rx#:[id number] Oral 400 / 400 240 / 240 Output: Drainage 650 / 650 0 / 0 left nephrostomy 650 / 650 right nephrostomy 0 / 0 0 / 0 Void Amount 250 / 250 Exam: Constitutional; Afebrile, cooperative, alert, not in distress. Eyes- No icterus, , No periorbital swelling Ears- Ext ear normal, hearing normal to conversation. Neck- Midline trachea, supple Respiratory system: Air Entry equal on both sides, No crackles or wheezing, no rhonchi. CVS- Rate rhythm regular, S1,S2 heard, no gallop, no rub. 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 Medical - PN: Obj Da - Labs CBC & Chem 7: 02/04/18 05:16 02/04/18 05:16 Labs: Abnormal Lab Results 02/04/18 02/04/18 02/03/18 05:16 05:16 16:38 WBC 11.1 H RBC 4.08 L Hgb 12.1 L 11.0 L Hct 36.4 L 33.2 L RDW 15.3 H Plt Count 467 H Gran % 89.0 H Lymph % (Auto) 4.4 L Gran # 9.9 H Lymph # (Auto) 0.5 L Carbon Dioxide 34 H BUN 44 H Creatinine 2.7 H Glucose 112 H Uric Acid Calcium 11.0 H Phosphorus Alkaline Phosphatase 120 H Lactate Dehydrogenase 276 H Total Protein Albumin 02/03/18 02/03/18 02/02/18 04:00 04:00 04:00 WBC RBC 2.32 L Hgb 6.9 L* Hct 20.7 L* RDW Plt Count Gran % 90.9 H Lymph % (Auto) 2.9 L Gran # 8.1 H Lymph # (Auto) 0.3 L Carbon Dioxide 33 H BUN 37 H 37 H Creatinine 2.4 H 3.6 H Glucose 125 H 137 H Uric Acid 8.8 H Calcium 7.6 L Phosphorus 5.6 H Alkaline Phosphatase 120 H Lactate Dehydrogenase Total Protein 5.3 L 5.5 L Albumin 2.9 L 2.9 L 02/02/18 04:00 WBC RBC 2.45 L Hgb 7.5 L Hct 22.3 L RDW 14.7 H Plt Count Gran % 96.2 H Lymph % (Auto) 2.8 L Gran # 9.4 H Lymph # (Auto) 0.3 L Carbon Dioxide BUN Creatinine Glucose Uric Acid Calcium Phosphorus Alkaline Phosphatase Lactate Dehydrogenase Total Protein Albumin Meds: Medications Acetaminophen (Tylenol) 650 mg PO Q6HP PRN PRN Reason: PAIN/FEVER > 101 Last Admin: 02/04/18 11:29 Dose: 650 mg Albuterol Sulfate (Ventolin) 2 puff INH Q4-6H PRN PRN Reason: bronchospasm Albuterol/Ipratropium (Duoneb) 3 ml NEB Q6HRT [facility] Last Admin: 02/04/18 13:11 Dose: 3 ml Amlodipine Besylate (Norvasc) 5 mg PO DAILY [facility] Last Admin: 02/04/18 08:03 Dose: 5 mg Calcium Carbonate/Glycine (Tums) 1,000 mg CHEWED Q6 [facility] Last Admin: 02/04/18 11:30 Dose: 1,000 mg Calcium/Vitamin D (Calcium W/Vit D3) 500 mg PO DAILY [facility] Last Admin: 02/04/18 08:03 Dose: 500 mg Cyanocobalamin (Vitamin B-12) 250 mcg PO DAILY [facility] Last Admin: 02/04/18 08:03 Dose: 250 mcg Dextrose (Dextrose 50%) 0 ml IV UD PRN PRN Reason: Hypoglycemia Docusate Sodium (Colace) 100 mg PO BID [facility] Last Admin: 02/04/18 08:02 Dose: 100 mg Famotidine (Pepcid) 20 mg PO BID [facility] Last Admin: 02/04/18 08:03 Dose: 20 mg Ferrous Gluconate (Fergon) 324 mg PO DAILY [facility] Last Admin: 02/04/18 08:03 Dose: 324 mg Fluoxetine HCl (Prozac) 20 mg PO BID [facility] Last Admin: 02/04/18 08:03 Dose: 20 mg Hydralazine HCl (Apresoline) 10 mg IV Q4-6HP PRN PRN Reason: Hypertension Last Admin: 02/04/18 11:30 Dose: 10 mg Ampicillin Sodium 1 gm/ Sodium (Chloride) 50 mls @ 100 mls/hr IV Q12H [facility] Last Infusion: 02/04/18 09:12 Dose: Infused Levofloxacin (Levaquin) 500 mg in 100 mls @ 100 mls/hr IV ONCE ONE Stop: 02/04/18 16:59 Nicotine (Nicoderm) 14 mg TOPICAL DAILY@1000 [facility] Last Admin: 02/04/18 11:30 Dose: 14 mg Oxycodone HCl (Roxicodone) 5 mg PO Q4HP PRN PRN Reason: PAIN LEVEL 3-6 Last Admin: 02/04/18 08:42 Dose: 5 mg Abiraterone [Zytiga] (1,000 Mg Tab) 1 dose PO DAILY [facility] Last Admin: 02/04/18 08:04 Dose: 1 dose Mometasone/Formoterol [Dulera] 200/5 Mcg Inhaler 2 dose INH BID [facility] Last Admin: 02/04/18 08:10 Dose: 2 dose Prednisone (Prednisone) [address] [facility] Stop: 02/06/18 07:59 Last Admin: 02/04/18 08:03 Dose: 40 mg Simvastatin (Zocor) 40 mg PO QPM [facility] Last Admin: 02/03/18 20:46 Dose: 40 mg Sodium Chloride (Saline Flush) 10 ml IV Q8 [facility] Last Admin: 02/04/18 05:15 Dose: 10 ml Tiotropium [place] (Spiriva) 18 mcg INH QDAY [facility] Last Admin: 02/04/18 07:29 Dose: 1 dose Vitamin D (Vitamin D3) 1,000 unit PO DAILY [facility] Last Admin: 02/04/18 08:03 Dose: 1,000 unit Medical - PN: A/P - Time Spent With Patient Total time spent is greater than 50% in coordination of care (as documented) at patient's floor/unit and/or counseling patient: - Narrative A/P Narrative: Acute renal failure -creat worsened again from 2.3 to 2.7, after right nephrostomy tube came out, radiology tried to have the tube placed back in but were unsuccessful, will have IR try at [facility]. COPD exacerbation, on 2 L oxygen, duoneb q6hrs, on po steroids not , total 5 days planned. Enterococcus UTI: penicillin sensitive, on IV ampicillin, Hypocalcemia - On calcium supplements and calcitriol, anticipate improvements with improving renal function. hyperphosphatemia: imporoving, on phos low, . Hypertension - stable on amlodipine, prn hydralazine. Anemia: Multifactorial, anemia of acute blood loss (recent procedure and hematiuria) , CKD as well as malignancy, on SCD, s/p 2 units xfusion, hb stable this AM Metastatic prostate cancer - denies pain. Complicated by mass obstructing urinary outlet with resultant uropathy. Anorexia with poor po intake - malignancy, depression both factors. encourage good oral intake. appetite seems to be improving. Active grieving - not interested in support or medications at present. Will approach again in a day or two.( recently) Tobacco use disorder - continues to smoke (with O2 at home). Advice to quit likely a moot point at present. Suspect discussions about goals of care more appropriate and if quality of life at this time includes tobacco use, the issue becomes one of safety with the oxygen. Add patch here - he smokes about 1/4 pack per day, 14 mg patch should suffice. DVT SCD Renal diet. Full code Medical - PN: Qual - VTE Deep Vein Thrombosis/Pulmonary Embolism Present on Admission: No
[2018-02-04] MEDS ORDERED: LEVOFLOXACIN 500 MG/100 ML BAG IV ONE (16:00)
[2018-02-04] MEDS: SIMVASTATIN 20 MG TABLET PO SCH (21:16)
[2018-02-05] MEDS: IPRATROPIUM/ALBUTEROL 3 ML AMPUL.NEB NEB SCH ×4 (00:10→19:07)
[2018-02-05 06:59] LABS: Basophils # (Auto) 0 K/mcL (0.0-0.3); Basophils % (Auto) 0 % (0.0-2.0); Eosinophils # (Auto) 0 K/mcL (0.0-0.7); Eosinophils % (Auto) 0 % (0.0-7.0); Granulocytes % (Auto) 89.4 % (38.0-78.0); Lymphocytes # (Auto) 0.4 K/mcL (1.5-4.8); Lymphocytes % (Auto) 4.4 % (15.5-49.0); Mean Corpuscular HGB Conc 33.4 g/dL (31.0-36.0); Monocytes # (Auto) 0.6 K/mcL (0.1-0.9); Monocytes % (Auto) 6.2 % (1.0-12.0); Platelet Count 349 K/mcL (140-440); RBC 3.54 M/mcL (4.50-5.90); Red Cell Distribution Width 14.4 % (11.5-14.5)
[2018-02-05] MEDS: MOMETASONE INH SCH ×2 (07:24→20:17)
[2018-02-05] MEDS: FORMOTEROL INH SCH ×2 (07:24→20:17)
[2018-02-05] MEDS: TIOTROPIUM BROMIDE 18 MCG INHALANT INH SCH (07:25)
[2018-02-05 07:42] LABS: ALT/SGPT < 5 U/l (0-40); Albumin 3.1 gm/dL (3.2-5.2); Albumin/Globulin Ratio 1.3 (1.0-2.3); Alkaline Phosphatase 98 U/L (39-117); Bilirubin,Direct < 0.2 mg/dL (0.0-0.3); Blood Urea Nitrogen 39 mg/dl (8-23); Gamma Glutamyl Transpeptidase 15 U/L (8-61); Uric Acid 5.4 mg/dL (2.5-8.0)
[2018-02-05] MEDS ORDERED: POLYETHYLENE GLYCOL 3350 17 GM PACKET PO ONE (08:09)
[2018-02-05] MEDS: predniSONE 20 MG TABLET PO SCH (08:27)
[2018-02-05] MEDS: FERROUS GLUCONATE 324 MG TABLET PO SCH (08:28)
[2018-02-05] MEDS: 0.9 % SODIUM CHLORIDE 10 ML SYRINGE IV SCH ×3 (08:28→20:16)
[2018-02-05] MEDS: amLODIPine 5 MG TABLET PO SCH (08:28)
[2018-02-05] MEDS: DOCUSATE SODIUM 100 MG CAPSULE PO SCH ×2 (08:28→20:16)
[2018-02-05] MEDS: FLUoxetine HCL 20 MG CAPSULE PO SCH ×2 (08:29→20:16)
[2018-02-05] MEDS: FAMOTIDINE 20 MG TABLET PO SCH ×2 (08:29→20:16)
[2018-02-05] MEDS: CYANOCOBALAMIN (VITAMIN B-12) 500 MCG TABLET PO SCH (08:29)
[2018-02-05] MEDS: VITAMIN D3 1,000 UNIT TABLET PO SCH (08:31)
[2018-02-05] MEDS: AMPICILLIN SODIUM 1 GM in 0.9 % SODIUM CHLORIDE 50 ML IV SCH ×2 (08:41→20:15)
[2018-02-05] MEDS: ABIRATERONE 1000 MG PO SCH (08:42)
[2018-02-05] MEDS: NICOTINE 14 MG PATCH TOPICAL SCH (10:43)
--- NOTE | 2018-02-05 10:43 | Internal Med Progress Note ---
Medical - PN: Subj Patient information: Note initiated : 02/05/18 at 10:40 am Service Date, if different from initiated Date: [] Patient: Orlando Valdivia 77 y/o M admitted on 01/29/18 for Cystoscopy w/ Bilateral Stent Placement. Chief Complaint: [] Interval history: Patient states he feels anxious about the surgery - and the fact that it may not be successful. Otherwise, he is again vague in his complaints. No new shortness of breath. No abdominal pain, no chest pain (despite extensive rib mets). Cystoscopy with attempt at stent placement is planned for noon today, he has been NPO, calcium has corrected to close to normal. If unsuccessful, he will need to be transferred to [facility] for percutaneous tubes. 6/2 Pt seen examined, he had a failed cystoscopy yesterday, plan for percutaneous nephrostomy tubes, which were placed today, post op he was tachycardic and confused, effect of anesthesia CXR shows increased congestion in lungs, also ahs prolonged exp phase, IV lasix, given, abg reviewed, ph 7.32, pco2 50, on duonebs, and IV steroids ( started), should improved as narcotic wear off. / Pt seen examined, this AM doing quite well, mental status much better, no sob, no chest pain able to sit up and eat some breakfast. erna nephrostomy tubes draining well, urine clearing now. renal function still elevated, but K is improved anticipate some improvement in renal function urine culture positive for enterococcus, penicillin sensitive, started on ampicillin 500 bid for now xfer to med surg status hb dropped to 7.5, after procedure yesterday, urine is clear, monitor for now. / Pt seen examined, lying comfortably in the bed, no acute complaints or concerns he feels tired, did not sleep well last night, he notes he also has some hiccups his hb dropped to 6.9 from 7.5 yesterday, also has low mg and K he will get 2 units of prbc today, his lytes to be replaced he is making good amounts of urine now, which is pinkish in color Radiology plans to check the left nephrostomy tube to ensure its correctly positioned patient did have some bleeding in the nephrostomy site as per the nurse. 02/04 pt seen examined, no acute overnight issues, patient right nephrostomy tube was out of place, not draining urine yesterday Dr Garrett tried to reposition the tube, but was unable to do the procedure, note does not have much time on had to complete the procedure. Given that the patients creat uptrended from yesterday, I discussed the case with Dr Flores, who noted it would be useful to have both the tubes in, I spoke with Dr Pino who gracefully accepted to give a try to see if he is able to place a nephrostomy tube on the right side. Patient is agreeable to be transferred for the procedure. He will return back to the hospital after the procedure is done. Hb is stable, platlets are stable. I reviewed with him again the goals of care and he wishes to remain full code. 02/05 Patient seen and examined, yesterday Dr. Pino was able to successfully pu right- sided nephrostomy tube, this is draining adequately. The patient does not have pain anymore. Creatinine is down to 1.9. Patient is significantly constipated has not had a bowel movement for a while. Otherwise denies any complaints. He has not been able to ambulate well so far. Goals of care today are to encourage ambulation. Stool softeners and possibly an enema to help him move his bowels. Plan for discharge tomorrow either home or rehab depending upon his ability to ambulate. Pertinent ROS: Denies headache, dizziness Denies chest pain, palpitations Denies cough or shortness of breath Denies abdominal pain, nausea or vomiting. - Constitutional Vitals: Vital Signs Temp Pulse Resp BP Pulse Ox 98.7 F 77 18 139/82 96 02/05/18 08:00 02/05/18 07:25 02/05/18 08:00 02/05/18 08:00 02/05/18 08:00 Period Temp Pulse Resp BP Sys/Romo Pulse Ox Last 24 Hr 97.2 F-98.9 F 75-111 16-24 107-161/68-104 88-99 Intake and Output 02/04/18 02/05/18 02/05/18 21:59 05:59 13:59 Intake Total 400 / 400 220 / 220 120 / 120 Output Total 980 / 980 575 / 575 Balance -580 / -580 -355 / -355 120 / 120 Weight 117 lb Intake & Output: Intake & Output 02/04/18 02/05/18 02/05/18 21:59 05:59 13:59 Intake Total 400 / 400 220 / 220 120 / 120 Output Total 980 / 980 575 / 575 Balance -580 / -580 -355 / -355 120 / 120 Weight 117 lb Intake: IV 50 / 50 Ampicillin 1 gm In Sodium 50 / 50 Chloride 0.9% 50 ml @ 100 mls/ hr IV Q12H [facility] Rx#:[id number] Oral 350 / 350 220 / 220 120 / 120 Output: Drainage 980 / 980 575 / 575 left nephrostomy 430 / 430 225 / 225 right nephrostomy 550 / 550 350 / 350 Exam: Constitutional; Afebrile, cooperative, alert, not in distress. Eyes- No icterus, , No periorbital swelling Ears- Ext ear normal, hearing normal to conversation. Neck- Midline trachea, supple Respiratory system: Air Entry equal on both sides, No crackles or wheezing, no rhonchi. CVS- Rate rhythm regular, S1,S2 heard, no gallop, no rub. 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 Medical - PN: Obj Da - Labs CBC & Chem 7: 02/05/18 05:00 02/05/18 05:00 Labs: Abnormal Lab Results 02/05/18 02/05/18 02/04/18 05:00 05:00 05:16 WBC RBC 3.54 L Hgb 10.6 L Hct 31.9 L RDW Plt Count Gran % 89.4 H Lymph % (Auto) 4.4 L Gran # 8.3 H Lymph # (Auto) 0.4 L Chloride 94 L Carbon Dioxide 36 H 34 H BUN 39 H 44 H Creatinine 1.9 H 2.7 H Glucose 112 H Calcium 10.6 H 11.0 H Phosphorus 4.6 H Alkaline Phosphatase 120 H Lactate Dehydrogenase 276 H Total Protein 5.5 L Albumin 3.1 L 02/04/18 02/03/18 02/03/18 05:16 16:38 04:00 WBC 11.1 H RBC 4.08 L Hgb 12.1 L 11.0 L Hct 36.4 L 33.2 L RDW 15.3 H Plt Count 467 H Gran % 89.0 H Lymph % (Auto) 4.4 L Gran # 9.9 H Lymph # (Auto) 0.5 L Chloride Carbon Dioxide 33 H BUN 37 H Creatinine 2.4 H Glucose 125 H Calcium Phosphorus Alkaline Phosphatase Lactate Dehydrogenase Total Protein 5.3 L Albumin 2.9 L 02/03/18 04:00 WBC RBC 2.32 L Hgb 6.9 L* Hct 20.7 L* RDW Plt Count Gran % 90.9 H Lymph % (Auto) 2.9 L Gran # 8.1 H Lymph # (Auto) 0.3 L Chloride Carbon Dioxide BUN Creatinine Glucose Calcium Phosphorus Alkaline Phosphatase Lactate Dehydrogenase Total Protein Albumin Meds: Medications Acetaminophen (Tylenol) 650 mg PO Q6HP PRN PRN Reason: PAIN/FEVER > 101 Last Admin: 02/04/18 11:29 Dose: 650 mg Albuterol Sulfate (Ventolin) 2 puff INH Q4-6H PRN PRN Reason: bronchospasm Albuterol/Ipratropium (Duoneb) 3 ml NEB Q6HRT [facility] Last Admin: 02/05/18 07:43 Dose: Not Given Amlodipine Besylate (Norvasc) 5 mg PO DAILY [facility] Last Admin: 02/05/18 08:28 Dose: 5 mg Cyanocobalamin (Vitamin B-12) 250 mcg PO DAILY [facility] Last Admin: 02/05/18 08:29 Dose: 250 mcg Dextrose (Dextrose 50%) 0 ml IV UD PRN PRN Reason: Hypoglycemia Docusate Sodium (Colace) 100 mg PO BID [facility] Last Admin: 02/05/18 08:28 Dose: 100 mg Famotidine (Pepcid) 20 mg PO BID [facility] Last Admin: 02/05/18 08:29 Dose: 20 mg Ferrous Gluconate (Fergon) 324 mg PO DAILY [facility] Last Admin: 02/05/18 08:28 Dose: 324 mg Fluoxetine HCl (Prozac) 20 mg PO BID [facility] Last Admin: 02/05/18 08:29 Dose: 20 mg Hydralazine HCl (Apresoline) 10 mg IV Q4-6HP PRN PRN Reason: Hypertension Last Admin: 02/04/18 11:30 Dose: 10 mg Ampicillin Sodium 1 gm/ Sodium (Chloride) 50 mls @ 100 mls/hr IV Q12H [facility] Last Admin: 02/05/18 08:41 Dose: 100 mls/hr Nicotine (Nicoderm) 14 mg TOPICAL DAILY@1000 [facility] Last Admin: 02/04/18 11:30 Dose: 14 mg Oxycodone HCl (Roxicodone) 5 mg PO Q4HP PRN PRN Reason: PAIN LEVEL 3-6 Last Admin: 02/04/18 08:42 Dose: 5 mg Abiraterone [Zytiga] (1,000 Mg Tab) 1 dose PO DAILY [facility] Last Admin: 02/05/18 08:42 Dose: 1 dose Mometasone/Formoterol [Dulera] 200/5 Mcg Inhaler 2 dose INH BID [facility] Last Admin: 02/05/18 07:24 Dose: 2 dose Prednisone (Prednisone) 40 mg PO [facility] Stop: 02/06/18 07:59 Last Admin: 02/05/18 08:27 Dose: 40 mg Simvastatin (Zocor) 40 mg PO QPM [facility] Last Admin: 02/04/18 21:16 Dose: 40 mg Sodium Chloride (Saline Flush) 10 ml IV Q8 [facility] Last Admin: 02/05/18 08:28 Dose: 10 ml Tiotropium [place] (Spiriva) 18 mcg INH QDAY [facility] Last Admin: 02/05/18 07:25 Dose: 1 dose Vitamin D (Vitamin D3) 1,000 unit PO DAILY [facility] Last Admin: 02/05/18 08:31 Dose: 1,000 unit Medical - PN: A/P - Time Spent With Patient Total time spent is greater than 50% in coordination of care (as documented) at patient's floor/unit and/or counseling patient: - Narrative A/P Narrative: Acute renal failure -due to obstruction, creat now at 1.9, erna nephrostomy tubes in place COPD exacerbation, no wheeze, on exam, continue duonebs q6h, Enterococcus UTI: penicillin sensitive, on IV ampicillin, Hypocalcemia/hypophosphatemia -resolved . Hypertension - stable on amlodipine, prn hydralazine. Anemia: Multifactorial, anemia of acute blood loss (recent procedure and hematiuria) , CKD as well as malignancy, on SCD, s/p 2 units xfusion, hb stable. still noted pinkish urine, Metastatic prostate cancer - denies pain. Complicated by mass obstructing urinary outlet with resultant uropathy. Anorexia with poor po intake - malignancy, depression both factors. encourage good oral intake. appetite seems to be improving. Active grieving - not interested in support or medications at present. Will approach again in a day or two.( recently) Tobacco use disorder - continues to smoke (with O2 at home). Advice to quit likely a moot point at present. Suspect discussions about goals of care more appropriate and if quality of life at this time includes tobacco use, the issue becomes one of safety with the oxygen. Add patch here - he smokes about 1/4 pack per day, 14 mg patch should suffice. DVT SCD Renal diet. Full code Medical - PN: Qual - VTE Deep Vein Thrombosis/Pulmonary Embolism Present on Admission: No
[2018-02-05] MEDS ORDERED: MINERAL OIL 1 DOSE ENEMA PR ONE (11:22)
--- NOTE | 2018-02-05 15:17 | Nephrology Progress Note ---
Subjective Patient information: Note initiated : 02/05/18 at 3:14 pm Service Date, if different from initiated Date: [] Patient: Orlando Valdivia 77 y/o M admitted on 01/29/18 for Cystoscopy w/ Bilateral Stent Placement. Chief Complaint: [] Principal diagnosis: acute renal failure Interval history: nephrostomy on right side needed to be redone as was dislodged yday c/o constipation no other issues appetite much improved denies SOB, CP no edema noted to have poor fluid intake Pertinent ROS: as above Objective - Vital Signs Vital signs: Vital Signs Temp Pulse Pulse Resp BP BP Pulse Ox 02/05/18 13:32 90 18 02/05/18 12:00 98.3 F 90 18 126/81 97 02/05/18 08:00 98.7 F 18 139/82 96 02/05/18 07:25 77 18 02/05/18 03:45 98.5 F 85 16 146/90 98 02/05/18 00:15 98.6 F 75 16 152/84 97 02/04/18 19:47 92 H 16 02/04/18 18:38 97.2 F 86 20 127/72 93 02/04/18 16:30 98.9 F 105 H 18 107/76 97 02/04/18 16:00 107 H 20 117/79 97 02/04/18 15:15 111 H 18 156/68 98 Intake and Output 02/05/18 02/05/18 02/05/18 05:59 13:59 21:59 Intake Total 220 / 220 1090 / 1090 Output Total 575 / 575 480 / 480 Balance -355 / -355 610 / 610 Intake: IV 50 / 50 Ampicillin 1 gm In Sodium 50 / 50 Chloride 0.9% 50 ml @ 100 mls/ hr IV Q12H [facility] Rx#:[id number] Oral 220 / 220 1040 / 1040 Output: Drainage 575 / 575 480 / 480 left nephrostomy 225 / 225 240 / 240 right nephrostomy 350 / 350 240 / 240 Other: Meal Breakfast Percent of Meal Consumed 100% Feeding Ability Independent # Voids 1 Intake & Output: Intake & Output 02/05/18 02/05/18 02/05/18 05:59 13:59 21:59 Intake Total 220 / 220 1090 / 1090 Output Total 575 / 575 480 / 480 Balance -355 / -355 610 / 610 Intake: IV 50 / 50 Ampicillin 1 gm In Sodium 50 / 50 Chloride 0.9% 50 ml @ 100 mls/ hr IV Q12H [facility] Rx#:[id number] Oral 220 / 220 1040 / 1040 Output: Drainage 575 / 575 480 / 480 left nephrostomy 225 / 225 240 / 240 right nephrostomy 350 / 350 240 / 240 Other: Meal Breakfast Percent of Meal Consumed 100% Feeding Ability Independent # Voids 1 - General Appearance General appearance: appears started age, frail EENT: mucous membranes moist Neck: no JVD Respiratory: clear Cardiology: no rub, no edema, regular rate, regular rhythm Gastrointestinal: no tenderness, no guarding Integumentary: warm and dry Neurologic: alert and oriented x3 Musculoskeletal: no erythema, no cyanosis Psychiatric: mood/affect appropriate - Lab 02/05/18 05:00 02/05/18 05:00 Most recent lab results Calcium 10.6 mg/dl (8.6-10.4) H 02/05/18 05:00 Phosphorus 4.6 mg/dL (2.7-4.5) H 02/05/18 05:00 Magnesium 1.7 mg/dL (1.6-2.5) 02/05/18 05:00 Assessment and Plan (1) Acute kidney failure acute renal failure baseline s.creatinine is 0.8-0.9 s.creat down to 1.9 from 3.6 renal US shows moderate hydronephrosis s/p nephrostomy with improvement in his renal function UA with no significant proteinuria and hematuria HTN: BP seems to be fluctuating for now malnutrition: patient has not been eating well, his albumin is 2.8 ct nepro Anemia from renal failure, iron deficiency, ct oral iron, s/p prbc transfusion secondary hyperparathyroidism with elevated PTH, calcium trending up at this time, calcitriol, calcium supplements and phos binders stopped, phos level normal findings discussed with the patient requested patient to improve water intake as clinically looks volume depleted hold acei on discharge, ct amlodipine no need for phos binders or calcitriol on discharge, would just keep him on low dose cholecalciferol will follow in a week post hospital discharge to ensure stable/improving renal function Thank you for giving me an opportunity to participate in Mr Valdivia's medical care, appreciate it Status: Acute Priority: High Qualifiers: Acute renal failure type: unspecified Qualified Code(s): N17.9 - Acute kidney failure, unspecified (2) Hypertension, essential, benign Status: Chronic Comment: 1992 (3) Anemia Status: Acute (4) Malnutrition Status: Acute
[2018-02-05] MEDS: SIMVASTATIN 20 MG TABLET PO SCH (20:25)
[2018-02-06] MEDS: IPRATROPIUM/ALBUTEROL 3 ML AMPUL.NEB NEB SCH ×3 (00:11→14:03)
[2018-02-06 05:39] LABS: Basophils # (Auto) 0 K/mcL (0.0-0.3); Basophils % (Auto) 0 % (0.0-2.0); Eosinophils # (Auto) 0 K/mcL (0.0-0.7); Eosinophils % (Auto) 0.2 % (0.0-7.0); Granulocytes % (Auto) 85.3 % (38.0-78.0); Lymphocytes # (Auto) 0.7 K/mcL (1.5-4.8); Lymphocytes % (Auto) 7.5 % (15.5-49.0); Mean Cell Volume 90.8 fL (80.0-100.0); Mean Corpuscular HGB Conc 32.8 g/dL (31.0-36.0); Mean Corpuscular Hemoglobin 29.8 pg (26.0-34.0); Monocytes # (Auto) 0.6 K/mcL (0.1-0.9); Platelet Count 320 K/mcL (140-440); RBC 3.46 M/mcL (4.50-5.90); Red Cell Distribution Width 14.6 % (11.5-14.5)
[2018-02-06 06:13] LABS: ALT/SGPT 6 U/l (0-40); Albumin 2.9 gm/dL (3.2-5.2); Albumin/Globulin Ratio 1.3 (1.0-2.3); Alkaline Phosphatase 98 U/L (39-117); Bilirubin,Direct < 0.2 mg/dL (0.0-0.3); Blood Urea Nitrogen 35 mg/dl (8-23); Gamma Glutamyl Transpeptidase 16 U/L (8-61); Uric Acid 3.3 mg/dL (2.5-8.0)
[2018-02-06] MEDS: 0.9 % SODIUM CHLORIDE 10 ML SYRINGE IV SCH (06:47)
[2018-02-06] MEDS: TIOTROPIUM BROMIDE 18 MCG INHALANT INH SCH (07:36)
[2018-02-06] MEDS: AMPICILLIN SODIUM 1 GM in 0.9 % SODIUM CHLORIDE 50 ML IV SCH (09:30)
[2018-02-06] MEDS: VITAMIN D3 1,000 UNIT TABLET PO SCH (10:44)
[2018-02-06] MEDS: amLODIPine 5 MG TABLET PO SCH (10:44)
[2018-02-06] MEDS: CYANOCOBALAMIN (VITAMIN B-12) 500 MCG TABLET PO SCH (10:44)
[2018-02-06] MEDS: FERROUS GLUCONATE 324 MG TABLET PO SCH (10:44)
[2018-02-06] MEDS: DOCUSATE SODIUM 100 MG CAPSULE PO SCH (10:44)
[2018-02-06] MEDS: ABIRATERONE 1000 MG PO SCH (10:45)
[2018-02-06] MEDS: FLUoxetine HCL 20 MG CAPSULE PO SCH (10:45)
[2018-02-06] MEDS: NICOTINE 14 MG PATCH TOPICAL SCH (10:46)
[2018-02-06] MEDS: FAMOTIDINE 20 MG TABLET PO SCH (10:47)
[2018-02-06] MEDS: FORMOTEROL INH SCH (10:53)
[2018-02-06] MEDS: MOMETASONE INH SCH (10:53)
[2018-02-06] MEDS ORDERED: POLYETHYLENE GLYCOL 3350 17 GM PACKET PO SCH (11:00)
--- NOTE | 2018-02-06 12:45 | Discharge Summary ---
Medical - DS: Prov Patient information: Note initiated : 02/06/18 at 12:43 pm Service Date, if different from initiated Date: [] Patient: Orlando Valdivia 77 y/o M admitted on 01/29/18 for Cystoscopy w/ Bilateral Stent Placement. Chief Complaint: [] Date of admission: 01/29/18 16:15 Discharge date: 02/06/18 Primary care physician: Amberly Velasco Consults: 01/29/18 17:13 Consult to Physician [CONS] Routine Comment: Acute renal failure / hypocalcemia / phos pending Consulting Provider: Herb Perez Reason For Exam: Physician to Consult 01/30/18 14:22 Consult to Physician [CONS] Routine Comment: Consulting Provider: Seth Flores Reason For Exam: Physician to Consult Discharging clinician: Homero Torres Medical - DS: Meds - Discharge Medications Active and Home Medications: Home Medications multivitamin tablet 1 tab PO QDAY tab 03/21/15 [History Confirmed 01/29/18 Last Taken 12/14/17] levetiracetam 500 mg tablet 500 mg PO BID 90 Days #180 04/28/15 [History Confirmed 01/29/18 Last Taken 12/14/17] albuterol sulfate HFA 90 mcg/actuation aerosol inhaler 2 puff INHALATION Q4-6H PRN #18 g 05/09/17 [Rx Confirmed 01/29/18 Last Taken 12/15/17] simvastatin 20 mg tablet 40 mg PO QPM #60 tab 05/09/17 [Rx Confirmed 01/29/18 Last Taken 11/21/17 21:00] tiotropium bromide 18 mcg capsule with inhalation device 1 cap INHALATION QDAY # 30 puff 05/09/17 [Rx Confirmed 01/29/18 Last Taken 11/22/17 09:00] Calcium Carbonate/Vitamin D3 [Calcium 600 + Vit D Tablet] 1 tab PO DAILY [History Confirmed 01/29/18 Last Taken 12/14/17] FLUoxetine HCL [Sarafem] 20 mg PO BID 11/22/17 [History Confirmed 01/29/18 Last Taken 12/11/17] Abiraterone Acetate [Zytiga] 1,000 mg PO DAILY 12/17/17 [History Confirmed 01/29 Last Taken Unknown] Cyanocobalamin (Vitamin B-12) [Vitamin B-12] 250 mcg PO DAILY 12/17/17 [History Confirmed 01/29/18 Last Taken Unknown] Mometasone/Formoterol [Dulera 200 Mcg/5 Mcg Inhaler] 2 puff IH BID 12/19/17 [ History Confirmed 01/29/18 Last Taken Unknown] Cholecalciferol (Vitamin D3) [Vitamin D3] 1,000 unit PO DAILY 12/24/17 [History Confirmed 01/29/18 Last Taken Unknown] Pantoprazole [Protonix] 40 mg PO BIDAC #60 tab 12/27/17 [Rx Confirmed 01/29/18 Last Taken Unknown] lisinopril 10 mg tablet 10 mg PO QDAY #90 tab 01/28/18 [Rx Confirmed 01/29/18 Last Taken Unknown] Medical - DS: Hosp Hospital course: Mr. Valdivia is a 77 year old M with medical history significant for prostate cancer with bony mets (last PSA >88, has been prescribed Zytiga, unclear if he takes it), oxygen dependent COPD, recent hospital admission December 2017 for generalized weakness felt to be due to HCAP, discharged December 27. He follows with Bert Velasco, and was seen yesterday. She notes a 4 pound weight loss since his previous visit three weeks earlier. His blood pressure was up, so labs were drawn and he was started on Lisinopril. The labwork came back today with normokalemic acute renal failure. He was also noted to be severely hypocalcemic , phosphorus pending at the time of this writing. He was referred to the emergency department for evaluation. He had not yet taken lisinopril. he was admitted to the hospital with these complaints Acute renal failure: Secondary to erna hydronephrosis/ post obstructive renal failure, due to prostate cancer, bladder masses, patient wishes to be full code and wants aggresive treatment. Patient was seen by Dr Flores, cystoscopy done to see if we could place stents, which was not successful given the tumors. The patient underwent bilateral percutaneous stent placemnt by Dr Garrett, the patient right side got displaced, Dr Garrett was unable to get the right side back in. Dr Pino at [facility] eventually got the stents in, both stents are now functional draining pinkish urine. Creat at the time of discharge is 1.3 Enterococcus UTI: Sensitive to penicillin, on ampicillin, plan for total 10 day course. Anemia: Multifactorial, did drop as low as 6.9, 2 units xfusiong given, hb has remained around 10 and has been stable for last 3 days. HTN: Was started on lisinopril, but given renal failure, I think amlodpine would be better Electrolyte issues/ low calcium, high phosphorus: Improved with improving renal function Constipation: Pt is struggling with constipatio, enema has not worked, plan to use aggresive bowel regime, and enema to help patient overall prognosis remains poor, he wishes to be full code and wanting aggresive inteventions. At this time the patient cannot be safely discharged back home. He is unable to care for him self given the nephrosotmy tubes not is strong enough to go home. He is not being accepted as a NH patient due to his active chemo regime, the costs of which intermediate are not willing to bear. The patient will be discharged to swing bed status. Discharge diagnosis: Post obstructive renal failure. - Time Spent with Patient Total time spent providing and/or coordinating discharge services: Greater than 30 minutes Medical - DS: Exam - Constitutional Vitals: Vital Signs Temp Pulse Pulse Resp BP Pulse Ox 02/06/18 08:00 98.8 F 16 145/82 99 02/06/18 07:37 68 16 92 02/06/18 06:49 72 02/06/18 03:30 97.9 F 79 16 146/89 93 02/06/18 00:10 97.8 F 72 20 139/80 98 02/05/18 20:00 98.8 F 84 24 H 119/74 96 02/05/18 19:09 89 18 94 02/05/18 16:00 98.5 F 81 18 123/84 96 02/05/18 13:32 90 18 Intake and Output 02/05/18 02/06/18 02/06/18 21:59 05:59 13:59 Intake Total 170 / 170 150 / 150 290 / 290 Output Total 725 / 725 675 / 675 400 / 400 Balance -555 / -555 -525 / -525 -110 / -110 Intake: IV 50 / 50 50 / 50 Ampicillin 1 gm In Sodium 50 / 50 50 / 50 Chloride 0.9% 50 ml @ 100 mls/ hr IV Q12H [facility] Rx#:[id number] Oral 120 / 120 150 / 150 240 / 240 Output: Drainage 725 / 725 675 / 675 left nephrostomy 325 / 325 300 / 300 right nephrostomy 400 / 400 375 / 375 Void Amount 400 / 400 Other: Meal 2x ice cream cups Ice cream 1 cup Breakfast Percent of Meal Consumed 100% 100% 100% Feeding Ability Independent Independent Independent Weight 117 lb 8 oz Additional comments: Constitutional; Afebrile, cooperative, alert, not in distress. Eyes- No icterus, , No periorbital swelling Ears- Ext ear normal, hearing normal to conversation. Neck- Midline trachea, supple Respiratory system: Air Entry equal on both sides, No crackles or wheezing, no rhonchi. CVS- Rate rhythm regular, S1,S2 heard, no gallop, no rub. Abdomen- Soft nontender abdomen, no organomegaly, no tenderness, no guarding or rigidity, [employer]- AOOx3, moving all extremities, no gross focal deficit noted. Medical - DS: Data Labs on day of discharge: Labs from last 24 hours 02/06/18 02/06/18 04:39 04:39 WBC 8.7 RBC 3.46 L Hgb 10.3 L Hct 31.5 L MCV 90.8 MCH 29.8 MCHC 32.8 RDW 14.6 H Plt Count 320 MPV 7.9 Gran % 85.3 H Lymph % (Auto) 7.5 L Bland % (Auto) 7.0 Eos % (Auto) 0.2 Baso % (Auto) 0 Gran # 7.5 Lymph # (Auto) 0.7 L Bland # (Auto) 0.6 Eos # (Auto) 0 Baso # (Auto) 0 Sodium 137 Potassium 3.6 Chloride 93 L Carbon Dioxide 36 H Anion Gap 8.0 BUN 35 H Creatinine 1.3 H GFR Calculation 53 Glucose 116 H Uric Acid 3.3 Calcium 8.9 Phosphorus 3.4 Magnesium 1.5 L Total Bilirubin 0.4 Direct Bilirubin < 0.2 GGT 16 AST 17 ALT 6 Alkaline Phosphatase 98 Lactate Dehydrogenase 235 Total Protein 5.2 L Albumin 2.9 L Globulin 2.3 Albumin/Globulin Ratio 1.3 Triglycerides 97 Medical - DS: A/P - Patient/Caregiver Discharge Instructions Activity: wear oxygen at all times Diet: Regular Diet Additional Instructions: Pt being discharged to swing bed status - Follow up Plan Follow up with: Amberly Velasco, [facility] [employer] [Primary Care Provider] - Disposition: [facility] Swing Bed Prognosis: Fair Rehab Potential: Fair I certify that the patient requires SNF services: Yes Overall status at discharge: patient is progressing back to baseline Medical - DS: Qual - VTE Deep Vein Thrombosis/Pulmonary Embolism Present on Admission: No
--- NOTE | 2018-02-06 15:38 | XRay Report ---
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 No fracture identified. Distal end of a right ureteral stent is overlies the bladder. Both SI and hip joints are normal in width and alignment IMPRESSION: No fracture or posttraumatic change Interpreted and Authenticated by: Ludwin Niño 02/06/18
--- NOTE | 2018-02-08 12:42 | Cat Scan Report ---
CLINICAL INFORMATION: CT guided right nephrostomy tube placement. Previously placed right nephrostomy tube was pulled from the upper collecting system and requires replacement COMPARISON: None. Technique: Procedure risks including possibility of bleeding, infection, and bowel perforation were explained the patient. He understood and wished to proceed. He was medicated with Versed and fentanyl prior to and during the procedure please medication sheet for dosages. Total sedation time 20 minutes. With the patient in prone position, the inferior pole of the right kidney was first CT localized. Following targeting of the inferior calyx, the skin over this region was marked prepped and locally anesthetized to the level of renal capsule with 1% lidocaine using a 25-gauge needle. Unfortunately, the calyx could not be targeted accurately because the patient was agitated and could not suspend movement or respiration - even with sedation. The procedure was then aborted IMPRESSION: Placement of right nephrostomy tube unsuccessful due to patient's uncooperation. The procedure was terminated. Interpreted and Authenticated by: Ludwin Niño 02/08/18
== END 2018-02-06 15:12 | disposition other institution (70) | DRG 682 ==
LOC: ED 12:01 → ICU 16:15 → MEDSUR 02-02 16:00
PROVIDERS: ADMIT Family Medicine; ATTEND Internal Medicine